=== PATIENT | male | born 1950 | race Caucasian/White ===

== ENCOUNTER 2016-06-26 16:44 | Inpatient (IN) | payer MEDICARE, OTHER ==
[2016-06-26 16:53] VITALS: RESP 18
[2016-06-26] MEDS ORDERED: FAMOTIDINE 20 MG/2 ML VIAL IV STA (17:11)
[2016-06-26] MEDS ORDERED: SODIUM CHLORIDE 0.9% 1,000 ML IV STA (17:11)
[2016-06-26 17:39] LABS: Basophils # (A) 0.1 k/uL (0-0.2); Basophils % (A) 0 %; CHCM 35.1; Eosinophils # (A) 0.5 k/uL (0-0.7); Eosinophils % (A) 3 %; HCT 46.1 % (39.0-53.0); HDW 2.48; HGB 15.8 gm/dL (13.0-17.5); Luc # (Auto) 0.19; Luc % (Auto) 1; Lymphocytes # (A) 1.6 k/uL (1.0-4.8); Lymphocytes % (A) 9 %; MCH 32.4 pg (25.0-35.0); MCHC 34.4 g/dL (31.0-37.0); MCV 94.2 fL (80.0-100.0); Mean Platelet Volume 8.8; Monocytes # (A) 0.5 k/uL (0-1.0); Monocytes % (A) 3 %; Neutrophils # (A) 13.9 k/uL (1.3-7.7); Neutrophils % (A) 83 %; RBC 4.89 m/uL (4.30-5.90); RDW 13.1 % (11.5-15.5); WBC 16.7 k/uL (3.8-10.6); WBC (Perox) 16.58
--- NOTE | 2016-06-26 17:44 | XR ---
EXAMINATION TYPE: XR chest 2V DATE OF EXAM: 06/26/2016 5:33 PM COMPARISON: None HISTORY: 66-year-old male wheezing TECHNIQUE: PA and lateral views FINDINGS: Heart is normal size. Atherosclerotic arch calcifications. Pulmonary vasculature within normal limits . There are strandy areas of atelectasis in the lower lungs. Mild hyperinflation may relate to a dept h of inspiration or underlying emphysema. No consolidation or pleural effusion. IMPRESSION: Hyperinflation may relate to depth of inspiration or underlying emphysema. No acute cardiopulmonary p rocess.
[2016-06-26 17:48] LABS: ALT 32 U/L (21-72); AST 26 U/L (17-59); Alkaline Phosphatase 54 U/L (38-126); Anion Gap 12 mmol/L; Blood Urea Nitrogen 29 mg/dL (9-20); Calcium 8.5 mg/dL (8.4-10.2); Carbon Dioxide 20 mmol/L (22-30); Chloride 108 mmol/L (98-107); Glucose 136 mg/dL (74-99); Non-African American GFR(MDRD) 58 (>60 ml/min/1.73 sqM); Potassium 4.1 mmol/L (3.5-5.1); Sodium 140 mmol/L (137-145); Total Bilirubin 0.7 mg/dL (0.2-1.3)
--- NOTE | 2016-06-26 18:34 | ED ---
General Adult HPI - General Chief complaint: Allergic Reaction Stated complaint: allergic reaction Time Seen by Provider: 06/26/16 16:55 Source: patient, family, EMS, RN notes reviewed Mode of arrival: EMS Limitations: no limitations - History of Present Illness Initial comments: Chief complaint and history of present illness a 66-year-old male who at approximately 3 PM started having ALLERGIC reaction to an unknown substance. He's been ALLERGIC to in the past as a tree nut which she did not think he got anywhere near today. He is on lisinopril. Please never had an adverse reaction to it. He started having swelling to his lips his eyes and his hands, typical angioneurotic edema. He called his ex- who responded and found him with hives. She gave him 50 mg of Benadryl. Shortly thereafter she settled appears only had 2 seizures as difficult for her to get a pulse. He did come around. EMS then arrived and started an IV given Solu-Medrol. In emergency room is doing better. Alert and oriented. He's never had a seizure before. He was given Pepcid here in the ER. - Related Data Home Medications Medication Instructions Recorded Confirmed Atorvastatin [Lipitor] 10 mg PO DAILY 06/26/16 06/26/16 Furosemide [Lasix] 20 mg PO DAILY 06/26/16 06/26/16 Gabapentin 600 mg PO BID 06/26/16 06/26/16 Levothyroxine Sodium [Synthroid] 100 mcg PO DAILY 06/26/16 06/26/16 Lisinopril-Hctz 20-12.5 mg 1 tab PO BID 06/26/16 06/26/16 [Zestoretic 20-12.5] amLODIPine [Norvasc] 10 mg PO DAILY 06/26/16 06/26/16 metFORMIN HCL [Glucophage] 500 mg PO DAILY 06/26/16 06/26/16 Allergies Allergy/AdvReac Type Severity Reaction Status Date / Time No Known Allergies Allergy Unverified 06/26/16 16:53 Review of Systems ROS Statement: Those systems with pertinent positive or pertinent negative responses have been documented in the HPI. Review of systems currently still mildly swollen eyelids and lower lips and tongue never swelled. Hands feel full. His substance gone but his skin still red. No wheezing. Alert and oriented. No chest pain shortness breath GI/ problems this time. All systems are reviewed. Past medical problems significant for hyperlipidemia, hypertension and hypothyroidism. He has not had any surgeries. He has no known ALLERGIES other than tree nuts which she states reactive to once in the past but had nothing like that recently. He does take medication for his blood pressure, SHERRELL inhibitor. This may be delayed angioneurotic edema associated with that medication. The patient's quit smoking. And has quit drinking alcohol. ROS Other: All systems not noted in ROS Statement are negative. Past Medical History Past Medical History: Hyperlipidemia, Hypertension, Thyroid Disorder Additional Past Medical History / Comment(s): hypothyroid, neuropathy, borderline diabetic History of Any Multi-Drug Resistant Organisms: None Reported Past Surgical History: No Surgical Hx Reported Past Psychological History: No Psychological Hx Reported Smoking Status: Former smoker Past Alcohol Use History: Rare Past Drug Use History: None Reported General Exam - General Exam Comments Initial Comments: General: The patient is awake and alert, in no distress, and does not appear acutely ill. Patient had anaphylactic reaction became unconscious had 2 short seizures per his ex- who witnessed this. She gave him Benadryl just prior to his passing out. The redness in his subsided. He still has mild swelling to his upper lids and lower lip. Also some a sensation of fullness in his hands. Eye: Pupils are equal, round and reactive to light, extra-ocular movements are intact ; there is normal conjunctiva bilaterally. No signs of icterus. Eyelids mildly edematous but resolving. Ears, nose, mouth and throat: There are moist mucous membranes and no oral lesions. Tongue normal. Lower lip mildly swollen. Neck: The neck is supple, there is no tenderness , no stridor. No lymphadenopathy. Cardiovascular: There is a regular rate and rhythm. No murmur, rub or gallop is appreciated. Respiratory: Lungs are clear to auscultation, respirations are non-labored, breath sounds are equal. No wheezes, stridor, rales, or rhonchi. Gastrointestinal: Soft, non-distended, non-tender abdomen without masses or organomegaly noted. There is no rebound or guarding present. No CVA tenderness. Bowel sounds are unremarkable. Back: There is no tenderness to palpation in the midline. There is no obvious deformity. No rashes noted. Patient states his hands Musculoskeletal: Normal ROM, no tenderness, There is no pedal edema. There is no calf tenderness or swelling. Sensation intact. Pulses equal bilaterally 2+. Neurological: CN II-XII intact, There are no obvious motor or sensory deficits. Coordination appears grossly intact. Speech is normal. No focal or lateralizing findings Skin: Skin is warm and dry and no rashes or lesions are noted. Skin redness is resolving Limitations: no limitations Course Vital Signs 06/26/16 06/26/16 16:48 16:53 Temperature 97.1 F L Pulse Rate 76 Respiratory 18 18 Rate Blood Pressure 118/65 O2 Sat by Pulse 95 Oximetry Medical Decision Making - Medical Decision Making Medical decision making patient white count 16.7 hemoglobin 15 hematocrit of 46. Potassium is 4.1 BUN 29 creatinine 1.2 GFR 58. Glucose 136. Chest x-ray was done reviewed radiologist his impression is hyperinflation may relate to depth of inspiration or underlying emphysema. No acute cardiopulmonary process. As read by Dr. Marsh Patient's red skin has subsided. Patient's stable. Patient be admitted for observation for anaphylactic reaction. - Lab Data Result diagrams: 06/26/16 17:25 06/26/16 17:25 Lab Results 06/26/16 06/26/16 Range/Units 17:25 17:25 WBC 16.7 H (3.8-10.6) k/uL RBC 4.89 (4.30-5.90) m/uL Hgb 15.8 (13.0-17.5) gm/dL Hct 46.1 (39.0-53.0) % MCV 94.2 (80.0-100.0) fL MCH 32.4 (25.0-35.0) pg MCHC 34.4 (31.0-37.0) g/dL RDW 13.1 (11.5-15.5) % Plt Count 203 (150-450) k/uL Neutrophils % 83 % Lymphocytes % 9 % Monocytes % 3 % Eosinophils % 3 % Basophils % 0 % Neutrophils # 13.9 H (1.3-7.7) k/uL Lymphocytes # 1.6 (1.0-4.8) k/uL Monocytes # 0.5 (0-1.0) k/uL Eosinophils # 0.5 (0-0.7) k/uL Basophils # 0.1 (0-0.2) k/uL Sodium 140 (137-145) mmol/L Potassium 4.1 (3.5-5.1) mmol/L Chloride 108 H (98-107) mmol/L Carbon Dioxide 20 L (22-30) mmol/L Anion Gap 12 mmol/L BUN 29 H (9-20) mg/dL Creatinine 1.25 (0.66-1.25) mg/dL Est GFR (MDRD) Af Amer >60 (>60 ml/min/1.73 sqM) Est GFR (MDRD) Non-Af 58 (>60 ml/min/1.73 sqM) Glucose 136 H (74-99) mg/dL Calcium 8.5 (8.4-10.2) mg/dL Total Bilirubin 0.7 (0.2-1.3) mg/dL AST 26 (17-59) U/L ALT 32 (21-72) U/L Alkaline Phosphatase 54 (38-126) U/L Total Protein 6.0 L (6.3-8.2) g/dL Albumin 3.6 (3.5-5.0) g/dL Disposition Clinical Impression: Anaphylaxis, Angioedema Disposition: ADMITTED IP TO THIS [facility] Condition: Serious Referrals: David Rogel MD [Primary Care Provider] - 1-2 days
[2016-06-26] MEDS ORDERED: NALOXONE 0.4 MG/ML 1 ML VIAL IV PRN (18:35)
[2016-06-26] MEDS ORDERED: ACETAMINOPHEN TAB 325 MG TAB PO PRN (18:35)
[2016-06-26] MEDS: diphenhydrAMINE 50 MG/ML 1 ML VIAL IVP SCH ×2 (19:53→23:49)
[2016-06-26] MEDS: SODIUM CHLORIDE 0.9% 1,000 ML IV SCH (19:53)
[2016-06-26] MEDS: FAMOTIDINE 20 MG TAB PO SCH (20:00)
[2016-06-26] MEDS: GABAPENTIN 300 MG CAP PO SCH (20:00)
[2016-06-26 20:29] VITALS: BMI 29.8
[2016-06-26 23:57] LABS: Glucose,Whole Blood 171 mg/dL (75-99)
[2016-06-27] MEDS ORDERED: LEVOTHYROXINE 100 MCG TAB PO SCH (06:30)
[2016-06-27] MEDS: diphenhydrAMINE 50 MG/ML 1 ML VIAL IVP SCH ×2 (06:47→12:43)
[2016-06-27 06:53] LABS: Glucose,Whole Blood 150 mg/dL (75-99)
[2016-06-27] MEDS: GABAPENTIN 300 MG CAP PO SCH (08:09)
[2016-06-27] MEDS: SODIUM CHLORIDE 0.9% 1,000 ML IV SCH (08:09)
[2016-06-27] MEDS: FAMOTIDINE 20 MG TAB PO SCH (08:09)
[2016-06-27] MEDS ORDERED: FUROSEMIDE 20 MG TAB PO SCH (09:00)
[2016-06-27] MEDS ORDERED: ATORVASTATIN 10 MG TAB PO SCH (09:00)
[2016-06-27] MEDS ORDERED: amLODIPine 10 MG TAB PO SCH (09:00)
[2016-06-27] MEDS ORDERED: metFORMIN 500 MG TAB PO SCH (09:00)
[2016-06-27 09:08] VITALS: TEMP 97.9
[2016-06-27 12:07] LABS: Glucose,Whole Blood 116 mg/dL (75-99)
[2016-06-27 13:09] VITALS: BP 126/71; PULSE 91
[2016-06-27] MEDS ORDERED: diphenhydrAMINE 25 MG CAP PO SCH (15:00)
[2016-06-27] MEDS ORDERED: ENOXAPARIN 40 MG/0.4 ML SYRINGE SQ SCH (15:00)
[2016-06-27] MEDS ORDERED: predniSONE 20 MG TAB PO ONE (16:00)
--- NOTE | 2016-06-27 21:15 | HP ---
DATE OF ADMISSION: 06/26/2016 PRESENTING COMPLAINT: Hives. HISTORY OF PRESENTING COMPLAINT: This is a very pleasant 66-year-old patient of Dr. Rogel whose chronic stable medical conditions include diabetes, hypertension, peripheral neuropathy, GERD, varicose veins. Yesterday he was visiting his ex- when he noticed itching in the body, then his body broke out into hives. She did give him some Benadryl. His lips started swelling and patient started feeling funny in his throat and had some shaking episode. Patient was then brought into the ER here. He was given IV Solu-Medrol, Benadryl, to all of which he responded. Patient has been taking an SHERRELL inhibitor for quite some time; never had a problem before. He is not taking any new medications. No new diet. REVIEW OF SYSTEMS: CONSTITUTIONAL: Tired. HEENT: As above. RESPIRATORY: Mild wheezing. CARDIOVASCULAR: None. GASTROINTESTINAL: None. GENITOURINARY: None. MUSCULOSKELETAL: None. DERMATOLOGICAL: Varicose veins and hives. PSYCHIATRY: None. NEUROLOGICAL: Did have a shaking episode with ( ) reaction. PAST MEDICAL HISTORY: 1. Diabetes. 2. Hypertension. 3. Peripheral neuropathy. 4. GERD. 5. Varicose veins. PAST SURGICAL HISTORY: None. SOCIAL HISTORY: Lives alone. . Smoked for 30 years; stopped smoking 21 years ago. Takes a beer occasionally. FAMILY HISTORY: Stroke. HOME MEDICATIONS: 1. Glucophage 500 mg p.o. daily. 2. Norvasc 10 mg p.o. daily. 3. Zestoretic 20/12.5 one tablet b.i.d. 4. Synthroid 100 mcg p.o. daily. 5. Neurontin 600 mg p.o. b.i.d. 6. Lasix 20 mg p.o. daily. 7. Lipitor 10 mg p.o. daily. ALLERGIES: NONE. PHYSICAL EXAMINATION: VITAL SIGNS ON PRESENTATION: Temperature 97.1, pulse 76, respiration 18, blood pressure 118/65, pulse ox 95% on 2 L. GENERAL APPEARANCE: Well built; BMI of 31.1. Sitting up. Not in distress. EYES: Pupils equal. Conjunctivae normal. HEENT: External appearance of nose and ears normal. Oral cavity normal. NECK: JVD not raised. Mass not palpable. RESPIRATORY: Effort normal. LUNGS: Slightly decreased breath sounds. CARDIOVASCULAR: First and second sounds normal. No edema. ABDOMEN: Soft, nontender. Liver and spleen not palpable. LYMPHATIC: No lymph node palpable in neck or axillae. PSYCHIATRY: Alert and oriented x3. Mood and affect normal. NEUROLOGICAL: Pupils equal. Cranial nerves grossly intact. Power and sensation grossly intact. DERMATOLOGICAL: Hives actually improved. INVESTIGATIONS: White count 16.7, hemoglobin 15.8. Potassium 4.1. BUN 29, creatinine 1.25. ASSESSMENT: 1. Acute severe allergic reaction making the patient actually pass out. Cause is unclear, but patient is on SHERRELL inhibitor. 2. Diabetes mellitus, type 2, on oral hypoglycemic, probably causing peripheral neuropathy. 3. Essential hypertension. 4. Varicose veins in the right leg. 5. Gastroesophageal reflux disease. 6. Obesity; body mass index of 31.1. PLAN: Patient was treated with Benadryl, Pepcid, IV Solu-Medrol, to which he responded well. Home medications will be resumed. Will hold off patient's Zestoretic now. Care was discussed with the patient.
--- NOTE | 2016-06-28 11:41 | DS ---
DATE OF ADMISSION: 06/26/2016 DATE OF DISCHARGE: 06/27/2016 FINAL DIAGNOSES: 1. Acute severe angioedema/allergic reaction. 2. Diabetes mellitus, type 2, on oral hypoglycemics causing peripheral neuropathy. 3. Essential hypertension. 4. Gastroesophageal reflux disease. 5. Varicose veins in right lower extremity. 6. Obesity; body mass index of 31.1. HOSPITAL COURSE: This patient presented with severe allergic reaction with hives, nearly passing out, difficulty breathing. Responded well to the ( ) of Solu-Medrol, Pepcid, Benadryl. Doing much better at the time of discharge. Patient's SHERRELL inhibitor that he has been taking for a long time; has been discontinued. Since blood pressure is running a bit on the lower side, did not put on any antihypertensives except I added a water pill. On examination, LUNGS: Slightly decreased breath sounds. CARDIOVASCULAR: First and second seconds normal. Hives have improved. DISCHARGE MEDICATIONS: 1. Lipitor 10 mg a day. 2. Synthroid 100 mcg p.o. daily. 3. Glucophage 500 mg a day. 4. Chlorthalidone 25 mg a day. 5. Pepcid 20 mg b.i.d. for 6 tablets. 6. Gabapentin 300 mg b.i.d., dose was decreased. 7. Norvasc 10 mg p.o. q.h.s. 8. Benadryl 25 mg 4 times a day for 24 hours then p.r.n. 9. Prednisone 40 mg a day one, 30 mg day two, 20 mg a day three, 10 mg day four then stop. Follow up with Dr. Rogel on 06/29/16.
== END 2016-06-27 16:45 | disposition home or self-care (01) | DRG 916 ==
LOC: EC 16:44 → 6SEL 18:35
PROVIDERS: ADMIT Hospitalist; ATTEND Hospitalist
DX: T78.3XXA Angioneurotic edema, initial encounter (principal); E11.42 Type 2 diabetes mellitus with diabetic polyneuropathy; I10 Essential (primary) hypertension; K21.9 Gastro-esophageal reflux disease without esophagitis; E03.9 Hypothyroidism, unspecified; E78.5 Hyperlipidemia, unspecified; I83.91 Asymptomatic varicose veins of right lower extremity; E66.9 Obesity, unspecified; Z68.31 Body mass index [BMI] 31.0-31.9, adult; Z87.891 Personal history of nicotine dependence; Z79.84 Long term (current) use of oral hypoglycemic drugs; Z79.899 Other long term (current) drug therapy
CPT/HCPCS: 36415; 71020; 80053; 84484; 85025; 93005

== ENCOUNTER 2022-09-21 12:18 | Inpatient (IN) | payer MEDICARE, OTHER ==
[2022-09-21] MEDS ORDERED: SODIUM CHLORIDE 0.9% 1,000 ML IV STA (12:24)
--- NOTE | 2022-09-21 13:00 | ED ---
Weakness HPI - General Chief complaint: Weakness Stated complaint: Weakness Time Seen by Provider: 09/21/22 12:20 Source: patient, EMS, RN notes reviewed, old records reviewed Mode of arrival: EMS Limitations: no limitations - History of Present Illness Initial comments: This is a 72-year-old male to the emergency department for evaluation. Presents today for profound weakness. Patient has had a few days of not feeling well but is progressively worsened and his ex- and daughter went to bring them to the ex-'s house this is activity level has decreased recently. Patient was unable to get up out of bed for the last few days but progressively worsening. Patient was given go to family members house but was unable to make the trip secondary to weakness and inability to stand on his own 2 feet. Patient presents by family who provides most of the story he himself denies complaints of headache chest pain shortness of breath no abdominal pain. No recent fevers nausea vomiting diarrhea. Patient is normally in pretty good health and sp irits. Most recent hospitalization greater than 5 years ago. MD Complaint: generalized weakness, lack of energy, difficulty walking -: days(s) Location: generalized Severity: severe Severity scale (1-10): 9 Consistency: constant Improves with: none, evening Worsens with: none Context: recent illness, history of similar Associated Symptoms: denies other symptoms - Related Data Home Medications Medication Instructions Recorded Confirmed metFORMIN HCL [Glucophage] 1,000 mg PO BID 06/26/16 09/21/22 Acetaminophen Tab [Tylenol] 1,000 mg PO Q6HR PRN 09/21/22 09/21/22 Ascorbic Acid [Vitamin C] 1,000 mg PO DAILY 09/21/22 09/21/22 Aspirin EC [Ecotrin Low Dose] 81 mg PO DAILY 09/21/22 09/21/22 Calcium Acetate 667 mg PO BID-W/MEALS 09/21/22 09/21/22 Cholecalciferol [Vitamin D3 (125 125 mcg PO DAILY 09/21/22 09/21/22 Mcg = 5000 Iu)] Gabapentin [Neurontin] 100 mg PO BID 09/21/22 09/21/22 Gabapentin [Neurontin] 400 mg PO BID 09/21/22 09/21/22 Levothyroxine Sodium [Synthroid] 125 mcg PO HS 09/21/22 09/21/22 Multivitamins, Thera [Multivitamin 1 tab PO DAILY 09/21/22 09/21/22 (formulary)] allopurinoL [Zyloprim] 100 mg PO DAILY 09/21/22 09/21/22 amLODIPine [Norvasc] 10 mg PO HS 09/21/22 09/21/22 atenoloL [Tenormin] 25 mg PO DAILY 09/21/22 09/21/22 Previous Rx's Medication Instructions Recorded Chlorthalidone 25 mg PO DAILY #30 tab 06/27/16 Atorvastatin [Lipitor] 20 mg PO HS tab 09/27/22 Clopidogrel [Plavix] 75 mg PO DAILY tab 09/27/22 Docusate [Colace] 100 mg PO BID cap 09/27/22 Tamsulosin [Flomax] 0.4 mg PO PC-[id number] cap 09/27/22 Allergies Allergy/AdvReac Type Severity Reaction Status Date / Time No Known Allergies Allergy Verified 09/21/22 13:02 Review of Systems ROS Statement: Those systems with pertinent positive or pertinent negative responses have been documented in the HPI. ROS Other: All systems not noted in ROS Statement are negative. Past Medical History Past Medical History: Diabetes Mellitus, Hyperlipidemia, Hypertension, Thyroid Disorder Additional Past Medical History / Comment(s): hypothyroid, neuropathy, borderline diabetic- takes metformin, patient had bleeding ulcer in 1972, had open sore from poor circulation on right ankle- then had an infection (patient thinks staph). Patient says he recently had blood tests with his primary doctor that showed poor kidney function. Has consult to see for his kidneys coming up. History of Any Multi-Drug Resistant Organisms: None Reported Past Surgical History: No Surgical Hx Reported Past Anesthesia/Blood Transfusion Reactions: No Reported Reaction Past Psychological History: No Psychological Hx Reported Past Alcohol Use History: Occasional Past Drug Use History: None Reported - Past Family History Mother Additional Family Medical History / Comment(s): Mother at 94 from fall with complications of subdural hematoma and strokes. Father Family Medical History: CVA/TIA Additional Family Medical History / Comment(s): Father at age 84. Sister(s) Family Medical History: Cancer Additional Family Medical History / Comment(s): sister this past may at age 62 from bladder CA. General Exam Limitations: no limitations General appearance: alert, in no apparent distress Head exam: Present: atraumatic, normocephalic, normal inspection Eye exam: Present: normal appearance, PERRL, EOMI. Absent: scleral icterus, conjunctival injection, periorbital swelling ENT exam: Present: normal exam, mucous membranes moist Neck exam: Present: normal inspection. Absent: tenderness, meningismus, lymphadenopathy Respiratory exam: Present: normal lung sounds bilaterally. Absent: respiratory distress, wheezes, rales, rhonchi, stridor Cardiovascular Exam: Present: regular rate, normal rhythm, normal heart sounds. Absent: systolic murmur, diastolic murmur, rubs, gallop, clicks GI/Abdominal exam: Present: soft, normal bowel sounds. Absent: distended, tenderness, guarding, rebound, rigid Extremities exam: Present: normal inspection, full ROM, normal capillary refill. Absent: tenderness, pedal edema, joint swelling, calf tenderness Back exam: Present: normal inspection Neurological exam: Present: alert, oriented X3, CN II-XII intact Psychiatric exam: Present: normal affect, normal mood Skin exam: Present: warm, dry, intact, normal color. Absent: rash Course Vital Signs 09/21/22 09/21/22 09/21/22 12:35 14:00 14:30 Temperature 97.4 F L Pulse Rate 56 L 53 L 57 L Respiratory 18 14 14 Rate Blood Pressure 127/64 132/66 112/58 O2 Sat by Pulse 96 91 L 91 L Oximetry 09/21/22 09/21/22 09/21/22 15:00 15:30 16:00 Temperature Pulse Rate 55 L 55 L 57 L Respiratory 16 18 18 Rate Blood Pressure 109/55 111/58 113/62 O2 Sat by Pulse 91 L 91 L 92 L Oximetry 09/21/22 09/21/22 09/21/22 16:30 17:00 17:30 Temperature Pulse Rate 58 L 61 57 L Respiratory 15 17 18 Rate Blood Pressure 124/66 121/91 130/68 O2 Sat by Pulse 94 L 91 L 94 L Oximetry 09/21/22 09/21/22 09/21/22 18:00 18:30 19:00 Temperature Pulse Rate 60 64 67 Respiratory 18 20 20 Rate Blood Pressure 120/64 124/69 107/58 O2 Sat by Pulse 91 L 93 L 94 L Oximetry 09/21/22 20:00 Temperature Pulse Rate 67 Respiratory 18 Rate Blood Pressure 135/68 O2 Sat by Pulse 95 Oximetry - Reevaluation(s) Reevaluation #1: 09/21/22 13:05 Medical records reviewed Reevaluation #2: 09/21/22 13:05 Symptoms unchanged here in the ER Reevaluation #3: 09/21/22 13:05 Patient informed results questions answered Reevaluation #4: 09/21/22 13:00 Was pt. sent in by a medical professional or institution ([employer] Carballo, [employer], urgent care, hospital, or detention...) When possible be specific @ -no Did you speak to anyone other than the patient for history (EMS, parent, family, police, friend...)? What history was obtained from this source @ -no Did you review nursing and triage notes (agree or disagree)? Why? @ -agree Are old charts reviewed (outside hosp., previous admission, EMS record, old EKG, old radiological studies, urgent care reports/EKG's, detention records)? Report findings @ -yes Differential Diagnosis (chest pain, altered mental status, abdominal pain women, abdominal pain men, vaginal bleeding, weakness, fever, dyspnea, syncope, headache, dizziness, GI bleed, back pain, seizure, CVA, palpatations, mental health, musculoskeletal)? @ -prior EKG interpreted by me (3pts min.). @ -yes X-rays interpreted by me (1pt min.). @ -yes CT interpreted by me (1pt min.). @ -no U/S interpreted by me (1pt. min.). @ -no What testing was considered but not performed or refused? (CT, X-rays, U/S, labs)? Why? @ -none What meds were considered but not given or refused? Why? @ -none Did you discuss the management of the patient with other professionals (professionals i.e. [employer] Carballo, [employer], lab, RT, psych nurse, long term care social worker, backshoe person, teacher, credit or loans officer, director case management)? Give summary @ -no Was smoking cessation discussed for >3mins.? @ -no Was critical care preformed (if so, how long)? @ -no Were there social determinants of health that impacted care today? How? (Homelessness, low income, unemployed, alcoholism, drug addiction, transportation, low edu. Level, literacy, decrease access to med. care, group home, rehab)? @ -none Was there de-escalation of care discussed even if they declined (Discuss DNR or withdrawal of care, Hospice)? DNR status @ -no What co-morbidities impacted this encounter? (DM, HTN, Smoking, COPD, CAD, Cancer, CVA, ARF, Chemo, Hep., AIDS, mental health diagnosis, sleep apnea, morbid obesity)? @ -none Was patient admitted / discharged? Hospital course, mention meds given and route, prescriptions, significant lab abnormalities, going to OR and other pertinent info. @ - 72 male to the emergency department for evaluation of severe weakness significant urinary retention Berg catheter is placed likely urinary tract infection will give dose of antibiotics, await cultures. Still feeling weak here in the ER with no change in symptoms. Patient will be admitted severe weakness, IV antibiotics and evaluation of urinary retention Admitted Undiagnosed new problem with uncertain prognosis? @ -no Drug Therapy requiring intensive monitoring for toxicity (Heparin, Nitro, Insulin, Cardizem)? @ -no Were any procedures done? @ -no Diagnosis/symptom? @ -Weakness, debility Acute, or Chronic, or Acute on Chronic? @ -Acute Uncomplicated (without systemic symptoms) or Complicated (systemic symptoms)? @ -Complicated Side effects of treatment? @ -no Exacerbation, Progression, or Severe Exacerbation? @ -exacerbation Poses a threat to life or bodily function? How? (Chest pain, USA, SC, pneumonia, PE, COPD, DKA, ARF, appy, cholecystitis, CVA, Diverticulitis, Homicidal, Suicidal, threat to staff... and all critical care pts) @ -yes with severe debility and extreme of age Reevaluation #5: 09/21/22 13:00 Differential Weakness: Hypoglycemia, shock, sepsis, hyponatremia, anemia, infection, SC, ETOH, adverse medicine reaction, overdose, stroke, this is not meant to be an all-inclusive list. - Consultations Consultation #1: spoke with karen who agrees to admit this patient EKG Findings - EKG Comments: EKG Findings:: EKG is sinus bradycardia 57 IL 171 QRS 153 QTC 490 - EKG Results: EKG: interpreted by MUKESHD Medical Decision Making - Medical Decision Making 72 male to the emergency department for evaluation of severe weakness significant urinary retention Berg catheter is placed likely urinary tract infection will give dose of antibiotics, await cultures. Patient still with persistent weakness here in the ER, he admits to Still feeling weak here in the ER with no change in symptoms. Patient will be admitted severe weakness, IV antibiotics and evaluation of urinary retention - Lab Data Result diagrams: 09/22/22 07:05 09/24/22 10:43 Lab Results 09/21/22 09/21/22 09/21/22 Range/Units 12:46 12:46 12:46 WBC 13.5 H (3.8-10.6) k/uL RBC 4.76 (4.30-5.90) m/uL Hgb 15.7 (13.0-17.5) gm/dL Hct 44.3 (39.0-53.0) % MCV 93.2 (80.0-100.0) fL MCH 33.0 (25.0-35.0) pg MCHC 35.4 (31.0-37.0) g/dL RDW 13.3 (11.5-15.5) % Plt Count 181 (150-450) k/uL MPV 9.8 Immature Gran % (Auto) % Absolute Nucleated RBC % Neutrophils % 75 % Lymphocytes % 11 % Monocytes % 8 % Eosinophils % 4 % Basophils % 0 % Immature Gran # X 10*3/uL Neutrophils # 10.2 H (1.3-7.7) k/uL Lymphocytes # 1.5 (1.0-4.8) k/uL Monocytes # 1.1 H (0-1.0) k/uL Eosinophils # 0.5 (0-0.7) k/uL Basophils # 0.0 (0-0.2) k/uL NRBC/100 WBC Diff (0.00-0.01) X 10*3/uL PT 11.0 (9.0-12.0) sec INR 1.1 (<1.2) APTT 21.8 L (22.0-30.0) sec Sodium 136 L (137-145) mmol/L Potassium 3.3 L (3.5-5.1) mmol/L Chloride 101 (98-107) mmol/L Carbon Dioxide 24 (22-30) mmol/L Anion Gap 11 mmol/L BUN 19 (9-20) mg/dL Creatinine 1.00 (0.66-1.25) mg/dL Est GFR (CKD-EPI) (>=60) Est GFR (CKD-EPI)AfAm 86 (>60 ml/min/1.73 sqM) Est GFR (CKD-EPI)NonAf 74 (>60 ml/min/1.73 sqM) BUN/Creatinine Ratio (12.00-20.00) Ratio Glucose 141 H (74-99) mg/dL POC Glucose (mg/dL) (70-110) mg/dL POC Glu Car Hopper ID Plasma Lactic Acid Niels (0.7-2.0) mmol/L Calcium 9.4 (8.4-10.2) mg/dL Phosphorus 4.0 (2.5-4.5) mg/dL Magnesium 1.5 L (1.6-2.3) mg/dL Total Bilirubin 1.1 (0.2-1.3) mg/dL AST 115 H (17-59) U/L ALT 55 H (4-49) U/L Alkaline Phosphatase 63 (38-126) U/L Creatine Kinase (55-170) U/L Troponin I (0.000-0.034) ng/mL Total Protein 6.0 L (6.3-8.2) g/dL Albumin 3.9 (3.5-5.0) g/dL Globulin (1.6-3.3) d/dL Albumin/Globulin Ratio (1.60-3.17) Ratio TSH 3.610 (0.465-4.680) mIU/L Urine Color Urine Appearance (Clear) Urine pH (5.0-8.0) Ur Specific Tyler (1.001-1.035) Urine Protein (Negative) Urine Glucose (UA) (Negative) Urine Ketones (Negative) Urine Blood (Negative) Urine Nitrite (Negative) Urine Bilirubin (Negative) Urine Urobilinogen (<2.0) mg/dL Ur Leukocyte Esterase (Negative) 09/21/22 09/21/22 09/21/22 Range/Units 12:46 12:46 12:46 WBC (3.8-10.6) k/uL RBC (4.30-5.90) m/uL Hgb (13.0-17.5) gm/dL Hct (39.0-53.0) % MCV (80.0-100.0) fL MCH (25.0-35.0) pg MCHC (31.0-37.0) g/dL RDW (11.5-15.5) % Plt Count (150-450) k/uL MPV Immature Gran % (Auto) % Absolute Nucleated RBC % Neutrophils % % Lymphocytes % % Monocytes % % Eosinophils % % Basophils % % Immature Gran # X 10*3/uL Neutrophils # (1.3-7.7) k/uL Lymphocytes # (1.0-4.8) k/uL Monocytes # (0-1.0) k/uL Eosinophils # (0-0.7) k/uL Basophils # (0-0.2) k/uL NRBC/100 WBC Diff (0.00-0.01) X 10*3/uL PT (9.0-12.0) sec INR (<1.2) APTT (22.0-30.0) sec Sodium (137-145) mmol/L Potassium (3.5-5.1) mmol/L Chloride (98-107) mmol/L Carbon Dioxide (22-30) mmol/L Anion Gap mmol/L BUN (9-20) mg/dL Creatinine (0.66-1.25) mg/dL Est GFR (CKD-EPI) (>=60) Est GFR (CKD-EPI)AfAm (>60 ml/min/1.73 sqM) Est GFR (CKD-EPI)NonAf (>60 ml/min/1.73 sqM) BUN/Creatinine Ratio (12.00-20.00) Ratio Glucose (74-99) mg/dL POC Glucose (mg/dL) (70-110) mg/dL POC Glu Car Hopper ID Plasma Lactic Acid Niels 1.6 (0.7-2.0) mmol/L Calcium (8.4-10.2) mg/dL Phosphorus (2.5-4.5) mg/dL Magnesium (1.6-2.3) mg/dL Total Bilirubin (0.2-1.3) mg/dL AST (17-59) U/L ALT (4-49) U/L Alkaline Phosphatase (38-126) U/L Creatine Kinase (55-170) U/L Troponin I <0.012 (0.000-0.034) ng/mL Total Protein (6.3-8.2) g/dL Albumin (3.5-5.0) g/dL Globulin (1.6-3.3) d/dL Albumin/Globulin Ratio (1.60-3.17) Ratio TSH (0.465-4.680) mIU/L Urine Color Yellow Urine Appearance Clear (Clear) Urine pH 6.0 (5.0-8.0) Ur Specific Tyler 1.019 (1.001-1.035) Urine Protein Negative (Negative) Urine Glucose (UA) Negative (Negative) Urine Ketones 2+ H (Negative) Urine Blood Negative (Negative) Urine Nitrite Negative (Negative) Urine Bilirubin Negative (Negative) Urine Urobilinogen <2.0 (<2.0) mg/dL Ur Leukocyte Esterase Negative (Negative) 09/21/22 09/22/22 09/22/22 Range/Units 13:17 07:05 07:05 WBC 11.45 H (3.8-10.6) k/uL RBC 4.67 (4.30-5.90) m/uL Hgb 14.8 (13.0-17.5) gm/dL Hct 43.1 (39.0-53.0) % MCV 92.3 (80.0-100.0) fL MCH 31.7 (25.0-35.0) pg MCHC 34.3 (31.0-37.0) g/dL RDW 13.0 (11.5-15.5) % Plt Count 165 (150-450) k/uL MPV 12.0 Immature Gran % (Auto) 0.30 % Absolute Nucleated RBC 0 % Neutrophils % 64.8 % Lymphocytes % 14.6 % Monocytes % 12.1 % Eosinophils % 7.7 % Basophils % 0.5 % Immature Gran # 0.04 X 10*3/uL Neutrophils # 7.41 (1.3-7.7) k/uL Lymphocytes # 1.67 (1.0-4.8) k/uL Monocytes # 1.39 H (0-1.0) k/uL Eosinophils # 0.88 H (0-0.7) k/uL Basophils # 0.06 (0-0.2) k/uL NRBC/100 WBC Diff 0 (0.00-0.01) X 10*3/uL PT (9.0-12.0) sec INR (<1.2) APTT (22.0-30.0) sec Sodium 141 (137-145) mmol/L Potassium 3.4 L (3.5-5.1) mmol/L Chloride 102 (98-107) mmol/L Carbon Dioxide 24.8 (22-30) mmol/L Anion Gap 14.20 H mmol/L BUN 13.9 (9-20) mg/dL Creatinine 0.9 (0.66-1.25) mg/dL Est GFR (CKD-EPI) 90 (>=60) Est GFR (CKD-EPI)AfAm (>60 ml/min/1.73 sqM) Est GFR (CKD-EPI)NonAf (>60 ml/min/1.73 sqM) BUN/Creatinine Ratio 15.44 (12.00-20.00) Ratio Glucose 146 H (74-99) mg/dL POC Glucose (mg/dL) (70-110) mg/dL POC Glu Car Hopper ID Plasma Lactic Acid Niels (0.7-2.0) mmol/L Calcium 8.3 L (8.4-10.2) mg/dL Phosphorus 3.3 (2.5-4.5) mg/dL Magnesium 1.7 (1.6-2.3) mg/dL Total Bilirubin 0.7 (0.2-1.3) mg/dL AST 223 H (17-59) U/L ALT 83 H (4-49) U/L Alkaline Phosphatase 63 (38-126) U/L Creatine Kinase 2592 H* 6726 H* (55-170) U/L Troponin I (0.000-0.034) ng/mL Total Protein 5.3 L (6.3-8.2) g/dL Albumin 3.7 L (3.5-5.0) g/dL Globulin 1.6 (1.6-3.3) d/dL Albumin/Globulin Ratio 2.31 (1.60-3.17) Ratio TSH (0.465-4.680) mIU/L Urine Color Urine Appearance (Clear) Urine pH (5.0-8.0) Ur Specific Tyler (1.001-1.035) Urine Protein (Negative) Urine Glucose (UA) (Negative) Urine Ketones (Negative) Urine Blood (Negative) Urine Nitrite (Negative) Urine Bilirubin (Negative) Urine Urobilinogen (<2.0) mg/dL Ur Leukocyte Esterase (Negative) 09/22/22 09/22/22 Range/Units 11:50 12:33 WBC (3.8-10.6) k/uL RBC (4.30-5.90) m/uL Hgb (13.0-17.5) gm/dL Hct (39.0-53.0) % MCV (80.0-100.0) fL MCH (25.0-35.0) pg MCHC (31.0-37.0) g/dL RDW (11.5-15.5) % Plt Count (150-450) k/uL MPV Immature Gran % (Auto) % Absolute Nucleated RBC % Neutrophils % % Lymphocytes % % Monocytes % % Eosinophils % % Basophils % % Immature Gran # X 10*3/uL Neutrophils # (1.3-7.7) k/uL Lymphocytes # (1.0-4.8) k/uL Monocytes # (0-1.0) k/uL Eosinophils # (0-0.7) k/uL Basophils # (0-0.2) k/uL NRBC/100 WBC Diff (0.00-0.01) X 10*3/uL PT (9.0-12.0) sec INR (<1.2) APTT (22.0-30.0) sec Sodium (137-145) mmol/L Potassium (3.5-5.1) mmol/L Chloride (98-107) mmol/L Carbon Dioxide (22-30) mmol/L Anion Gap mmol/L BUN (9-20) mg/dL Creatinine (0.66-1.25) mg/dL Est GFR (CKD-EPI) (>=60) Est GFR (CKD-EPI)AfAm (>60 ml/min/1.73 sqM) Est GFR (CKD-EPI)NonAf (>60 ml/min/1.73 sqM) BUN/Creatinine Ratio (12.00-20.00) Ratio Glucose (74-99) mg/dL POC Glucose (mg/dL) 171 H 159 H (70-110) mg/dL POC Glu Car Hopper Chanel Santos Natasha Plasma Lactic Acid Niels (0.7-2.0) mmol/L Calcium (8.4-10.2) mg/dL Phosphorus (2.5-4.5) mg/dL Magnesium (1.6-2.3) mg/dL Total Bilirubin (0.2-1.3) mg/dL AST (17-59) U/L ALT (4-49) U/L Alkaline Phosphatase (38-126) U/L Creatine Kinase (55-170) U/L Troponin I (0.000-0.034) ng/mL Total Protein (6.3-8.2) g/dL Albumin (3.5-5.0) g/dL Globulin (1.6-3.3) d/dL Albumin/Globulin Ratio (1.60-3.17) Ratio TSH (0.465-4.680) mIU/L Urine Color Urine Appearance (Clear) Urine pH (5.0-8.0) Ur Specific Tyler (1.001-1.035) Urine Protein (Negative) Urine Glucose (UA) (Negative) Urine Ketones (Negative) Urine Blood (Negative) Urine Nitrite (Negative) Urine Bilirubin (Negative) Urine Urobilinogen (<2.0) mg/dL Ur Leukocyte Esterase (Negative) - EKG Data -: EKG Interpreted by Ri - Radiology Data Radiology results: report reviewed (X-ray chest and pelvis is negative for significant acute disease), image reviewed Disposition Clinical Impression: Weakness, Dehydration, Urinary retention, Altered mental state, Rhabdomyolysis, Hypomagnesemia, Hypokalemia Disposition: ADMITTED IP TO THIS [facility] Condition: Stable Is patient prescribed a controlled substance at d/c from ED?: No Time of Disposition: 17:00
[2022-09-21 13:08] LABS: Basophils % (A) 0 %; Eosinophils # (A) 0.5 k/uL (0-0.7); Eosinophils % (A) 4 %; HCT 44.3 % (39.0-53.0); HGB 15.7 gm/dL (13.0-17.5); Lymphocytes # (A) 1.5 k/uL (1.0-4.8); Lymphocytes % (A) 11 %; MCHC 35.4 g/dL (31.0-37.0); MCV 93.2 fL (80.0-100.0); Mean Platelet Volume 9.8; Monocytes # (A) 1.1 k/uL (0-1.0); Monocytes % (A) 8 %; Neutrophils # (A) 10.2 k/uL (1.3-7.7); Neutrophils % (A) 75 %; Platelet Count 181 k/uL (150-450); RBC 4.76 m/uL (4.30-5.90); RDW 13.3 % (11.5-15.5); WBC 13.5 k/uL (3.8-10.6)
[2022-09-21 13:17] LABS: INR 1.1 (<1.2)
[2022-09-21 13:24] LABS: ALT 55 U/L (4-49); AST 115 U/L (17-59); African American GFR (CKD) 86 (>60 ml/min/1.73 sqM); Albumin 3.9 g/dL (3.5-5.0); Alkaline Phosphatase 63 U/L (38-126); Anion Gap 11 mmol/L; Blood Urea Nitrogen 19 mg/dL (9-20); Calcium 9.4 mg/dL (8.4-10.2); Carbon Dioxide 24 mmol/L (22-30); Chloride 101 mmol/L (98-107); Glucose 141 mg/dL (74-99); Magnesium 1.5 mg/dL (1.6-2.3); Non-African American GFR(CKD) 74 (>60 ml/min/1.73 sqM); Potassium 3.3 mmol/L (3.5-5.1); Sodium 136 mmol/L (137-145); Total Bilirubin 1.1 mg/dL (0.2-1.3)
[2022-09-21 13:33] LABS: Partial Thromboplastin Time 21.8 sec (22.0-30.0)
--- NOTE | 2022-09-21 13:33 | XR ---
EXAMINATION TYPE: XR chest 1V DATE OF EXAM: 09/21/2022 COMPARISON: 06/26/2016 HISTORY: Weakness TECHNIQUE: Single frontal view of the chest is obtained. FINDINGS: There is no focal air space opacity, pleural effusion, or pneumothorax seen. The cardiac silhouette size is within normal limits. The osseous structures are intact. Heart is enlarged and t here is atherosclerotic change aorta. Elevated right hemidiaphragm. Hyperinflation suggesting COPD. A rthropathy of the AC joints. IMPRESSION: 1. Cardiomegaly and COPD.
--- NOTE | 2022-09-21 13:35 | XR ---
EXAMINATION TYPE: XR pelvis AP view DATE OF EXAM: 09/21/2022 COMPARISON: NONE HISTORY: Weakness The osseous structures are intact and hypertrophic changes in the acetabulum bilaterally. Vascular ca lcifications are seen in soft tissues. Additional calcific or ossific density along the medial margin of the right femoral neck appears chronic. No prior exams available for comparison. Degenerative familia nges lower lumbosacral spine.. No acute fracture is seen. Visualized bowel gas pattern is nonspecif ic. Calcifications in the pelvis are compatible with phleboliths. IMPRESSION: 1. No acute fracture.
[2022-09-21] MEDS ORDERED: MAGNESIUM OXIDE 400 MG TAB PO STA ×2 (15:26)
[2022-09-21] MEDS ORDERED: POTASSIUM BICARBONATE/CIT AC 20 MEQ TABLET.EFF PO ONE (16:00)
[2022-09-21] MEDS ORDERED: NALOXONE 0.4 MG/ML 1 ML VIAL IV PRN (18:28)
[2022-09-21] MEDS ORDERED: ONDANSETRON 4 MG/2 ML VIAL IVP PRN (18:28)
[2022-09-21] MEDS ORDERED: MORPHINE SULFATE 4 MG/ML SYRINGE IV PRN (18:28)
[2022-09-21] MEDS: SODIUM CHLORIDE 0.9% 1,000 ML IV SCH (18:30)
[2022-09-21 18:58] LABS: Appearance,Urine Clear (Clear); Bilirubin,Urine Negative (Negative); Blood,Urine Negative (Negative); Color,Urine Yellow; Glucose,Urine (UA) Negative (Negative); Leukocyte Esterase,Urine Negative (Negative); Nitrite,Urine Negative (Negative); Protein,Urine Negative (Negative); Specific Gravity,Urine 1.019 (1.001-1.035); Urobilinogen,Urine <2.0 mg/dL (<2.0)
[2022-09-21 19:05] LABS: Ketones,Urine 2+ (Negative)
--- NOTE | 2022-09-22 00:34 | P.HPIM ---
History of Present Illness H&P Date: 09/21/22 The patient is a 72-year-old male with a PMH of diabetes, hypertension, hyperlipidemia, hypothyroidism who was brought into the emergency room via EMS for weakness and fall. The patient reports that over the past few days he has been feeling increasingly weak and has been unable to get up out of the bed. He attempted to get out of bed earlier today with the help of his family and his legs became shaky and he slowly sat down on the ground. Patient denies any injuries or head trauma. He also reports decreased oral intake over the past few days. He denies any additional complaints. He denies experiencing unilateral weakness, visual disturbances, chest pain, shortness of breath, nausea, vomiting. Denied alcohol use. Chest x-ray in the emergency room revealed cardiomegaly with COPD. Pelvis x-ray was unremarkable. EKG revealed sinus bradycardia at 57 bpm with a right bundle- branch block as reviewed by me, with the bundle-branch block also present on prior EKG from 2017. Laboratory evaluation revealed leukocytosis of 13.5, potassium 3.3, creatinine kinase 2592, and an unremarkable UA. ED documentation reviewed and case discussed with ED provider. Review of systems: Pertinent positives and negatives as discussed in HPI, a complete review of systems was performed and all other systems are negative. Physical examination: Vital signs reviewed General: non toxic, no distress, appears at stated age, obese Derm: no unusual rashes/lesions, warm Head: atraumatic, normocephalic, symmetric Eyes: EOMI, no lid lag, anicteric sclera, pupils equal round reactive to light ENT: Nose and ears atraumatic Neck: No cervical lymphadenopathy, trachea midline, supple Mouth: no lip lesion, mucus membranes moist Cardiovascular: S1S2 reg, systolic grade 4 murmur appreciated, positive dorsalis pedis pulse bilateral, no edema Lungs: CTA bilateral, no rhonchi, no rales, no accessory muscle use Abdominal: soft, nontender to palpation, no guarding Ext: muscle strength 3 out of 5 in all 4 extremities grossly, no gross muscle atrophy, no contractures, Neuro: CN II-XI grossly intact, no gross focal neuro deficits Psych: Alert, oriented, appropriate affect Assessment: Debility with rhabdomyolysis Hypokalemia Abnormal LFTs Imaging: Chest x-ray in the emergency room revealed cardiomegaly with COPD. Pelvis x-ray was unremarkable. EKG revealed sinus bradycardia at 57 bpm with a right bundle- branch block as reviewed by me, with the bundle-branch block also present on prior EKG from 2017. Data Review: Laboratory evaluation revealed leukocytosis of 13.5, potassium 3.3, creatinine kinase 2592, and an unremarkable UA. Plan: Continue with IV fluids with normal saline 75 mLs per hour Monitor creatinine kinase levels PT consult Replace potassium and monitor Abnormal LFTs suspected to rhabdomyolysis Obtain Echocardiogram DVT prophylaxis: Lovenox subcu The patient is admitted with an anticipated greater than 2 midnight stay for evaluation of rhabdomyolysis CODE STATUS: Full Code Discussed with: Patient Anticipated discharge place: Home Past Medical History Past Medical History: Diabetes Mellitus, Hyperlipidemia, Hypertension, Thyroid Disorder Additional Past Medical History / Comment(s): hypothyroid, neuropathy, borderline diabetic- takes metformin, patient had bleeding ulcer in 1972, had open sore from poor circulation on right ankle- then had an infection (patient thinks staph). Patient says he recently had blood tests with his primary doctor that showed poor kidney function. Has consult to see for his kidneys coming up. History of Any Multi-Drug Resistant Organisms: None Reported Past Surgical History: No Surgical Hx Reported Past Anesthesia/Blood Transfusion Reactions: No Reported Reaction Past Psychological History: No Psychological Hx Reported Additional Psychological History / Comment(s): Lives home by himself and his kids live with him on the weekends. Smoking Status: Former smoker Past Alcohol Use History: Occasional Additional Past Alcohol Use History / Comment(s): Says some days he has a couple beers but mostly doesn't drink. Past Drug Use History: None Reported - Past Family History Mother Additional Family Medical History / Comment(s): Mother at 94 from fall with complications of subdural hematoma and strokes. Father Family Medical History: CVA/TIA Additional Family Medical History / Comment(s): Father at age 84. Sister(s) Family Medical History: Cancer Additional Family Medical History / Comment(s): sister this past may at age 62 from bladder CA. Medications and Allergies Home Medications Medication Instructions Recorded Confirmed Type Atorvastatin [Lipitor] 10 mg PO HS 06/26/16 09/21/22 History metFORMIN HCL [Glucophage] 1,000 mg PO BID 06/26/16 09/21/22 History Chlorthalidone 25 mg PO DAILY #30 tab 05/22/17 08/16/23 Rx Acetaminophen Tab [Tylenol Tab] 1,000 mg PO Q6HR PRN 09/21/22 09/21/22 History Ascorbic Acid [Vitamin C] 1,000 mg PO DAILY 09/21/22 09/21/22 History Aspirin EC [Ecotrin Low Dose] 81 mg PO DAILY 09/21/22 09/21/22 History Calcium Acetate 667 mg PO BID-W/MEALS 09/21/22 09/21/22 History Cholecalciferol [Vitamin D3 (125 125 mcg PO DAILY 09/21/22 09/21/22 History Mcg = 5000 Iu)] Gabapentin [Neurontin] 100 mg PO BID 09/21/22 09/21/22 History Gabapentin [Neurontin] 400 mg PO BID 09/21/22 09/21/22 History Levothyroxine Sodium [Synthroid] 125 mcg PO HS 09/21/22 09/21/22 History Multivitamins, Thera [Multivitamin 1 tab PO DAILY 09/21/22 09/21/22 History (formulary)] allopurinoL [Zyloprim] 100 mg PO DAILY 09/21/22 09/21/22 History amLODIPine [Norvasc] 10 mg PO HS 09/21/22 09/21/22 History atenoloL [Tenormin] 25 mg PO DAILY 09/21/22 09/21/22 History Allergies Allergy/AdvReac Type Severity Reaction Status Date / Time No Known Allergies Allergy Verified 09/21/22 13:02 Physical Exam Vitals: Vital Signs Temp Pulse Pulse Resp BP BP Pulse Ox 09/21/22 22:08 61 20 09/21/22 21:23 97.5 F L 61 20 116/65 92 L 09/21/22 20:00 67 18 135/68 95 09/21/22 19:00 67 20 107/58 94 L 09/21/22 18:30 64 20 124/69 93 L 09/21/22 18:00 60 18 120/64 91 L 09/21/22 17:30 57 L 18 130/68 94 L 09/21/22 17:00 61 17 121/91 91 L 09/21/22 16:30 58 L 15 124/66 94 L 09/21/22 16:00 57 L 18 113/62 92 L 09/21/22 15:30 55 L 18 111/58 91 L 09/21/22 15:00 55 L 16 109/55 91 L 09/21/22 14:30 57 L 14 112/58 91 L 09/21/22 14:00 53 L 14 132/66 91 L 09/21/22 12:35 97.4 F L 56 L 18 127/64 96 Intake and Output 09/21/22 09/21/22 09/22/22 14:59 22:59 06:59 Output Total 550 Balance -550 Output: Other 550 Other: Weight 88.451 kg 88.451 kg Results CBC & Chem 7: 09/21/22 12:46 09/21/22 12:46 Labs: Abnormal Lab Results - Last 24 Hours (Table) 09/21/22 09/21/22 09/21/22 Range/Units 12:46 12:46 12:46 WBC 13.5 H (3.8-10.6) k/uL Neutrophils # 10.2 H (1.3-7.7) k/uL Monocytes # 1.1 H (0-1.0) k/uL APTT 21.8 L (22.0-30.0) sec Sodium 136 L (137-145) mmol/L Potassium 3.3 L (3.5-5.1) mmol/L Glucose 141 H (74-99) mg/dL Magnesium 1.5 L (1.6-2.3) mg/dL AST 115 H (17-59) U/L ALT 55 H (4-49) U/L Creatine Kinase (55-170) U/L Total Protein 6.0 L (6.3-8.2) g/dL Urine Ketones (Negative) 09/21/22 09/21/22 Range/Units 12:46 13:17 WBC (3.8-10.6) k/uL Neutrophils # (1.3-7.7) k/uL Monocytes # (0-1.0) k/uL APTT (22.0-30.0) sec Sodium (137-145) mmol/L Potassium (3.5-5.1) mmol/L Glucose (74-99) mg/dL Magnesium (1.6-2.3) mg/dL AST (17-59) U/L ALT (4-49) U/L Creatine Kinase 2592 H* (55-170) U/L Total Protein (6.3-8.2) g/dL Urine Ketones 2+ H (Negative) Thrombosis Risk Factor Assmnt - Choose All That Apply Each Factor Represents 1 point: Age 41-60 years Other Risk Factors: No Thrombosis Risk Factor Assessment Total Risk Factor Score: 1 Thrombosis Risk Factor Assessment Level: Low Risk
[2022-09-22] MEDS ORDERED: LACTULOSE 20 GM/30 ML CUP PO ONE (07:45)
[2022-09-22] MEDS: ENOXAPARIN 40 MG/0.4 ML SYRINGE SQ SCH (07:45)
[2022-09-22] MEDS: DOCUSATE 100 MG CAP PO SCH ×2 (07:46→21:53)
--- NOTE | 2022-09-22 07:48 | P.GSCN ---
History of Present Illness Consult date: 09/22/22 History of present illness: 72 yo male presented to the er for severe weakness. Was found to be in urine retention[volume?] and we were consulted. He has a history of dm, htn and hyperlipidemia. The patient is somewhat somnolent. His history can be extracted but how valuable at his is indeterminate. He denies problems urinating prior to coming into the hospital. Review of Systems All systems: negative - Constitutional Denies fever, Denies weight loss - EENT Eyes: denies blurred vision Ears, nose, mouth and throat: Denies dysphagia - Cardiovascular Denies chest pain, Denies shortness of breath - Respiratory Denies cough, Denies 7 - Gastrointestinal Reports as per HPI - Genitourinary Denies dysuria, Denies hematuria - Integumentary Denies rash, Denies unusual bruising - Neurological Denies headaches, Denies syncope - Hematologic/Lymphatic Denies easy bleeding, Denies easy bruising Past Medical History Past Medical History: Diabetes Mellitus, Hyperlipidemia, Hypertension, Thyroid Disorder Additional Past Medical History / Comment(s): hypothyroid, neuropathy, borderline diabetic- takes metformin, patient had bleeding ulcer in 1972, had open sore from poor circulation on right ankle- then had an infection (patient thinks staph). Patient says he recently had blood tests with his primary doctor that showed poor kidney function. Has consult to see for his kidneys alin g sonja. History of Any Multi-Drug Resistant Organisms: None Reported Past Surgical History: No Surgical Hx Reported Past Anesthesia/Blood Transfusion Reactions: No Reported Reaction Past Psychological History: No Psychological Hx Reported Additional Psychological History / Comment(s): Lives home by himself and his kids live with him on the weekends. Smoking Status: Former smoker Past Alcohol Use History: Occasional Additional Past Alcohol Use History / Comment(s): Says some days he has a couple beers but mostly doesn't drink. Past Drug Use History: None Reported - Past Family History Mother Additional Family Medical History / Comment(s): Mother at 94 from fall with complications of subdural hematoma and strokes. Father Family Medical History: CVA/TIA Additional Family Medical History / Comment(s): Father at age 84. Sister(s) Family Medical History: Cancer Additional Family Medical History / Comment(s): sister this past may at age 62 from bladder CA. Medications and Allergies Home Medications Medication Instructions Recorded Confirmed Type Atorvastatin [Lipitor] 10 mg PO HS 06/26/16 09/21/22 History metFORMIN HCL [Glucophage] 1,000 mg PO BID 06/26/16 09/21/22 History Chlorthalidone 25 mg PO DAILY #30 tab 06/27/16 09/21/22 Rx Acetaminophen Tab [Tylenol Tab] 1,000 mg PO Q6HR PRN 09/21/22 09/21/22 History Ascorbic Acid [Vitamin C] 1,000 mg PO DAILY 09/21/22 09/21/22 History Aspirin EC [Ecotrin Low Dose] 81 mg PO DAILY 09/21/22 09/21/22 History Calcium Acetate 667 mg PO BID-W/MEALS 09/21/22 09/21/22 History Cholecalciferol [Vitamin D3 (125 125 mcg PO DAILY 09/21/22 09/21/22 History Mcg = 5000 Iu)] Gabapentin [Neurontin] 100 mg PO BID 09/21/22 09/21/22 History Gabapentin [Neurontin] 400 mg PO BID 09/21/22 09/21/22 History Levothyroxine Sodium [Synthroid] 125 mcg PO HS 09/21/22 09/21/22 History Multivitamins, Thera [Multivitamin 1 tab PO DAILY 09/21/22 09/21/22 History (formulary)] allopurinoL [Zyloprim] 100 mg PO DAILY 09/21/22 09/21/22 History amLODIPine [Norvasc] 10 mg PO HS 09/21/22 09/21/22 History atenoloL [Tenormin] 25 mg PO DAILY 09/21/22 09/21/22 History Allergies Allergy/AdvReac Type Severity Reaction Status Date / Time No Known Allergies Allergy Verified 09/21/22 13:02 Surgical - Exam Vital Signs Temp Pulse Resp BP Pulse Ox 97.4 F L 56 L 18 127/64 96 09/21/22 12:35 09/21/22 12:35 09/21/22 12:35 09/21/22 12:35 09/21/22 12:35 - General well developed, well nourished, no distress - ENT no hearing loss - Neck trachea midline - Respiratory normal respiratory effort - Cardiovascular Rhythm: regular - Abdomen Abdomen: soft, non tender - Genitourinary Rectum full of hard stool, 20-30 g benign prostate normal penis with no external lesions, testicles present - Neurologic Somnolent normal sensation - Musculoskeletal normal posture - Psychiatric oriented to time, oriented to person, oriented to place, memory intact Results - Labs 09/21/22 12:46 09/21/22 12:46 Abnormal Lab Results - Last 24 Hours (Table) 09/21/22 09/21/22 09/21/22 Range/Units 12:46 12:46 12:46 WBC 13.5 H (3.8-10.6) k/uL Neutrophils # 10.2 H (1.3-7.7) k/uL Monocytes # 1.1 H (0-1.0) k/uL APTT 21.8 L (22.0-30.0) sec Sodium 136 L (137-145) mmol/L Potassium 3.3 L (3.5-5.1) mmol/L Glucose 141 H (74-99) mg/dL Magnesium 1.5 L (1.6-2.3) mg/dL AST 115 H (17-59) U/L ALT 55 H (4-49) U/L Creatine Kinase (55-170) U/L Total Protein 6.0 L (6.3-8.2) g/dL Urine Ketones (Negative) 09/21/22 09/21/22 Range/Units 12:46 13:17 WBC (3.8-10.6) k/uL Neutrophils # (1.3-7.7) k/uL Monocytes # (0-1.0) k/uL APTT (22.0-30.0) sec Sodium (137-145) mmol/L Potassium (3.5-5.1) mmol/L Glucose (74-99) mg/dL Magnesium (1.6-2.3) mg/dL AST (17-59) U/L ALT (4-49) U/L Creatine Kinase 2592 H* (55-170) U/L Total Protein (6.3-8.2) g/dL Urine Ketones 2+ H (Negative) Diabetes panel 09/21/22 Range/Units 12:46 Sodium 136 L (137-145) mmol/L Potassium 3.3 L (3.5-5.1) mmol/L Chloride 101 (98-107) mmol/L Carbon Dioxide 24 (22-30) mmol/L BUN 19 (9-20) mg/dL Creatinine 1.00 (0.66-1.25) mg/dL Glucose 141 H (74-99) mg/dL Calcium 9.4 (8.4-10.2) mg/dL AST 115 H (17-59) U/L ALT 55 H (4-49) U/L Alkaline Phosphatase 63 (38-126) U/L Total Protein 6.0 L (6.3-8.2) g/dL Albumin 3.9 (3.5-5.0) g/dL Thyroid panel 09/21/22 Range/Units 12:46 TSH 3.610 (0.465-4.680) mIU/L Calcium panel 09/21/22 Range/Units 12:46 Calcium 9.4 (8.4-10.2) mg/dL Phosphorus 4.0 (2.5-4.5) mg/dL Albumin 3.9 (3.5-5.0) g/dL Pituitary panel 09/21/22 Range/Units 12:46 Sodium 136 L (137-145) mmol/L Potassium 3.3 L (3.5-5.1) mmol/L Chloride 101 (98-107) mmol/L Carbon Dioxide 24 (22-30) mmol/L BUN 19 (9-20) mg/dL Creatinine 1.00 (0.66-1.25) mg/dL Glucose 141 H (74-99) mg/dL Calcium 9.4 (8.4-10.2) mg/dL TSH 3.610 (0.465-4.680) mIU/L Adrenal panel 09/21/22 Range/Units 12:46 Sodium 136 L (137-145) mmol/L Potassium 3.3 L (3.5-5.1) mmol/L Chloride 101 (98-107) mmol/L Carbon Dioxide 24 (22-30) mmol/L BUN 19 (9-20) mg/dL Creatinine 1.00 (0.66-1.25) mg/dL Glucose 141 H (74-99) mg/dL Calcium 9.4 (8.4-10.2) mg/dL Total Bilirubin 1.1 (0.2-1.3) mg/dL AST 115 H (17-59) U/L ALT 55 H (4-49) U/L Alkaline Phosphatase 63 (38-126) U/L Total Protein 6.0 L (6.3-8.2) g/dL Albumin 3.9 (3.5-5.0) g/dL Assessment and Plan Assessment: Impression: Urine retention. Weakness indeterminate etiology. Fecal impaction Recommendations: The patient's bowel should be evacuated. I will begin tamsulosin. When he is more alert ambulatory the catheter can be removed for a voiding trial
[2022-09-22] MEDS: TAMSULOSIN 0.4 MG CAP.ER.24H PO SCH (09:51)
[2022-09-22 11:16] LABS: Basophils # (A) 0.06 X 10*3/uL (0.00-0.10); Basophils % (A) 0.5 %; Eosinophils # (A) 0.88 X 10*3/uL (0.04-0.35); Eosinophils % (A) 7.7 %; HCT 43.1 % (39.6-50.0); HGB 14.8 d/dL (13.0-17.0); Lymphocytes # (A) 1.67 X 10*3/uL (0.90-5.00); Lymphocytes % (A) 14.6 %; MCH 31.7 pg (27.0-32.0); MCHC 34.3 d/dL (32.0-37.0); MCV 92.3 FL (80.0-97.0); Monocytes # (A) 1.39 X 10*3/uL (0.20-1.00); Monocytes % (A) 12.1 %; NRBC Per 100 WBC 0 X 10*3/uL (0.00-0.01); Neutrophils # (A) 7.41 X 10*3/uL (1.80-7.70); Neutrophils % (A) 64.8 %; Platelet Count 165 X 10*3/uL (140-440); RBC 4.67 X 10*6/uL (4.40-5.60); WBC 11.45 X 10*3/uL (4.50-10.00)
[2022-09-22 11:30] LABS: ALT 83 U/L (10-49); AST 223 U/L (14-35); Albumin 3.7 d/dL (3.8-4.9); Albumin/Globulin Ratio 2.31 Ratio (1.60-3.17); Alkaline Phosphatase 63 U/L (41-126); BUN/Creat Ratio 15.44 Ratio (12.00-20.00); Blood Urea Nitrogen 13.9 mg/dL (9.0-27.0); Calcium 8.3 mg/dL (8.7-10.3); Carbon Dioxide 24.8 mmol/L (21.6-31.8); Chloride 102 mmol/L (96-109); Globulin 1.6 d/dL (1.6-3.3); Glucose 146 mg/dL (70-110); Magnesium 1.7 mg/dL (1.5-2.4); Phosphorus 3.3 mg/dL (2.4-5.1); Potassium 3.4 mmol/L (3.5-5.5); Sodium 141 mmol/L (135-145); Total Bilirubin 0.7 mg/dL (0.3-1.2); Total Protein 5.3 d/dL (6.2-8.2)
[2022-09-22 11:45] LABS: Creatine Kinase 6726 U/L (35-257)
[2022-09-22 11:53] LABS: Glucose,Whole Blood 171 mg/dL (70-110)
--- NOTE | 2022-09-22 12:09 | CA ---
Transthoracic Echo Report Name: Cristian Brumfield Age: 72 Gender: M : 1950 Exam Date: 09/22/2022 08:04 Exam Location: [facility] Ht (in): 66 Wt (lb): 195 Ordering Physician: Diana Greene MD Attending/Referring Phys: Manager Cost Shazia Zendejas [facility] Procedure CPT: Indications: systolic murmur Cardiac Hx: Technical Quality: Fair Contrast 1: Total Dose (mL): Contrast 2: Total Dose (mL): MEASUREMENTS (Male / Female) Normal Values 2D ECHO LV Diastolic Diameter PLAX 4.3 cm 4.2 - 5.9 / 3.9 - 5.3 cm LV Systolic Diameter PLAX 2.3 cm IVS Diastolic Thickness 1.1 cm 0.6 - 1.0 / 0.6 - 0.9 cm LVPW Diastolic Thickness 1.1 cm 0.6 - 1.0 / 0.6 - 0.9 cm LV Relative Wall Thickness 0.5 LVOT Diameter 2.0 cm Ascending Aorta Diameter 3.5 cm M-MODE Aortic Root Diameter MM 2.8 cm LA Systolic Diameter MM 3.8 cm LA Ao Ratio MM 1.4 AV Cusp Separation MM 1.3 cm DOPPLER AV Peak Velocity 310.4 cm/s AV Peak Gradient 38.5 mmHg AV Mean Velocity 206.7 cm/s AV Mean Gradient 19.2 mmHg AV Velocity Time Integral 59.6 cm LVOT Peak Velocity 145.6 cm/s LVOT Peak Gradient 8.5 mmHg LVOT Velocity Time Integral 35.5 cm LVOT Stroke Volume 112.4 cm??? LVOT Stroke Volume Index 56.8 ml/m??? LVOT Cardiac Index 3547.0 cm???/min???m??? AV Area Cont Eq vti 1.9 cm??? AV Area Cont Eq pk 1.5 cm??? Mitral E Point Velocity 80.3 cm/s Mitral A Point Velocity 132.2 cm/s Mitral E to A Ratio 0.6 MV Deceleration Time 354.6 ms LV E' Lateral Velocity 7.6 cm/s Mitral E to LV E' Lateral Ratio 10.6 LV E' Septal Velocity 5.6 cm/s Mitral E to LV E' Septal Ratio 14.3 TR Peak Velocity 260.9 cm/s TR Peak Gradient 27.2 mmHg Right Atrial Pressure 8.0 mmHg Pulmonary Artery Systolic Pressu 35.2 mmHg Right Ventricular Systolic Press 35.2 mmHg FINDINGS Left Ventricle Mildly increased left ventricular wall thickness. Left ventricular cavity size normal. Normal left ventricular systolic function with no obvious regional wall motion abnormalities. Left ventricular ejection fraction is estimated at 65- 70%. Right Ventricle Mild right ventricular dilatation. Mild pulmonary hypertension. Right Atrium Normal right atrial size. Left Atrium Moderate left atrial dilatation. Mitral Valve Mitral valve thickened. Mild mitral annular calcification. Trace mitral regurgitation. Aortic Valve Trileaflet aortic valve. Diffuse thickening of the aortic valve cusps with reduced excursion. moderate aortic stenosis with a peak gradient of 38.53 mmHg and a mean gradient of 19.22 mmHg. Tricuspid Valve Structurally normal tricuspid valve. Trace tricuspid regurgitation. Pulmonic Valve Structurally normal pulmonic valve. Mild pulmonic regurgitation. Pericardium No pericardial effusion. Echo free space anterior to the right ventricle likely represents a fat pad. Aorta Normal size aortic root and proximal ascending aorta. CONCLUSIONS Normal LV function Moderate aortic stenosis Previewed by: Dr. Zen Kelly MD (Electronically Signed) Final Date: 22 September 2022 12:08
[2022-09-22 12:35] LABS: Glucose,Whole Blood 159 mg/dL (70-110)
--- NOTE | 2022-09-22 13:08 | CT ---
EXAMINATION TYPE: CODE STROKE: CT brain wo contr CT DLP: 1136.6 mGycm, Automated exposure control for dose reduction was used. DATE OF EXAM: 09/22/2022 12:55 PM COMPARISON: None. CLINICAL INDICATION:Male, 72 years old with history of CVA, left side weakness and facial droop TECHNIQUE: Brain: Multiple axial CT images of the brain were obtained without IV contrast. Coronal and sagittal reformats reviewed. FINDINGS: Brain: Extra-axial spaces: No abnormal extra-axial fluid collections. Ventricular system: Within normal limits Cerebral parenchyma: Cerebral atrophy. Hypodense region within the right insula extending into the co riana radiata. No acute intraparenchymal hemorrhage or mass effect. The garber-white junction is well d ifferentiated. Cerebellum: Unremarkable. Mass effect: No evidence of midline shift. Intracranial vasculature: Atherosclerotic calcifications of the intracranial vessels. Soft tissues: Normal. Calvarium/osseous structures: No depressed skull fracture. Paranasal sinuses and mastoid air cells: Clear Visualized orbits: Orbital contents are intact. IMPRESSION: Hypodense region within the right insula extending into the arias radiata suspicious for acute/subac ken ischemia. No intraparenchymal hemorrhage. Findings called to and discussed with Dr. Foster at 1:04 PM on 09/22/2022.
[2022-09-22] MEDS ORDERED: ASPIRIN 81 MG PO STA (13:17)
--- NOTE | 2022-09-22 13:19 | CT ---
EXAMINATION TYPE: CODE STROKE: CTA head neck CT DLP: 640.1 mGycm, Automated exposure control for dose reduction was used. DATE OF EXAM: 09/22/2022 1:09 PM COMPARISON: CT head of the same date. CLINICAL INDICATION:Male, 72 years old with history of CVA; PHH, left side weakness and facial droop TECHNIQUE: Axially acquired helical CT angiogram of the head and neck was obtained with contrast util izing 65 cc of Isovue-370 administered intravenously. Axial images are supplemented with 3D reconstru ctions which were post-processed at an independent workstation. NASCET criteria used. FINDINGS: CTA HEAD: No evidence of acute intracranial hemorrhage, mass effect, or midline shift. The ventricles, sulci, a nd cisterns are unremarkable. Hypodense region within the right insula extending into the right coron a radiata is redemonstrated. The visualized portions of the internal carotid arteries, left vertebral artery, anterior cerebral ar teries, and posterior cerebral arteries are patent. There is moderate to severe stenosis involving a 5.5 mm segment of the right middle cerebral artery M1 segment just before its bifurcation. Decreased prominence of vessels within the right temporal lobe. The basilar and vertebral arteries are patent. CTA NECK: Right Carotid System: The common carotid artery and external carotid artery are patent. Minimal calcified plaque at the car otid bulb. The carotid bifurcation demonstrates no evidence of hemodynamically significant stenosis. The remaining portions of the internal carotid artery demonstrate normal size without significant gege rowing. Left Carotid System: The common carotid artery and external carotid artery are patent. 80% stenosis at the origin of the l eft internal carotid artery secondary to calcified plaque. Moderate atherosclerotic plaque at the car otid bulb. The carotid bifurcation demonstrates no evidence of hemodynamically significant stenosis. The remaining portions of the internal carotid artery demonstrate normal size without significant gege rowing. The right vertebral artery is patent and dominant. The proximal portion of the left vertebral artery is poorly visualized just after its origin. The remaining portion is well opacified. There is a three-vessel aortic arch. The origins of the great vessels are patent. No evidence of hemo dynamically significant stenosis. Degenerative changes of the cervical spine. IMPRESSION: 1. Moderate to severe right MCA M1 segment stenosis. No intracranial aneurysm. 2. 80% stenosis at the origin of the left internal carotid artery secondary to calcified plaque. No s ignificant stenosis of the right internal carotid artery. 3. Poor visualization of the proximal portion of the left vertebral artery just after its origin whic h may be occluded versus high-grade stenosis. The remaining portions are patent.
--- NOTE | 2022-09-22 13:46 | P.PN ---
Subjective Progress Note Date: 09/22/22 The patient is a 72-year-old male with a PMH of diabetes, hypertension, hyperlipidemia, hypothyroidism who was brought into the emergency room via EMS for weakness and fall. The patient reports that over the past few days he has been feeling increasingly weak and has been unable to get up out of the bed. He attempted to get out of bed earlier today with the help of his family and his legs became shaky and he slowly sat down on the ground. Patient denies any injuries or head trauma. He also reports decreased oral intake over the past few days. He denies any additional complaints. He denies experiencing unilateral weakness, visual disturbances, chest pain, shortness of breath, nausea, vomiting. Denied alcohol use. Chest x-ray in the emergency room revealed cardiomegaly with COPD. Pelvis x-ray was unremarkable. EKG revealed sinus bradycardia at 57 bpm with a right bundle-branch block, with the bundle- branch block also present on prior EKG from 2017. Laboratory evaluation revealed leukocytosis of 13.5, potassium 3.3, creatinine kinase 2592, and an unremarkable UA. 09/22 Patient was seen and examined. Patient reports generalized weakness that started early this week that led to his fall. He denies any history of stroke or TX. CBC done this morning shows a leukocytosis of 11.45. BMP shows potassium of 3.4, anion gap of 14.2, glucose 146, calcium of 8.3, AST 223, ALT 83, albumin 3.7. CPK 6726. He was noted to have a left sided facial droop along with left-sided weakness which led to CODE STOKE being called. CT head shows acute/subacute CVA in the right insula extending into the arias radiata. CTA head and neck shows moderate to severe right MCA M1 segment stenosis and 80% stenosis of the origin of the left internal carotid artery. Dr. Calderon was notified and he will be started on ASA. Vascular surgery consulted for carotid stenosis. Advanced neurochecks and telemetry monitoring ordered. MRI brain ordered. Hemoglobin A1c and lipid panel ordered. PT, OT and ST ordered. Physical examination: Vital signs reviewed General: non toxic, no distress, appears at stated age, obese, lethargic Head: atraumatic, normocephalic, symmetric Eyes: EOMI, no lid lag, anicteric sclera ENT: Nose and ears atraumatic Neck: No cervical lymphadenopathy, trachea midline, supple Cardiovascular: S1S2 reg, systolic grade 4 murmur appreciated, no edema Lungs: CTA bilateral, no rhonchi, no rales, no accessory muscle use Abdominal: soft, nontender to palpation, no guarding Ext: no gross muscle atrophy, no contractures, Neuro: Left-sided facial droop. Left upper extremity 3 out of 5 strength with weakened tong setter strength. Right upper extremity 4 out of 5 strength. Left and right lower extremity 4 out of 5 strength. Sensation intact to touch throughout. Psych: Alert, oriented, appropriate affect Subacute CVA Rhabdomyolysis due to fall Hypokalemia Hypokalemia Obstructive transaminitis Based on my assessment of this patient, this patient meets a high complexity le dixie of care. Patient has an acute diagnosis of CVA that poses a threat to life or bodily function. Subacute CVA: Start ASA 81 mg PO QD. Lipitor 80 mg by mouth daily ordered. Neurology consulted. Telemetry monitoring. Advanced neurochecks. MRI brain ordered. PT, OT, ST consulted. Carotid stenosis: Vascular surgery consulted. Rhabdomyolysis due to fall: Continue IV hydration with normal sinus at 75 mL per hour. Hypokalemia: Replace with potassium chloride 20 mEq IV. Obstructive transaminitis: Could be related to rhabdomyolysis. Liver ultrasound ordered. Lovenox SQ for DVT prophylaxis. FULL CODE. I have reviewed the following transportation sales consultant notes: I have reviewed the results of the following tests: Echocardiogram, CT brain, CTA head and neck as above. CBC, CMP, CPK as above. I have ordered the following tests: CT brain, CTA head and neck, MRI brain, A1c, Lipid panel. I have discussed the care of this patient with the following independent historian: Case discussed with RN. I have independently interpreted the following test below: I have discussed the management of this patient with the following physician: Dr. Calderon notified about the results of CT head. Objective - Vital Signs Vital signs: Vital Signs Temp 97.5 F L 09/22/22 07:14 Pulse 65 09/22/22 13:05 Resp 18 09/22/22 13:05 BP 126/76 09/22/22 13:05 Pulse Ox 96 09/22/22 13:05 FiO2 Intake & Output 09/21/22 09/22/22 09/22/22 18:59 06:59 18:59 Output Total 550 1400 Balance -550 -1400 Weight 88.451 kg 88.451 kg Output: Urine 1400 Other 550 - Labs CBC & Chem 7: 09/22/22 07:05 09/22/22 07:05 Labs: Abnormal Lab Results - Last 24 Hours (Table) 09/21/22 09/21/22 09/22/22 Range/Units 12:46 13:17 07:05 WBC 11.45 H (4.50-10.00) X 10*3/uL Monocytes # 1.39 H (0.20-1.00) X 10*3/uL Eosinophils # 0.88 H (0.04-0.35) X 10*3/uL Potassium (3.5-5.5) mmol/L Anion Gap (4.00-12.00) mmol/L Glucose (70-110) mg/dL POC Glucose (mg/dL) (70-110) mg/dL Calcium (8.7-10.3) mg/dL AST (14-35) U/L ALT (10-49) U/L Creatine Kinase 2592 H* (55-170) U/L Total Protein (6.2-8.2) d/dL Albumin (3.8-4.9) d/dL Urine Ketones 2+ H (Negative) 09/22/22 09/22/22 09/22/22 Range/Units 07:05 11:50 12:33 WBC (4.50-10.00) X 10*3/uL Monocytes # (0.20-1.00) X 10*3/uL Eosinophils # (0.04-0.35) X 10*3/uL Potassium 3.4 L (3.5-5.5) mmol/L Anion Gap 14.20 H (4.00-12.00) mmol/L Glucose 146 H (70-110) mg/dL POC Glucose (mg/dL) 171 H 159 H (70-110) mg/dL Calcium 8.3 L (8.7-10.3) mg/dL AST 223 H (14-35) U/L ALT 83 H (10-49) U/L Creatine Kinase 6726 H* (55-170) U/L Total Protein 5.3 L (6.2-8.2) d/dL Albumin 3.7 L (3.8-4.9) d/dL Urine Ketones (Negative)
[2022-09-22] MEDS: SODIUM CHLORIDE 0.9% 1,000 ML IV SCH ×2 (14:37→21:55)
[2022-09-22] MEDS: POTASSIUM CHLORIDE 10 MEQ in WATER FOR INJECTION 1 100ML.BAG IVPB SCH ×2 (14:38→15:41)
--- NOTE | 2022-09-22 16:20 | P.CNNES ---
History of Present Illness Consult date: 09/22/22 Requesting physician: Grecia Foster Reason for Consult: cva History of Present Illness: This is a 72-year-old gentleman with a history of hypertension, borderline diabetes, remote PUD, possible carotid stenosis who presents to the [facility] department on 09/21/2022 because of generalized weakness and a fall. History is obtained from the patient's daughter and his ex- who are at bedside. Per his family members and the patient the had generalized weakness yesterday and per the she noticed that the left side is weaker than the right yesterday morning. She is unsure exactly last normal state. It seems possible the patient has carotid stenosis according to the daughter that lives with him and the patient is on aspirin 81 mg daily. Patient does not have any history of strokes or TIA in the past. Patient does not have any history of atrial fibrillation flutter per family members that they think. It s eems that today upon evaluation at in the morning was noted that the patient had left-sided this in the facial droop. As a result a code stroke was activated and was felt that an ice stroke scale was a 1 per documentation in the one was for the left facial droop. Patient had a CT of the head is reported as hypodense region within the right insular extending into the arias radiata suspicious for acute/subacute ischemia. No intraparenchymal hemorrhage. CT angiography of the head and neck was reported as moderate to severe right M1 segment stenosis. No intracranial aneurysm. 80% stenosis at the origin of the left internal carotid artery secondary due to calcified plaque. No significant stenosis of the right internal carotid artery. Poor visualization of the proximal portion of the left vertebral artery just at the origin which may be occluded versus high-grade stenosis. The remaining portion are patent. Upon speaking with the nurse, she stated she notified me that he had left sided weakness overnight nurse by nurse and today but the left facial droop was new noticed around 12:30pm. No IV tpa since outside and risk outweigh benefit. Per nurse, it seems primary was concerned he had urinary retention. Per the neurology floor nurse she stated he had NIH 3 to her. Some of the other work-up during this visit: CK level 2592 and today is 6726 AST 223 ALT TSH: 3.610 2D echo: Reported as normal left ventricular function. Moderate aortic stenosis. Left atrium is moderate left atrial dilation. Review of Systems Review of systems Limited the per pertinent positive and negative as per HPI. Past Medical History Past Medical History: Diabetes Mellitus, Hyperlipidemia, Hypertension, Thyroid Disorder Additional Past Medical History / Comment(s): hypothyroid, neuropathy, borderline diabetic- takes metformin, patient had bleeding ulcer in 1972, had open sore from poor circulation on right ankle- then had an infection (patient thinks staph). Patient says he recently had blood tests with his primary doctor that showed poor kidney function. Has consult to see for his kidneys coming up. History of Any Multi-Drug Resistant Organisms: None Reported Past Surgical History: No Surgical Hx Reported Past Anesthesia/Blood Transfusion Reactions: No Reported Reaction Past Psychological History: No Psychological Hx Reported Additional Psychological History / Comment(s): Lives home by himself and his kids live with him on the weekends. Smoking Status: Former smoker Past Alcohol Use History: Occasional Additional Past Alcohol Use History / Comment(s): Says some days he has a couple beers but mostly doesn't drink. Past Drug Use History: None Reported - Past Family History Mother Additional Family Medical History / Comment(s): Mother at 94 from fall with complications of subdural hematoma and strokes. Father Family Medical History: CVA/TIA Additional Family Medical History / Comment(s): Father at age 84. Sister(s) Family Medical History: Cancer Additional Family Medical History / Comment(s): sister this past may at age 62 from bladder CA. Medications and Allergies Home Medications Medication Instructions Recorded Confirmed Type Atorvastatin [Lipitor] 10 mg PO HS 06/26/16 09/21/22 History metFORMIN HCL [Glucophage] 1,000 mg PO BID 06/26/16 09/21/22 History Chlorthalidone 25 mg PO DAILY #30 tab 06/27/16 09/21/22 Rx Acetaminophen Tab [Tylenol Tab] 1,000 mg PO Q6HR PRN 09/21/22 09/21/22 History Ascorbic Acid [Vitamin C] 1,000 mg PO DAILY 09/21/22 09/21/22 History Aspirin EC [Ecotrin Low Dose] 81 mg PO DAILY 09/21/22 09/21/22 History Calcium Acetate 667 mg PO BID-W/MEALS 09/21/22 09/21/22 History Cholecalciferol [Vitamin D3 (125 125 mcg PO DAILY 09/21/22 09/21/22 History Mcg = 5000 Iu)] Gabapentin [Neurontin] 100 mg PO BID 09/21/22 09/21/22 History Gabapentin [Neurontin] 400 mg PO BID 09/21/22 09/21/22 History Levothyroxine Sodium [Synthroid] 125 mcg PO HS 09/21/22 09/21/22 History Multivitamins, Thera [Multivitamin 1 tab PO DAILY 09/21/22 09/21/22 History (formulary)] allopurinoL [Zyloprim] 100 mg PO DAILY 09/21/22 09/21/22 History amLODIPine [Norvasc] 10 mg PO HS 09/21/22 09/21/22 History atenoloL [Tenormin] 25 mg PO DAILY 09/21/22 09/21/22 History Allergies Allergy/AdvReac Type Severity Reaction Status Date / Time No Known Allergies Allergy Verified 09/21/22 13:02 Physical Examination - Vital Signs Vital Signs: Vital Signs Temp Pulse Pulse Resp BP BP Pulse Ox 09/22/22 14:19 98.4 F 68 18 147/80 95 09/22/22 13:05 65 18 126/76 96 09/22/22 12:50 65 16 126/75 95 09/22/22 12:33 68 18 135/77 93 L 09/22/22 09:13 92 L 09/22/22 07:14 97.5 F L 62 21 120/73 87 L 09/22/22 01:15 97.7 F 60 18 134/73 91 L 09/21/22 22:08 61 20 09/21/22 21:23 97.5 F L 61 20 116/65 92 L 09/21/22 20:00 67 18 135/68 95 09/21/22 19:00 67 20 107/58 94 L 09/21/22 18:30 64 20 124/69 93 L 09/21/22 18:00 60 18 120/64 91 L 09/21/22 17:30 57 L 18 130/68 94 L 09/21/22 17:00 61 17 121/91 91 L 09/21/22 16:30 58 L 15 124/66 94 L 09/21/22 16:00 57 L 18 113/62 92 L Intake and Output 08/09/22/22 09/22/22 06:59 14:59 22:59 Output Total 1400 700 Balance -1400 -700 Output: Urine 1400 700 Other: Voiding Method Indwelling Catheter GENERAL: The patient is lying in bed and is not in acute distress. NEUROLOGICAL: Higher mental function: The patient is awake, alert, oriented to self, place and time. Patient is following commands. No aphasia and no neglect. Cranial nerves: The pupils are round, equal and reactive to light. Visual dick are full to confrontation throughout. Extraocular movement is intact no nystagmus is noted. Facial sensation is normal to touch throughout. Mild left lower facial droop. Hearing is moderately decreased bilaterally to hand rub. Tongue is midline and moved [id number] without any difficulty. No dysarthria is noted. Shoulder shrug is normal bilaterally. Motor: The strength is left upper extremity including left hand pipeline integrity engineer is 4-. Left lower extremity is 5-. Otherwise right side is 5 over 5 throughout. Slight decrease tone over the left upper extremity. Normal bulk. Cerebellum: Normal finger to nose bilaterally. Sensation: Sensation is normal to touch throughout. Reflexes (right/left): 2+ throughout Plantars are mute bilaterally. Results - Laboratory Findings CBC and BMP: 09/22/22 07:05 09/22/22 07:05 Abnormal Lab Findings: Abnormal Labs 09/21/22 09/21/22 09/21/22 12:46 12:46 12:46 WBC 13.5 H Neutrophils # 10.2 H Monocytes # 1.1 H Eosinophils # APTT 21.8 L Sodium 136 L Potassium 3.3 L Anion Gap Glucose 141 H POC Glucose (mg/dL) Calcium Magnesium 1.5 L AST 115 H ALT 55 H Creatine Kinase Total Protein 6.0 L Albumin Urine Ketones 09/21/22 09/21/22 09/22/22 12:46 13:17 07:05 WBC 11.45 H Neutrophils # Monocytes # 1.39 H Eosinophils # 0.88 H APTT Sodium Potassium Anion Gap Glucose POC Glucose (mg/dL) Calcium Magnesium AST ALT Creatine Kinase 2592 H* Total Protein Albumin Urine Ketones 2+ H 09/22/22 09/22/22 09/22/22 07:05 11:50 12:33 WBC Neutrophils # Monocytes # Eosinophils # APTT Sodium Potassium 3.4 L Anion Gap 14.20 H Glucose 146 H POC Glucose (mg/dL) 171 H 159 H Calcium 8.3 L Magnesium AST 223 H ALT 83 H Creatine Kinase 6726 H* Total Protein 5.3 L Albumin 3.7 L Urine Ketones Assessment and Plan Assessment: This is a 72-year-old gentleman who presented to the emergency department on 09/21/2022 because of the generalized weakness and fall. According to the she noticed that the patient had weakness over the left side since yesterday which was a 08/21/2022 and it seems that the patient had left facial droop that was noticed today in the afternoon early so code stroke was activated and initial NIH stroke scale was a 1 and a repeat NIH stroke so was a 3. CT of the head showed hypodensity region in the right insular extending into the right arias radiata suspicious for acute/subacute ischemia. CT angiography is reported as moderate to severe right MCA segment stenosis in 80% origin left ICA stenosis due to calcified plaque as well as left vertebral height grade stenosis versus occlusion. No IV TPA since the patient is outside the window and symptom more than 4-1/2 hours and the risks outweigh the benefit. Acute to subacute ischemic stroke over the right insular/arias radiata with left facial droop and left arm weakness more than leg weakness. She has severe right M1 stenosis Asymptomatic left ICA stenosis of about 80% on CT angiography High-grade left vertebral artery stenosis versus occlusion on CT angiography History of carotid stenosis according to family members Rhabdomyolysis due to fall likely due to him having weakness over the left side Hypertension Borderline diabetes History of peptic ulcer disease that is remote Plan: I agree with pursuing MRI the brain, carotid duplex as well as lipid panel. Jalen it was used ordered pending Primary team consulted the vascular surgery for the left ICA stenosis. We'll see what the carotid duplex shows and if it's thesignificant stenosis on the right than I assume the left ICA is asymptomatic She was resumed on his home dose of aspirin 81 and I also started him on Plavix 75 mg daily. He does have a remote history of peptic ulcer disease but will observe him and I notified the patient's as well as family members and they're in agreement. He is on Lipitor 80 mg daily at bedtime but I'll decrease it down to 20 mg because of his rhabdomyolysis. Once [place] improves then the will increase the the statin to high intensity because of the stroke as well as a carotid stenosis. Continue neuro checks Cardiac monitoring PT OT and COLLEGE ASSOCIATE are consulted Recommend permissive hypertension for 24 hours and after that slowly bring the blood pressure down. We'll defer the rest of the medical management to primary team For DVT prophylaxis she is on enoxaparin. Plan was discussed with the patient, his daughters were at bedside, ex , primary attending and his nurse. Thank you for the consultation Time with Patient: Greater than 30
--- NOTE | 2022-09-22 16:22 | P.GSCN ---
History of Present Illness Consult date: 09/22/22 Reason for Consult: Carotid stenosis Requesting physician: Grecia Foster History of present illness: This is a pleasant 72-year-old male with a past medical history including diabetes, hypertension, hyperlipidemia, and hypothyroid who was brought into the emergency room by EMS for weakness and fall. Patient states he's been feeling increasingly weak in both of his legs. He states that he was unable to get out of bed. He was admitted with rhabdomyolysis, hypokalemia. Apparently today code stroke was called with concerns of left facial droop and left upper extremity weakness. However Patient's family is at the bedside and states that yesterday patient had facial droop and left upper extremity weakness. Patient is right-hand dominant. He denies any visual changes, speech difficulty or difficulty swallowing. He states he feels that he is overall weak not just one- sided. Patient did undergo CT of brain that reported hypodense region within the right insula extending into the arias Roddey [place] suspicious for acute/subacute ischemia. No intraparenchymal hemorrhage. Patient also had a CT angiogram head and neck reporting left-sided ICA stenosis. Vascular surgery was consulted for carotid stenosis. Patient currently denies any focal deficits, no shortness of breath or chest pain. No abdominal pain, nausea or vomiting he's been afebrile. Labs WBC 11.5 hemoglobin 14.8 platelet count 165,000 sodium 141 potassium 3.4 total bilirubin 0.7 AST 223 ALT 83 alkaline phosphatase 63 creatinine kinase 6726 Review of Systems A 14 point review systems was completed all pertinent positives and negatives as stated in the HPI. Past Medical History Past Medical History: Diabetes Mellitus, Hyperlipidemia, Hypertension, Thyroid Disorder Additional Past Medical History / Comment(s): hypothyroid, neuropathy, borderline diabetic- takes metformin, patient had bleeding ulcer in 1972, had open sore from poor circulation on right ankle- then had an infection (patient thinks staph). Patient says he recently had blood tests with his primary doctor that showed poor kidney function. Has consult to see for his kidneys coming up. History of Any Multi-Drug Resistant Organisms: None Reported Past Surgical History: No Surgical Hx Reported Past Anesthesia/Blood Transfusion Reactions: No Reported Reaction Past Psychological History: No Psychological Hx Reported Additional Psychological History / Comment(s): Lives home by himself and his kids live with him on the weekends. Smoking Status: Former smoker Past Alcohol Use History: Occasional Additional Past Alcohol Use History / Comment(s): Says some days he has a couple beers but mostly doesn't drink. Past Drug Use History: None Reported - Past Family History Mother Additional Family Medical History / Comment(s): Mother at 94 from fall with complications of subdural hematoma and strokes. Father Family Medical History: CVA/TIA Additional Family Medical History / Comment(s): Father at age 84. Sister(s) Family Medical History: Cancer Additional Family Medical History / Comment(s): sister this past may at a ge 62 from bladder CA. Medications and Allergies Home Medications Medication Instructions Recorded Confirmed Type Atorvastatin [Lipitor] 10 mg PO HS 06/26/16 09/21/22 History metFORMIN HCL [Glucophage] 1,000 mg PO BID 06/26/16 09/21/22 History Chlorthalidone 25 mg PO DAILY #30 tab 06/27/16 09/21/22 Rx Acetaminophen Tab [Tylenol Tab] 1,000 mg PO Q6HR PRN 09/21/22 09/21/22 History Ascorbic Acid [Vitamin C] 1,000 mg PO DAILY 09/21/22 09/21/22 History Aspirin EC [Ecotrin Low Dose] 81 mg PO DAILY 09/21/22 09/21/22 History Calcium Acetate 667 mg PO BID-W/MEALS 09/21/22 09/21/22 History Cholecalciferol [Vitamin D3 (125 125 mcg PO DAILY 09/21/22 09/21/22 History Mcg = 5000 Iu)] Gabapentin [Neurontin] 100 mg PO BID 09/21/22 09/21/22 History Gabapentin [Neurontin] 400 mg PO BID 09/21/22 09/21/22 History Levothyroxine Sodium [Synthroid] 125 mcg PO HS 09/21/22 09/21/22 History Multivitamins, Thera [Multivitamin 1 tab PO DAILY 09/21/22 09/21/22 History (formulary)] allopurinoL [Zyloprim] 100 mg PO DAILY 09/21/22 09/21/22 History amLODIPine [Norvasc] 10 mg PO HS 09/21/22 09/21/22 History atenoloL [Tenormin] 25 mg PO DAILY 09/21/22 09/21/22 History Allergies Allergy/AdvReac Type Severity Reaction Status Date / Time No Known Allergies Allergy Verified 09/21/22 13:02 Surgical - Exam Vital Signs Temp Pulse Resp BP Pulse Ox 97.4 F L 56 L 18 127/64 96 09/21/22 12:35 09/21/22 12:35 09/21/22 12:35 09/21/22 12:35 09/21/22 12:35 General appearance: The patient is alert, oriented, appears in no acute distres s. HET: Head is normocephalic and atraumatic. Pupils are equal and reactive. Neck: Supple. Heart: Regular. Lungs: Equal expansion, normal respiratory effort. Abdomen: Soft, nontender, nondistended. Extremities: Normal skin color and turgor. Neurological: Patient has left facial droop, tongue protrudes midline. Speech is fluent. He answers questions appropriately. He has overall generalized weakness however left upper extremity weaker than the right. He is right hand dominant. Results - Labs 09/22/22 07:05 09/22/22 07:05 Abnormal Lab Results - Last 24 Hours (Table) 09/21/22 09/21/22 09/22/22 Range/Units 12:46 13:17 07:05 WBC 11.45 H (4.50-10.00) X 10*3/uL Monocytes # 1.39 H (0.20-1.00) X 10*3/uL Eosinophils # 0.88 H (0.04-0.35) X 10*3/uL Potassium (3.5-5.5) mmol/L Anion Gap (4.00-12.00) mmol/L Glucose (70-110) mg/dL POC Glucose (mg/dL) (70-110) mg/dL Calcium (8.7-10.3) mg/dL AST (14-35) U/L ALT (10-49) U/L Creatine Kinase 2592 H* (55-170) U/L Total Protein (6.2-8.2) d/dL Albumin (3.8-4.9) d/dL Urine Ketones 2+ H (Negative) 09/22/22 09/22/22 09/22/22 Range/Units 07:05 11:50 12:33 WBC (4.50-10.00) X 10*3/uL Monocytes # (0.20-1.00) X 10*3/uL Eosinophils # (0.04-0.35) X 10*3/uL Potassium 3.4 L (3.5-5.5) mmol/L Anion Gap 14.20 H (4.00-12.00) mmol/L Glucose 146 H (70-110) mg/dL POC Glucose (mg/dL) 171 H 159 H (70-110) mg/dL Calcium 8.3 L (8.7-10.3) mg/dL AST 223 H (14-35) U/L ALT 83 H (10-49) U/L Creatine Kinase 6726 H* (55-170) U/L Total Protein 5.3 L (6.2-8.2) d/dL Albumin 3.7 L (3.8-4.9) d/dL Urine Ketones (Negative) Diabetes panel 09/22/22 Range/Units 07:05 Sodium 141 (135-145) mmol/L Potassium 3.4 L (3.5-5.5) mmol/L Chloride 102 (96-109) mmol/L Carbon Dioxide 24.8 (21.6-31.8) mmol/L BUN 13.9 (9.0-27.0) mg/dL Creatinine 0.9 (0.6-1.5) mg/dL Glucose 146 H (70-110) mg/dL Calcium 8.3 L (8.7-10.3) mg/dL AST 223 H (14-35) U/L ALT 83 H (10-49) U/L Alkaline Phosphatase 63 (41-126) U/L Total Protein 5.3 L (6.2-8.2) d/dL Albumin 3.7 L (3.8-4.9) d/dL Calcium panel 09/22/22 Range/Units 07:05 Calcium 8.3 L (8.7-10.3) mg/dL Phosphorus 3.3 (2.4-5.1) mg/dL Albumin 3.7 L (3.8-4.9) d/dL Pituitary panel 09/22/22 Range/Units 07:05 Sodium 141 (135-145) mmol/L Potassium 3.4 L (3.5-5.5) mmol/L Chloride 102 (96-109) mmol/L Carbon Dioxide 24.8 (21.6-31.8) mmol/L BUN 13.9 (9.0-27.0) mg/dL Creatinine 0.9 (0.6-1.5) mg/dL Glucose 146 H (70-110) mg/dL Calcium 8.3 L (8.7-10.3) mg/dL Adrenal panel 09/22/22 Range/Units 07:05 Sodium 141 (135-145) mmol/L Potassium 3.4 L (3.5-5.5) mmol/L Chloride 102 (96-109) mmol/L Carbon Dioxide 24.8 (21.6-31.8) mmol/L BUN 13.9 (9.0-27.0) mg/dL Creatinine 0.9 (0.6-1.5) mg/dL Glucose 146 H (70-110) mg/dL Calcium 8.3 L (8.7-10.3) mg/dL Total Bilirubin 0.7 (0.3-1.2) mg/dL AST 223 H (14-35) U/L ALT 83 H (10-49) U/L Alkaline Phosphatase 63 (41-126) U/L Total Protein 5.3 L (6.2-8.2) d/dL Albumin 3.7 L (3.8-4.9) d/dL - Imaging Comments: CT angiogram head and neck Moderate to severe right MCA M1 segment stenosis. No intracranial aneurysm. 80% stenosis at the origin of the left internal carotid artery secondary to calcified plaque. No significant stenosis of the right internal carotid artery. Poor visualization of the proximal portion of the left vertebral artery just after its origin which may be occluded versus high-grade stenosis. The remaining portions are patent. Brain CT Hypodense region within the right insula extending into the arias radiata [place] sp[place] for acute/subacute ischemia. No intracranial hemorrhage. Echocardiogram Normal LV function. EF 65-70%. Moderate aortic stenosis. Assessment and Plan Assessment: 1. Asymptomatic left ICA stenosis, 80% per CT angiogram 2. Hypodense region within right insula extending into the arias body [place] suspicious for acute/subacute ischemia 3. Left facial droop, left upper extremity weakness 4. Rhabdomyolysis 5. Weakness and fall 6. Former smoker 7. Diabetes mellitus 8. Hypertension and hyperlipidemia 9. Hypothyroidism Plan: 1. Carotid duplex ordered 2. Continue aspirin 81 mg daily, atorvastatin 80 mg by mouth at bedtime 3. Would recommend Plavix once cleared by neurology 4. Patient with asymptomatic carotid stenosis, no vascular surgical intervention indicated at this time. 5. Recommend outpatient follow-up for carotid stenosis 6. Continue with recommendations from neurology Thank you for this consultation, we will continue to follow. The impression and plan of care has been dictated as directed. I performed a history and examination of this patient, discussed the same with the dictator. I agree with the dictator's note ,documented as a scribe. Any additional findings or plans will be noted.
[2022-09-22 16:32] LABS: Glucose,Whole Blood 161 mg/dL (70-110)
--- NOTE | 2022-09-22 16:40 | US ---
EXAMINATION TYPE: US carotid duplex BILAT DATE OF EXAM: 09/22/2022 COMPARISON: CTa 09/22/2022 CLINICAL INDICATION: Male, 72 years old with history of CVA, crotid stenosis; Carotid stenosis, CVA p er order. Hx hypertension, hyperlipidemia, prior smoker. TECHNIQUE: Carotid duplex ultrasound examination. Indirect Doppler criteria was utilized. FINDINGS: EXAM MEASUREMENTS: RIGHT: Peak Systolic Velocity (PSV) cm/sec ----- Right CCA: 59.2 ----- Right ICA: 79.0 ----- Right ECA: 161.4 ICA/CCA ratio: 1.3 RIGHT: End Diastole cm/sec ----- Right CCA: 9.5 ----- Right ICA: 9.2 ----- Right ECA: 0.0 LEFT: Peak Systolic Velocity (PSV) cm/sec ----- Left CCA: 66.9 ----- Left ICA: 174.6 ----- Left ECA: 106.0 ICA/CCA ratio: 2.6 LEFT: End Diastole cm/sec ----- Left CCA: 12.0 ----- Left ICA: 11.0 ----- Left ECA: 5.0 VERTEBRALS (direction of flow): Right Vertebral: Antegrade Left Vertebral: Unable to visualize. Rhythm: Normal CUSTOMER ORDER CLERK NOTES: Plaque seen within bilateral bulbs and left proximal ICA. Elevated velocities within right ECA and left ICA. Unable to visualize left vertebral artery. IMPRESSION: No evidence for hemodynamically significant stenosis. Criteria for Assigning % of Stenosis / Diameter reduction (Estimation based on the indirect measurements of the internal carotid artery velocities (ICA PSV). 1. Normal (no stenosis)=ICA PSV < 125 cm/s: ratio < 2.0: ICA EDV<40 cm/s. 2. Less than 50% stenosis=ICA PSV < 125 cm/s: ratio < 2.0: ICA EDV<40 cm/s. 3. 50 to 69% stenosis=ICA PSV of 125 to 230 cm/s: ration 2.0 ? 4.0: ICA EDV 40-100 cm/s. 4. Greater than 70% stenosis to near occlusion= ICA PSV > 230 cm/s: ratio > 4.0: ICA EDV > 100 cm/s. 5. Near occlusion= ICA PSV velocities may be low or undetectable: variable ratio and ICA EDV. 6. Total occlusion=unable to detect flow.
[2022-09-22] MEDS: CLOPIDOGREL 75 MG TAB PO SCH (16:45)
[2022-09-22 19:52] LABS: Glucose,Whole Blood 181 mg/dL (70-110)
[2022-09-22] MEDS ORDERED: ATORVASTATIN 80 MG TAB PO SCH (21:00)
[2022-09-22] MEDS: ATORVASTATIN 20 MG TAB PO SCH (21:57)
[2022-09-22] MEDS: LEVOTHYROXINE 125 MCG TAB PO SCH (21:57)
[2022-09-23 06:34] LABS: Glucose,Whole Blood 178 mg/dL (70-110)
[2022-09-23] MEDS: ASPIRIN 81 MG PO SCH (07:52)
[2022-09-23] MEDS: CLOPIDOGREL 75 MG TAB PO SCH (07:52)
[2022-09-23] MEDS: ENOXAPARIN 40 MG/0.4 ML SYRINGE SQ SCH (07:52)
[2022-09-23] MEDS: TAMSULOSIN 0.4 MG CAP.ER.24H PO SCH (07:52)
[2022-09-23] MEDS: DOCUSATE 100 MG CAP PO SCH ×2 (07:54→20:23)
--- NOTE | 2022-09-23 08:38 | US ---
EXAMINATION TYPE: US liver DATE OF EXAM: 09/22/2022 COMPARISON: US 2011 CLINICAL INDICATION: Male, 72 years old with history of w/ gall bladder; Elevated AST and ALT TECHNIQUE: Multiple sonographic images of the right upper quadrant are obtained. FINDINGS: EXAM MEASUREMENTS: Liver Length: 17.1 cm Gallbladder Wall: 0.26 cm CBD: Obscured Right Kidney: 9.9 x 5.7 x 5.5 cm FRUIT ROOM HAND NOTES: Limited due to great amount of gas. Pancreas: Obscured Liver: *Increased echogenicity and attenuation. Appears very heterogeneous/coarse. Measures upper johnson its. Gallbladder: Appears anechoic. Evidence for sonographic Zhu's sign: No CBD: Obscured Right Kidney: Hyperechoic focus seen: 0.4 x 0.3 x 0.2 cm. No hydronephrosis. IMPRESSION: 1. Correlate for hepatic steatosis\diffuse hepatocellular disease 2. Small 4 mm hyperechoic focus within the right kidney too small to characterize. Could be related t o a tiny renal calculus. Tiny hyperechoic renal lesion not excluded.
[2022-09-23 10:06] LABS: African American GFR (CKD) >90 (>60 ml/min/1.73 sqM); Anion Gap 7 mmol/L; Blood Urea Nitrogen 10 mg/dL (9-20); Calcium 8.1 mg/dL (8.4-10.2); Carbon Dioxide 27 mmol/L (22-30); Chloride 101 mmol/L (98-107); Glucose 215 mg/dL (74-99); Non-African American GFR(CKD) >90 (>60 ml/min/1.73 sqM); Potassium 3.4 mmol/L (3.5-5.1); Sodium 135 mmol/L (137-145)
--- NOTE | 2022-09-23 10:34 | P.PN ---
Subjective Progress Note Date: 09/23/22 Principal diagnosis: Carotid stenosis Patient is seen and examined today as a follow-up. He denies any new focal deficits. Denies any acute changes through the night. Patient is currently on aspirin, Plavix and statin. Patient had a carotid duplex yesterday reporting no evidence for hemodynamically significant stenosis. He is scheduled to undergo brain MRI today. Objective - Vital Signs Vital signs: Vital Signs Temp 98.2 F 09/23/22 00:00 Pulse 71 09/23/22 04:00 Resp 18 09/23/22 04:00 BP 146/80 09/23/22 04:00 Pulse Ox 94 L 09/23/22 04:00 FiO2 Intake & Output 09/22/22 09/23/22 09/23/22 18:59 06:59 18:59 Intake Total 480 Output Total 700 1300 Balance -220 -1300 Intake: Oral 480 Output: Urine 700 1300 Other: Voiding Method Indwelling Catheter Indwelling Catheter # Bowel Movements 1 - Exam General appearance: The patient is alert, oriented, appears in no acute distress. HET: Head is normocephalic and atraumatic. Pupils are equal and reactive. Neck: Supple. No carotid bruit. Heart: Regular. Lungs: Equal expansion, normal respiratory effort. Abdomen: Soft, nontender, nondistended. Extremities: Normal skin color and turgor. Neurological: Patient has left facial droop, tongue protrudes midline. Speech is fluent. He answers questions appropriately. He has overall generalized weakness however left upper extremity weaker than the right. He is right hand dominant. - Labs CBC & Chem 7: 09/22/22 07:05 09/23/22 08:55 Labs: Abnormal Lab Results - Last 24 Hours (Table) 09/22/22 09/22/22 09/22/22 Range/Units 07:05 07:05 11:50 WBC 11.45 H (4.50-10.00) X 10*3/uL Monocytes # 1.39 H (0.20-1.00) X 10*3/uL Eosinophils # 0.88 H (0.04-0.35) X 10*3/uL Potassium 3.4 L (3.5-5.5) mmol/L Anion Gap 14.20 H (4.00-12.00) mmol/L Glucose 146 H (70-110) mg/dL POC Glucose (mg/dL) 171 H (70-110) mg/dL Calcium 8.3 L (8.7-10.3) mg/dL AST 223 H (14-35) U/L ALT 83 H (10-49) U/L Creatine Kinase 6726 H* (35-257) U/L Total Protein 5.3 L (6.2-8.2) d/dL Albumin 3.7 L (3.8-4.9) d/dL 09/22/22 09/22/22 09/22/22 Range/Units 12:33 16:30 19:50 WBC (4.50-10.00) X 10*3/uL Monocytes # (0.20-1.00) X 10*3/uL Eosinophils # (0.04-0.35) X 10*3/uL Potassium (3.5-5.5) mmol/L Anion Gap (4.00-12.00) mmol/L Glucose (70-110) mg/dL POC Glucose (mg/dL) 159 H 161 H 181 H (70-110) mg/dL Calcium (8.7-10.3) mg/dL AST (14-35) U/L ALT (10-49) U/L Creatine Kinase (35-257) U/L Total Protein (6.2-8.2) d/dL Albumin (3.8-4.9) d/dL 09/23/22 Range/Units 06:32 WBC (4.50-10.00) X 10*3/uL Monocytes # (0.20-1.00) X 10*3/uL Eosinophils # (0.04-0.35) X 10*3/uL Potassium (3.5-5.5) mmol/L Anion Gap (4.00-12.00) mmol/L Glucose (70-110) mg/dL POC Glucose (mg/dL) 178 H (70-110) mg/dL Calcium (8.7-10.3) mg/dL AST (14-35) U/L ALT (10-49) U/L Creatine Kinase (35-257) U/L Total Protein (6.2-8.2) d/dL Albumin (3.8-4.9) d/dL Assessment and Plan Assessment: 1. Asymptomatic left ICA stenosis, 80% per CT angiogram, however carotid duplex more likely 50-69%. 2. Hypodense region within right insula extending into the arias body [place] suspicious for acute/subacute ischemia 3. Left facial droop, left upper extremity weakness 4. Rhabdomyolysis 5. Weakness and fall 6. Former smoker 7. Diabetes mellitus 8. Hypertension and hyperlipidemia 9. Hypothyroidism Plan: 1. Carotid duplex ordered and reviewed 2. Continue aspirin 81 mg daily, Plavix, and atorvastatin 20 mg by mouth at bedtime 3. Patient with asymptomatic carotid stenosis, no vascular surgical intervention indicated at this time. 5. Recommend outpatient follow-up for carotid stenosis 6. Continue with recommendations from neurology Thank you for this consultation, we will sign off at this time. The impression and plan of care has been dictated as directed. Dr. Berg I performed a history and examination of this patient, discussed the same with the dictator. I agree with the dictator's note ,documented as a scribe. Any additional findings or plans will be noted.
--- NOTE | 2022-09-23 11:15 | MR ---
EXAMINATION TYPE: MR brain wo con DATE OF EXAM: 09/23/2022 COMPARISON: NONE HISTORY: Weakness, CVA TECHNIQUE: T1-weighted sagittal, T2, FLAIR, and diffusion axial, and T2 coronal coronal views of the brain are submitted. FINDINGS: Perfusion imaging demonstrates multiple punctate areas of acute ischemia within the superior right pa rietal lobe. There is a area of diffusion restriction measuring 2.1 cm in the right basal ganglia and focal subcortical as well as cortical diffusion restriction in the right temporal lobe compatible an emia. Mild generalized degenerative change. There additional areas of abnormal signal seen on the left and the white matter compatible with remote ischemic white matter Craniocervical junction maintained. Sella turcica has a normal appearance. Changes of chronic sinusitis. Orbits are symmetric. No cerebellopontine angle mass. IMPRESSION: 1. Multifocal areas of acute ischemia involving the right temporal, right parietal and right basal ga nglia. Report called to patient's nurse Lacey at 11:08 AM 09/23/2002. No midline shift or mass effect .
[2022-09-23 11:21] LABS: Glucose,Whole Blood 168 mg/dL (70-110)
[2022-09-23] MEDS: SODIUM CHLORIDE 0.9% 1,000 ML IV SCH ×2 (12:24→20:33)
[2022-09-23 16:24] LABS: Glucose,Whole Blood 173 mg/dL (70-110)
[2022-09-23 16:40] LABS: LDL Cholesterol,Calculated 36.9 mg/dL (0.0-131.0); VLDL Calculation 19.76 mg/dL (5.00-40.00)
--- NOTE | 2022-09-23 16:41 | P.PN ---
Subjective Progress Note Date: 09/23/22 The patient is a 72-year-old male with a PMH of diabetes, hypertension, hyperlipidemia, hypothyroidism who was brought into the emergency room via EMS for weakness and fall. The patient reports that over the past few days he has been feeling increasingly weak and has been unable to get up out of the bed. He attempted to get out of bed earlier today with the help of his family and his legs became shaky and he slowly sat down on the ground. Patient denies any injuries or head trauma. He also reports decreased oral intake over the past few days. He denies any additional complaints. He denies experiencing unilateral weakness, visual disturbances, chest pain, shortness of breath, nausea, vomiting. Denied alcohol use. Chest x-ray in the emergency room revealed cardiomegaly with COPD. Pelvis x-ray was unremarkable. EKG revealed sinus bradycardia at 57 bpm with a right bundle-branch block, with the bundle- branch block also present on prior EKG from 2017. Laboratory evaluation revealed leukocytosis of 13.5, potassium 3.3, creatinine kinase 2592, and an unremarkable UA. 09/22 Patient was seen and examined. Patient reports generalized weakness that started early this week that led to his fall. He denies any history of stroke or NH. CBC done this morning shows a leukocytosis of 11.45. BMP shows potassium of 3.4, anion gap of 14.2, glucose 146, calcium of 8.3, AST 223, ALT 83, albumin 3.7. CPK 6726. He was noted to have a left sided facial droop along with left-sided weakness which led to CODE STOKE being called. CT head shows acute/subacute CVA in the right insula extending into the arias radiata. CTA head and neck shows moderate to severe right MCA M1 segment stenosis and 80% stenosis of the origin of the left internal carotid artery. Dr. Calderon was notified and he will be started on ASA. Vascular surgery consulted for carotid stenosis. Advanced neurochecks and telemetry monitoring ordered. MRI brain ordered. Hemoglobin A1c and lipid panel ordered. PT, OT and ST ordered. 09/23 Patient was seen and examined. Facial droop has resolved. He continues to have significant weakness though bilateral extremities now. He will need rehab on discharge, inpatient vs SNF depending on progression. Liver ultrasound shows hepatic steatosis and 4 mm hyperechoic focus within the right kidney. Carotid Doppler negative for significant stenosis. MRI brain shows multifocal areas of acute ischemia involving the right temporal, right parietal and right basal ganglia. Echocardiogram was done which showed EF of 65-70% with no regional wall motion abnormalities and moderate aortic stenosis. BMP shows sodium 135, potassium 3.4, glucose of 2:15 and calcium of 8.1. CPK 2808. Vascular surgery recommends no surgical intervention. Neurology is on board. General: non toxic, no distress, appears at stated age, obese, lethargic Head: atraumatic, normocephalic, symmetric Eyes: EOMI, no lid lag, anicteric sclera ENT: Nose and ears atraumatic Neck: No cervical lymphadenopathy, trachea midline, supple Cardiovascular: S1S2 reg, systolic grade 4 murmur appreciated, no edema Lungs: CTA bilateral, no rhonchi, no rales, no accessory muscle use Abdominal: soft, nontender to palpation, no guarding Ext: no gross muscle atrophy, no contractures, Neuro: No facial droop noted. Left and Right upper extremity 4 out of 5 strength. Left and right lower extremity 4 out of 5 strength. Sensation intact to touch throughout. Psych: Alert, oriented, appropriate affect Subacute CVA Rhabdomyolysis due to fall Hypokalemia Hypokalemia Obstructive transaminitis Based on my assessment of this patient, this patient meets a high complexity level of care. Patient has an acute diagnosis of CVA that poses a threat to life or bodily function. Subacute CVA: Continue ASA 81 mg PO QD. Plavix 75 mg PO QD. Lipitor decreased to 20 mg PO QHS due to rhabdo. Neurology consulted. Telemetry monitoring. Advanced neurochecks. PT, OT, ST consulted. Rhabdomyolysis due to fall: Continue IV hydration with normal sinus at 75 mL per hour. Hypokalemia: Replace with potassium chloride 20 mEq IV. Obstructive transaminitis: Hepatic steatosis with no obstruction. Lovenox SQ for DVT prophylaxis. FULL CODE. I have reviewed the following advanced manufacturing consultant notes: I have reviewed the results of the following tests: Echocardiogram, carotid Doppler, liver ultrasound, BMP, CPK, MRI brain. I have ordered the following tests: BMP and CPK ordered for tomorrow morning. I have discussed the care of this patient with the following independent historian: Case discussed with RN. I have independently interpreted the following test below: I have discussed the management of this patient with the following physician: Case discussed with Dr. Calderon. Objective - Vital Signs Vital signs: Vital Signs Temp 97.7 F 09/23/22 07:48 Pulse 76 09/23/22 15:42 Resp 15 09/23/22 15:42 BP 120/70 09/23/22 15:42 Pulse Ox 95 09/23/22 15:42 FiO2 21 09/23/22 07:56 Intake & Output 09/22/22 09/23/22 09/23/22 18:59 06:59 18:59 Intake Total 480 Output Total 700 1300 Balance -220 -1300 Intake: Oral 480 Output: Urine 700 1300 Other: Voiding Method Indwelling Catheter Indwelling Catheter Indwelling Catheter # Bowel Movements 1 - Labs CBC & Chem 7: 09/22/22 07:05 09/23/22 08:55 Labs: Abnormal Lab Results - Last 24 Hours (Table) 09/22/22 09/23/22 09/23/22 Range/Units 19:50 06:32 08:55 Sodium 135 L (137-145) mmol/L Potassium 3.4 L (3.5-5.1) mmol/L Glucose 215 H (74-99) mg/dL POC Glucose (mg/dL) 181 H 178 H (70-110) mg/dL Calcium 8.1 L (8.4-10.2) mg/dL Creatine Kinase (55-170) U/L 09/23/22 09/23/22 09/23/22 Range/Units 08:55 11:20 16:22 Sodium (137-145) mmol/L Potassium (3.5-5.1) mmol/L Glucose (74-99) mg/dL POC Glucose (mg/dL) 168 H 173 H (70-110) mg/dL Calcium (8.4-10.2) mg/dL Creatine Kinase 2808 H* (55-170) U/L
[2022-09-23] MEDS: POTASSIUM CHLORIDE 10 MEQ in WATER FOR INJECTION 1 100ML.BAG IVPB SCH ×2 (17:29→18:54)
--- NOTE | 2022-09-23 17:52 | P.PN ---
Subjective Progress Note Date: 09/23/22 The patient is seen at bedside and he feels doing somewhat better. Objective - Vital Signs Vital signs: Vital Signs Temp 97.7 F 09/23/22 07:48 Pulse 76 09/23/22 15:42 Resp 15 09/23/22 15:42 BP 120/70 09/23/22 15:42 Pulse Ox 95 09/23/22 15:42 FiO2 21 09/23/22 07:56 Intake & Output 09/22/22 09/23/22 09/23/22 18:59 06:59 18:59 Intake Total 480 Output Total 700 1300 650 Balance -220 -1300 -650 Intake: Oral 480 Output: Urine 700 1300 650 Other: Voiding Method Indwelling Catheter Indwelling Catheter Indwelling Catheter # Bowel Movements 1 - Exam GENERAL: The patient is lying in bed and is not in acute distress. NEUROLOGICAL: Higher mental function: The patient is awake, alert, oriented to self, place and time. Patient is following commands. No aphasia and no neglect. Cranial nerves: The pupils are round, equal and reactive to light. Visual dick are full to confrontation throughout. Extraocular movement is intact no nystagmus is noted. Facial sensation is normal to touch throughout. ?subtle left lower facial weakness. Hearing is moderately decreased bilaterally to hand rub. Tongue is midline and moved [id number] without any difficulty. No dysarthria is noted. Shoulder shrug is normal bilaterally. Motor: The strength is left upper extremity including left hand ripsaw grader is 4-. Left lower extremity is 5-. Otherwise right side is 5 over 5 throughout. Slight decrease tone over the left upper extremity. Normal bulk. Cerebellum: Normal finger to nose bilaterally. Sensation: Sensation is normal to touch throughout. Reflexes (right/left): 2+ throughout Plantars are mute bilaterally. Some of the other work-up during this visit: Lipid panel is triglyceride 98, cholesterol 104, LDLs 36 and HDL is 47. Hemoglobin A1c 6.8. CK level 2592 and today is 6726 AST 223 ALT TSH: 3.610 2D echo: Reported as normal left ventricular function. Moderate aortic stenosis. Left atrium is moderate left atrial dilation. CT of the head is reported as hypodense region within the right insular extending into the arias radiata suspicious for acute/subacute ischemia. No intraparenchymal hemorrhage. CT angiography of the head and neck was reported as moderate to severe right M1 segment stenosis. No intracranial aneurysm. 80% stenosis at the origin of the left internal carotid artery secondary due to calcified plaque. No significant stenosis of the right internal carotid artery. Poor visualization of the proximal portion of the left vertebral artery just at the origin which may be occluded versus high-grade stenosis. The remaining portion are patent Carotid duplex is reported as no significant hemodynamic significant stenosis. MRI of the brain is reported as multifocal areas of acute ischemia involving the right temporal, parietal and basal ganglia. I first reviewed the MRI and I feel the patient has right temporal, frontal parietal, subcortical frontal/arias radiata - Labs CBC & Chem 7: 09/22/22 07:05 09/23/22 08:55 Labs: Abnormal Lab Results - Last 24 Hours (Table) 09/22/22 09/23/22 09/23/22 Range/Units 19:50 06:32 08:55 Sodium (137-145) mmol/L Potassium (3.5-5.1) mmol/L Glucose (74-99) mg/dL POC Glucose (mg/dL) 181 H 178 H (70-110) mg/dL Hemoglobin A1c 6.8 H (<=6.0) % Calcium (8.4-10.2) mg/dL Creatine Kinase (55-170) U/L 09/23/22 09/23/22 09/23/22 Range/Units 08:55 08:55 11:20 Sodium 135 L (137-145) mmol/L Potassium 3.4 L (3.5-5.1) mmol/L Glucose 215 H (74-99) mg/dL POC Glucose (mg/dL) 168 H (70-110) mg/dL Hemoglobin A1c (<=6.0) % Calcium 8.1 L (8.4-10.2) mg/dL Creatine Kinase 2808 H* (55-170) U/L 09/23/22 Range/Units 16:22 Sodium (137-145) mmol/L Potassium (3.5-5.1) mmol/L Glucose (74-99) mg/dL POC Glucose (mg/dL) 173 H (70-110) mg/dL Hemoglobin A1c (<=6.0) % Calcium (8.4-10.2) mg/dL Creatine Kinase (55-170) U/L Assessment and Plan Assessment: This is a 72-year-old gentleman who presented to the emergency department on 09/21/2022 because of the generalized weakness and fall. According to the she noticed that the patient had weakness over the left side since yesterday which was a 08/21/2022 and it seems that the patient had left facial droop that was noticed today in the afternoon early so code stroke was activated and initial NIH stroke scale was a 1 and a repeat NIH stroke so was a 3. CT of the head showed hypodensity region in the right insular extending into the right arias radiata suspicious for acute/subacute ischemia. CT angiography is reported as moderate to severe right MCA segment stenosis in 80% origin left ICA stenosis due to calcified plaque as well as left vertebral height grade stenosis versus occlusion. No IV TPA since the patient is outside the window and symptom more than 4-1/2 hours and the risks outweigh the benefit. Acute to subacute ischemic stroke over the right hemisphere that is multifactorial but predominantly over the right temporal, subcortical frontal/arias radiata and parietal/frontal region. Has left facial droop and left arm weakness more than leg weakness. Facial weakness improved She has severe right M1 stenosis. Stroke seems embolic in nature. Asymptomatic left ICA stenosis of about 80% on CT angiography while on carotid duplex was reported as no significant stenosis High-grade left vertebral artery stenosis versus occlusion on CT angiography History of carotid stenosis according to family members Rhabdomyolysis due to fall likely due to him having weakness on left side--trending donw Hypertension Diabetes (HbA1c 6.8) History of peptic ulcer disease that is remote Plan: I recommend a transesophageal echocardiogram since unknown exact cause of the stroke but seems embolic in nature. On the CTA is seems that he has a significant left ICA stenosis but but on carson tid duplex is reported as nonsignificant stenosis. Per vascular surgery team is felt the carotid duplex is more likely 50-69% on the left and no vascular intervention indicated at this time. Recommend an event monitor for 30 days if unknown source of the stroke to rule out any A. fib or flutter. He was resumed on his home dose of aspirin 81 and I also started him on Plavix 75 mg daily. He does have a remote history of peptic ulcer disease but will observe him and I notified the patient's as well as family members and they're in agreement. He is on Lipitor 80 mg daily at bedtime but I'll decrease it down to 20 mg because of his rhabdomyolysis. Once Rhabdomyolysis improves then the will increase the the statin to high intensity because of the stroke as well as a carotid stenosis. Continue neuro checks Cardiac monitoring PT OT and VIDEO GAME ANIMATOR are consulted We'll defer the rest of the medical management to primary team For DVT prophylaxis she is on enoxaparin. Plan was discussed with the patient and primary attending. Dr. Nickerson will start neurology service tomorrow A.M. Time with Patient: Less than 30
[2022-09-23 20:17] LABS: Glucose,Whole Blood 189 mg/dL (70-110)
[2022-09-23] MEDS: LEVOTHYROXINE 125 MCG TAB PO SCH (20:28)
[2022-09-23] MEDS: GABAPENTIN 100 MG CAP PO SCH (20:28)
[2022-09-23] MEDS: ATORVASTATIN 20 MG TAB PO SCH (20:29)
[2022-09-24 06:15] LABS: Glucose,Whole Blood 171 mg/dL (70-110)
--- NOTE | 2022-09-24 08:13 | P.CRDCN ---
History of Present Illness Consult date: 09/24/22 Chief complaint: Left-sided weakness History of present illness: The patient is a 72-year-old gentleman with a past medical history significant f or hypertension and dyslipidemia who was admitted to the hospital initially with bilateral lower extremity weakness and he was diagnosed with rhabdomyolysis. On the floor he developed left-sided weakness associated with left facial drop." Stroke was called for him and the patient subsequently was transferred to [facility]. Further investigation was performed including initially a computed tomography s can of subsequently MRI of the brain and that showed possible embolic stroke. Also he underwent initially a CTA of the neck which showed evidence of severe stenosis of the left carotid artery and intermediate stenosis of the right carotid artery that subsequently he underwent carotid duplex study which showed no evidence of carotid atherosclerosis. The fatty this discrepancy here. We consulted to see the patient to rule out any cardiac etiology for his stroke and mainly patent foramen ovale. No history of paroxysmal atrial fibrillation and no history of coronary artery heart failure or cardiac arrhythmia the patient doesn't see any volunteer services supervisor as an outpatient. The EKG showed sinus mechanism with RBBB. The echo showed preserved LV systolic function with mild aortic stenosis The examination is remarkable for stable vital signs with regular rhythm and systolic murmur at the right and left upper sternal border Assessment Stroke concerning for embolic etiology Hypertension Dyslipidemia Rhabdomyolysis Multiple comorbid conditions Plan Continue the current medical regimen Monitor for cardiac arrhythmia mainly atrial fibrillation Proceed with transesophageal echocardiogram in the next 24-48 hours Continue dual antiplatelet therapy Past Medical History Past Medical History: Diabetes Mellitus, Hyperlipidemia, Hypertension, Thyroid Disorder Additional Past Medical History / Comment(s): hypothyroid, neuropathy, b orderline diabetic- takes metformin, patient had bleeding ulcer in 1972, had open sore from poor circulation on right ankle- then had an infection (patient thinks staph). Patient says he recently had blood tests with his primary doctor that showed poor kidney function. Has consult to see for his kidneys coming up. History of Any Multi-Drug Resistant Organisms: None Reported Past Surgical History: No Surgical Hx Reported Past Anesthesia/Blood Transfusion Reactions: No Reported Reaction Past Psychological History: No Psychological Hx Reported Additional Psychological History / Comment(s): Lives home by himself and his kids live with him on the weekends. Smoking Status: Former smoker Past Alcohol Use History: Occasional Additional Past Alcohol Use History / Comment(s): Says some days he has a couple beers but mostly doesn't drink. Past Drug Use History: None Reported - Past Family History Mother Additional Family Medical History / Comment(s): Mother at 94 from fall with complications of subdural hematoma and strokes. Father Family Medical History: CVA/TIA Additional Family Medical History / Comment(s): Father at age 84. Sister(s) Family Medical History: Cancer Additional Family Medical History / Comment(s): sister this past may at age 62 from bladder CA. Medications and Allergies Home Medications Medication Instructions Recorded Confirmed Type Atorvastatin [Lipitor] 10 mg PO HS 06/26/16 09/21/22 History metFORMIN HCL [Glucophage] 1,000 mg PO BID 06/26/16 09/21/22 History Chlorthalidone 25 mg PO DAILY #30 tab 06/27/16 09/21/22 Rx Acetaminophen Tab [Tylenol Tab] 1,000 mg PO Q6HR PRN 09/21/22 09/21/22 History Ascorbic Acid [Vitamin C] 1,000 mg PO DAILY 09/21/22 09/21/22 History Aspirin EC [Ecotrin Low Dose] 81 mg PO DAILY 09/21/22 09/21/22 History Calcium Acetate 667 mg PO BID-W/MEALS 09/21/22 09/21/22 History Cholecalciferol [Vitamin D3 (125 125 mcg PO DAILY 09/21/22 09/21/22 History Mcg = 5000 Iu)] Gabapentin [Neurontin] 100 mg PO BID 09/21/22 09/21/22 History Gabapentin [Neurontin] 400 mg PO BID 09/21/22 09/21/22 History Levothyroxine Sodium [Synthroid] 125 mcg PO HS 09/21/22 09/21/22 History Multivitamins, Thera [Multivitamin 1 tab PO DAILY 09/21/22 09/21/22 History (formulary)] allopurinoL [Zyloprim] 100 mg PO DAILY 09/21/22 09/21/22 History amLODIPine [Norvasc] 10 mg PO HS 09/21/22 09/21/22 History atenoloL [Tenormin] 25 mg PO DAILY 09/21/22 09/21/22 History Allergies Allergy/AdvReac Type Severity Reaction Status Date / Time No Known Allergies Allergy Verified 09/21/22 13:02 Physical Exam Vitals: Vital Signs Pulse Resp BP Pulse Ox 09/24/22 04:00 70 16 145/84 94 L 09/24/22 02:00 71 18 09/24/22 00:00 71 18 142/73 94 L 09/23/22 20:00 77 18 130/69 94 L 09/23/22 15:42 76 15 120/70 95 09/23/22 11:18 69 18 129/68 92 L Intake and Output 09/23/22 09/24/22 09/24/22 22:59 06:59 14:59 Output Total 650 800 Balance -650 -800 Output: Urine 650 800 Other: Voiding Method Indwelling Catheter Indwelling Catheter Results 09/22/22 07:05 09/23/22 08:55 Lipids 09/23/22 Range/Units 08:55 Triglycerides 98.80 (0.00-149.00) mg/dL Cholesterol 104.00 (0.00-200.00) mg/dL HDL Cholesterol 47.30 (40.00-60.00) mg/dL Cholesterol/HDL Ratio 2.20 Ratio Comprehensive Metabolic Panel 09/23/22 Range/Units 08:55 Sodium 135 L (137-145) mmol/L Potassium 3.4 L (3.5-5.1) mmol/L Chloride 101 (98-107) mmol/L Carbon Dioxide 27 (22-30) mmol/L BUN 10 (9-20) mg/dL Creatinine 0.77 (0.66-1.25) mg/dL Glucose 215 H (74-99) mg/dL Calcium 8.1 L (8.4-10.2) mg/dL Current Medications Generic Name Dose Route Start Last Admin Trade Name Freq PRN Reason Stop Dose Admin Aspirin 81 mg 09/23/22 09:00 09/23/22 07:52 Aspirin 81 Mg PO 81 mg DAILY [facility] Administration Atorvastatin Calcium 20 mg 09/22/22 21:00 09/23/22 20:29 Atorvastatin 20 Mg Tab PO 20 mg HS [facility]INA Administration Clopidogrel Bisulfate 75 mg 09/22/22 16:00 09/23/22 07:52 Clopidogrel 75 Mg Tab PO 75 mg DAILY [facility] Administration Docusate Sodium 100 mg 09/22/22 09:00 09/23/22 20:23 Docusate 100 Mg Cap PO Not Given BID [facility] Enoxaparin Sodium 40 mg 09/22/22 09:00 08/18/23 07:52 Enoxaparin 40 Mg/0.4 Ml Syringe SQ 40 mg DAILY [facility] Administration Gabapentin 100 mg 09/23/22 21:00 09/23/22 20:28 Gabapentin 100 Mg Cap PO 100 mg BID [facility] Administration Sodium Chloride 1,000 mls @ 75 mls/hr 09/21/22 18:30 09/23/22 20:33 Saline 0.9% IV Not Given .[id number] GINA Levothyroxine Sodium 125 mcg 09/22/22 21:00 09/23/22 20:28 Levothyroxine 125 Mcg Tab PO 125 mcg HS [facility]INA Administration Morphine Sulfate 4 mg 09/21/22 18:28 Morphine Sulfate 4 Mg/Ml Syringe IV Q4HR PRN Severe Pain (Scale 7 to 10) Naloxone HCl 0.2 mg 09/21/22 18:28 Naloxone 0.4 Mg/Ml 1 Ml Vial IV Q2M PRN Opioid Reversal Ondansetron HCl 4 mg 09/21/22 18:28 Ondansetron 4 Mg/2 Ml Vial IVP Q8HR PRN Nausea And Vomiting Tamsulosin HCl 0.4 mg 09/22/22 08:30 09/23/22 07:52 Tamsulosin 0.4 Mg Cap.Er.24h PO 0.4 mg [id number] GINA Administration Intake and Output 09/23/22 09/24/22 09/24/22 22:59 06:59 14:59 Output Total 650 800 Balance -650 -800 Output: Urine 650 800 Other: Voiding Method Indwelling Catheter Indwelling Catheter 09/22/22 07:05 09/23/22 08:55
[2022-09-24] MEDS: GABAPENTIN 100 MG CAP PO SCH ×2 (08:32→21:19)
[2022-09-24] MEDS: CLOPIDOGREL 75 MG TAB PO SCH (08:32)
[2022-09-24] MEDS: ENOXAPARIN 40 MG/0.4 ML SYRINGE SQ SCH (08:32)
[2022-09-24] MEDS: ASPIRIN 81 MG PO SCH (08:32)
[2022-09-24] MEDS: DOCUSATE 100 MG CAP PO SCH ×2 (08:32→21:11)
[2022-09-24] MEDS: TAMSULOSIN 0.4 MG CAP.ER.24H PO SCH (08:32)
[2022-09-24] MEDS: SODIUM CHLORIDE 0.9% 1,000 ML IV SCH (11:42)
[2022-09-24 11:44] LABS: African American GFR (CKD) >90 (>60 ml/min/1.73 sqM); Anion Gap 10 mmol/L; Blood Urea Nitrogen 14 mg/dL (9-20); Calcium 8.4 mg/dL (8.4-10.2); Carbon Dioxide 23 mmol/L (22-30); Chloride 102 mmol/L (98-107); Creatine Kinase 878 U/L (55-170); Glucose 306 mg/dL (74-99); Non-African American GFR(CKD) 87 (>60 ml/min/1.73 sqM); Potassium 3.7 mmol/L (3.5-5.1); Sodium 135 mmol/L (137-145)
[2022-09-24 12:09] LABS: Glucose,Whole Blood 196 mg/dL (70-110)
[2022-09-24] MEDS ORDERED: DEXTROSE 50% SYRINGE 50 ML IVP PRN ×2 (13:17)
--- NOTE | 2022-09-24 13:20 | P.PN ---
Subjective Progress Note Date: 09/24/22 The patient is a 72-year-old male with a PMH of diabetes, hypertension, hyperlipidemia, hypothyroidism who was brought into the emergency room via EMS for weakness and fall. The patient reports that over the past few days he has been feeling increasingly weak and has been unable to get up out of the bed. He attempted to get out of bed earlier today with the help of his family and his legs became shaky and he slowly sat down on the ground. Patient denies any injuries or head trauma. He also reports decreased oral intake over the past few days. He denies any additional complaints. He denies experiencing unilateral weakness, visual disturbances, chest pain, shortness of breath, nausea, vomiting. Denied alcohol use. Chest x-ray in the emergency room revealed cardiomegaly with COPD. Pelvis x-ray was unremarkable. EKG revealed sinus bradycardia at 57 bpm with a right bundle-branch block, with the bundle- branch block also present on prior EKG from 2017. Laboratory evaluation revealed leukocytosis of 13.5, potassium 3.3, creatinine kinase 2592, and an unremarkable UA. 09/22 Patient was seen and examined. Patient reports generalized weakness that started early this week that led to his fall. He denies any history of stroke or IL. CBC done this morning shows a leukocytosis of 11.45. BMP shows potassium of 3.4, anion gap of 14.2, glucose 146, calcium of 8.3, AST 223, ALT 83, albumin 3.7. CPK 6726. He was noted to have a left sided facial droop along with left-sided weakness which led to CODE STOKE being called. CT head shows acute/subacute CVA in the right insula extending into the arias radiata. CTA head and neck shows moderate to severe right MCA M1 segment stenosis and 80% stenosis of the origin of the left internal carotid artery. Dr. Calderon was notified and he will be started on ASA. Vascular surgery consulted for carotid stenosis. Advanced neurochecks and telemetry monitoring ordered. MRI brain ordered. Hemoglobin A1c and lipid panel ordered. PT, OT and ST ordered. 09/23 Patient was seen and examined. Facial droop has resolved. He continues to have significant weakness though bilateral extremities now. He will need rehab on discharge, inpatient vs SNF depending on progression. Liver ultrasound shows hepatic steatosis and 4 mm hyperechoic focus within the right kidney. Carotid Doppler negative for significant stenosis. MRI brain shows multifocal areas of acute ischemia involving the right temporal, right parietal and right basal ganglia. Echocardiogram was done which showed EF of 65-70% with no regional wall motion abnormalities and moderate aortic stenosis. BMP shows sodium 135, potassium 3.4, glucose of 2:15 and calcium of 8.1. CPK 2808. Vascular surgery recommends no surgical intervention. Neurology is on board. 09/24 Patient was seen and examined. No changes in clinical condition. Cardiology was consulted and plans on doing a INGRID in the next 24-48 hours. BMP shows Na 135, glucose 306. CPK 878. A1c is 6.8. General: non toxic, no distress, appears at stated age, obese, lethargic Head: atraumatic, normocephalic, symmetric Eyes: EOMI, no lid lag, anicteric sclera ENT: Nose and ears atraumatic Neck: No cervical lymphadenopathy, trachea midline, supple Cardiovascular: S1S2 reg, systolic grade 4 murmur appreciated, no edema Lungs: CTA bilateral, no rhonchi, no rales, no accessory muscle use Abdominal: soft, nontender to palpation, no guarding Ext: no gross muscle atrophy, no contractures, Neuro: No facial droop noted. LUE 4/5 RUE RLE LLE extremity 4 out of 5 strength. Sensation intact to touch throughout. Psych: Alert, oriented, appropriate affect Subacute CVA Rhabdomyolysis due to fall Diabetes mellitus with hyperglycemia Obstructive transaminitis Based on my assessment of this patient, this patient meets a high complexity level of care. Patient has an acute diagnosis of CVA that poses a threat to life or bodily function. Subacute CVA: Continue ASA 81 mg PO QD. Plavix 75 mg PO QD. Lipitor decreased to 20 mg PO QHS due to rhabdo. Neurology consulted. Telemetry monitoring. Advanced neurochecks. PT, OT, ST consulted. Plans for INGRID in the next 24-48H. Rhabdomyolysis due to fall: Continue IV hydration with normal sinus at 75 mL per hour. Diabetes mellitus with hyperglycemia: ISS. Accuchecks ACHS. Hypoglycemic precautions Obstructive transaminitis: Hepatic steatosis with no obstruction. Lovenox SQ for DVT prophylaxis. FULL CODE. I have reviewed the following business information consultant notes: Cardiology note reviewed. I have reviewed the results of the following tests: BMP. CPK. A1c I have ordered the following tests: I have discussed the care of this patient with the following independent historian: I have independently interpreted the following test below: I have discussed the management of this patient with the following physician: Case discussed with Dr. Alvarez, plans for INGRID in the near future. Objective - Vital Signs Vital signs: Vital Signs Temp 98.2 F 09/24/22 08:25 Pulse 72 09/24/22 11:38 Resp 20 09/24/22 11:38 BP 134/70 09/24/22 11:38 Pulse Ox 95 09/24/22 11:38 FiO2 21 09/23/22 07:56 Intake & Output 09/23/22 09/24/22 09/24/22 18:59 06:59 18:59 Output Total 650 800 400 Balance -650 -800 -400 Output: Urine 650 800 400 Other: Voiding Method Indwelling Catheter Indwelling Catheter Indwelling Catheter - Labs CBC & Chem 7: 09/22/22 07:05 09/24/22 10:43 Labs: Abnormal Lab Results - Last 24 Hours (Table) 09/23/22 09/23/22 09/23/22 Range/Units 08:55 16:22 20:15 Sodium (137-145) mmol/L Glucose (74-99) mg/dL POC Glucose (mg/dL) 173 H 189 H (70-110) mg/dL Hemoglobin A1c 6.8 H (<=6.0) % Creatine Kinase (55-170) U/L 09/24/22 09/24/22 09/24/22 Range/Units 06:13 10:43 12:08 Sodium 135 L (137-145) mmol/L Glucose 306 H (74-99) mg/dL POC Glucose (mg/dL) 171 H 196 H (70-110) mg/dL Hemoglobin A1c (<=6.0) % Creatine Kinase 878 H (55-170) U/L
[2022-09-24 16:53] LABS: Glucose,Whole Blood 159 mg/dL (70-110)
[2022-09-24] MEDS: INSULIN ASPART (NovoLOG) 100 UNIT/ML VIAL SQ SCH ×2 (17:17→21:12)
[2022-09-24 20:25] LABS: Glucose,Whole Blood 151 mg/dL (70-110)
[2022-09-24] MEDS: ATORVASTATIN 20 MG TAB PO SCH (21:19)
[2022-09-24] MEDS: LEVOTHYROXINE 125 MCG TAB PO SCH (21:19)
[2022-09-25] MEDS: SODIUM CHLORIDE 0.9% 1,000 ML IV SCH ×2 (04:56→15:14)
[2022-09-25 06:12] LABS: Glucose,Whole Blood 155 mg/dL (70-110)
[2022-09-25] MEDS: INSULIN ASPART (NovoLOG) 100 UNIT/ML VIAL SQ SCH ×4 (06:44→21:05)
[2022-09-25] MEDS: DOCUSATE 100 MG CAP PO SCH ×2 (08:08→21:05)
[2022-09-25] MEDS: CLOPIDOGREL 75 MG TAB PO SCH (08:12)
[2022-09-25] MEDS: ASPIRIN 81 MG PO SCH (08:12)
[2022-09-25] MEDS: ENOXAPARIN 40 MG/0.4 ML SYRINGE SQ SCH (08:12)
[2022-09-25] MEDS: TAMSULOSIN 0.4 MG CAP.ER.24H PO SCH (08:12)
[2022-09-25] MEDS: GABAPENTIN 100 MG CAP PO SCH ×2 (08:12→21:05)
--- NOTE | 2022-09-25 10:36 | P.PN ---
Subjective Progress Note Date: 09/25/22 Principal diagnosis: Stroke The patient is a 72-year-old gentleman with a past medical history significant for hypertension and dyslipidemia who was admitted to the hospital initially with bilateral lower extremity weakness and he was diagnosed with rhabdomyolysis. On the floor he developed left-sided weakness associated with left facial drop." Stroke was called for him and the patient subsequently was transferred to [facility]. Further investigation was performed including initially a computed tomography scan of subsequently MRI of the brain and that showed possible embolic stroke. Also he underwent initially a CTA of the neck which showed evidence of severe stenosis of the left carotid artery and intermediate stenosis of the right carotid artery that subsequently he underwent carotid duplex study which showed no evidence of carotid atherosclerosis. The fatty this discrepancy here. We consulted to see the patient to rule out any cardiac etiology for his stroke and mainly patent foramen ovale. No history of paroxysmal atrial fibrillation and no history of coronary artery heart failure or cardiac arrhythmia the patient doesn't see any earthmoving plant operator as an outpatient. The EKG showed sinus mechanism with RBBB. The echo showed preserved LV systolic function with mild aortic stenosis. The examination is remarkable for stable vital signs with regular rhythm and systolic murmur at the right and left upper sternal border September [id number] The patient was seen and evaluated this morning. He remains asymptomatic and remains hemolyticus stable. The plan is to pursue was transesophageal echocardiogram in the morning. Meanwhile continue the current medical regimen including antiplatelet as well as a statin. No arrhythmia has been detected so far. Assessment Stroke concerning for embolic etiology Hypertension Dyslipidemia Rhabdomyolysis Multiple comorbid conditions Plan Continue the current medical regimen Monitor for cardiac arrhythmia mainly atrial fibrillation Proceed with transesophageal echocardiogram in the next 24-48 hours Continue dual antiplatelet therapy Objective - Vital Signs Vital signs: Vital Signs Temp 97.8 F 09/25/22 08:07 Pulse 56 L 09/25/22 08:07 Resp 16 09/25/22 08:07 BP 142/69 09/25/22 08:07 Pulse Ox 97 09/25/22 08:07 FiO2 21 09/23/22 07:56 Intake & Output 09/24/22 09/25/22 09/25/22 18:59 06:59 18:59 Intake Total 0 Output Total 750 1150 Balance -750 -1150 0 Intake: Oral 0 Output: Urine 750 1150 Other: Voiding Method Indwelling Catheter Indwelling Catheter Indwelling Catheter # Bowel Movements 1 - Labs CBC & Chem 7: 09/22/22 07:05 09/24/22 10:43 Labs: Abnormal Lab Results - Last 24 Hours (Table) 09/24/22 09/24/22 09/24/22 Range/Units 10:43 12:08 16:51 Sodium 135 L (137-145) mmol/L Glucose 306 H (74-99) mg/dL POC Glucose (mg/dL) 196 H 159 H (70-110) mg/dL Creatine Kinase 878 H (55-170) U/L 09/24/22 09/25/22 Range/Units 20:23 06:09 Sodium (137-145) mmol/L Glucose (74-99) mg/dL POC Glucose (mg/dL) 151 H 155 H (70-110) mg/dL Creatine Kinase (55-170) U/L
[2022-09-25 11:28] LABS: Glucose,Whole Blood 136 mg/dL (70-110)
--- NOTE | 2022-09-25 12:07 | P.PN ---
Subjective Progress Note Date: 09/25/22 The patient is a 72-year-old male with a PMH of diabetes, hypertension, hyperlipidemia, hypothyroidism who was brought into the emergency room via EMS for weakness and fall. The patient reports that over the past few days he has been feeling increasingly weak and has been unable to get up out of the bed. He attempted to get out of bed earlier today with the help of his family and his legs became shaky and he slowly sat down on the ground. Patient denies any injuries or head trauma. He also reports decreased oral intake over the past few days. He denies any additional complaints. He denies experiencing unilateral weakness, visual disturbances, chest pain, shortness of breath, nausea, vomiting. Denied alcohol use. Chest x-ray in the emergency room revealed cardiomegaly with COPD. Pelvis x-ray was unremarkable. EKG revealed sinus bradycardia at 57 bpm with a right bundle-branch block, with the bundle- branch block also present on prior EKG from 2017. Laboratory evaluation revealed leukocytosis of 13.5, potassium 3.3, creatinine kinase 2592, and an unremarkable UA. 09/22 Patient was seen and examined. Patient reports generalized weakness that started early this week that led to his fall. He denies any history of stroke or [place]. CBC done this morning shows a leukocytosis of 11.45. BMP shows potassium of 3.4, anion gap of 14.2, glucose 146, calcium of 8.3, AST 223, ALT 83, albumin 3.7. CPK 6726. He was noted to have a left sided facial droop along with left-sided weakness which led to CODE STOKE being called. CT head shows acute/subacute CVA in the right insula extending into the arias radiata. CTA head and neck shows moderate to severe right MCA M1 segment stenosis and 80% stenosis of the origin of the left internal carotid artery. Dr. Calderon was notified and he will be started on ASA. Vascular surgery consulted for carotid stenosis. Advanced neurochecks and telemetry monitoring ordered. MRI brain ordered. Hemoglobin A1c and lipid panel ordered. PT, OT and ST ordered. 09/23 Patient was seen and examined. Facial droop has resolved. He continues to have significant weakness though bilateral extremities now. He will need rehab on discharge, inpatient vs SNF depending on progression. Liver ultrasound shows hepatic steatosis and 4 mm hyperechoic focus within the right kidney. Carotid Doppler negative for significant stenosis. MRI brain shows multifocal areas of acute ischemia involving the right temporal, right parietal and right basal ganglia. Echocardiogram was done which showed EF of 65-70% with no regional wall motion abnormalities and moderate aortic stenosis. BMP shows sodium 135, potassium 3.4, glucose of 2:15 and calcium of 8.1. CPK 2808. Vascular surgery recommends no surgical intervention. Neurology is on board. 09/24 Patient was seen and examined. No changes in clinical condition. Cardiology was consulted and plans on doing a INGRID in the next 24-48 hours. BMP shows Na 135, glucose 306. CPK 878. A1c is 6.8. 09/25 Patient was seen and examined. No changes in clinical condition. Plans for INGRID in the next 24-48 hours. Discussed with ex- at bedside. General: non toxic, no distress, appears at stated age, obese, lethargic Head: atraumatic, normocephalic, symmetric Eyes: EOMI, no lid lag, anicteric sclera ENT: Nose and ears atraumatic Neck: No cervical lymphadenopathy, trachea midline, supple Cardiovascular: S1S2 reg, systolic grade 4 murmur appreciated, no edema Lungs: CTA bilateral, no rhonchi, no rales, no accessory muscle use Abdominal: soft, nontender to palpation, no guarding Ext: no gross muscle atrophy, no contractures, Neuro: No facial droop noted. LUE 4/5 RUE RLE LLE extremity 4 out of 5 strength. Sensation intact to touch throughout. Psych: Alert, oriented, appropriate affect Subacute CVA Rhabdomyolysis due to fall Diabetes mellitus with hyperglycemia Obstructive transaminitis Based on my assessment of this patient, this patient meets a moderate complexity level of care. Patient has an acute diagnosis of CVA that poses a threat to life or bodily function. Subacute CVA: Continue ASA 81 mg PO QD. Plavix 75 mg PO QD. Lipitor decreased to 20 mg PO QHS due to rhabdo. Neurology on board. Telemetry monitoring. Advanced neurochecks. PT, OT, ST consulted. Plans for INGRID in the next 24-48H. Rhabdomyolysis due to fall: Continue IV hydration with normal sinus at 75 mL per hour. Diabetes mellitus with hyperglycemia: ISS. Accuchecks ACHS. Hypoglycemic precautions Obstructive transaminitis: Hepatic steatosis with no obstruction. Patient will need SNF vs INPT rehab on discharge Lovenox SQ for DVT prophylaxis. FULL CODE. I have reviewed the following loans consultant notes: Cardiology note reviewed. I have reviewed the results of the following tests: POC glucose reviewed. I have ordered the following tests: I have discussed the care of this patient with the following independent hist nehemiah: I have independently interpreted the following test below: I have discussed the management of this patient with the following physician: Objective - Vital Signs Vital signs: Vital Signs Temp 97.8 F 09/25/22 08:07 Pulse 77 09/25/22 11:15 Resp 16 09/25/22 11:15 BP 152/83 09/25/22 11:15 Pulse Ox 95 09/25/22 11:15 FiO2 21 09/23/22 07:56 Intake & Output 09/24/22 09/25/22 09/25/22 18:59 06:59 18:59 Intake Total 0 Output Total 750 1150 Balance -750 -1150 0 Intake: Oral 0 Output: Urine 750 1150 Other: Voiding Method Indwelling Catheter Indwelling Catheter Indwelling Catheter # Bowel Movements 1 - Labs CBC & Chem 7: 09/22/22 07:05 09/24/22 10:43 Labs: Abnormal Lab Results - Last 24 Hours (Table) 09/24/22 09/24/22 09/24/22 Range/Units 12:08 16:51 20:23 POC Glucose (mg/dL) 196 H 159 H 151 H (70-110) mg/dL 09/25/22 09/25/22 Range/Units 06:09 11:26 POC Glucose (mg/dL) 155 H 136 H (70-110) mg/dL
[2022-09-25 16:48] LABS: Glucose,Whole Blood 193 mg/dL (70-110)
[2022-09-25 20:19] LABS: Glucose,Whole Blood 182 mg/dL (70-110)
[2022-09-25] MEDS: ATORVASTATIN 20 MG TAB PO SCH (21:04)
[2022-09-25] MEDS: LEVOTHYROXINE 125 MCG TAB PO SCH (21:05)
[2022-09-26 06:11] LABS: Glucose,Whole Blood 162 mg/dL (70-110)
[2022-09-26] MEDS: SODIUM CHLORIDE 0.9% 1,000 ML IV SCH (06:27)
[2022-09-26] MEDS: INSULIN ASPART (NovoLOG) 100 UNIT/ML VIAL SQ SCH ×4 (06:28→21:45)
[2022-09-26] MEDS: GABAPENTIN 100 MG CAP PO SCH ×2 (09:08→21:45)
[2022-09-26] MEDS: TAMSULOSIN 0.4 MG CAP.ER.24H PO SCH (09:08)
[2022-09-26] MEDS: ASPIRIN 81 MG PO SCH (09:08)
[2022-09-26] MEDS: ENOXAPARIN 40 MG/0.4 ML SYRINGE SQ SCH (09:08)
[2022-09-26] MEDS: DOCUSATE 100 MG CAP PO SCH ×2 (09:08→21:45)
[2022-09-26] MEDS: CLOPIDOGREL 75 MG TAB PO SCH (09:08)
[2022-09-26 11:31] LABS: Glucose,Whole Blood 139 mg/dL (70-110)
--- NOTE | 2022-09-26 11:49 | P.PN ---
Subjective Progress Note Date: 09/26/22 The patient is a 72-year-old male with a PMH of diabetes, hypertension, hyperlipidemia, hypothyroidism who was brought into the emergency room via EMS for weakness and fall. The patient reports that over the past few days he has been feeling increasingly weak and has been unable to get up out of the bed. He attempted to get out of bed earlier today with the help of his family and his legs became shaky and he slowly sat down on the ground. Patient denies any injuries or head trauma. He also reports decreased oral intake over the past few days. He denies any additional complaints. He denies experiencing unilateral weakness, visual disturbances, chest pain, shortness of breath, nausea, vomiting. Denied alcohol use. Chest x-ray in the emergency room revealed cardiomegaly with COPD. Pelvis x-ray was unremarkable. EKG revealed sinus bradycardia at 57 bpm with a right bundle-branch block, with the bundle- branch block also present on prior EKG from 2017. Laboratory evaluation revealed leukocytosis of 13.5, potassium 3.3, creatinine kinase 2592, and an unremarkable UA. 09/22 Patient was seen and examined. Patient reports generalized weakness that started early this week that led to his fall. He denies any history of stroke or [place]. CBC done this morning shows a leukocytosis of 11.45. BMP shows potassium of 3.4, anion gap of 14.2, glucose 146, calcium of 8.3, AST 223, ALT 83, albumin 3.7. CPK 6726. He was noted to have a left sided facial droop along with left-sided weakness which led to CODE STOKE being called. CT head shows acute/subacute CVA in the right insula extending into the arias radiata. CTA head and neck shows moderate to severe right MCA M1 segment stenosis and 80% stenosis of the origin of the left internal carotid artery. Dr. Calderon was notified and he will be started on ASA. Vascular surgery consulted for carotid stenosis. Advanced neurochecks and telemetry monitoring ordered. MRI brain ordered. Hemoglobin A1c and lipid panel ordered. PT, OT and ST ordered. 09/23 Patient was seen and examined. Facial droop has resolved. He continues to have significant weakness though bilateral extremities now. He will need rehab on discharge, inpatient vs SNF depending on progression. Liver ultrasound shows hepatic steatosis and 4 mm hyperechoic focus within the right kidney. Carotid Doppler negative for significant stenosis. MRI brain shows multifocal areas of acute ischemia involving the right temporal, right parietal and right basal ganglia. Echocardiogram was done which showed EF of 65-70% with no regional wall motion abnormalities and moderate aortic stenosis. BMP shows sodium 135, potassium 3.4, glucose of 2:15 and calcium of 8.1. CPK 2808. Vascular surgery recommends no surgical intervention. Neurology is on board. 09/24 Patient was seen and examined. No changes in clinical condition. Cardiology was consulted and plans on doing a INGRID in the next 24-48 hours. BMP shows Na 135, glucose 306. CPK 878. A1c is 6.8. 09/25 Patient was seen and examined. No changes in clinical condition. Plans for INGRID in the next 24-48 hours. Discussed with ex- at bedside. 09/26 Patient was seen and examined. No changes in clinical condition. A little more awake today. Plans for INGRID today. Discussed with ex- at bedside. PMR consultation placed for possible inpatient rehab. General: non toxic, no distress, appears at stated age, obese Head: atraumatic, normocephalic, symmetric Eyes: EOMI, no lid lag, anicteric sclera ENT: Nose and ears atraumatic Cardiovascular: S1S2 reg, systolic grade 4 murmur appreciated, no edema Lungs: CTA bilateral, no rhonchi, no rales, no accessory muscle use Ext: no gross muscle atrophy, no contractures, Neuro: No facial droop noted. LUE 4/5 RUE RLE LLE extremity 4 out of 5 strength. Sensation intact to touch throughout. Psych: Alert, oriented, appropriate affect Subacute CVA Rhabdomyolysis due to fall Diabetes mellitus with hyperglycemia Obstructive transaminitis Based on my assessment of this patient, this patient meets a moderate complexity level of care. Patient has an acute diagnosis of CVA that poses a threat to life or bodily function. Subacute CVA: Continue ASA 81 mg PO QD. Plavix 75 mg PO QD. Lipitor decreased to 20 mg PO QHS due to rhabdo. Neurology on board. Telemetry monitoring. Advanced neurochecks. PT, OT, ST consulted. Plans for INGRID today. Rhabdomyolysis due to fall: CPK downtrending. DC IVF and encourage hydration by mouth. Diabetes mellitus with hyperglycemia: ISS. Accuchecks ACHS. Hypoglycemic precautions Obstructive transaminitis: Hepatic steatosis with no obstruction. Patient will need SNF vs INPT rehab on discharge Lovenox SQ for DVT prophylaxis. FULL CODE. I have reviewed the following dairy consultant notes: I have reviewed the results of the following tests: POC glucose reviewed. I have ordered the following tests: I have discussed the care of this patient with the following independent historian: I have independently interpreted the following test below: I have discussed the management of this patient with the following physician: Objective - Vital Signs Vital signs: Vital Signs Temp 97.2 F L 09/26/22 08:00 Pulse 59 L 09/26/22 08:00 Resp 16 09/26/22 08:00 BP 172/79 09/26/22 08:00 Pulse Ox 97 09/26/22 08:00 FiO2 21 09/23/22 07:56 Intake & Output 09/25/22 09/26/22 09/26/22 18:59 06:59 18:59 Intake Total 600 Output Total 1250 675 Balance -650 -675 Intake: Oral 600 Output: Urine 1250 675 Other: Voiding Method Indwelling Catheter Indwelling Catheter Indwelling Catheter # Bowel Movements 1 1 - Labs CBC & Chem 7: 09/22/22 07:05 09/24/22 10:43 Labs: Abnormal Lab Results - Last 24 Hours (Table) 09/25/22 09/25/22 09/25/22 Range/Units 13:55 16:47 20:17 POC Glucose (mg/dL) 193 H 182 H (70-110) mg/dL Hemoglobin A1c 6.8 H (<=6.0) % 09/26/22 09/26/22 Range/Units 06:09 11:29 POC Glucose (mg/dL) 162 H 139 H (70-110) mg/dL Hemoglobin A1c (<=6.0) %
--- NOTE | 2022-09-26 12:01 | CDI ---
Documentation Clarification Form Date: From: Sarah Ford Phone: [phone] Admit Date: 09/22/2022 01:11:00 PM Patient Name: Cristian Brumfield Visit Number: [id number] Discharge Date: ATTENTION: The Clinical Documentation Specialists (CDI) and [facility] Coding Staff appreciate your assistance in clarifying documentation. Please respond to the clarification below the line at the bottom and electronically sign. The CDI & [facility] Coding staff will review the response and follow-up if needed. Please note: Queries are made part of the Legal Health Record. If you have any questions, please contact the author of this message via ITS. Dr. Grecia Foster Rhabdomyolysis is documented in the H&P dated 09/21. Additional clarification regarding the type of rhabdomyolysis is requested. History/Risk Factors: "72-year-old male with a PMH of diabetes, hypertension, hyperlipidemia, hypothyroidism who was brought into the emergency room via EMS for weakness and fall." - Per H&P on 09/21 Clinical Indicators: "profound weakness" "unable to get up out of bed for the last few days" - Per ED / Weakness Note on 09/21 Creatine Kinase: 09/21 - 7293 09/22 4384 09/23 8514 09/242 Treatment: Per H&P on 09/21 "Continue with IV fluids with normal saline 75 mLs per hour Monitor creatinine kinase levels" Please clarify the type of rhabdomyolysis, if known: [ ] Traumatic rhabdomyolysis due to fall [ x ] Traumatic rhabdomyolysis due to prolonged immobility [ ] Other, please specify [ ] Unable to Determine MTDD
[2022-09-26] MEDS ORDERED: fentaNYL (PF) 50 MCG/ML 2 ML AMP ONE (12:52)
[2022-09-26] MEDS: BENZOCAINE SPRAY 1 CAN TOPICAL ONE ×2 (13:15→13:28)
[2022-09-26] MEDS ORDERED: SODIUM CHLORIDE 0.9% 500 ML 500 ML IV ONE (13:16)
[2022-09-26] MEDS ORDERED: MIDAZOLAM 2 MG/2 ML VIAL IVP ONE ×3 (13:28→13:33)
[2022-09-26] MEDS ORDERED: fentaNYL (PF) 50 MCG/ML 2 ML AMP IVP ONE ×2 (13:28→13:30)
--- NOTE | 2022-09-26 13:34 | P.CONS ---
History of Present Illness - Reason for Consult Consult date: 09/26/22 rehab recommendations - Chief Complaint CVA - History of Present Illness Mr Cristian Brumfield is a 72 y/o male who lives alone, kids live with him on the weekends.Patient lives in a home with 2-4 TONA. Prior to admission, he was independent with mobility and ADLs, occasional cane. He has good support with 2 daughters, sister and an ex . Patient presented to the hospital with complaints of weakness and fall. Over the past few days prior, patient had been feeling increasingly weak and unable to get up out of bed. He also had decreased oral intake. CXR revealed cardiomegaly with COPD. Pelvis Xray was unremarkable. EKG revealed sinus bradycardia at 57 bpm with a right bundle branch block. Labs revealed leukocytosis of 13.5, potassium 3.3, creatinine kinase 6726. Urology was consulted for urine retention, wells catheter inserted. He was noted to fecal impaction. On 09/22/22, patient was noted to have left sided facial droop along with left sided weakness, code stroke called. CT head shows acute/subacute CVA in the right insula extending into the arias radiata. CTA head and neck shows moderate to severe right MCA M1 segment stenosis and 80% stenosis of the left internal carotid artery. Vascular surgery consulted for carotid stenosis. MRI brain ordered, Neurology consulted. MRI of the brain is reported as multifocal areas of acute ischemia involving the right temporal, parietal and basal ganglia. Vascular Surgery consulted, no surgical intervention. Cardiology planned for INGRID, likely 09/26/22. PM&R consulted, patient seen by therapies; bathing total assist, UB dressing mod assist, LB dressing total assist, grooming min assist, eating supervision, gait 4 ft total assist with RW, total assist with transfers, CRYSTAL SLICER regular diet thin liquids. 09/26/22: Attempted to see patient for consult but he was off the floor. Will attempt to see in consult tomorrow. Review of Systems reviewed, negative unless otherwise stated in HPI Past Medical History Past Medical History: Diabetes Mellitus, Hyperlipidemia, Hypertension, Thyroid Disorder Additional Past Medical History / Comment(s): hypothyroid, neuropathy, borderline diabetic- takes metformin, patient had bleeding ulcer in 1972, had o pen sore from poor circulation on right ankle- then had an infection (patient thinks staph). Patient says he recently had blood tests with his primary doctor that showed poor kidney function. Has consult to see for his kidneys coming up. History of Any Multi-Drug Resistant Organisms: None Reported Past Surgical History: No Surgical Hx Reported Past Anesthesia/Blood Transfusion Reactions: No Reported Reaction Past Psychological History: No Psychological Hx Reported Additional Psychological History / Comment(s): Lives home by himself and his kids live with him on the weekends. Smoking Status: Former smoker Past Alcohol Use History: Occasional Additional Past Alcohol Use History / Comment(s): Says some days he has a couple beers but mostly doesn't drink. Past Drug Use History: None Reported - Past Family History Mother Additional Family Medical History / Comment(s): Mother at 94 from fall with complications of subdural hematoma and strokes. Father Family Medical History: CVA/TIA Additional Family Medical History / Comment(s): Father at age 84. Sister(s) Family Medical History: Cancer Additional Family Medical History / Comment(s): sister this past may at age 62 from bladder CA. Medications and Allergies Home Medications Medication Instructions Recorded Confirmed Type Atorvastatin [Lipitor] 10 mg PO HS 06/26/16 09/21/22 History metFORMIN HCL [Glucophage] 1,000 mg PO BID 06/26/16 09/21/22 History Chlorthalidone 25 mg PO DAILY #30 tab 06/27/16 09/21/22 Rx Acetaminophen Tab [Tylenol Tab] 1,000 mg PO Q6HR PRN 09/21/22 09/21/22 History Ascorbic Acid [Vitamin C] 1,000 mg PO DAILY 09/21/22 09/21/22 History Aspirin EC [Ecotrin Low Dose] 81 mg PO DAILY 09/21/22 09/21/22 History Calcium Acetate 667 mg PO BID-W/MEALS 09/21/22 09/21/22 History Cholecalciferol [Vitamin D3 (125 125 mcg PO DAILY 09/21/22 09/21/22 History Mcg = 5000 Iu)] Gabapentin [Neurontin] 100 mg PO BID 09/21/22 09/21/22 History Gabapentin [Neurontin] 400 mg PO BID 09/21/22 09/21/22 History Levothyroxine Sodium [Synthroid] 125 mcg PO HS 09/21/22 09/21/22 History Multivitamins, Thera [Multivitamin 1 tab PO DAILY 09/21/22 09/21/22 History (formulary)] allopurinoL [Zyloprim] 100 mg PO DAILY 09/21/22 09/21/22 History amLODIPine [Norvasc] 10 mg PO HS 09/21/22 09/21/22 History atenoloL [Tenormin] 25 mg PO DAILY 09/21/22 09/21/22 History Allergies Allergy/AdvReac Type Severity Reaction Status Date / Time No Known Allergies Allergy Verified 09/21/22 13:02 Physical Exam Vitals: Vital Signs Temp Pulse Resp BP Pulse Ox 09/26/22 04:01 69 16 163/79 93 L 09/26/22 02:00 80 09/25/22 23:51 80 16 143/85 93 L 09/25/22 21:00 98.6 F 80 16 153/80 94 L 09/25/22 20:00 80 09/25/22 15:12 98.0 F 72 16 133/71 93 L 09/25/22 13:26 77 09/25/22 11:15 77 16 152/83 95 Intake and Output 09/25/22 09/26/22 09/26/22 22:59 06:59 14:59 Intake Total 240 Output Total 275 675 Balance -35 -675 Intake: Oral 240 Output: Urine 275 675 Other: Voiding Method Indwelling Catheter Indwelling Catheter # Bowel Movements 1 1 General: WDWN, male/female, NAD Head: Normocephalic, atraumatic. Eyes: Symmetric Ears: Symmetric. Hearing within normal limits. Mouth: Clear. Neck: Supple. Cardiac: Regular rate and rhythm. Calves supple, non tender, no edema Lungs: Breathing comfortably on RA. Chest symmetric. Abdomen: Soft, nontender. Extremities: Arthritic changes consistent with age. Neurological: Alert and oriented x . Speech is clear and fluent without paraphasic errors Cranial nerves: CN II-XII: intact. Sensation: Intact and symmetrical limbs. Musculoskeletal: ROM WFL EXCEPT: MMT UE Sh Abd EE EF FABD WE HG Right Left MMT LE HF KE DF EHL Right Left Reflexes Biceps Triceps Brachioradialis Patella Achilles Babinski Hoffmans Right Left Skin: Skin intact where visible to head, neck, and bilateral upper and lower extremities EXCEPT: Psych: Calm, cooperative Results CBC & Chem 7: 09/22/22 07:05 09/24/22 10:43 Labs: Abnormal Lab Results - Last 24 Hours (Table) 09/25/22 09/25/22 09/25/22 Range/Units 11:26 13:55 16:47 POC Glucose (mg/dL) 136 H 193 H (70-110) mg/dL Hemoglobin A1c 6.8 H (<=6.0) % 09/25/22 09/26/22 Range/Units 20:17 06:09 POC Glucose (mg/dL) 182 H 162 H (70-110) mg/dL Hemoglobin A1c (<=6.0) % Assessment and Plan Assessment: # acute/subacute CVA in the right insula extending into the arias radiata -MRI multifocal areas of acute ischemia involving the right temporal, parietal and basal ganglia -pending INGRID -Plavix, ASA -PT/OT/CRYSTAL SLICER # Left sided hemiplegia # moderate to severe right MCA M1 segment stenosis and 80% stenosis of the left internal carotid artery # Rhabdomyolysis # Hypokalemia # abnormal LFTs # Weakness and fall # DM with neuropathy #Urinary Retention -Wells Catheter # History of Tobacco abuse #Comorbidities: HTN, HLD, hypothyroidism # Pain Management- Gabapentin 100 mg BID, Morphine 4 mg IV Q 4 prn, Flomax # DVT Prophylaxis: Lovenox 40 mg SQ # Your medical dx and mgt Goals: Modified Independent mobility and ADLS both basic and advanced; increased functional mobility/strength; increased balance, safety, endurance. Improvement in medical issues through your care. Barriers: endurance, hemiparesis, lives alone Discharge recommendation: Will like recommend IPR when medically stable, Pending INGRID. Full consult to follow tomorrow. Patient seen and examined in coordination with Dr. Burks
--- NOTE | 2022-09-26 13:40 | P.PCN ---
Date of Procedure: 09/26/22 Operative Findings: TRANSESOPHAGEAL ECHOCARDIOGRAM REHAB AID: APRIL DOMÍNGUEZ MD, RPVI INDICATION: Rule out cardiac source of embolization SEDATION: Conscious sedation COMPLICATION: None LEVEL OF SEDATION Moderate sedation length of 12 minutes PROCEDURE DESCRIPTION: After obtaining an informed consent, the patient was brought to transesophageal echocardiogram room. Pulse oximetry and heart monitors were attached to the patient. The patient throat was sprayed using lidocaine. The patient was turned into left lateral position. After that a bite guard was placed. After an appropriate conscious sedation was initiated, the transesophageal echocardiogram was advanced through a bite guard into the mid esophagus. A 2-D echocardiogram images, color Doppler images, continuous wave images, pulse-wave images, of various cardiac structure were performed. After that the transesophageal echocardiogram probe was advanced into the stomach and fixed to obtain transgastric view was. The probe was brought into the mid esophagus. Inter-atrial septum was interrogated using 2D images, color Doppler images, and then contrast study. After that transesophageal echocardiogram was withdrawn out and upon withdrawing the descending thoracic aorta all the way up to the arch was evaluated. FINDING: The LV dimension and systolic function appeared to be within normal limits with ejection fraction appears to be in the range of 50%. The RV appeared to be of normal size and function. Aortic valve appears to be trileaflet valve and appeared to be sclerotic. The mitral valve appeared to be mildly thickened with [id number] MR. The left atrial appendage appeared to be intact. The intra-atrial septum appeared to be intact. No evidence of pericardial effusion CONCLUSION: 1. No evidence of cardiac source of embolization 2. Intact interatrial septum was normal. Performed 3. Intact left atrial appendage 4. Normal LV dimension and systolic function 5. Aortic sclerosis 6. [id number] MR
[2022-09-26 16:38] LABS: Glucose,Whole Blood 201 mg/dL (70-110)
[2022-09-26 21:06] LABS: Glucose,Whole Blood 158 mg/dL (70-110)
[2022-09-26] MEDS: LEVOTHYROXINE 125 MCG TAB PO SCH (21:45)
[2022-09-26] MEDS: ATORVASTATIN 20 MG TAB PO SCH (21:45)
[2022-09-27 04:43] VITALS: RESP 16
[2022-09-27 06:14] LABS: Glucose,Whole Blood 186 mg/dL (70-110)
[2022-09-27] MEDS: INSULIN ASPART (NovoLOG) 100 UNIT/ML VIAL SQ SCH ×2 (06:36→12:11)
[2022-09-27] MEDS: DOCUSATE 100 MG CAP PO SCH (08:08)
[2022-09-27] MEDS: CLOPIDOGREL 75 MG TAB PO SCH (08:08)
[2022-09-27] MEDS: TAMSULOSIN 0.4 MG CAP.ER.24H PO SCH (08:08)
[2022-09-27] MEDS: ENOXAPARIN 40 MG/0.4 ML SYRINGE SQ SCH (08:08)
[2022-09-27] MEDS: ASPIRIN 81 MG PO SCH (08:08)
[2022-09-27] MEDS: GABAPENTIN 100 MG CAP PO SCH (08:08)
--- NOTE | 2022-09-27 10:55 | P.PN ---
Subjective Progress Note Date: 09/26/22 Patient was initially seen by Dr. Pratik Calderon. Please refer to his note for details. Patient's was also present today. Patient is laying comfortably in the bed. Patient is a 72-year-old right-handed male with acute right hemispheric stroke, asymptomatic left carotid stenosis on CTA but carotid Doppler showed totally different findings. Patient currently on aspirin and Plavix. Patient has history of smoking 1 pack per day for 30 years, quit in 1995. Telemetry monitoring showing sinus rhythm. Some of the other work-up during this visit: Lipid panel is triglyceride 98, cholesterol 104, LDLs 36 and HDL is 47. Hemoglobin A1c 6.8. CK level 2592 and today is 6726 AST 223 ALT TSH: 3.610 2D echo: Reported as normal left ventricular function. Moderate aortic sten osis. Left atrium is moderate left atrial dilation. CT of the head is reported as hypodense region within the right insular extending into the arias radiata suspicious for acute/subacute ischemia. No intraparenchymal hemorrhage. CT angiography of the head and neck was reported as moderate to severe right M1 segment stenosis. No intracranial aneurysm. 80% stenosis at the origin of the left internal carotid artery secondary due to calcified plaque. No significant stenosis of the right internal carotid artery. Poor visualization of the proximal portion of the left vertebral artery just at the origin which may be occluded versus high-grade stenosis. The remaining portion are patent Carotid duplex is reported as no significant hemodynamic significant stenosis. MRI of the brain is reported as multifocal areas of acute ischemia involving the right temporal, parietal and basal ganglia. I first reviewed the MRI and I feel the patient has right temporal, frontal parietal, subcortical frontal/arias radiata Objective - Vital Signs Vital signs: Vital Signs Temp 97.2 F L 09/26/22 08:00 Pulse 53 L 09/26/22 13:39 Resp 18 09/26/22 13:39 BP 114/56 09/26/22 13:39 Pulse Ox 95 09/26/22 13:39 FiO2 21 09/23/22 07:56 Intake & Output 09/25/22 09/26/22 09/26/22 18:59 06:59 18:59 Intake Total 600 200 Output Total 1250 675 825 Balance -314 -514 -435 Intake: IV 200 Oral 600 0 Output: Urine 1250 675 825 Other: Voiding Method Indwelling Catheter Indwelling Catheter Indwelling Catheter # Bowel Movements 1 1 - Exam On examination patient is alert and awake in no distress. Patient's family denies any slurred speech. Patient can name and repeat very well. On cranial nerve examination pupils are equal, round and reacting, visual dick are full on confrontation with no neglect. Face is symmetric. Tongue protrudes the midline. On muscle strength testing, patient has left pronation, no drift. The strength is (right/left) deltoid 5/5, biceps 5/5, triceps 5/5, supervisor painting 5/5-. Sensory to touch is equal, with no neglect. Cerebellar functions no ataxia for wbhjqv-zk-toid testing. - Labs CBC & Chem 7: 09/22/22 07:05 09/24/22 10:43 Labs: Abnormal Lab Results - Last 24 Hours (Table) 09/25/22 09/25/22 09/25/22 Range/Units 13:55 16:47 20:17 POC Glucose (mg/dL) 193 H 182 H (70-110) mg/dL Hemoglobin A1c 6.8 H (<=6.0) % 09/26/22 09/26/22 09/26/22 Range/Units 06:09 11:29 16:36 POC Glucose (mg/dL) 162 H 139 H 201 H (70-110) mg/dL Hemoglobin A1c (<=6.0) % Assessment and Plan Assessment: This is a 72-year-old gentleman who presented to the emergency department on 09/21/2022 because of the generalized weakness and fall. According to the she noticed that the patient had weakness over the left side since yesterday which was a 08/21/2022 and it seems that the patient had left facial droop that was noticed today in the afternoon early so code stroke was activated and initial NIH stroke scale was a 1 and a repeat NIH stroke so was a 3. CT of the head showed hypodensity region in the right insular extending into the right arias radiata suspicious for acute/subacute ischemia. CT angiography is reported as moderate to severe right MCA segment stenosis, and 80% origin left ICA stenosis due to calcified plaque as well as left vertebral height grade stenosis versus occlusion. No IV TPA since the patient is outside the window and symptom more than 4-1/2 hours and the risks outweigh the benefit. Acute to subacute ischemic stroke over the right hemispheric region, somewhat in watershed territory, likely due to symptomatic right M1 stenosis. Asymptomatic left ICA stenosis of about 80% on CT angiography while on carotid duplex was reported as no significant stenosis High-grade left vertebral artery stenosis versus occlusion on CT angiography Rhabdomyolysis due to fall likely due to him having weakness on left side--trending donw Hypertension Diabetes (HbA1c 6.8) History of peptic ulcer disease that is remote X tobacco use Plan: Patient has acute ischemic stroke right hemispheric region, likely due to symptomatic right MCA stenosis. Patient's neurological examination has much improved. I would recommend patient follow up with neuro intervention as an outpatient. We will have patient follow up with Dr. Monge. On the CTA of head and neck, there is 80% stenosis of the origin of left ICA, but carotid Doppler showed no significant stenosis. In any case, this area of stenosis (if present) is clinically asymptomatic at this time. Per vascular surgery team is felt the carotid duplex is more likely 50-69% on the left and no vascular intervention indicated at this time. Recommend an event monitor for 30 days if unknown source of the stroke to rule out any A. fib or flutter. He was resumed on his home dose of aspirin [address] Pratik Calderon also started him on Plavix 75 mg daily. He does have a remote history of peptic ulcer disease but will observe him and I notified the patient's as well as family members and they're in agreement. Continue dual antiplatelet medication because of multiple vascular stenosis. Lipid panel with cholesterol 104, LDL 36, HDL 47 and triglycerides 98. Continue Lipitor 20 mg because of his rhabdomyolysis. Once Rhabdomyolysis improves then the may increase the the statin to high intensity because of the stroke as well as a carotid stenosis. However if any further concern for rhabdomyolysis, then may keep it on 20 mg. Hemoglobin A1c 6.8, suggestive of controlled diabetes. Target A1c <7.0. Continue neuro checks Cardiac monitoring PT OT and RELIEF OPERATOR are consulted We'll defer the rest of the medical management to primary team For DVT prophylaxis patient is on enoxaparin. Transesophageal echocardiogram performed today revealed: 1. No evidence of cardiac source of embolization 2. Intact interatrial septum was normal. Performed 3. Intact left atrial appendage 4. Normal LV dimension and systolic function 5. Aortic sclerosis 6. Ocdh-zk-ikzsuecy MR
--- NOTE | 2022-09-27 10:56 | P.DS ---
Providers Date of admission: 09/22/22 13:11 Expected date of discharge: 09/27/22 Attending physician: Nadeen Damon MD Consults: 09/21/22 18:28 Consult Physician Routine Consulting Provider: Mark Harrington Consult Reason/Comments: retention Do you want consulting provider notified?: Yes 09/22/22 13:16 Consult Physician Routine Consulting Provider: Pratik Calderon Consult Reason/Comments: CVA Do you want consulting provider notified?: Yes 09/22/22 13:38 Consult Physician Routine Consulting Provider: Marily Berg Consult Reason/Comments: Carotid stenosis Do you want consulting provider notified?: Yes 09/23/22 14:55 Consult Physician Routine Consulting Provider: Carlin Olivia Consult Reason/Comments: Eval for IPR Do you want consulting provider notified?: Yes 09/23/22 17:39 Consult Physician Routine Consulting Provider: Pratik Alvarez Consult Reason/Comments: INGRID for possible embolic CVA Do you want consulting provider notified?: Yes Primary care physician: Ivan Vincent Hospital Course: Discharge Diagnosis: Acute subacute ischemic stroke Severe right M1 stenosis Asymptomatic left ICA stenosis Rhabdomyolysis due to fall Diabetes mellitus, A1c 6.8 with hyperglycemia Transaminitis Hypokalemia Leukocytosis Hypertension History of peptic ulcer disease Urinary retention Hospital Course: 72-year-old male with a PMH of diabetes, hypertension, hyperlipidemia, hypothyroidism who was brought into the emergency room via EMS for weakness and fall. Chest x-ray in the emergency room revealed cardiomegaly with COPD. Pelvis x-ray was unremarkable. EKG revealed sinus bradycardia at 57 bpm with a right bundle-branch block, with the bundle-branch block also present on prior EKG from 2017. Laboratory evaluation revealed leukocytosis of 13.5, potassium 3.3, creatinine kinase 2592, and an unremarkable UA. He was noted to have a left sided facial droop along with left-sided weakness which led to CODE STOKE being called. CT head shows acute/subacute CVA in the right insula extending into the arias radiata. CTA head and neck shows moderate to severe right MCA M1 segment stenosis and 80% stenosis of the origin of the left internal carotid artery. Liver ultrasound shows hepatic steatosis and 4 mm hyperechoic focus within the right kidney. Carotid Doppler negative for significant stenosis. MRI brain shows multifocal areas of acute ischemia involving the right temporal, right parietal and right basal ganglia. Echocardiogram was done which showed EF of 65-70% with no regional wall motion abnormalities and moderate aortic stenosis. Vascular surgery recommends no surgical intervention. Cardiology also consulted, INGRID did not show any intracardiac source of embolization, intact intra-atrial septum, intact left atrial appendage. Patient also being discharged with 30 day event monitor. Due to initial rhabdomyolysis, statin only increased to 20 mg, will need to be intensified palpation. Patient being discharged to inpatient rehab. Patient seen and examined at bedside. Vital signs reviewed and stable. General: non toxic, no distress, appears at stated age, obese Head: atraumatic, normocephalic, symmetric Eyes: EOMI, no lid lag, anicteric sclera ENT: Nose and ears atraumatic Cardiovascular: S1S2 reg, systolic grade 4 murmur appreciated, no edema Lungs: CTA bilateral, no rhonchi, no rales, no accessory muscle use Ext: no gross muscle atrophy, no contractures, Neuro: No facial droop noted. LUE 4/5 RUE RLE LLE extremity 4 out of 5 strength. Sensation intact to touch throughout. Psych: Alert, oriented, appropriate affect A total of 32 minutes of time were spent preparing this complex discharge summary. Patient was discharged on 09/27/22 at 10:48. Patient Condition at Discharge: Stable Plan - Discharge Summary Discharge Rx Participant: Yes New Discharge Prescriptions: New Atorvastatin [Lipitor] 20 mg PO HS tab Clopidogrel [Plavix] 75 mg PO DAILY tab Docusate [Colace] 100 mg PO BID cap Tamsulosin [Flomax] 0.4 mg PO PC-BRKFST cap Continue metFORMIN HCL [Glucophage] 1,000 mg PO BID Chlorthalidone 25 mg PO DAILY #30 tab Cholecalciferol [Vitamin D3 (125 Mcg = 5000 Iu)] 125 mcg PO DAILY Ascorbic Acid [Vitamin C] 1,000 mg PO DAILY amLODIPine [Norvasc] 10 mg PO HS allopurinoL [Zyloprim] 100 mg PO DAILY Multivitamins, Thera [Multivitamin (formulary)] 1 tab PO DAILY Aspirin EC [Ecotrin Low Dose] 81 mg PO DAILY Acetaminophen Tab [Tylenol] 1,000 mg PO Q6HR PRN PRN Reason: Pain Or Fever > 100.5 atenoloL [Tenormin] 25 mg PO DAILY Levothyroxine Sodium [Synthroid] 125 mcg PO HS Calcium Acetate 667 mg PO BID-W/MEALS Gabapentin [Neurontin] 400 mg PO BID Gabapentin [Neurontin] 100 mg PO BID Discontinued Atorvastatin [Lipitor] 10 mg PO HS Discharge Medication List metFORMIN HCL [Glucophage] 1,000 mg PO BID 06/26/16 [History] Chlorthalidone 25 mg PO DAILY #30 tab 06/27/16 [Rx] Acetaminophen Tab [Tylenol] 1,000 mg PO Q6HR PRN 09/21/22 [History] Ascorbic Acid [Vitamin C] 1,000 mg PO DAILY 09/21/22 [History] Aspirin EC [Ecotrin Low Dose] 81 mg PO DAILY 09/21/22 [History] Calcium Acetate 667 mg PO BID-W/MEALS 09/21/22 [History] Cholecalciferol [Vitamin D3 (125 Mcg = 5000 Iu)] 125 mcg PO DAILY 09/21/22 [History] Gabapentin [Neurontin] 100 mg PO BID 09/21/22 [History] Gabapentin [Neurontin] 400 mg PO BID 09/21/22 [History] Levothyroxine Sodium [Synthroid] 125 mcg PO HS 09/21/22 [History] Multivitamins, Thera [Multivitamin (formulary)] 1 tab PO DAILY 09/21/22 [History] allopurinoL [Zyloprim] 100 mg PO DAILY 09/21/22 [History] amLODIPine [Norvasc] 10 mg PO HS 09/21/22 [History] atenoloL [Tenormin] 25 mg PO DAILY 09/21/22 [History] Atorvastatin [Lipitor] 20 mg PO HS tab 09/27/22 [Rx] Clopidogrel [Plavix] 75 mg PO DAILY tab 09/27/22 [Rx] Docusate [Colace] 100 mg PO BID cap 09/27/22 [Rx] Tamsulosin [Flomax] 0.4 mg PO PC-BRKFST cap 09/27/22 [Rx] Follow up Appointment(s)/Referral(s): Ivan Vincent DO [Primary Care Provider] - 1-2 days Marily Berg DO [STAFF PHYSICIAN] - 1 Week Jennifer Helms MD [REFERRING] - 1 Week Patient Instructions/Handouts: Ischemic Stroke (DC), Urinary Retention in Men (GEN) Activity/Diet/Wound Care/Special Instructions: Please see your PCP, vascular surgeon and neurology. Discharge Disposition: OTHER INSTITUTION NOT DEFINED
[2022-09-27 12:02] LABS: Glucose,Whole Blood 154 mg/dL (70-110)
[2022-09-27 12:29] VITALS: BP 136/84; PULSE 98; TEMP 97.7
--- NOTE | 2022-09-27 17:25 | P.PN ---
Subjective Progress Note Date: 09/27/22 The patient is a 72-year-old gentleman with a past medical history significant for hypertension and dyslipidemia who was admitted to the hospital initially with bilateral lower extremity weakness and he was diagnosed with rhabdomyolysis. On the floor he developed left-sided weakness associated with left facial drop." Stroke was called for him and the patient subsequently was transferred to [facility]. Further investigation was performed including initially a computed tomography scan of subsequently MRI of the brain and that showed possible embolic stroke. Also he underwent initially a CTA of the neck which showed evidence of severe stenosis of the left carotid artery and intermediate stenosis of the right carotid artery that subsequently he underwent carotid duplex study which showed no evidence of carotid atherosclerosis. The fatty this discrepancy here. We consulted to see the patient to rule out any cardiac etiology for his stroke and mainly patent foramen ovale. No history of paroxysmal atrial fibrillation and no history of coronary artery heart failure or cardiac arrhythmia the patient doesn't see any corporate accountant as an outpatient. The EKG showed sinus mechanism with RBBB. The echo showed preserved LV systolic function with mild aortic stenosis. The examination is remarkable for stable vital signs with regular rhythm and systolic murmur at the right and left upper sternal border September [id number] The patient was seen and evaluated this morning. He remains asymptomatic and remains hemolyticus stable. The plan is to pursue was transesophageal echocardiogram in the morning. Meanwhile continue the current medical regimen including antiplatelet as well as a statin. No arrhythmia has been detected so far. 09/27/2022 Patient is doing well from cardiac standpoint. His hemodynamics are stable. His INGRID did not show any evidence of PFO yesterday. He is continuing his dual antiplatelet Therapy without any bleeding complications. no evidence of atrial fibrillation last 48 hours of telemetry monitoring Assessment Stroke concerning for embolic etiology Hypertension Dyslipidemia Rhabdomyolysis Multiple comorbid conditions Plan Continue the current medical regimen Monitor for cardiac arrhythmia mainly atrial fibrillation. no evidence of atrial fibrillation last 48 hours of telemetry monitoring Continue dual antiplatelet therapy Objective - Vital Signs Vital signs: Vital Signs Temp 97.7 F 09/27/22 12:10 Pulse 98 09/27/22 12:10 Resp 16 09/27/22 12:10 BP 136/84 09/27/22 12:10 Pulse Ox 94 L 09/27/22 12:10 FiO2 21 09/27/22 09:40 Intake & Output 09/26/22 09/27/22 09/27/22 18:59 06:59 18:59 Intake Total 200 100 410 Output Total 825 900 300 Balance -625 -800 110 Intake: IV 200 Oral 0 100 410 Output: Urine 825 900 300 Other: Voiding Method Indwelling Catheter Indwelling Catheter Urinal # Bowel Movements 1 - Labs CBC & Chem 7: 09/22/22 07:05 09/24/22 10:43 Labs: Abnormal Lab Results - Last 24 Hours (Table) 09/26/22 09/27/22 09/27/22 Range/Units 21:05 06:13 11:49 POC Glucose (mg/dL) 158 H 186 H 154 H (70-110) mg/dL
== END 2022-09-27 16:32 | DRG 65 ==
LOC: EC 12:18 → 6NMEDSUR 18:28 → 4SSUR 19:44 → OBSVTOIN 09-22 13:11 → 3SCARD 09-22 14:36
PROVIDERS: ADMIT Internal Medicine; ATTEND Internal Medicine
PROC: B24BZZ4 Ultrasonography of Heart with Aorta, Transesophageal (ICD-10-PCS; principal; 2022-09-26 15:40)
DX: I63.40 Cerebral infarction due to embolism of unspecified cerebral artery (principal); G81.94 Hemiplegia, unspecified affecting left nondominant side; N39.0 Urinary tract infection, site not specified; I65.23 Occlusion and stenosis of bilateral carotid arteries; I35.0 Nonrheumatic aortic (valve) stenosis; I45.10 Unspecified right bundle-branch block; J44.9 Chronic obstructive pulmonary disease, unspecified; K56.41 Fecal impaction; K76.0 Fatty (change of) liver, not elsewhere classified; T79.6XXA Traumatic ischemia of muscle, initial encounter; R29.703 NIHSS score 3; R74.01 Elevation of levels of liver transaminase levels; R00.1 Bradycardia, unspecified; R29.810 Facial weakness; R53.81 Other malaise; W19.XXXA Unspecified fall, initial encounter; I65.02 Occlusion and stenosis of left vertebral artery; E03.9 Hypothyroidism, unspecified; D72.829 Elevated white blood cell count, unspecified; E86.0 Dehydration; I10 Essential (primary) hypertension; E11.40 Type 2 diabetes mellitus with diabetic neuropathy, unspecified; E11.65 Type 2 diabetes mellitus with hyperglycemia; E78.5 Hyperlipidemia, unspecified; N28.89 Other specified disorders of kidney and ureter; E83.42 Hypomagnesemia; E87.6 Hypokalemia; Z79.02 Long term (current) use of antithrombotics/antiplatelets; Z79.82 Long term (current) use of aspirin; Z79.84 Long term (current) use of oral hypoglycemic drugs; Z79.890 Hormone replacement therapy; Z79.899 Other long term (current) drug therapy; Z82.49 Family history of ischemic heart disease and other diseases of the circulatory system; Z82.3 Family history of stroke; Z87.11 Personal history of peptic ulcer disease; Z87.891 Personal history of nicotine dependence; Z60.2 Problems related to living alone; Z28.310 Unvaccinated for COVID-19
CPT/HCPCS: 36415; 51702; 70450; 70496; 70498; 70551; 71045; 72170; 76705; 80048; 80053; 80061; 81003; 82550; 83036; 83605; 83735; 84100; 84443; 84484; 85025; 85610; 85730; 93005; 93270; 93306; 93312; 93320; 93325; 93880; 94760; 96361; 96365; 96366; 99285

== ENCOUNTER 2024-04-14 20:05 | Inpatient (IN) | payer MEDICARE, OTHER ==
[2024-04-14 20:28] LABS: Glucose,Whole Blood 74 mg/dL (70-110)
--- NOTE | 2024-04-14 21:30 | ED ---
Altered Mental Status HPI - General Chief Complaint: Altered Mental Status Stated Complaint: Weakness Source: patient, EMS, RN notes reviewed, old records reviewed Mode of arrival: EMS Limitations: altered mental status, physical limitation - History of Present Illness Initial Comments: This is a 74-year-old male to the ER for evaluation of weakness and altered mental status increasing over the last day. Family does note that the heater in their house stopped working the furnace, this is led to cold temperatures they did go to a failure's house to warm up this afternoon but patient not particularly pitting her activities of daily living not eating and drinking well and slow to respond to questioning MD Complaint: altered mental status, confusion, decreased responsiveness, weakness -: days(s) Severity: severe Consistency of Symptoms: getting worse, constant Context: history of similar presentation Associated Symptoms: loss of appetite, weakness - Related Data Home Medications Medication Instructions Recorded Confirmed metFORMIN HCL [Glucophage] 1,000 mg PO BID 06/26/16 04/15/24 Aspirin EC [Ecotrin Low Dose] 81 mg PO DAILY 09/21/22 04/15/24 Calcium Acetate 1,334 mg PO BID-W/MEALS 09/21/22 04/15/24 Cholecalciferol [Vitamin D3 (125 125 mcg PO DAILY 09/21/22 04/15/24 Mcg = 5000 Iu)] Gabapentin [Neurontin] 100 mg PO BID 09/21/22 04/15/24 Gabapentin [Neurontin] 400 mg PO BID 09/21/22 04/15/24 Levothyroxine Sodium [Synthroid] 125 mcg PO DAILY 09/21/22 04/15/24 Multivitamins, Thera [Multivitamin 1 tab PO DAILY 09/21/22 04/15/24 (formulary)] allopurinoL [Zyloprim] 100 mg PO DAILY 09/21/22 04/15/24 atenoloL [Tenormin] 25 mg PO DAILY 09/21/22 04/15/24 Ascorbic Acid [Vitamin C] 250 mg PO DAILY 04/15/24 04/15/24 Atorvastatin [Lipitor] 20 mg PO DAILY 04/15/24 04/15/24 Ferrous Sulfate [Feosol] 325 mg PO DAILY 04/15/24 04/15/24 SILVER sulfADIAZINE Cream 1 applic TOPICAL DAILY PRN 04/15/24 04/15/24 [Silvadene 1% Cream] Tamsulosin HCl [Flomax] 0.4 mg PO DAILY 04/15/24 04/15/24 amLODIPine [Norvasc] 5 mg PO HS 04/15/24 04/15/24 Previous Rx's Medication Instructions Recorded Chlorthalidone 25 mg PO DAILY #30 tab 06/27/16 Clopidogrel [Plavix] 75 mg PO DAILY tab 09/27/22 Allergies Allergy/AdvReac Type Severity Reaction Status Date / Time lisinopril Allergy Unknown Verified 04/15/24 08:55 Review of Systems ROS Statement: Those systems with pertinent positive or pertinent negative responses have been documented in the HPI. ROS Other: All systems not noted in ROS Statement are negative. Past Medical History Past Medical History: Diabetes Mellitus, Hyperlipidemia, Hypertension, Thyroid Disorder Additional Past Medical History / Comment(s): hypothyroid, neuropathy, borderline diabetic- takes metformin, patient had bleeding ulcer in 1972, had open sore from poor circulation on right ankle- then had an infection (patient thinks staph). Patient says he recently had blood tests with his primary doctor that showed poor kidney function. Has consult to see for his kidneys coming up. History of Any Multi-Drug Resistant Organisms: None Reported Past Surgical History: No Surgical Hx Reported Past Anesthesia/Blood Transfusion Reactions: No Reported Reaction Past Psychological History: No Psychological Hx Reported Smoking Status: Former smoker Past Alcohol Use History: Occasional Past Drug Use History: None Reported - Past Family History Mother Additional Family Medical History / Comment(s): Mother at 94 from fall with complications of subdural hematoma and strokes. Father Family Medical History: CVA/TIA Additional Family Medical History / Comment(s): Father at age 84. Sister(s) Family Medical History: Cancer Additional Family Medical History / Comment(s): sister this past may at age 62 from bladder CA. General Exam Limitations: altered mental status, physical limitation General appearance: alert, in no apparent distress Head exam: Present: atraumatic, normocephalic, normal inspection Eye exam: Present: normal appearance, PERRL, EOMI. Absent: scleral icterus, conjunctival injection, periorbital swelling ENT exam: Present: normal exam, mucous membranes moist Neck exam: Present: normal inspection. Absent: tenderness, meningismus, lymphadenopathy Respiratory exam: Present: normal lung sounds bilaterally. Absent: respiratory distress, wheezes, rales, rhonchi, stridor Cardiovascular Exam: Present: regular rate, normal rhythm, normal heart sounds. Absent: systolic murmur, diastolic murmur, rubs, gallop, clicks GI/Abdominal exam: Present: soft, normal bowel sounds. Absent: distended, tenderness, guarding, rebound, rigid Extremities exam: Present: normal inspection, full ROM, normal capillary refill. Absent: tenderness, pedal edema, joint swelling, calf tenderness Back exam: Present: normal inspection Neurological exam: Present: alert, oriented X3, CN II-XII intact Psychiatric exam: Present: normal affect, normal mood Skin exam: Present: warm, dry, intact, normal color. Absent: rash Course Vital Signs 04/14/24 04/14/24 04/15/24 20:14 22:38 00:00 Temperature 98.2 F Pulse Rate 51 L 57 L 56 L Respiratory 16 14 14 Rate Blood Pressure 130/66 139/72 133/67 O2 Sat by Pulse 100 96 95 Oximetry 04/15/24 04/15/24 04/15/24 02:00 03:00 04:00 Temperature Pulse Rate 54 L 56 L 42 L Respiratory 14 14 16 Rate Blood Pressure 140/72 141/83 148/62 O2 Sat by Pulse 95 95 95 Oximetry 04/15/24 04/15/24 04/15/24 06:00 08:17 10:11 Temperature 98.8 F Pulse Rate 43 L 47 L 56 L Respiratory 16 18 16 Rate Blood Pressure 128/65 147/82 O2 Sat by Pulse 95 98 95 Oximetry 04/15/24 04/15/24 04/15/24 13:38 16:42 17:46 Temperature 98.7 F Pulse Rate 57 L 63 64 Respiratory 16 16 18 Rate Blood Pressure 152/81 158/81 157/81 O2 Sat by Pulse 97 97 97 Oximetry - Reevaluation(s) Reevaluation #1: 04/14/24 21:54 Medical records reviewed MRI of brain reviewed from a few months ago showing areas of CVA EKG showing episodes of sinus bradycardia, Holter monitor showing sinus sinus tachycardia sinus bradycardia Reevaluation #2: Patient is showing improvement here in the emergency department with IV hydration Reevaluation #3: Patient informed of results questions answered Reevaluation #4: Was pt. sent in by a medical professional or institution (Dr., PA, ACCESS DEVELOPER, urgent care, hospital, or fci...) When possible be specific @ -no Did you speak to anyone other than the patient for history (EMS, parent, family, police, friend...)? What history was obtained from this source @ -no Did you review nursing and triage notes (agree or disagree)? Why? @ -agree Are old charts reviewed (outside hosp., previous admission, EMS record, old EKG, old radiological studies, urgent care reports/EKG's, fci records)? Report findings @ -yes Differential Diagnosis (chest pain, altered mental status, abdominal pain women, abdominal pain men, vaginal bleeding, weakness, fever, dyspnea, syncope, heada antoine, dizziness, GI bleed, back pain, seizure, CVA, palpatations, mental health, musculoskeletal)? @ -prior EKG interpreted by me (3pts min.). @ -yes X-rays interpreted by me (1pt min.). @ -yes negative for acute disease CT interpreted by me (1pt min.). @ -Yes negative for acute disease U/S interpreted by me (1pt. min.). @ -Yes negative for acute disease What testing was considered but not performed or refused? (CT, X-rays, U/S, labs)? Why? @ -none What meds were considered but not given or refused? Why? @ -none Did you discuss the management of the patient with other professionals (pro fessionals i.e. LITO Carballo, ACCESS DEVELOPER, lab, RT, psych nurse, outreach and education social worker, fishing vessel mate, teacher, classification officer, porter sample case)? Give summary @ -no Was smoking cessation discussed for >3mins.? @ -no Was critical care preformed (if so, how long)? @ -yes31 Were there social determinants of health that impacted care today? How? (Homelessness, low income, unemployed, alcoholism, drug addiction, transportation, low edu. Level, literacy, decrease access to med. care, [facility], rehab)? @ -none Was there de-escalation of care discussed even if they declined (Discuss DNR or withdrawal of care, Hospice)? DNR status @ -no What co-morbidities impacted this encounter? (DM, HTN, Smoking, COPD, CAD, Cancer, CVA, ARF, Chemo, Hep., AIDS, mental health diagnosis, sleep apnea, morbid obesity)? @ -none Was patient admitted / discharged? Hospital course, mention meds given and route, prescriptions, significant lab abnormalities, going to OR and other pertinent info. @ - 74 male to the ER for evaluation patient presents today for evaluation of altered mental status found to have significant renal failure hypercalcemia severe dehydration patient will be admitted for supportive care and nephrology evaluation regarding renal failure with hypercalcemia Admitted Undiagnosed new problem with uncertain prognosis? @ -no Drug Therapy requiring intensive monitoring for toxicity (Heparin, Nitro, Ins ulin, Cardizem)? @ -no Were any procedures done? @ -no Diagnosis/symptom? @ -Hypercalcemia altered mental status renal failure Acute, or Chronic, or Acute on Chronic? @ -Acute Uncomplicated (without systemic symptoms) or Complicated (systemic symptoms)? @ -Complicated Side effects of treatment? @ -no Exacerbation, Progression, or Severe Exacerbation? @ -exacerbation Poses a threat to life or bodily function? How? (Chest pain, USA, NC, pneumonia, PE, COPD, DKA, ARF, appy, cholecystitis, CVA, Diverticulitis, Homicidal, Suicidal, threat to staff... and all critical care pts) @ -yes extremes of age Reevaluation #5: Differential Weakness: Hypoglycemia, shock, sepsis, hyponatremia, anemia, infection, NC, ETOH, adverse medicine reaction, overdose, stroke, this is not meant to be an all-inclusive list. Differential Altered Mental Status: Hypoglycemia, DKA, hypercapnia, ETOH, overdose, CO poisoning, trauma, myxedema coma, HTN encephalopathy, infection, encephalitis, psychosis, intercranial hemorrhage, hepatic encephalopathy, meningitis, CVA, this is not meant to be an all-inclusive list - Consultations Consultation #1: Spoke with admitting who does accept admission for this patient Medical Decision Making - Medical Decision Making 74 male to the ER for evaluation patient presents today for evaluation of altered mental status found to have significant renal failure hypercalcemia severe dehydration patient will be admitted for supportive care and nephrology evaluation regarding renal failure with hypercalcemia - Lab Data Result diagrams: 04/19/24 07:45 04/20/24 05:35 Lab Results 04/14/24 04/14/24 04/14/24 Range/Units 05:00 05:00 20:26 WBC (3.8-10.6) k/uL RBC (4.30-5.90) m/uL Hgb (13.0-17.5) gm/dL Hct (39.0-53.0) % MCV (80.0-100.0) fL MCH (25.0-35.0) pg MCHC (31.0-37.0) g/dL RDW (11.5-15.5) % Plt Count (150-450) k/uL MPV Neutrophils % % Lymphocytes % % Monocytes % % Eosinophils % % Basophils % % Neutrophils # (1.3-7.7) k/uL Lymphocytes # (1.0-4.8) k/uL Monocytes # (0-1.0) k/uL Eosinophils # (0-0.7) k/uL Basophils # (0-0.2) k/uL PT (10.0-12.5) sec INR (<1.2) APTT (22.0-30.0) sec Sodium (137-145) mmol/L Potassium (3.5-5.1) mmol/L Chloride (98-107) mmol/L Carbon Dioxide (22-30) mmol/L Anion Gap mmol/L BUN (9-20) mg/dL Creatinine (0.66-1.25) mg/dL Est GFR (CKD-EPI)AfAm (>60 ml/min/1.73 sqM) Est GFR (CKD-EPI)NonAf (>60 ml/min/1.73 sqM) Glucose (74-99) mg/dL POC Glucose (mg/dL) 74 (70-110) mg/dL POC Glu Track Dresser ID [place]atz Hina Calcium (8.4-10.2) mg/dL Phosphorus (2.5-4.5) mg/dL Magnesium (1.6-2.3) mg/dL Total Bilirubin (0.2-1.3) mg/dL AST (17-59) U/L ALT (4-49) U/L Alkaline Phosphatase (38-126) U/L Ammonia (<30) umol/L Creatine Kinase (55-170) U/L Troponin I (0.000-0.034) ng/mL Total Protein (6.3-8.2) g/dL Albumin (3.5-5.0) g/dL TSH (0.465-4.680) mIU/L Free T4 (0.78-2.19) ng/dL Urine Color Urine Appearance (Clear) Urine pH (5.0-8.0) Ur Specific [place] (1.001-1.035) Urine Protein (Negative) Urine Glucose (UA) (Negative) Urine Ketones (Negative) Urine Blood (Negative) Urine Nitrite (Negative) Urine Bilirubin (Negative) Urine Urobilinogen (<2.0) mg/dL Ur Leukocyte Esterase (Negative) Urine RBC (0-5) /hpf Urine WBC (0-5) /hpf Ur Squamous Epith Cells (0-4) /hpf Calcium Oxalate Crystal (None) /hpf Urine Bacteria (None) /hpf Hyaline Casts (0-2) /lpf Granular Casts (0) /lpf Urine Mucus (None) /hpf Urine Yeast (Budding) (None) /hpf U Protein Electrophores See Below U Free [place] Ch 10.19 H (0.00-3.29) mg/dL U Free [place]ambda Light Ch 1.45 H (0.00-0.38) mg/dL Urine Opiates Screen (NotDetected) Ur Oxycodone Screen (NotDetected) Urine Methadone Screen (NotDetected) Ur Barbiturates Screen (NotDetected) U Tricyclic Antidepress (NotDetected) Ur Phencyclidine Scrn (NotDetected) Ur Amphetamines Screen (NotDetected) U Methamphetamines Scrn (NotDetected) U Benzodiazepines Scrn (NotDetected) Urine Cocaine Screen (NotDetected) U Marijuana (THC) Screen (NotDetected) Influenza Type A (PCR) (Not Detectd) Influenza Type B (PCR) (Not Detectd) RSV (PCR) (Not Detectd) SARS-CoV-2 (PCR) (Not Detectd) 04/14/24 04/14/24 04/14/24 Range/Units 21:47 21:47 21:47 WBC 8.7 (3.8-10.6) k/uL RBC 3.72 L (4.30-5.90) m/uL Hgb 11.5 L (13.0-17.5) gm/dL Hct 35.1 L (39.0-53.0) % MCV 94.4 (80.0-100.0) fL MCH 31.1 (25.0-35.0) pg MCHC 32.9 (31.0-37.0) g/dL RDW 13.5 (11.5-15.5) % Plt Count 164 (150-450) k/uL MPV 10.0 Neutrophils % 67 % Lymphocytes % 16 % Monocytes % 10 % Eosinophils % 4 % Basophils % 0 % Neutrophils # 5.9 (1.3-7.7) k/uL Lymphocytes # 1.4 (1.0-4.8) k/uL Monocytes # 0.9 (0-1.0) k/uL Eosinophils # 0.3 (0-0.7) k/uL Basophils # 0.0 (0-0.2) k/uL PT (10.0-12.5) sec INR (<1.2) APTT (22.0-30.0) sec Sodium 141 (137-145) mmol/L Potassium 3.2 L (3.5-5.1) mmol/L Chloride 105 (98-107) mmol/L Carbon Dioxide 32 H (22-30) mmol/L Anion Gap 4 mmol/L BUN 51 H (9-20) mg/dL Creatinine 3.47 H (0.66-1.25) mg/dL Est GFR (CKD-EPI)AfAm 19 (>60 ml/min/1.73 sqM) Est GFR (CKD-EPI)NonAf 16 (>60 ml/min/1.73 sqM) Glucose 71 L (74-99) mg/dL POC Glucose (mg/dL) (70-110) mg/dL POC Glu Track Dresser ID Calcium 17.2 H* (8.4-10.2) mg/dL Phosphorus 4.0 (2.5-4.5) mg/dL Magnesium 2.1 (1.6-2.3) mg/dL Total Bilirubin 0.8 (0.2-1.3) mg/dL AST 91 H (17-59) U/L ALT 40 (4-49) U/L Alkaline Phosphatase 66 (38-126) U/L Ammonia (<30) umol/L Creatine Kinase (55-170) U/L Troponin I (0.000-0.034) ng/mL Total Protein 5.7 L (6.3-8.2) g/dL Albumin 3.4 L (3.5-5.0) g/dL TSH 0.274 L (0.465-4.680) mIU/L Free T4 1.25 (0.78-2.19) ng/dL Urine Color Light Yellow Urine Appearance Cloudy (Clear) Urine pH 5.0 (5.0-8.0) Ur Specific [place] 1.013 (1.001-1.035) Urine Protein Trace H (Negative) Urine Glucose (UA) Negative (Negative) Urine Ketones Negative (Negative) Urine Blood Large H (Negative) Urine Nitrite Negative (Negative) Urine Bilirubin Negative (Negative) Urine Urobilinogen <2.0 (<2.0) mg/dL Ur Leukocyte Esterase Trace H (Negative) Urine RBC >182 H (0-5) /hpf Urine WBC 18 H (0-5) /hpf Ur Squamous Epith Cells <1 (0-4) /hpf Calcium Oxalate Crystal Occasional H (None) /hpf Urine Bacteria Occasional H (None) /hpf Hyaline Casts 29 H (0-2) /lpf Granular Casts 1 (0) /lpf Urine Mucus Rare H (None) /hpf Urine Yeast (Budding) Occasional H (None) /hpf U Protein Electrophores U Free [place] Ch (0.00-3.29) mg/dL U Free Lambda Light Ch (0.00-0.38) mg/dL Urine Opiates Screen Not Detected (NotDetected) Ur Oxycodone Screen Not Detected (NotDetected) Urine Methadone Screen Not Detected (NotDetected) Ur Barbiturates Screen Not Detected (NotDetected) U Tricyclic Antidepress Not Detected (NotDetected) Ur Phencyclidine Scrn Not Detected (NotDetected) Ur Amphetamines Screen Not Detected (NotDetected) U Methamphetamines Scrn Not Detected (NotDetected) U Benzodiazepines Scrn Not Detected (NotDetected) Urine Cocaine Screen Not Detected (NotDetected) U Marijuana (THC) Screen Not Detected (NotDetected) Influenza Type A (PCR) (Not Detectd) Influenza Type B (PCR) (Not Detectd) RSV (PCR) (Not Detectd) SARS-CoV-2 (PCR) (Not Detectd) 04/14/24 04/14/24 04/14/24 Range/Units 21:47 21:47 21:47 WBC (3.8-10.6) k/uL RBC (4.30-5.90) m/uL Hgb (13.0-17.5) gm/dL Hct (39.0-53.0) % MCV (80.0-100.0) fL MCH (25.0-35.0) pg MCHC (31.0-37.0) g/dL RDW (11.5-15.5) % Plt Count (150-450) k/uL MPV Neutrophils % % Lymphocytes % % Monocytes % % Eosinophils % % Basophils % % Neutrophils # (1.3-7.7) k/uL Lymphocytes # (1.0-4.8) k/uL Monocytes # (0-1.0) k/uL Eosinophils # (0-0.7) k/uL Basophils # (0-0.2) k/uL PT (10.0-12.5) sec INR (<1.2) APTT (22.0-30.0) sec Sodium (137-145) mmol/L Potassium (3.5-5.1) mmol/L Chloride (98-107) mmol/L Carbon Dioxide (22-30) mmol/L Anion Gap mmol/L BUN (9-20) mg/dL Creatinine (0.66-1.25) mg/dL Est GFR (CKD-EPI)AfAm (>60 ml/min/1.73 sqM) Est GFR (CKD-EPI)NonAf (>60 ml/min/1.73 sqM) Glucose (74-99) mg/dL POC Glucose (mg/dL) (70-110) mg/dL POC Glu Track Dresser ID Calcium (8.4-10.2) mg/dL Phosphorus (2.5-4.5) mg/dL Magnesium (1.6-2.3) mg/dL Total Bilirubin (0.2-1.3) mg/dL AST (17-59) U/L ALT (4-49) U/L Alkaline Phosphatase (38-126) U/L Ammonia 16 (<30) umol/L Creatine Kinase (55-170) U/L Troponin I 0.160 H* (0.000-0.034) ng/mL Total Protein (6.3-8.2) g/dL Albumin (3.5-5.0) g/dL TSH (0.465-4.680) mIU/L Free T4 (0.78-2.19) ng/dL Urine Color Urine Appearance (Clear) Urine pH (5.0-8.0) Ur Specific [place] (1.001-1.035) Urine Protein (Negative) Urine Glucose (UA) (Negative) Urine Ketones (Negative) Urine Blood (Negative) Urine Nitrite (Negative) Urine Bilirubin (Negative) Urine Urobilinogen (<2.0) mg/dL Ur Leukocyte Esterase (Negative) Urine RBC (0-5) /hpf Urine WBC (0-5) /hpf Ur Squamous Epith Cells (0-4) /hpf Calcium Oxalate Crystal (None) /hpf Urine Bacteria (None) /hpf Hyaline Casts (0-2) /lpf Granular Casts (0) /lpf Urine Mucus (None) /hpf Urine Yeast (Budding) (None) /hpf U Protein Electrophores U Free [place] Ch (0.00-3.29) mg/dL U Free Lambda Light Ch (0.00-0.38) mg/dL Urine Opiates Screen (NotDetected) Ur Oxycodone Screen (NotDetected) Urine Methadone Screen (NotDetected) Ur Barbiturates Screen (NotDetected) U Tricyclic Antidepress (NotDetected) Ur Phencyclidine Scrn (NotDetected) Ur Amphetamines Screen (NotDetected) U Methamphetamines Scrn (NotDetected) U Benzodiazepines Scrn (NotDetected) Urine Cocaine Screen (NotDetected) U Marijuana (THC) Screen (NotDetected) Influenza Type A (PCR) Not Detected (Not Detectd) Influenza Type B (PCR) Not Detected (Not Detectd) RSV (PCR) Not Detected (Not Detectd) SARS-CoV-2 (PCR) Not Detected (Not Detectd) 04/14/24 04/15/24 Range/Units 23:55 00:01 WBC (3.8-10.6) k/uL RBC (4.30-5.90) m/uL Hgb (13.0-17.5) gm/dL Hct (39.0-53.0) % MCV (80.0-100.0) fL MCH (25.0-35.0) pg MCHC (31.0-37.0) g/dL RDW (11.5-15.5) % Plt Count (150-450) k/uL MPV Neutrophils % % Lymphocytes % % Monocytes % % Eosinophils % % Basophils % % Neutrophils # (1.3-7.7) k/uL Lymphocytes # (1.0-4.8) k/uL Monocytes # (0-1.0) k/uL Eosinophils # (0-0.7) k/uL Basophils # (0-0.2) k/uL PT 10.4 (10.0-12.5) sec INR 0.9 (<1.2) APTT 18.8 L (22.0-30.0) sec Sodium (137-145) mmol/L Potassium (3.5-5.1) mmol/L Chloride (98-107) mmol/L Carbon Dioxide (22-30) mmol/L Anion Gap mmol/L BUN (9-20) mg/dL Creatinine (0.66-1.25) mg/dL Est GFR (CKD-EPI)AfAm (>60 ml/min/1.73 sqM) Est GFR (CKD-EPI)NonAf (>60 ml/min/1.73 sqM) Glucose (74-99) mg/dL POC Glucose (mg/dL) (70-110) mg/dL POC Glu Track Dresser ID Calcium (8.4-10.2) mg/dL Phosphorus (2.5-4.5) mg/dL Magnesium (1.6-2.3) mg/dL Total Bilirubin (0.2-1.3) mg/dL AST (17-59) U/L ALT (4-49) U/L Alkaline Phosphatase (38-126) U/L Ammonia (<30) umol/L Creatine Kinase 411 H (55-170) U/L Troponin I (0.000-0.034) ng/mL Total Protein (6.3-8.2) g/dL Albumin (3.5-5.0) g/dL TSH (0.465-4.680) mIU/L Free T4 (0.78-2.19) ng/dL Urine Color Urine Appearance (Clear) Urine pH (5.0-8.0) Ur Specific [place] (1.001-1.035) Urine Protein (Negative) Urine Glucose (UA) (Negative) Urine Ketones (Negative) Urine Blood (Negative) Urine Nitrite (Negative) Urine Bilirubin (Negative) Urine Urobilinogen (<2.0) mg/dL Ur Leukocyte Esterase (Negative) Urine RBC (0-5) /hpf Urine WBC (0-5) /hpf Ur Squamous Epith Cells (0-4) /hpf Calcium Oxalate Crystal (None) /hpf Urine Bacteria (None) /hpf Hyaline Casts (0-2) /lpf Granular Casts (0) /lpf Urine Mucus (None) /hpf Urine Yeast (Budding) (None) /hpf U Protein Electrophores U Free [place] Ch (0.00-3.29) mg/dL U Free Lambda Light Ch (0.00-0.38) mg/dL Urine Opiates Screen (NotDetected) Ur Oxycodone Screen (NotDetected) Urine Methadone Screen (NotDetected) Ur Barbiturates Screen (NotDetected) U Tricyclic Antidepress (NotDetected) Ur Phencyclidine Scrn (NotDetected) Ur Amphetamines Screen (NotDetected) U Methamphetamines Scrn (NotDetected) U Benzodiazepines Scrn (NotDetected) Urine Cocaine Screen (NotDetected) U Marijuana (THC) Screen (NotDetected) Influenza Type A (PCR) (Not Detectd) Influenza Type B (PCR) (Not Detectd) RSV (PCR) (Not Detectd) SARS-CoV-2 (PCR) (Not Detectd) - EKG Data -: EKG Interpreted by Me (EKG is bradycardia 57 NC 157 QRS 169 QTc 456) - Radiology Data Radiology results: report reviewed (CT brain negative for acute disease chest x- ray is negative for acute disease ultrasound renal and bladder negative), image reviewed Critical Care Time Critical Care Time: Yes Total Critical Care Time: 31 Disposition Clinical Impression: Dehydration, Weakness, Urinary retention, Altered mental state, Delirium due to general medical condition, Hypercalcemia, SANDRA (acute kidney injury) Disposition: ADMITTED IP TO THIS [facility] Condition: Serious Is patient prescribed a controlled substance at d/c from ED?: No Time of Disposition: 01:00
[2024-04-14] MEDS: SODIUM CHLORIDE 0.9% 1,000 ML IV ONE ×2 (21:39→23:48)
[2024-04-14 22:56] LABS: Basophils % (A) 0 %; Eosinophils # (A) 0.3 k/uL (0-0.7); Eosinophils % (A) 4 %; HCT 35.1 % (39.0-53.0); HGB 11.5 gm/dL (13.0-17.5); Lymphocytes # (A) 1.4 k/uL (1.0-4.8); Lymphocytes % (A) 16 %; MCH 31.1 pg (25.0-35.0); MCHC 32.9 g/dL (31.0-37.0); MCV 94.4 fL (80.0-100.0); Monocytes # (A) 0.9 k/uL (0-1.0); Monocytes % (A) 10 %; Neutrophils # (A) 5.9 k/uL (1.3-7.7); Neutrophils % (A) 67 %; Platelet Count 164 k/uL (150-450); RBC 3.72 m/uL (4.30-5.90); RDW 13.5 % (11.5-15.5); WBC 8.7 k/uL (3.8-10.6)
[2024-04-14 23:00] LABS: Appearance,Urine Cloudy (Clear); Bacteria,Urine Occasional /hpf; Bilirubin,Urine Negative (Negative); Blood,Urine Large (Negative); Budding Yeast,Urine Occasional /hpf; Calcium Oxalate Crystals,Urine Occasional /hpf; Color,Urine Light Yellow; Glucose,Urine (UA) Negative (Negative); Granular Casts,Urine 1 /lpf (0); Hyaline Casts,Urine 29 /lpf (0-2); Ketones,Urine Negative (Negative); Leukocyte Esterase,Urine Trace (Negative); Mucus,Urine Rare /hpf; Nitrite,Urine Negative (Negative); Protein,Urine Trace (Negative); RBC,Urine >182 /hpf (0-5); Specific Gravity,Urine 1.013 (1.001-1.035); Squamous Epithelial Cell,Urine <1 /hpf (0-4); Urobilinogen,Urine <2.0 mg/dL (<2.0); WBC,Urine 18 /hpf (0-5)
[2024-04-14 23:09] LABS: Influenza A Not Detected (Not Detectd); Influenza B Not Detected (Not Detectd); RSV Not Detected (Not Detectd)
[2024-04-14 23:12] LABS: ALT 40 U/L (4-49); AST 91 U/L (17-59); African American GFR (CKD) 19 (>60 ml/min/1.73 sqM); Albumin 3.4 g/dL (3.5-5.0); Alkaline Phosphatase 66 U/L (38-126); Anion Gap 4 mmol/L; Blood Urea Nitrogen 51 mg/dL (9-20); Carbon Dioxide 32 mmol/L (22-30); Chloride 105 mmol/L (98-107); Glucose 71 mg/dL (74-99); Magnesium 2.1 mg/dL (1.6-2.3); Non-African American GFR(CKD) 16 (>60 ml/min/1.73 sqM); Potassium 3.2 mmol/L (3.5-5.1); Sodium 141 mmol/L (137-145); Total Bilirubin 0.8 mg/dL (0.2-1.3); Total Protein 5.7 g/dL (6.3-8.2)
[2024-04-14 23:34] LABS: Amphetamine Screen,Urine Not Detected (NotDetected); Barbiturate Screen,Urine Not Detected (NotDetected); Benzodiazepines Screen,Urine Not Detected (NotDetected); Cocaine Screen,Urine Not Detected (NotDetected); Methadone Screen, Urine Not Detected (NotDetected); Opiate Screen,Urine Not Detected (NotDetected); Oxycodone Screen, Urine Not Detected (NotDetected); Phencyclidine Screen,Urine Not Detected (NotDetected); Tricyclic Antidepressant,Urine Not Detected (NotDetected); Urn Cannabinoid Scrn Not Detected (NotDetected)
[2024-04-14 23:39] LABS: Calcium 17.2 mg/dL (8.4-10.2)
[2024-04-14] MEDS: SODIUM CHLORIDE 0.9% 500 ML 500 ML IV ONE (23:51)
--- NOTE | 2024-04-15 00:01 | CT ---
EXAM: CT Head Without Intravenous Contrast CLINICAL HISTORY: ITS.REASON CT Reason: ams TECHNIQUE: Axial computed tomography images of the head/brain without intravenous contrast. CTDI is 49.2 mGy and DLP is 1141.4 mGy-cm. This CT exam was performed using one or more of the following dose reduction techniques: automated exposure control, adjustment of the mA and/or kV according to patient size, and/or use of iterative reconstruction technique. COMPARISON: No relevant prior studies available. FINDINGS: No acute intracranial hemorrhage. No midline shift or mass effect. Old lacunar infarct in the RIGHT basal ganglia. Age-related cerebral volume loss. Periventricular and subcortical white matter hypoattenuation, consistent with chronic microangiopathy. The visualized orbits appear grossly unremarkable. The calvarium is intact. The visualized paranasal sinuses and mastoid air cells are grossly clear. IMPRESSION: No acute intracranial hemorrhage, midline shift, or mass effect. Old lacunar infarct in the RIGHT basal ganglia.
--- NOTE | 2024-04-15 00:14 | XR ---
EXAM: XR Chest, 1 View CLINICAL HISTORY: ITS.REASON XR Reason: ams TECHNIQUE: Frontal view of the chest. COMPARISON: Chest x-ray of 09/21/2022. FINDINGS: Lungs: Unremarkable. No consolidative changes or pleural effusions. Pleural space: See above. Heart: There is cardiomegaly. Mediastinum: Unremarkable. Normal mediastinal contour. Bones/joints: Osseous structures and soft tissues are unremarkable. No acute fracture. Vasculature: Atherosclerotic disease. Upper abdomen: There is elevation of the right hemidiaphragm. IMPRESSION: 1. Mild cardiomegaly. 2. Atherosclerotic disease. 3. No consolidative changes or pleural effusions. 4. No significant change from the previous study.
[2024-04-15 00:26] LABS: INR 0.9 (<1.2); Prothrombin Time 10.4 sec (10.0-12.5)
[2024-04-15 00:40] LABS: T4, Free (Free Thyroxine) 1.25 ng/dL (0.78-2.19)
[2024-04-15 00:51] LABS: Partial Thromboplastin Time 18.8 sec (22.0-30.0)
--- NOTE | 2024-04-15 01:00 | US ---
EXAM: US Retroperitoneal Limited, Renal CLINICAL HISTORY: ITS.REASON US Reason: renal fail TECHNIQUE: Real-time limited ultrasound of the retroperitoneum with image documentation. COMPARISON: No previous studies. FINDINGS: Right kidney: Increased echogenicity of both kidneys compatible medical renal disease. No stones. The right kidney measures 10 x 5 x 5. 3 cm. No hydronephrosis. Left kidney: So-called dromedary hump of the left kidney is noted. Simple cortical left renal cysts are noted the largest of which measures 1.1 cm. The left kidney measures 10.7 x 6.2 x 6.7 cm. Bladder: Small Hutch bladder diverticula are noted. Ureteral jets are not visualized. IMPRESSION: 1. Increased echogenicity of the kidneys compatible medical renal disease. 2. Simple left renal cyst, based on all 7 criteria. 3. No hydronephrosis. 4. Several small Hutch bladder diverticula are noted.
[2024-04-15] MEDS ORDERED: NALOXONE 0.4 MG/ML 1 ML VIAL IV PRN (01:03)
[2024-04-15] MEDS ORDERED: ONDANSETRON 4 MG/2 ML VIAL IVP PRN (01:03)
[2024-04-15] MEDS: SODIUM CHLORIDE 0.9% 1,000 ML IV SCH ×2 (01:14→01:20)
--- NOTE | 2024-04-15 03:33 | P.HPIM ---
History of Present Illness H&P Date: 04/15/24 Patient is a 74-year-old male with a PMH of CVA, type II DM, hypertension, hyperlipidemia, and hypothyroidism who presents to the emergency room for altered mental status and weakness. The history is provided by the patient's ex- at the bedside. She reports that the patient's home furnace broke down on and that the patient's daughter asked if he could stay with her. He has subsequently been staying with her for the past 24 hours but she noticed that he has not eaten or drank anything and that he is very confused and unable to ambulate. At time of interview, the history was limited as the patient was confused. He had no active complaints however other than feeling weak. He denied experiencing chest discomfort, shortness of breath, fever, chills, cough, nausea, vomiting, abdominal pain, diarrhea. In the emergency room a CT brain was unremarkable with chest x-ray also un remarkable. A renal ultrasound revealed findings of chronic kidney disease with no acute abnormalities noted. EKG revealed sinus bradycardia with PVCs at 57 bpm with left axis deviation and a right bundle branch block with QTc 456 ms as reviewed by me. Laboratory evaluation revealed a troponin of 0.160, calcium 17.2, glucose 71, BUN 51, creatinine 3.51 (previously 0.8 in 2013), potassium 3.2, CO2 32, hemoglobin 11.5, with TSH 0.2 with UA with greater than 182 RBCs with urine toxicology unremarkable and respiratory viral panel negative. ED documentation reviewed and case discussed with ED provider. Review of systems: Pertinent positives and negatives as discussed in HPI, a complete review of systems was performed and all other systems are negative. Physical examination: Vital signs reviewed General: non toxic, no distress, appears at stated age, normal weight Derm: no unusual rashes/lesions, warm Head: atraumatic, normocephalic, symmetric Eyes: EOMI, no lid lag, anicteric sclera, pupils equal round reactive to light ENT: Nose and ears atraumatic Neck: No cervical lymphadenopathy, trachea midline, supple Mouth: no lip lesion, mucus membranes dry Cardiovascular: S1S2 reg, no murmur, positive dorsalis pedis pulse bilateral, no edema Lungs: CTA bilateral, no rhonchi, no rales, no accessory muscle use Abdominal: soft, nontender to palpation, no guarding Ext: muscle strength 2+ out of 5 in all 4 extremities grossly, no gross muscle atrophy, no contractures, Neuro: CN II-XI grossly intact, no gross focal neuro deficits Psych: Somewhat lethargic, oriented only to self, not oriented to time or place Assessment: Severe hypercalcemia in setting of kidney injury, possibly newly diagnosed myeloma versus severe dehydration Elevated troponin Rhabdomyolysis Hypokalemia Hypoglycemia Imaging: In the emergency room a CT brain was unremarkable with chest x-ray also unremarkable. A renal ultrasound revealed findings of chronic kidney disease with no acute abnormalities noted. EKG revealed sinus bradycardia with PVCs at 57 bpm with left axis deviation and a right bundle branch block with QTc 456 ms as reviewed by me. Data Review: Laboratory evaluation revealed a troponin of 0.160, calcium 17.2, glucose 71, BUN 51, creatinine 3.51 (previously 0.8 in 2012), potassium 3.2, CO2 32, hemoglobin 11.5, with TSH 0.2 with UA with greater than 182 RBCs with urine toxicology unremarkable and respiratory viral panel negative. Plan: Order myeloma workup Check PTH levels Nephrology consulted Continue with IV fluids normal saline 130 mL/h Trend troponin Cardiac monitoring Blood glucose monitoring with insulin sliding scale Replace potassium and monitor for resolution Resume home medications once reconciled PT consult DVT prophylaxis: Heparin subcu The patient is admitted with an anticipated greater than 2 midnight stay for evaluation of kidney injury CODE STATUS: Full Code Discussed with: Patient Anticipated discharge place: Home Past Medical History Past Medical History: Diabetes Mellitus, Hyperlipidemia, Hypertension, Thyroid Disorder Additional Past Medical History / Comment(s): hypothyroid, neuropathy, borderline diabetic- takes metformin, patient had bleeding ulcer in 1972, had open sore from poor circulation on right ankle- then had an infection (patient thinks staph). Patient says he recently had blood tests with his primary doctor that showed poor kidney function. Has consult to see for his kidneys coming up. History of Any Multi-Drug Resistant Organisms: None Reported Past Surgical History: No Surgical Hx Reported Past Anesthesia/Blood Transfusion Reactions: No Reported Reaction Past Psychological History: No Psychological Hx Reported Smoking Status: Former smoker Past Alcohol Use History: Occasional Past Drug Use History: None Reported - Past Family History Mother Additional Family Medical History / Comment(s): Mother at 94 from fall with complications of subdural hematoma and strokes. Father Family Medical History: CVA/TIA Additional Family Medical History / Comment(s): Father at age 84. Sister(s) Family Medical History: Cancer Additional Family Medical History / Comment(s): sister this past may at age 62 from bladder CA. Medications and Allergies Home Medications Medication Instructions Recorded Confirmed Type metFORMIN HCL [Glucophage] 1,000 mg PO BID 06/26/16 09/21/22 History Chlorthalidone 25 mg PO DAILY #30 tab 06/27/16 09/21/22 Rx Acetaminophen Tab [Tylenol] 1,000 mg PO Q6HR PRN 09/21/22 09/21/22 History Ascorbic Acid [Vitamin C] 1,000 mg PO DAILY 09/21/22 09/21/22 History Aspirin EC [Ecotrin Low Dose] 81 mg PO DAILY 09/21/22 09/21/22 History Calcium Acetate 667 mg PO BID-W/MEALS 09/21/22 09/21/22 History Cholecalciferol [Vitamin D3 (125 125 mcg PO DAILY 09/21/22 09/21/22 History Mcg = 5000 Iu)] Gabapentin [Neurontin] 100 mg PO BID 09/21/22 09/21/22 History Gabapentin [Neurontin] 400 mg PO BID 09/21/22 09/21/22 History Levothyroxine Sodium [Synthroid] 125 mcg PO HS 09/21/22 09/21/22 History Multivitamins, Thera [Multivitamin 1 tab PO DAILY 09/21/22 09/21/22 History (formulary)] allopurinoL [Zyloprim] 100 mg PO DAILY 09/21/22 09/21/22 History amLODIPine [Norvasc] 10 mg PO HS 09/21/22 09/21/22 History atenoloL [Tenormin] 25 mg PO DAILY 09/21/22 09/21/22 History Atorvastatin [Lipitor] 20 mg PO HS tab 09/27/22 Rx Clopidogrel [Plavix] 75 mg PO DAILY tab 09/27/22 Rx Docusate [Colace] 100 mg PO BID cap 09/27/22 Rx Tamsulosin [Flomax] 0.4 mg PO [id number] cap 09/27/22 Rx Allergies Allergy/AdvReac Type Severity Reaction Status Date / Time No Known Allergies Allergy Verified 04/14/24 20:21 Physical Exam Vitals: Vital Signs Temp Pulse Resp BP Pulse Ox 04/15/24 03:00 56 L 14 141/83 95 04/15/24 02:00 54 L 14 140/72 95 04/15/24 00:00 56 L 14 133/67 95 04/14/24 22:38 57 L 14 139/72 96 04/14/24 20:14 98.2 F 51 L 16 130/66 100 Intake and Output 04/14/24 04/14/24 04/15/24 14:59 22:59 06:59 Other: Weight 68.039 kg Results CBC & Chem 7: 04/14/24 21:47 04/14/24 21:47 Labs: Abnormal Lab Results - Last 24 Hours (Table) 04/14/24 04/14/24 04/14/24 Range/Units 21:47 21:47 21:47 RBC 3.72 L (4.30-5.90) m/uL Hgb 11.5 L (13.0-17.5) gm/dL Hct 35.1 L (39.0-53.0) % APTT (22.0-30.0) sec Potassium 3.2 L (3.5-5.1) mmol/L Carbon Dioxide 32 H (22-30) mmol/L BUN 51 H (9-20) mg/dL Creatinine 3.47 H (0.66-1.25) mg/dL Glucose 71 L (74-99) mg/dL Calcium 17.2 H* (8.4-10.2) mg/dL AST 91 H (17-59) U/L Creatine Kinase (55-170) U/L Troponin I (0.000-0.034) ng/mL Total Protein 5.7 L (6.3-8.2) g/dL Albumin 3.4 L (3.5-5.0) g/dL TSH 0.274 L (0.465-4.680) mIU/L Urine Protein Trace H (Negative) Urine Blood Large H (Negative) Ur Leukocyte Esterase Trace H (Negative) Urine RBC >182 H (0-5) /hpf Urine WBC 18 H (0-5) /hpf Calcium Oxalate Crystal Occasional H (None) /hpf Urine Bacteria Occasional H (None) /hpf Hyaline Casts 29 H (0-2) /lpf Urine Mucus Rare H (None) /hpf Urine Yeast (Budding) Occasional H (None) /hpf 04/14/24 04/14/24 04/15/24 Range/Units 21:47 23:55 00:01 RBC (4.30-5.90) m/uL Hgb (13.0-17.5) gm/dL Hct (39.0-53.0) % APTT 18.8 L (22.0-30.0) sec Potassium (3.5-5.1) mmol/L Carbon Dioxide (22-30) mmol/L BUN (9-20) mg/dL Creatinine (0.66-1.25) mg/dL Glucose (74-99) mg/dL Calcium (8.4-10.2) mg/dL AST (17-59) U/L Creatine Kinase 411 H (55-170) U/L Troponin I 0.160 H* (0.000-0.034) ng/mL Total Protein (6.3-8.2) g/dL Albumin (3.5-5.0) g/dL TSH (0.465-4.680) mIU/L Urine Protein (Negative) Urine Blood (Negative) Ur Leukocyte Esterase (Negative) Urine RBC (0-5) /hpf Urine WBC (0-5) /hpf Calcium Oxalate Crystal (None) /hpf Urine Bacteria (None) /hpf Hyaline Casts (0-2) /lpf Urine Mucus (None) /hpf Urine Yeast (Budding) (None) /hpf
[2024-04-15 04:30] LABS: Glucose,Whole Blood 75 mg/dL (70-110)
[2024-04-15] MEDS: POTASSIUM CHLORIDE ER 20 MEQ TAB.ER PO STA (04:46)
[2024-04-15 05:28] LABS: Basophils % (A) 0 %; Eosinophils # (A) 0.2 k/uL (0-0.7); Eosinophils % (A) 3 %; HCT 33.5 % (39.0-53.0); HGB 10.8 gm/dL (13.0-17.5); Lymphocytes # (A) 1.5 k/uL (1.0-4.8); Lymphocytes % (A) 21 %; MCH 30.9 pg (25.0-35.0); MCHC 32.2 g/dL (31.0-37.0); MCV 95.8 fL (80.0-100.0); Monocytes # (A) 0.8 k/uL (0-1.0); Monocytes % (A) 12 %; Neutrophils # (A) 4.3 k/uL (1.3-7.7); Neutrophils % (A) 60 %; Platelet Count 153 k/uL (150-450); RBC 3.49 m/uL (4.30-5.90); RDW 13.6 % (11.5-15.5)
[2024-04-15 05:49] LABS: African American GFR (CKD) 17 (>60 ml/min/1.73 sqM); Anion Gap 9 mmol/L; Blood Urea Nitrogen 50 mg/dL (9-20); Carbon Dioxide 30 mmol/L (22-30); Chloride 105 mmol/L (98-107); Glucose 63 mg/dL (74-99); Non-African American GFR(CKD) 15 (>60 ml/min/1.73 sqM); Potassium 3.1 mmol/L (3.5-5.1); Sodium 144 mmol/L (137-145)
[2024-04-15] MEDS: LEVOTHYROXINE 125 MCG TAB PO SCH (06:50)
[2024-04-15] MEDS: allopurinoL 100 MG TAB PO SCH (08:26)
[2024-04-15] MEDS: ASPIRIN 81 MG PO SCH (08:27)
[2024-04-15] MEDS: TAMSULOSIN 0.4 MG CAP.ER.24H PO SCH (08:27)
[2024-04-15] MEDS: CLOPIDOGREL 75 MG TAB PO SCH (08:27)
[2024-04-15] MEDS: INSULIN LISPRO (HumaLOG) 100 UNIT/ML 10 mL VL SQ SCH (08:51)
[2024-04-15] MEDS: HEPARIN SODIUM,PORCINE 5,000 UNIT/ML 1 ML VIAL SQ SCH (08:53)
[2024-04-15 08:55] LABS: Glucose,Whole Blood 69 mg/dL (70-110)
[2024-04-15 09:16] LABS: Protein, Total 5.3 g/dL (6.2-8.2)
--- NOTE | 2024-04-15 09:32 | P.NPCON ---
History of Present Illness - Reason for Consult acute renal failure - History of Present Illness Reason for consultation: Acute kidney injury and hypercalcemia History of present illness: Patient is a 74-year-old male seen in new consultation for acute kidney injury and hypercalcemia. Patient's creatinine in September 2022 was 0.83. This admission was 3.47 and is 3.73 today. Calcium level 17.2 on admission yesterday and improved to 15.0 this morning. Patient came to the hospital due to weakness and altered mental status. Patient is not a very reliable historian. It is noted the patient was recently staying with his daughter as his home furnace has stopped working. It is also noted the patient was not eating and drinking for the last couple of days. Hemodynamically stable. He did receive normal saline boluses in the ER and is currently receiving normal saline at 130 cc an hour. He does admit to taking calcium and vitamin D supplementation at home. I do see calcium acetate, vitamin D3 5000 units on his home medication list. Additionally chlorthalidone is also noted on his home medication list. He has been voiding. Denies gross hematuria or dysuria. He denies any personal histor y of malignancy. Vital signs are stable. General: No acute distress. HEENT: Head exam is unremarkable. LUNGS: No audible rhonchi or wheezes. HEART: Rate and Rhythm are regular. ABDOMEN: Nontender. EXTREMITITES: No edema. Past Medical History Past Medical History: Diabetes Mellitus, Hyperlipidemia, Hypertension, Thyroid Disorder Additional Past Medical History / Comment(s): hypothyroid, neuropathy, borderline diabetic- takes metformin, patient had bleeding ulcer in 1972, had open sore from poor circulation on right ankle- then had an infection (patient thinks staph). Patient says he recently had blood tests with his primary doctor that showed poor kidney function. Has consult to see for his kidneys coming up. History of Any Multi-Drug Resistant Organisms: None Reported Past Surgical History: No Surgical Hx Reported Past Anesthesia/Blood Transfusion Reactions: No Reported Reaction Past Psychological History: No Psychological Hx Reported Smoking Status: Former smoker Past Alcohol Use History: Occasional Past Drug Use History: None Reported - Past Family History Mother Additional Family Medical History / Comment(s): Mother at 94 from fall with complications of subdural hematoma and strokes. Father Family Medical History: CVA/TIA Additional Family Medical History / Comment(s): Father at age 84. Sister(s) Family Medical History: Cancer Additional Family Medical History / Comment(s): sister this past may at age 62 from bladder CA. Medications and Allergies Home Medications Medication Instructions Recorded Confirmed Type metFORMIN HCL [Glucophage] 1,000 mg PO BID 06/26/16 04/15/24 History Chlorthalidone 25 mg PO DAILY #30 tab 06/27/16 04/15/24 Rx Aspirin EC [Ecotrin Low Dose] 81 mg PO DAILY 09/21/22 04/15/24 History Calcium Acetate 1,334 mg PO BID-W/MEALS 09/21/22 04/15/24 History Cholecalciferol [Vitamin D3 (125 125 mcg PO DAILY 09/21/22 04/15/24 History Mcg = 5000 Iu)] Gabapentin [Neurontin] 100 mg PO BID 09/21/22 04/15/24 History Gabapentin [Neurontin] 400 mg PO BID 09/21/22 04/15/24 History Levothyroxine Sodium [Synthroid] 125 mcg PO DAILY 09/21/22 04/15/24 History Multivitamins, Thera [Multivitamin 1 tab PO DAILY 09/21/22 04/15/24 History (formulary)] allopurinoL [Zyloprim] 100 mg PO DAILY 09/21/22 04/15/24 History atenoloL [Tenormin] 25 mg PO DAILY 09/21/22 04/15/24 History Clopidogrel [Plavix] 75 mg PO DAILY tab 09/27/22 04/15/24 Rx Ascorbic Acid [Vitamin C] 250 mg PO DAILY 04/15/24 04/15/24 History Atorvastatin [Lipitor] 20 mg PO DAILY 04/15/24 04/15/24 History Ferrous Sulfate [Feosol] 325 mg PO DAILY 04/15/24 04/15/24 History SILVER sulfADIAZINE Cream 1 applic TOPICAL DAILY PRN 04/15/24 04/15/24 History [Silvadene 1% Cream] Tamsulosin HCl [Flomax] 0.4 mg PO DAILY 04/15/24 04/15/24 History amLODIPine [Norvasc] 5 mg PO HS 04/15/24 04/15/24 History Allergies Allergy/AdvReac Type Severity Reaction Status Date / Time lisinopril Allergy Unknown Verified 04/15/24 08:55 Physical Exam Vitals: Vital Signs Temp Pulse Resp BP Pulse Ox 04/15/24 08:17 98.8 F 47 L 18 147/82 98 04/15/24 06:00 43 L 16 128/65 95 04/15/24 04:00 42 L 16 148/62 95 04/15/24 03:00 56 L 14 141/83 95 04/15/24 02:00 54 L 14 140/72 95 04/15/24 00:00 56 L 14 133/67 95 04/14/24 22:38 57 L 14 139/72 96 04/14/24 20:14 98.2 F 51 L 16 130/66 100 Intake and Output 04/14/24 04/15/24 04/15/24 22:59 06:59 14:59 Output Total 660 400 Balance -660 -400 Output: Urine 660 400 Uretheral (Berg) 400 Other: # Bowel Movements 0 Weight 68.039 kg Results - Lab Results Most recent lab results Calcium 15.0 mg/dL (8.4-10.2) H* 04/15/24 04:08 Phosphorus 4.0 mg/dL (2.5-4.5) 04/14/24 21:47 Magnesium 2.1 mg/dL (1.6-2.3) 04/14/24 21:47 04/15/24 04:08 04/15/24 04:08 Assessment and Plan Plan: Assessment: 1. Acute kidney injury secondary to hypercalcemia induced ATN. Creatinine 3.4 on admission and is 3.7 today. Creatinine 0.8 noted September 2022. 2. Hypercalcemia secondary to volume contraction and further worsen with the use of thiazide diuretic, calcium and vitamin D supplementation. TSH low at 0.27 with normal free T4. 3. Hypokalemia from hypercalcemia induced diuresis and also taking diuretic at home. Replaced. 4. Benign hypertension. Stable. 5. Altered mental status possibly from hypercalcemia. Plan: Maintain normal saline at 130 cc an hour. Pamidronate given this morning. Calcitonin IM x 1 dose today. Follow-up workup for hypercalcemia including PTH and vitamin D levels. Also check PTH related peptide. Avoid nephrotoxins. Check renal ultrasound. Continue to monitor renal function and urine output. Follow-up echocardiogram. Thank you for the consultation. I will continue to follow the patient with you during his hospital stay.
[2024-04-15 09:54] LABS: Glucose,Whole Blood 78 mg/dL (70-110)
[2024-04-15] MEDS: SODIUM CHLORIDE 0.9% 250 ML with PAMIDRONATE 30 MG IV STA (10:15)
[2024-04-15] MEDS: CALCITONIN INJ 200 UNIT/ML (MDV) VIAL IM ONE (10:17)
[2024-04-15 10:23] LABS: ALT 48 U/L (4-49); AST 112 U/L (17-59); African American GFR (CKD) 18 (>60 ml/min/1.73 sqM); Albumin 3.2 g/dL (3.5-5.0); Alkaline Phosphatase 70 U/L (38-126); Anion Gap 6 mmol/L; Blood Urea Nitrogen 51 mg/dL (9-20); Carbon Dioxide 30 mmol/L (22-30); Chloride 107 mmol/L (98-107); Glucose 71 mg/dL (74-99); Magnesium 1.9 mg/dL (1.6-2.3); Non-African American GFR(CKD) 16 (>60 ml/min/1.73 sqM); Potassium 3.4 mmol/L (3.5-5.1); Sodium 143 mmol/L (137-145); Total Bilirubin 0.7 mg/dL (0.2-1.3); Total Protein 5.4 g/dL (6.3-8.2)
[2024-04-15 10:26] LABS: Calcium 13.9 mg/dL (8.4-10.2)
--- NOTE | 2024-04-15 10:59 | P.CRDCN ---
History of Present Illness Consult date: 04/15/24 Reason for Consult (text): Troponins History of present illness: This is a patient of Dr. Mag Kelly with past medical history of aortic stenosis, hypertension, dyslipidemia, peripheral vascular disease, tobacco use. We have been asked to evaluate the patient for elevated troponins. Patient presented to the hospital due to generalized weakness and altered mental status that been worsening over the past day. Apparently there was no working heat in the home but patient was not eating or drinking and was slow to respond. Blood pressure 147/82, heart rate in the 40s, pulse ox 98% on room air. Patient is afebrile. Patient is seen today in the emergency center waiting for a bed on the cardiac stepdown unit. Patient is status post 2.5 l of IV fluid, potassium replacement and IV antibiotics. -EKG: Sinus rhythm with right bundle branch block and ST-T wave changes -Chest x-ray: Mild cardiomegaly. Atherosclerotic disease. -CT brain: No acute intracranial hemorrhage, midline shift or mass effect. -Renal ultrasound revealed increased echogenicity of the kidneys compatible with medical renal disease. Simple left renal cyst. No hydronephrosis. Several small Hutch bladder diverticula. -Laboratory studies: WBC 7, hemoglobin 10.8, sodium 143, potassium 3.4, BUN 51 and creatinine 3.59. Calcium 13.9. Troponin 0.16 and 0.149. CK4 111. TSH 0.274 with normal free T4. Drug screen not detected. Cepheid viral panel not detected. -Home cardiac medications: Amlodipine 5 mg at bedtime, aspirin 81 mg daily, atenolol 25 mg daily, atorvastatin 20 mg daily, chlorthalidone 25 mg daily, Plavix 75 mg daily, also on levothyroxine. -INGRID performed 09/26/[address] Alvarez revealed no evidence of cardiac source of embolization. Intact interatrial septum. Intact left atrial appendage. Normal LV dimension and systolic function. Aortic sclerosis. Mild to moderate MR. -Transthoracic echocardiogram performed 09/22/2022: Normal LV function. Moderate aortic stenosis. -30-day event monitor performed 09/2022: Sinus rhythm with sinus bradycardia and sinus tachycardia. 1 run of paroxysmal atrial tachycardia and 1 long run of what appears to be wide QRS tachycardia. Possibility of this being aberrancy cannot be excluded. Review Of Systems: At the time of my exam: Unable to be obtained due to patient's mental status. Physical examination: Gen: This is a 74-year-old male in no acute distress VS: reviewed HEENT: Head is atraumatic, normocephalic. Pupils equal, round. Sclerae is anicteric. NECK: Supple. No JVD. LUNGS: Clear to auscultation. No wheezes or rhonchi. No intercostal retractions. HEART: Regular rate and rhythm. 4/6 systolic ejection murmur. ABDOMEN: Soft No tenderness. EXTREMITIES: No pedal edema. No calf tenderness. NEUROLOGICAL: Patient is awake, confused. Assessment: Elevated troponins most likely due to acute kidney injury/hypothermia at home Aortic stenosis, moderate Metabolic encephalopathy of unclear etiology Acute kidney injury hypertension Hypercalcemia Hypokalemia Dyslipidemia Peripheral vascular disease Tobacco use and dependence Plan: Resume patient's home cardiac medications except for chlorthalidone Obtain 2-D echocardiogram and Doppler study to assess cardiac structure and function Most likely outpatient stress testing will be considered once patient's acute medical problems have been resolved. Further recommendations to follow based upon clinical course Thank you kindly for this consultation. Nurse practitioner note has been reviewed, I agree with documented findings and plan of care. Patient was seen and examined. Past Medical History Past Medical History: Diabetes Mellitus, Hyperlipidemia, Hypertension, Thyroid Disorder Additional Past Medical History / Comment(s): hypothyroid, neuropathy, borderline diabetic- takes metformin, patient had bleeding ulcer in 1972, had open sore from poor circulation on right ankle- then had an infection (patient thinks staph). Patient says he recently had blood tests with his primary doctor that showed poor kidney function. Has consult to see for his kidneys coming up. History of Any Multi-Drug Resistant Organisms: None Reported Past Surgical History: No Surgical Hx Reported Past Anesthesia/Blood Transfusion Reactions: No Reported Reaction Past Psychological History: No Psychological Hx Reported Smoking Status: Former smoker Past Alcohol Use History: Occasional Past Drug Use History: None Reported - Past Family History Mother Additional Family Medical History / Comment(s): Mother at 94 from fall with complications of subdural hematoma and strokes. Father Family Medical History: CVA/TIA Additional Family Medical History / Comment(s): Father at age 84. Sister(s) Family Medical History: Cancer Additional Family Medical History / Comment(s): sister this past may at age 62 from bladder CA. Medications and Allergies Home Medications Medication Instructions Recorded Confirmed Type metFORMIN HCL [Glucophage] 1,000 mg PO BID 06/26/16 04/15/24 History Chlorthalidone 25 mg PO DAILY #30 tab 06/27/16 04/15/24 Rx Aspirin EC [Ecotrin Low Dose] 81 mg PO DAILY 09/21/22 04/15/24 History Calcium Acetate 1,334 mg PO BID-W/MEALS 09/21/22 04/15/24 History Cholecalciferol [Vitamin D3 (125 125 mcg PO DAILY 09/21/22 04/15/24 History Mcg = 5000 Iu)] Gabapentin [Neurontin] 100 mg PO BID 09/21/22 04/15/24 History Gabapentin [Neurontin] 400 mg PO BID 09/21/22 04/15/24 History Levothyroxine Sodium [Synthroid] 125 mcg PO DAILY 09/21/22 04/15/24 History Multivitamins, Thera [Multivitamin 1 tab PO DAILY 09/21/22 04/15/24 History (formulary)] allopurinoL [Zyloprim] 100 mg PO DAILY 09/21/22 04/15/24 History atenoloL [Tenormin] 25 mg PO DAILY 09/21/22 04/15/24 History Clopidogrel [Plavix] 75 mg PO DAILY tab 09/27/22 04/15/24 Rx Ascorbic Acid [Vitamin C] 250 mg PO DAILY 04/15/24 04/15/24 History Atorvastatin [Lipitor] 20 mg PO DAILY 04/15/24 04/15/24 History Ferrous Sulfate [Feosol] 325 mg PO DAILY 04/15/24 04/15/24 History SILVER sulfADIAZINE Cream 1 applic TOPICAL DAILY PRN 04/15/24 04/15/24 History [Silvadene 1% Cream] Tamsulosin HCl [Flomax] 0.4 mg PO DAILY 04/15/24 04/15/24 History amLODIPine [Norvasc] 5 mg PO HS 04/15/24 04/15/24 History Allergies Allergy/AdvReac Type Severity Reaction Status Date / Time lisinopril Allergy Unknown Verified 04/15/24 08:55 Physical Exam Vitals: Vital Signs Temp Pulse Resp BP Pulse Ox 04/15/24 06:00 43 L 16 128/65 95 04/15/24 04:00 42 L 16 148/62 95 04/15/24 03:00 56 L 14 141/83 95 04/15/24 02:00 54 L 14 140/72 95 04/15/24 00:00 56 L 14 133/67 95 04/14/24 22:38 57 L 14 139/72 96 04/14/24 20:14 98.2 F 51 L 16 130/66 100 Intake and Output 04/14/24 04/15/24 04/15/24 22:59 06:59 14:59 Output Total 660 Balance -660 Output: Urine 660 Other: # Bowel Movements 0 Weight 68.039 kg Results 04/15/24 04:08 04/15/24 09:23 Cardiac Enzymes 04/14/24 04/14/24 04/15/24 Range/Units 21:47 21:47 04:08 AST 91 H (17-59) U/L Troponin I 0.160 H* 0.149 H* (0.000-0.034) ng/mL Coagulation 04/14/24 Range/Units 23:55 PT 10.4 (10.0-12.5) sec APTT 18.8 L (22.0-30.0) sec CBC 04/14/24 04/15/24 Range/Units 21:47 04:08 WBC 8.7 7.0 (3.8-10.6) k/uL RBC 3.72 L 3.49 L (4.30-5.90) m/uL Hgb 11.5 L 10.8 L (13.0-17.5) gm/dL Hct 35.1 L 33.5 L (39.0-53.0) % Plt Count 164 153 (150-450) k/uL Comprehensive Metabolic Panel 04/14/24 04/15/24 Range/Units 21:47 04:08 Sodium 141 144 (137-145) mmol/L Potassium 3.2 L 3.1 L (3.5-5.1) mmol/L Chloride 105 105 (98-107) mmol/L Carbon Dioxide 32 H 30 (22-30) mmol/L BUN 51 H 50 H (9-20) mg/dL Creatinine 3.47 H 3.73 H (0.66-1.25) mg/dL Glucose 71 L 63 L (74-99) mg/dL Calcium 17.2 H* 15.0 H* (8.4-10.2) mg/dL AST 91 H (17-59) U/L ALT 40 (4-49) U/L Alkaline Phosphatase 66 (38-126) U/L Total Protein 5.7 L (6.3-8.2) g/dL Albumin 3.4 L (3.5-5.0) g/dL Current Medications Generic Name Dose Route Start Last Admin Trade Name Freq PRN Reason Stop Dose Admin Allopurinol 50 mg 04/15/24 09:00 Allopurinol 100 Mg Tab PO Q2D COUNTS INCLUDE 234 BEDS AT [facility] Amlodipine Besylate 10 mg 04/15/24 21:00 Amlodipine 10 Mg Tab PO HS COUNTS INCLUDE 234 BEDS AT THE [facility] Aspirin 81 mg 04/15/24 09:00 Aspirin 81 Mg PO DAILY COUNTS INCLUDE 234 BEDS AT THE [facility] Atorvastatin Calcium 20 mg 04/15/24 21:00 Atorvastatin 20 Mg Tab PO HS COUNTS INCLUDE 234 BEDS AT THE [facility] Clopidogrel Bisulfate 75 mg 04/15/24 09:00 Clopidogrel 75 Mg Tab PO DAILY COUNTS INCLUDE 234 BEDS AT THE [facility] Heparin Sodium (Porcine) 5,000 unit 04/15/24 08:00 Heparin Sodium,Porcine 5,000 Unit/Ml 1 Ml Vial SQ Q8HR COUNTS INCLUDE 234 BEDS AT THE [facility] Sodium Chloride 1,000 mls @ 130 mls/hr 04/14/24 23:45 04/15/24 01:14 Saline 0.9% IV Not Given .Q7H42M COUNTS INCLUDE 234 BEDS AT THE [facility] Sodium Chloride 1,000 mls @ 130 mls/hr 04/15/24 01:15 04/15/24 01:20 Saline 0.9% IV 130 mls/hr .Q7H42M COUNTS INCLUDE 234 BEDS AT THE [facility] Administration Insulin Human Lispro 0 unit 04/15/24 07:30 Insulin Lispro (Humalog) 100 Unit/Ml 10 Ml Vl SQ ACHS COUNTS INCLUDE 234 BEDS AT THE [facility] Protocol Levothyroxine Sodium 125 mcg 04/15/24 06:00 04/15/24 06:50 Levothyroxine 125 Mcg Tab PO 125 mcg DAILY@0600 COUNTS INCLUDE 234 BEDS AT THE [facility] Administration Naloxone HCl 0.2 mg 04/15/24 01:03 Naloxone 0.4 Mg/Ml 1 Ml Vial IV Q2M PRN Opioid Reversal Ondansetron HCl 4 mg 04/15/24 01:03 Ondansetron 4 Mg/2 Ml Vial IVP Q8HR PRN Nausea And Vomiting Tamsulosin HCl 0.4 mg 04/15/24 08:30 Tamsulosin 0.4 Mg Cap.Er.24h PO PC-BRKFST GINA Intake and Output 04/14/24 04/15/24 04/15/24 22:59 06:59 14:59 Output Total 660 Balance -660 Output: Urine 660 Other: # Bowel Movements 0 Weight 68.039 kg 04/15/24 04:08 04/15/24 04:08
[2024-04-15 12:09] LABS: Glucose,Whole Blood 78 mg/dL (70-110)
--- NOTE | 2024-04-15 14:08 | P.CONS ---
History of Present Illness - Reason for Consult Consult date: 04/15/24 Hypercalcemia Requesting physician: Grecia Foster - Chief Complaint Altered mental status - History of Present Illness Mr. Brumfield is a 74-year-old male we have been asked to see because of hypercalcemia on admit, with significant confusion. On questioning he is drowsy, mildly agitated, he drifts off to sleep during conversation, he is not able to answer any of my questions appropriately but, he does know that he is confused. Lab work up revealed calcium 17.2 on admission, BUN/creatinine 50/3.73-this is of new onset. His CBC is normal other than hemoglobin of 10.8, hematocrit 33.5, RBC indices are within normal limits. CT of the head without contrast was neg ative, renal ultrasound reports evidence of "medical renal disease". Review of Systems ROS unobtainable: due to mental status Past Medical History Past Medical History: Diabetes Mellitus, Hyperlipidemia, Hypertension, Thyroid Disorder Additional Past Medical History / Comment(s): hypothyroid, neuropathy, borderline diabetic- takes metformin, patient had bleeding ulcer in 1972, had open sore from poor circulation on right ankle- then had an infection (patient thinks staph). Patient says he recently had blood tests with his primary doctor that showed poor kidney function. Has consult to see for his kidneys coming up. History of Any Multi-Drug Resistant Organisms: None Reported Past Surgical History: No Surgical Hx Reported Past Anesthesia/Blood Transfusion Reactions: No Reported Reaction Past Psychological History: No Psychological Hx Reported Smoking Status: Former smoker Past Alcohol Use History: Occasional Past Drug Use History: None Reported - Past Family History Mother Additional Family Medical History / Comment(s): Mother at 94 from fall with complications of subdural hematoma and strokes. Father Family Medical History: CVA/TIA Additional Family Medical History / Comment(s): Father at age 84. Sister(s) Family Medical History: Cancer Additional Family Medical History / Comment(s): sister this past may at age 62 from bladder CA. Medications and Allergies Home Medications Medication Instructions Recorded Confirmed Type metFORMIN HCL [Glucophage] 1,000 mg PO BID 06/26/16 04/15/24 History Chlorthalidone 25 mg PO DAILY #30 tab 06/27/16 04/15/24 Rx Aspirin EC [Ecotrin Low Dose] 81 mg PO DAILY 09/21/22 04/15/24 History Calcium Acetate 1,334 mg PO BID-W/MEALS 09/21/22 04/15/24 History Cholecalciferol [Vitamin D3 (125 125 mcg PO DAILY 09/21/22 04/15/24 History Mcg = 5000 Iu)] Gabapentin [Neurontin] 100 mg PO BID 09/21/22 04/15/24 History Gabapentin [Neurontin] 400 mg PO BID 09/21/22 04/15/24 History Levothyroxine Sodium [Synthroid] 125 mcg PO DAILY 09/21/22 04/15/24 History Multivitamins, Thera [Multivitamin 1 tab PO DAILY 09/21/22 04/15/24 History (formulary)] allopurinoL [Zyloprim] 100 mg PO DAILY 09/21/22 04/15/24 History atenoloL [Tenormin] 25 mg PO DAILY 09/21/22 04/15/24 History Clopidogrel [Plavix] 75 mg PO DAILY tab 09/27/22 04/15/24 Rx Ascorbic Acid [Vitamin C] 250 mg PO DAILY 04/15/24 04/15/24 History Atorvastatin [Lipitor] 20 mg PO DAILY 04/15/24 04/15/24 History Ferrous Sulfate [Feosol] 325 mg PO DAILY 04/15/24 04/15/24 History SILVER sulfADIAZINE Cream 1 applic TOPICAL DAILY PRN 04/15/24 04/15/24 History [Silvadene 1% Cream] Tamsulosin HCl [Flomax] 0.4 mg PO DAILY 04/15/24 04/15/24 History amLODIPine [Norvasc] 5 mg PO HS 04/15/24 04/15/24 History Allergies Allergy/AdvReac Type Severity Reaction Status Date / Time lisinopril Allergy Unknown Verified 04/15/24 08:55 Physical Exam Vitals: Vital Signs Temp Pulse Resp BP Pulse Ox 04/15/24 13:38 57 L 16 152/81 97 04/15/24 10:11 56 L 16 95 04/15/24 08:17 98.8 F 47 L 18 147/82 98 04/15/24 06:00 43 L 16 128/65 95 04/15/24 04:00 42 L 16 148/62 95 04/15/24 03:00 56 L 14 141/83 95 04/15/24 02:00 54 L 14 140/72 95 04/15/24 00:00 56 L 14 133/67 95 04/14/24 22:38 57 L 14 139/72 96 04/14/24 20:14 98.2 F 51 L 16 130/66 100 Intake and Output 04/14/24 04/15/24 04/15/24 22:59 06:59 14:59 Output Total 660 400 Balance -660 -400 Output: Urine 660 400 Uretheral (Berg) 400 Other: # Bowel Movements 0 Weight 68.039 kg - Constitutional General appearance: average body habitus, disheveled, no acute distress - EENT Eyes: anicteric sclerae ENT: hearing grossly normal - Neck Neck: no lymphadenopathy - Respiratory Respiratory: bilateral: diminished - Cardiovascular bradycardia, holosystolic, harsh murmur 3/6 Abnormal Heart Sounds: systolic murmur leg Peripheral Edema: bilateral: None - Gastrointestinal General gastrointestinal: decreased bowel sounds, soft - Integumentary Integumentary: normal turgor, pale - Musculoskeletal Musculoskeletal: generalized weakness - Psychiatric Responds to voice and touch most of the time, oriented x 0. Results CBC & Chem 7: 04/15/24 04:08 04/15/24 09:23 Labs: Abnormal Lab Results - Last 24 Hours (Table) 04/14/24 04/14/24 04/14/24 Range/Units 21:47 21:47 21:47 RBC 3.72 L (4.30-5.90) m/uL Hgb 11.5 L (13.0-17.5) gm/dL Hct 35.1 L (39.0-53.0) % APTT (22.0-30.0) sec Potassium 3.2 L (3.5-5.1) mmol/L Carbon Dioxide 32 H (22-30) mmol/L BUN 51 H (9-20) mg/dL Creatinine 3.47 H (0.66-1.25) mg/dL Glucose 71 L (74-99) mg/dL POC Glucose (mg/dL) (70-110) mg/dL Calcium 17.2 H* (8.4-10.2) mg/dL AST 91 H (17-59) U/L Creatine Kinase (55-170) U/L Troponin I (0.000-0.034) ng/mL Total Protein 5.7 L (6.3-8.2) g/dL Total Protein (PEP) (6.2-8.2) g/dL Albumin 3.4 L (3.5-5.0) g/dL TSH 0.274 L (0.465-4.680) mIU/L PTH Intact (14.0-72.0) pg/mL Urine Protein Trace H (Negative) Urine Blood Large H (Negative) Ur Leukocyte Esterase Trace H (Negative) Urine RBC >182 H (0-5) /hpf Urine WBC 18 H (0-5) /hpf Calcium Oxalate Crystal Occasional H (None) /hpf Urine Bacteria Occasional H (None) /hpf Hyaline Casts 29 H (0-2) /lpf Urine Mucus Rare H (None) /hpf Urine Yeast (Budding) Occasional H (None) /hpf 04/14/24 04/14/24 04/15/24 Range/Units 21:47 23:55 00:01 RBC (4.30-5.90) m/uL Hgb (13.0-17.5) gm/dL Hct (39.0-53.0) % APTT 18.8 L (22.0-30.0) sec Potassium (3.5-5.1) mmol/L Carbon Dioxide (22-30) mmol/L BUN (9-20) mg/dL Creatinine (0.66-1.25) mg/dL Glucose (74-99) mg/dL POC Glucose (mg/dL) (70-110) mg/dL Calcium (8.4-10.2) mg/dL AST (17-59) U/L Creatine Kinase 411 H (55-170) U/L Troponin I 0.160 H* (0.000-0.034) ng/mL Total Protein (6.3-8.2) g/dL Total Protein (PEP) (6.2-8.2) g/dL Albumin (3.5-5.0) g/dL TSH (0.465-4.680) mIU/L PTH Intact (14.0-72.0) pg/mL Urine Protein (Negative) Urine Blood (Negative) Ur Leukocyte Esterase (Negative) Urine RBC (0-5) /hpf Urine WBC (0-5) /hpf Calcium Oxalate Crystal (None) /hpf Urine Bacteria (None) /hpf Hyaline Casts (0-2) /lpf Urine Mucus (None) /hpf Urine Yeast (Budding) (None) /hpf 04/15/24 04/15/24 04/15/24 Range/Units 01:04 04:08 04:08 RBC 3.49 L (4.30-5.90) m/uL Hgb 10.8 L (13.0-17.5) gm/dL Hct 33.5 L (39.0-53.0) % APTT (22.0-30.0) sec Potassium 3.1 L (3.5-5.1) mmol/L Carbon Dioxide (22-30) mmol/L BUN 50 H (9-20) mg/dL Creatinine 3.73 H (0.66-1.25) mg/dL Glucose 63 L (74-99) mg/dL POC Glucose (mg/dL) (70-110) mg/dL Calcium 15.0 H* (8.4-10.2) mg/dL AST (17-59) U/L Creatine Kinase (55-170) U/L Troponin I (0.000-0.034) ng/mL Total Protein (6.3-8.2) g/dL Total Protein (PEP) (6.2-8.2) g/dL Albumin (3.5-5.0) g/dL TSH (0.465-4.680) mIU/L PTH Intact 8.7 L (14.0-72.0) pg/mL Urine Protein (Negative) Urine Blood (Negative) Ur Leukocyte Esterase (Negative) Urine RBC (0-5) /hpf Urine WBC (0-5) /hpf Calcium Oxalate Crystal (None) /hpf Urine Bacteria (None) /hpf Hyaline Casts (0-2) /lpf Urine Mucus (None) /hpf Urine Yeast (Budding) (None) /hpf 04/15/24 04/15/24 04/15/24 Range/Units 04:08 04:09 08:50 RBC (4.30-5.90) m/uL Hgb (13.0-17.5) gm/dL Hct (39.0-53.0) % APTT (22.0-30.0) sec Potassium (3.5-5.1) mmol/L Carbon Dioxide (22-30) mmol/L BUN (9-20) mg/dL Creatinine (0.66-1.25) mg/dL Glucose (74-99) mg/dL POC Glucose (mg/dL) 69 L (70-110) mg/dL Calcium (8.4-10.2) mg/dL AST (17-59) U/L Creatine Kinase (55-170) U/L Troponin I 0.149 H* (0.000-0.034) ng/mL Total Protein (6.3-8.2) g/dL Total Protein (PEP) 5.3 L (6.2-8.2) g/dL Albumin (3.5-5.0) g/dL TSH (0.465-4.680) mIU/L PTH Intact (14.0-72.0) pg/mL Urine Protein (Negative) Urine Blood (Negative) Ur Leukocyte Esterase (Negative) Urine RBC (0-5) /hpf Urine WBC (0-5) /hpf Calcium Oxalate Crystal (None) /hpf Urine Bacteria (None) /hpf Hyaline Casts (0-2) /lpf Urine Mucus (None) /hpf Urine Yeast (Budding) (None) /hpf 04/15/24 Range/Units 09:23 RBC (4.30-5.90) m/uL Hgb (13.0-17.5) gm/dL Hct (39.0-53.0) % APTT (22.0-30.0) sec Potassium 3.4 L (3.5-5.1) mmol/L Carbon Dioxide (22-30) mmol/L BUN 51 H (9-20) mg/dL Creatinine 3.59 H (0.66-1.25) mg/dL Glucose 71 L (74-99) mg/dL POC Glucose (mg/dL) (70-110) mg/dL Calcium 13.9 H* (8.4-10.2) mg/dL AST 112 H (17-59) U/L Creatine Kinase (55-170) U/L Troponin I (0.000-0.034) ng/mL Total Protein 5.4 L (6.3-8.2) g/dL Total Protein (PEP) (6.2-8.2) g/dL Albumin 3.2 L (3.5-5.0) g/dL TSH (0.465-4.680) mIU/L PTH Intact (14.0-72.0) pg/mL Urine Protein (Negative) Urine Blood (Negative) Ur Leukocyte Esterase (Negative) Urine RBC (0-5) /hpf Urine WBC (0-5) /hpf Calcium Oxalate Crystal (None) /hpf Urine Bacteria (None) /hpf Hyaline Casts (0-2) /lpf Urine Mucus (None) /hpf Urine Yeast (Budding) (None) /hpf CT scan - chest: report reviewed CT Scan - head: report reviewed Assessment and Plan (1) Delirium due to general medical condition Current Visit: Yes Status: Acute Priority: High Code(s): F05 - DELIRIUM DUE TO KNOWN PHYSIOLOGICAL CONDITION SNOMED Code(s): 9145095 (2) Hypercalcemia Current Visit: Yes Status: Acute Priority: High Code(s): E83.52 - HYPERCA LCEMIA SNOMED Code(s): 32151662 Plan: Delirium -Suspect secondary to electrolyte abnormalities-nop family was available at bedside to verify baseline mental status. -Patient is receiving hydration and medications to correct electrolyte abnorma lities -Medications have been adjusted for acute renal failure-Nephrology consulted -CT of the head without contrast was negative for any acute pathology Hypercalcemia, acute renal failure -Both calcium levels and renal function have been reviewed in this electronic medical record, they have been normal prior to admission. -Calcium 17.2 on admission, down to 15 today. Aredia x 1 ordered stat. -Calcium level in the a.m. Additional doses of aredia versus calcitonin, if Ca++ cont to be elevated -Hold all calcium supplements -Monoclonal gammopathy workup ordered, both urine and serum specimens, K/L light chains -Iron studies ordered. -Vit D labs ordered. -Bone survey will be ordered if paraproteiniemia work up is positive, if neg, may consider NM bone scan. -Thyroid studies ordered. Cardiology consulted for elevated troponin F/U on testing and labs ordered. Further recommendations to follow
[2024-04-15 15:41] LABS: Free Lambda Lt Chain Qnt, Seru 2.91 mg/dL (0.57-2.63)
[2024-04-15 15:41] LABS: Free Kappa Lt Chain Qnt, Urine 10.19 mg/dL (0.00-3.29); Free Lambda Lt Chain Qt, Urine 1.45 mg/dL (0.00-0.38)
[2024-04-15 16:41] LABS: Glucose,Whole Blood 117 mg/dL (70-110)
[2024-04-15 20:35] LABS: Glucose,Whole Blood 110 mg/dL (70-110)
[2024-04-15] MEDS: amLODIPine 10 MG TAB PO SCH (20:39)
[2024-04-15] MEDS: ATORVASTATIN 20 MG TAB PO SCH (20:39)
[2024-04-15 21:49] LABS: % Iron Saturation 7.62 (15.00-50.00)
[2024-04-16 06:12] LABS: Glucose,Whole Blood 95 mg/dL (70-110)
[2024-04-16 07:13] LABS: Basophils % (A) 0 %; Eosinophils # (A) 0.2 k/uL (0-0.7); Eosinophils % (A) 2 %; HCT 40.5 % (39.0-53.0); HGB 13.3 gm/dL (13.0-17.5); Lymphocytes # (A) 0.9 k/uL (1.0-4.8); Lymphocytes % (A) 9 %; MCH 30.7 pg (25.0-35.0); MCV 93.3 fL (80.0-100.0); Mean Platelet Volume 9.4; Monocytes # (A) 0.8 k/uL (0-1.0); Monocytes % (A) 8 %; Neutrophils # (A) 7.8 k/uL (1.3-7.7); Neutrophils % (A) 79 %; Platelet Count 200 k/uL (150-450); RBC 4.34 m/uL (4.30-5.90); RDW 13.1 % (11.5-15.5); WBC 9.8 k/uL (3.8-10.6)
[2024-04-16 07:34] LABS: ALT 58 U/L (4-49); AST 114 U/L (17-59); African American GFR (CKD) 25 (>60 ml/min/1.73 sqM); Albumin 3.7 g/dL (3.5-5.0); Alkaline Phosphatase 82 U/L (38-126); Anion Gap 11 mmol/L; Blood Urea Nitrogen 41 mg/dL (9-20); Carbon Dioxide 27 mmol/L (22-30); Chloride 105 mmol/L (98-107); Glucose 97 mg/dL (74-99); Magnesium 1.4 mg/dL (1.6-2.3); Non-African American GFR(CKD) 22 (>60 ml/min/1.73 sqM); Phosphorus 1.9 mg/dL (2.5-4.5); Sodium 143 mmol/L (137-145); Total Bilirubin 0.9 mg/dL (0.2-1.3); Total Protein 6.3 g/dL (6.3-8.2)
[2024-04-16] MEDS ORDERED: Potassium Replacement Protocol 1 EACH MISC MISCELLANE PRN (08:23)
[2024-04-16] MEDS ORDERED: Phosphorus Replacement Protoco 1 EACH MISC MISCELLANE PRN (08:24)
[2024-04-16] MEDS ORDERED: Magnesium Replacement Protocol 1 EACH MISC MISCELLANE PRN (08:25)
[2024-04-16] MEDS: MAGNESIUM SULFATE-D5W PMX 1 GM in DEXTROSE/WATER 1 100ML.BAG IVPB SCH (09:57)
[2024-04-16] MEDS: POTASSIUM CHLORIDE 10 MEQ in WATER FOR INJECTION 1 100ML.BAG IVPB SCH (09:58)
[2024-04-16] MEDS: POTAS-SOD-PHOS 280-160-250 MG 1 EACH PACKET PO ONE (09:59)
[2024-04-16 11:32] LABS: Glucose,Whole Blood 159 mg/dL (70-110)
--- NOTE | 2024-04-16 11:32 | P.PN ---
Subjective Patient is seen in follow-up for acute kidney injury and hypercalcemia. Renal function improving. Calcium level trending down. Oral intake poor. Confused. Family present at bedside. Vital signs are stable. General: No acute distress. HEENT: Head exam is unremarkable. LUNGS: No audible rhonchi or wheezes. HEART: Rate and Rhythm are regular. ABDOMEN: Nontender. EXTREMITITES: No edema. Objective - Vital Signs Vital signs: Vital Signs Temp 97.9 F 04/16/24 03:40 Pulse 75 04/16/24 07:26 Resp 16 04/16/24 07:26 BP 131/80 04/16/24 07:26 Pulse Ox 98 04/16/24 07:26 FiO2 Intake & Output 04/15/24 04/16/24 04/16/24 18:59 06:59 18:59 Output Total 2500 3400 Balance -2500 -3400 Weight 68.039 kg Output: Urine 2500 3400 Uretheral (Berg) 1100 Other: Voiding Method Indwelling Catheter Indwelling Catheter Indwelling Catheter - Labs CBC & Chem 7: 04/16/24 06:49 04/16/24 06:49 Labs: Abnormal Lab Results - Last 24 Hours (Table) 04/14/24 04/15/24 04/15/24 Range/Units 05:00 04:09 09:23 Neutrophils # (1.3-7.7) k/uL Lymphocytes # (1.0-4.8) k/uL Potassium (3.5-5.1) mmol/L BUN (9-20) mg/dL Creatinine (0.66-1.25) mg/dL POC Glucose (mg/dL) (70-110) mg/dL Calcium (8.4-10.2) mg/dL Phosphorus (2.5-4.5) mg/dL Magnesium (1.6-2.3) mg/dL Iron 25 L (65-175) UG/DL % Saturation 7.62 L (15.00-50.00) AST (17-59) U/L ALT (4-49) U/L U Free [place] Ch 10.19 H (0.00-3.29) mg/dL U Free [place]ambda Light Ch 1.45 H (0.00-0.38) mg/dL Free Lambda LC, Quant 2.91 H (0.57-2.63) mg/dL 04/15/24 04/16/24 04/16/24 Range/Units 16:40 06:49 06:49 Neutrophils # 7.8 H (1.3-7.7) k/uL Lymphocytes # 0.9 L (1.0-4.8) k/uL Potassium 3.0 L (3.5-5.1) mmol/L BUN 41 H (9-20) mg/dL Creatinine 2.75 H (0.66-1.25) mg/dL POC Glucose (mg/dL) 117 H (70-110) mg/dL Calcium 12.0 H (8.4-10.2) mg/dL Phosphorus 1.9 L (2.5-4.5) mg/dL Magnesium 1.4 L (1.6-2.3) mg/dL Iron (65-175) UG/DL % Saturation (15.00-50.00) AST 114 H (17-59) U/L ALT 58 H (4-49) U/L U Free [place] Ch (0.00-3.29) mg/dL U Free Lambda Light Ch (0.00-0.38) mg/dL Free Lambda LC, Quant (0.57-2.63) mg/dL Assessment and Plan Plan: Assessment: 1. Acute kidney injury secondary to hypercalcemia induced ATN. Creatinine peaked at 3.7 this admission and is 2.75 today. Creatinine 0.8 noted September 2022. No hydronephrosis noted on kidney ultrasound. 2. Hypercalcemia secondary to volume contraction and further worsen with the use of thiazide diuretic, calcium and vitamin D supplementation. TSH low at 0.27 with normal free T4. PTH appropriately suppressed at 8.7. Vitamin D level 71.8. 125 D3 level 22. 3. Hypokalemia from hypercalcemia induced diuresis and also taking diuretic at home. Replaced. 4. Benign hypertension. Stable. 5. Altered mental status possibly from hypercalcemia. 6. Hypomagnesemia from poor intake and diuresis. 7. Hypophosphatemia from poor intake. Plan: Maintain IV fluids. Status post pamidronate and calcitonin given April 15, 2024. Follow-up workup for hypercalcemia. Follow-up PTH related peptide. Avoid nephrotoxins. Continue to monitor renal function and urine output. Follow-up echocardiogram. Replace electrolytes.
--- NOTE | 2024-04-16 13:41 | P.PN ---
Subjective Progress Note Date: 04/16/24 Reason for Consult (text): Troponins History of present illness: This is a patient of Dr. Mag Kelly with past medical history of aortic stenosis, hypertension, dyslipidemia, peripheral vascular disease, tobacco use. We have been asked to evaluate the patient for elevated troponins. Patient presented to the hospital due to generalized weakness and altered mental status that been worsening over the past day. Apparently there was no working heat in the home but patient was not eating or drinking and was slow to respond. Blood pressure 147/82, heart rate in the 40s, pulse ox 98% on room air. Patient is afebrile. Patient is seen today in the emergency center waiting for a bed on the cardiac stepdown unit. Patient is status post 2.5 l of IV fluid, potassium replacement and IV antibiotics. -EKG: Sinus rhythm with right bundle branch block and ST-T wave changes -Chest x-ray: Mild cardiomegaly. Atherosclerotic disease. -CT brain: No acute intracranial hemorrhage, midline shift or mass effect. -Renal ultrasound revealed increased echogenicity of the kidneys compatible with medical renal disease. Simple left renal cyst. No hydronephrosis. Several small Hutch bladder diverticula. -Laboratory studies: WBC 7, hemoglobin 10.8, sodium 143, potassium 3.4, BUN 51 and creatinine 3.59. Calcium 13.9. Troponin 0.16 and 0.149. CK4 111. TSH 0.274 with normal free T4. Drug screen not detected. Cepheid viral panel not detected. -Home cardiac medications: Amlodipine 5 mg at bedtime, aspirin 81 mg daily, atenolol 25 mg daily, atorvastatin 20 mg daily, chlorthalidone 25 mg daily, Plavix 75 mg daily, also on levothyroxine. -INGRID performed 09/26/[address] Alvarez revealed no evidence of cardiac source of embolization. Intact interatrial septum. Intact left atrial appendage. Normal LV dimension and systolic function. Aortic sclerosis. Mild to moderate MR. -Transthoracic echocardiogram performed 09/22/2022: Normal LV function. Moderate aortic stenosis. -30-day event monitor performed 09/2022: Sinus rhythm with sinus bradycardia and sinus tachycardia. 1 run of paroxysmal atrial tachycardia and 1 long run of what appears to be wide QRS tachycardia. Possibility of this being aberrancy cannot be excluded. 04/16 Patient is seen and examined today on the cardiac stepdown unit. Patient continues to have significant mental status changes. Echocardiogram is being done at this time. Blood pressure 131/80, heart rate 76, pulse ox 98% on room air. Blood pressure readings were high overnight but improved this morning. Repeat blood work reveals hemoglobin 13.3, potassium 3, BUN 41 creatinine 2.75. Patient is followed by nephrology. Physical examination: Gen: This is a 74-year-old male in no acute distress VS: reviewed HEENT: Head is atraumatic, normocephalic. Pupils equal, round. Sclerae is anicteric. NECK: Supple. No JVD. LUNGS: Clear to auscultation. No wheezes or rhonchi. No intercostal retractions. HEART: Regular rate and rhythm. 4/6 systolic ejection murmur. ABDOMEN: Soft No tenderness. EXTREMITIES: No pedal edema. No calf tenderness. NEUROLOGICAL: Patient is awake, confused. Assessment: Elevated troponins most likely due to acute kidney injury/hypothermia at home Aortic stenosis, moderate Metabolic encephalopathy of unclear etiology Acute kidney injury hypertension Hypercalcemia Hypokalemia Dyslipidemia Peripheral vascular disease Tobacco use and dependence Plan: Continue patient's home cardiac medications except for chlorthalidone Obtain 2-D echocardiogram and Doppler study report Most likely outpatient stress testing will be considered once patient's acute medical problems have been resolved. Further recommendations to follow based upon clinical course Nurse practitioner note has been reviewed, I agree with documented findings and plan of care. Patient was seen and examined. Objective - Vital Signs Vital signs: Vital Signs Temp 97.9 F 04/16/24 03:40 Pulse 75 04/16/24 07:26 Resp 16 04/16/24 07:26 BP 131/80 04/16/24 07:26 Pulse Ox 98 04/16/24 07:26 FiO2 Intake & Output 04/15/24 04/16/24 04/16/24 18:59 06:59 18:59 Output Total 2500 3400 Balance -2500 -3400 Weight 68.039 kg Output: Urine 2500 3400 Uretheral (Berg) 1100 Other: Voiding Method Indwelling Catheter Indwelling Catheter - Labs CBC & Chem 7: 04/16/24 06:49 04/16/24 06:49 Labs: Abnormal Lab Results - Last 24 Hours (Table) 04/14/24 04/15/24 04/15/24 Range/Units 05:00 01:04 04:09 Neutrophils # (1.3-7.7) k/uL Lymphocytes # (1.0-4.8) k/uL Potassium (3.5-5.1) mmol/L BUN (9-20) mg/dL Creatinine (0.66-1.25) mg/dL Glucose (74-99) mg/dL POC Glucose (mg/dL) (70-110) mg/dL Calcium (8.4-10.2) mg/dL Phosphorus (2.5-4.5) mg/dL Magnesium (1.6-2.3) mg/dL Iron (65-175) UG/DL % Saturation (15.00-50.00) AST (17-59) U/L ALT (4-49) U/L Total Protein (6.3-8.2) g/dL Albumin (3.5-5.0) g/dL PTH Intact 8.7 L (14.0-72.0) pg/mL U Free [place] Ch 10.19 H (0.00-3.29) mg/dL U Free [place] Ch 1.45 H (0.00-0.38) mg/dL Free [place]ambda LC, Quant 2.91 H (0.57-2.63) mg/dL 04/15/24 04/15/24 04/15/24 Range/Units 09:23 09:23 16:40 Neutrophils # (1.3-7.7) k/uL Lymphocytes # (1.0-4.8) k/uL Potassium 3.4 L (3.5-5.1) mmol/L BUN 51 H (9-20) mg/dL Creatinine 3.59 H (0.66-1.25) mg/dL Glucose 71 L (74-99) mg/dL POC Glucose (mg/dL) 117 H (70-110) mg/dL Calcium 13.9 H* (8.4-10.2) mg/dL Phosphorus (2.5-4.5) mg/dL Magnesium (1.6-2.3) mg/dL Iron 25 L (65-175) UG/DL % Saturation 7.62 L (15.00-50.00) AST 112 H (17-59) U/L ALT (4-49) U/L Total Protein 5.4 L (6.3-8.2) g/dL Albumin 3.2 L (3.5-5.0) g/dL PTH Intact (14.0-72.0) pg/mL U Free [place] Ch (0.00-3.29) mg/dL U Free [place] Ch (0.00-0.38) mg/dL Free Lambda LC, Quant (0.57-2.63) mg/dL 04/16/24 04/16/24 Range/Units 06:49 06:49 Neutrophils # 7.8 H (1.3-7.7) k/uL Lymphocytes # 0.9 L (1.0-4.8) k/uL Potassium 3.0 L (3.5-5.1) mmol/L BUN 41 H (9-20) mg/dL Creatinine 2.75 H (0.66-1.25) mg/dL Glucose (74-99) mg/dL POC Glucose (mg/dL) (70-110) mg/dL Calcium 12.0 H (8.4-10.2) mg/dL Phosphorus 1.9 L (2.5-4.5) mg/dL Magnesium 1.4 L (1.6-2.3) mg/dL Iron (65-175) UG/DL % Saturation (15.00-50.00) AST 114 H (17-59) U/L ALT 58 H (4-49) U/L Total Protein (6.3-8.2) g/dL Albumin (3.5-5.0) g/dL PTH Intact (14.0-72.0) pg/mL U Free [place] Ch (0.00-3.29) mg/dL U Free [place] Ch (0.00-0.38) mg/dL Free Lambda LC, Quant (0.57-2.63) mg/dL
--- NOTE | 2024-04-16 14:09 | P.PN ---
Subjective Progress Note Date: 04/16/24 Hospital Course: 74-year-old male with past medical history of type II DM, HTN, HLD, hypothyroi dism, history of CVA, who presented to the ER on 04/15 with EMS. The history is provided by the patient's ex- at the bedside. She reports that the patient's home furnace broke down on and that the patient's daughter asked if he could stay with her. He has subsequently been staying with her for the past 24 hours but she noticed that he has not eaten or drank anything and that he is very confused and unable to ambulate. At time of interview, the history was limited as the patient was confused. He had no active complaints however other than feeling weak. He denied experiencing chest discomfort, shortness of breath, fever, chills, cough, nausea, vomiting, abdominal pain, diarrhea. In the emergency room a CT brain was unremarkable with chest x-ray also unremarkable. A renal ultrasound revealed findings of chronic kidney disease with no acute abnormalities noted. EKG revealed sinus bradycardia with PVCs at 57 bpm with left axis deviation and a right bundle branch block with QTc 456 ms as reviewed by me. Laboratory evaluation revealed a troponin of 0.160, calcium 17.2, glucose 71, BUN 51, creatinine 3.51 (previously 0.8 in 2012), potassium 3.2, CO2 32, hemoglobin 11.5, with TSH 0.2 with UA with greater than 182 RBCs with urine toxicology unremarkable and respiratory viral panel negative. He was admitted for further management of acute severe hypercalcemia, GI SANDRA, elevated troponins Cardiology consulted, TTE ordered, patient most likely will need outpatient stre ss testing overall: Cardiac medications resumed except for chlorthalidone. Nephrology consulted. Kidney ultrasound showed no hydronephrosis. Patient underwent hypercalcemia workup that revealed overall TSH 0.27 with a normal free T4, PTH 8.7, vitamin D 71.8, patient received IV hydration, pamidronate and calcitonin on 04/15/2024. Hematology oncology consulted: Monoclonal gammopathy workup ordered to help, PTH RP ordered Subjective: At bedside, patient's sister present during exam. Patient denies any complaints at this time, he is still very confused per family Pertinent positives and negatives as discussed above, a complete review of systems was performed and all other systems are negative. Vitals Signs Reviewed. General: [nontoxic], [no distress], [appears at stated age] Derm: [warm], [dry] Head: [atraumatic], [normocephalic], [symmetric] Eyes: [EOMI], [no lid lag], [anicteric sclera] Mouth: [no lip lesion], [mucus membranes moist] Cardiovascular: [S1S2 reg], [no murmur] Lungs: [CTA bilateral], [no rhonchi, no rales] , [no accessory muscle use] Abdominal: [soft], [ nontender to palpation], [no guarding], [no appreciable organomegaly] Ext: [no gross muscle atrophy], [no edema], [no contractures] Neuro: [ CN II-XI grossly intact], [no focal neuro deficits] Psych: [Alert], [oriented to self only Data Reviewed Today: Pertinent Labs: No leukocytosis, normal stable hemoglobin and platelet count, sodium normal 143, potassium low 3.0, creatinine trending down to 0.75, bicarb normal, magnesium low 1.4, phosphorus low 1.9 Assessment and Plan: Acute metabolic encephalopathy secondary to severe hypercalcemia Severe hypercalcemia secondary to volume depletion continue 6 weeks of diuretic use and vitamin D supplements SANDRA secondary to hypercalcemia induced ATN Hypokalemia Hypomagnesemia Hypophosphatemia -Nephrology, hematology oncology following -Continue IV fluids -Electrolytes replaced, ordered repeat -Monitor strict I's and O's -PTH RP pending -Monoclonal gammopathy workup pending Elevated troponins likely in the settings of SANDRA Aortic stenosis, moderate Dyslipidemia PVD -TTE pending, cardiology following -possible o/p stress test per cardio DVT ppx: heparin Code status: full Anticipated discharge place: tbd Anticipated discharge time:tbd Objective - Vital Signs Vital signs: Vital Signs Temp 97.9 F 04/16/24 03:40 Pulse 76 04/16/24 11:39 Resp 16 04/16/24 11:39 BP 163/81 04/16/24 11:39 Pulse Ox 97 04/16/24 11:39 FiO2 Intake & Output 04/15/24 04/16/24 04/16/24 18:59 06:59 18:59 Output Total 2500 3400 2100 Balance -2500 -3400 -2100 Weight 68.039 kg Output: Urine 2500 3400 2100 Uretheral (Berg) 1100 Other: Voiding Method Indwelling Catheter Indwelling Catheter Indwelling Catheter - Labs CBC & Chem 7: 04/16/24 06:49 04/16/24 06:49 Labs: Abnormal Lab Results - Last 24 Hours (Table) 04/14/24 04/15/24 04/15/24 Range/Units 05:00 04:08 04:09 Neutrophils # (1.3-7.7) k/uL Lymphocytes # (1.0-4.8) k/uL Potassium (3.5-5.1) mmol/L BUN (9-20) mg/dL Creatinine (0.66-1.25) mg/dL POC Glucose (mg/dL) (70-110) mg/dL Calcium (8.4-10.2) mg/dL Phosphorus (2.5-4.5) mg/dL Magnesium (1.6-2.3) mg/dL Iron (65-175) UG/DL % Saturation (15.00-50.00) AST (17-59) U/L ALT (4-49) U/L RBC Folate 808 H (280 - 791) ng/mL U Free [place] Light Ch 10.19 H (0.00-3.29) mg/dL U Free [place] Ch 1.45 H (0.00-0.38) mg/dL Free Lambda LC, Quant 2.91 H (0.57-2.63) mg/dL 04/15/24 04/15/24 04/16/24 Range/Units 09:23 16:40 06:49 Neutrophils # 7.8 H (1.3-7.7) k/uL Lymphocytes # 0.9 L (1.0-4.8) k/uL Potassium (3.5-5.1) mmol/L BUN (9-20) mg/dL Creatinine (0.66-1.25) mg/dL POC Glucose (mg/dL) 117 H (70-110) mg/dL Calcium (8.4-10.2) mg/dL Phosphorus (2.5-4.5) mg/dL Magnesium (1.6-2.3) mg/dL Iron 25 L (65-175) UG/DL % Saturation 7.62 L (15.00-50.00) AST (17-59) U/L ALT (4-49) U/L RBC Folate (280 - 791) ng/mL U Free [place] Ch (0.00-3.29) mg/dL U Free [place] Ch (0.00-0.38) mg/dL Free Lambda LC, Quant (0.57-2.63) mg/dL 04/16/24 04/16/24 Range/Units 06:49 11:30 Neutrophils # (1.3-7.7) k/uL Lymphocytes # (1.0-4.8) k/uL Potassium 3.0 L (3.5-5.1) mmol/L BUN 41 H (9-20) mg/dL Creatinine 2.75 H (0.66-1.25) mg/dL POC Glucose (mg/dL) 159 H (70-110) mg/dL Calcium 12.0 H (8.4-10.2) mg/dL Phosphorus 1.9 L (2.5-4.5) mg/dL Magnesium 1.4 L (1.6-2.3) mg/dL Iron (65-175) UG/DL % Saturation (15.00-50.00) AST 114 H (17-59) U/L ALT 58 H (4-49) U/L RBC Folate (280 - 791) ng/mL U Free [place] Ch (0.00-3.29) mg/dL U Free [place] Light Ch (0.00-0.38) mg/dL Free Lambda LC, Quant (0.57-2.63) mg/dL
[2024-04-16 16:24] LABS: Glucose,Whole Blood 186 mg/dL (70-110)
--- NOTE | 2024-04-16 16:50 | CA ---
Transthoracic Echo Report Name: Cristian Brumfield Age: 74 Gender: M : 1950 Exam Date: 04/16/2024 08:51 Exam Location: [facility] Ht (in): 67 Wt (lb): 150 Ordering Physician: Grecia Foster MD Attending/Referring Phys: Soldering Machine Operator Automatic Ricci Alcantara RDCS Procedure CPT: Indications: trop Cardiac Hx: Technical Quality: Good Contrast 1: Total Dose (mL): Contrast 2: Total Dose (mL): MEASUREMENTS (Male / Female) Normal Values 2D ECHO LV Diastolic Diameter PLAX 5.3 cm 4.2 - 5.9 / 3.9 - 5.3 cm LV Systolic Diameter PLAX 3.4 cm IVS Diastolic Thickness 1.1 cm 0.6 - 1.0 / 0.6 - 0.9 cm LVPW Diastolic Thickness 1.1 cm 0.6 - 1.0 / 0.6 - 0.9 cm LV Relative Wall Thickness 0.4 RV Internal Dim ED PLAX 3.5 cm LVOT Diameter 1.7 cm Aortic Root Diameter 2.8 cm LV Diastolic Volume MOD 4C 113.4 cm??? LV Systolic Volume MOD 4C 39.3 cm??? LV Ejection Fraction MOD 4C 65.4 % LV Cardiac Index MOD 4C 3048.2 cm???/min???m??? LV Diastolic Length 4C 8.7 cm LV Systolic Length 4C 6.6 cm LA Volume 65.2 cm??? 18 - 58 / 22 - 52 cm??? LA Volume Index 36.2 cm???/m??? 16 - 28 cm???/m??? DOPPLER AV Peak Velocity 325.3 cm/s AV Peak Gradient 42.3 mmHg AV Mean Velocity 245.8 cm/s AV Mean Gradient 26.5 mmHg AV Velocity Time Integral 67.4 cm MV Peak Velocity 150.1 cm/s MV Peak Gradient 9.0 mmHg MV Mean Velocity 89.0 cm/s MV Mean Gradient 3.6 mmHg MV Velocity Time Integral 35.3 cm MV Area PHT 2.8 cm??? Mitral E Point Velocity 87.6 cm/s Mitral A Point Velocity 131.0 cm/s Mitral E to A Ratio 0.7 MV Deceleration Time 330.2 ms TR Peak Velocity 247.2 cm/s TR Peak Gradient 24.4 mmHg FINDINGS Left Ventricle Left ventricular ejection fraction is estimated at 60%. Normal left ventricular systolic function with no obvious regional wall motion abnormalities. Right Ventricle Normal right ventricular size and function. Right ventricular systolic pressure within normal limits. Right Atrium Normal right atrial size. Left Atrium Mildly increased left atrial volume. Mildly increased left atrial area. Mitral Valve Mitral valve thickened. Mild mitral regurgitation. No mitral stenosis. Aortic Valve Trileaflet aortic valve. Diffuse thickening of the aortic valve cusps with reduced excursion. Thickened aortic valve without stenosis. Moderate aortic stenosis with a peak velocity of 3.7 m/s, peak gradient 56 mmHg, mean gradient 33 mmHg. Trace aortic regurgitation. Tricuspid Valve Structurally normal tricuspid valve. No tricuspid stenosis. Trace tricuspid regurgitation. Pulmonic Valve Structurally normal pulmonic valve. No pulmonic stenosis. Trace pulmonic regurgitation. Pericardium No pericardial effusion. Aorta Normal size aortic root and proximal ascending aorta. CONCLUSIONS Left ventricular ejection fraction 60% Mildly dilated left atrium Moderate aortic stenosis Trace aortic regurgitation Trace tricuspid regurgitation Previewed by: Dr. Diomedes Gibson DO (Electronically Signed) Final Date: 16 April 2024 16:49
--- NOTE | 2024-04-16 17:10 | P.PN ---
Subjective Progress Note Date: 04/16/24 Principal diagnosis: hypercalcemia Patient seen today in follow-up. His daughter is at the bedside. He is more alert today, he was able to tell me his name as well as the month and day of his birthday but, got the year wrong. He knew that he was in the hospital. Daughter said that his confusion started about 1 to 2 weeks ago, noted he was just slower with his activities, slower to get things done, had to think a little harder. The confusion really progressed between Monday and Monday, just prior to admission. She states that patient had a stroke in September 2022 and at that time he did have a decrease in normal activity but, patient was still fully active, his left-sided deficits were pretty much resolved other than some facial droop on the left. On chart review in the office, patient initially referred to Hematology in February 2020, for leukocytosis, monocytosis. Laboratory workup was ordered that was negative, patient was seen twice in the office then declined any further follow-up after that. He was referred back to Hematology in 2022 for le ukocytosis, patient was contacted x 4, it is documented that patient refused appointment. Objective - Vital Signs Vital signs: Vital Signs Temp 97.9 F 04/16/24 03:40 Pulse 76 04/16/24 11:39 Resp 16 04/16/24 11:39 BP 163/81 04/16/24 11:39 Pulse Ox 97 04/16/24 11:39 FiO2 Intake & Output 04/15/24 04/16/24 04/16/24 18:59 06:59 18:59 Output Total 2500 3400 2100 Balance -2500 -3400 -2100 Weight 68.039 kg Output: Urine 2500 3400 2100 Uretheral (Berg) 1100 Other: Voiding Method Indwelling Catheter Indwelling Catheter Indwelling Catheter - Constitutional General appearance: Present: average body habitus, cooperative, no acute distress - EENT Eyes: Present: anicteric sclerae, EOMI ENT: Present: hearing grossly normal - Respiratory Details: reap unlabored at rest - Integumentary Integumentary: Present: pale - Musculoskeletal Musculoskeletal: Present: generalized weakness - Psychiatric Psychiatric Comment(s): A&Ox2 - Labs CBC & Chem 7: 04/16/24 06:49 04/16/24 06:49 Labs: Abnormal Lab Results - Last 24 Hours (Table) 04/15/24 04/15/24 04/15/24 Range/Units 04:08 09:23 09:23 Neutrophils # (1.3-7.7) k/uL Lymphocytes # (1.0-4.8) k/uL Potassium (3.5-5.1) mmol/L BUN (9-20) mg/dL Creatinine (0.66-1.25) mg/dL POC Glucose (mg/dL) (70-110) mg/dL Calcium (8.4-10.2) mg/dL Phosphorus (2.5-4.5) mg/dL Magnesium (1.6-2.3) mg/dL Iron 25 L (65-175) UG/DL % Saturation 7.62 L (15.00-50.00) AST (17-59) U/L ALT (4-49) U/L RBC Folate 808 H (280 - 791) ng/mL Free [place] LC, Quant 4.71 H (0.33-1.94) mg/dL 04/15/24 04/16/24 04/16/24 Range/Units 16:40 06:49 06:49 Neutrophils # 7.8 H (1.3-7.7) k/uL Lymphocytes # 0.9 L (1.0-4.8) k/uL Potassium 3.0 L (3.5-5.1) mmol/L BUN 41 H (9-20) mg/dL Creatinine 2.75 H (0.66-1.25) mg/dL POC Glucose (mg/dL) 117 H (70-110) mg/dL Calcium 12.0 H (8.4-10.2) mg/dL Phosphorus 1.9 L (2.5-4.5) mg/dL Magnesium 1.4 L (1.6-2.3) mg/dL Iron (65-175) UG/DL % Saturation (15.00-50.00) AST 114 H (17-59) U/L ALT 58 H (4-49) U/L RBC Folate (280 - 791) ng/mL Free [place] LC, Quant (0.33-1.94) mg/dL 04/16/24 Range/Units 11:30 Neutrophils # (1.3-7.7) k/uL Lymphocytes # (1.0-4.8) k/uL Potassium (3.5-5.1) mmol/L BUN (9-20) mg/dL Creatinine (0.66-1.25) mg/dL POC Glucose (mg/dL) 159 H (70-110) mg/dL Calcium (8.4-10.2) mg/dL Phosphorus (2.5-4.5) mg/dL Magnesium (1.6-2.3) mg/dL Iron (65-175) UG/DL % Saturation (15.00-50.00) AST (17-59) U/L ALT (4-49) U/L RBC Folate (280 - 791) ng/mL Free [place] LC, Quant (0.33-1.94) mg/dL Assessment and Plan (1) Delirium due to general medical condition Current Visit: Yes Status: Acute Priority: High Code(s): F05 - DELIRIUM DUE TO KNOWN PHYSIOLOGICAL CONDITION SNOMED Code(s): 1056114 (2) Hypercalcemia Current Visit: Yes Status: Acute Priority: High Code(s): E83.52 - HYPERCALCEMIA SNOMED Code(s): 47713956 Plan: Delirium -Suspect secondary to electrolyte abnormalities-family verified his presentation was significantly different from baseline mental status. He is doing a little better today -Patient is receiving hydration and medications to correct electrolyte abnormalities. -Medications have been adjusted for acute renal failure-Nephrology consulted -CT of the head without contrast was negative for any acute pathology Hypercalcemia, acute renal failure -Both calcium levels and renal function have been reviewed in this electronic medical record, they have been normal prior to admission. -Calcium 17.2 on admission, down to 12 today. Aredia x 1 ordered stat. Calcitonin was given yesterday. 1 more dose ordered for today -Calcium level in the a.m. -Hold all calcium supplements -PTH low, in setting of hypercalcemia can reflet malignant process. Work up ongoing at this time -Monoclonal gammopathy workup ordered, both urine and serum specimens. K/L light chains, both urine and serum are not normal but, noting grossly abnormal. Pending PEP and immunofixation -Iron studies c/w mild iron deficiency. Can start oral iron supplement once pt is more alert -Vit D labs WNL. -Bone survey will be ordered if paraproteiniemia work up is positive, if neg, may consider NM bone scan. -Thyroid studies WNL. Cardiology consulted for elevated troponin F/U on testing and labs ordered. Further recommendations to follow Did let daughter know that it would take several days after Ca++ levels normalize for pt mental status to return to baseline.
[2024-04-16] MEDS: CALCITONIN INJ 200 UNIT/ML (MDV) VIAL SQ ONE (17:51)
[2024-04-16 20:11] LABS: Glucose,Whole Blood 125 mg/dL (70-110)
[2024-04-17 06:45] LABS: Glucose,Whole Blood 131 mg/dL (70-110)
[2024-04-17 06:57] LABS: Basophils % (A) 0 %; Eosinophils # (A) 0.4 k/uL (0-0.7); Eosinophils % (A) 5 %; HCT 38.4 % (39.0-53.0); HGB 12.4 gm/dL (13.0-17.5); Lymphocytes % (A) 15 %; MCH 30.1 pg (25.0-35.0); MCHC 32.2 g/dL (31.0-37.0); MCV 93.4 fL (80.0-100.0); Mean Platelet Volume 9.5; Monocytes # (A) 0.8 k/uL (0-1.0); Monocytes % (A) 12 %; Neutrophils # (A) 4.7 k/uL (1.3-7.7); Neutrophils % (A) 66 %; Platelet Count 190 k/uL (150-450); RBC 4.11 m/uL (4.30-5.90); RDW 13.2 % (11.5-15.5); WBC 7.1 k/uL (3.8-10.6)
[2024-04-17 07:24] LABS: ALT 47 U/L (4-49); AST 66 U/L (17-59); African American GFR (CKD) 33 (>60 ml/min/1.73 sqM); Albumin 3.5 g/dL (3.5-5.0); Alkaline Phosphatase 73 U/L (38-126); Anion Gap 8 mmol/L; Blood Urea Nitrogen 34 mg/dL (9-20); Carbon Dioxide 27 mmol/L (22-30); Chloride 106 mmol/L (98-107); Glucose 131 mg/dL (74-99); Magnesium 1.4 mg/dL (1.6-2.3); Non-African American GFR(CKD) 28 (>60 ml/min/1.73 sqM); Phosphorus 2.2 mg/dL (2.5-4.5); Potassium 3.3 mmol/L (3.5-5.1); Sodium 141 mmol/L (137-145); Total Bilirubin 0.8 mg/dL (0.2-1.3)
[2024-04-17] MEDS ORDERED: Magnesium Replacement Protocol 1 EACH MISC MISCELLANE PRN (08:16)
[2024-04-17] MEDS: POTASSIUM CHLORIDE ER 20 MEQ TAB.ER PO STA (09:06)
[2024-04-17] MEDS: POTAS-SOD-PHOS 280-160-250 MG 1 EACH PACKET PO ONE (09:08)
[2024-04-17] MEDS: MAGNESIUM SULFATE-D5W PMX 1 GM in DEXTROSE/WATER 1 100ML.BAG IVPB SCH (09:09)
--- NOTE | 2024-04-17 10:12 | P.PN ---
Subjective Patient is seen in follow-up for acute kidney injury and hypercalcemia. Renal function improving. Calcium level trending down. Oral intake better. Mentation also improved. Vital signs are stable. General: No acute distress. HEENT: Head exam is unremarkable. LUNGS: No audible rhonchi or wheezes. HEART: Rate and Rhythm are regular. ABDOMEN: Nontender. EXTREMITITES: No edema. Objective - Vital Signs Vital signs: Vital Signs Temp 97.9 F 04/17/24 09:01 Pulse 72 04/17/24 09:01 Resp 18 04/17/24 09:01 BP 154/78 04/17/24 09:01 Pulse Ox 99 04/17/24 09:01 FiO2 Intake & Output 04/16/24 04/17/24 04/17/24 18:59 06:59 18:59 Intake Total 1640 180 Output Total 2100 1350 200 Balance -460 -1350 -20 Weight 68.039 kg Intake: IV 1640 Magnesium Sulfate-D5w Pmx 200 1 gm In Dextrose/Water 1 100ml.bag @ 100 mls/hr IVPB Q1H [facility] Rx#: [id number] Potassium Chloride 10 meq 400 In Water For Injection 1 100ml.bag @ 100 mls/hr IVPB Q1HR [facility] Rx#: [id number] Sodium Chloride 0.9% 1, 1040 000 ml @ 130 mls/hr IV . Q7H42M [facility] Rx#:[id number] Oral 180 Output: Urine 2100 1350 200 Other: Voiding Method Indwelling Catheter Indwelling Catheter # Bowel Movements 2 - Labs CBC & Chem 7: 04/17/24 06:27 04/17/24 06:27 Labs: Abnormal Lab Results - Last 24 Hours (Table) 04/15/24 04/15/24 04/16/24 Range/Units 04:08 09:23 11:30 RBC (4.30-5.90) m/uL Hgb (13.0-17.5) gm/dL Hct (39.0-53.0) % Potassium (3.5-5.1) mmol/L BUN (9-20) mg/dL Creatinine (0.66-1.25) mg/dL Glucose (74-99) mg/dL POC Glucose (mg/dL) 159 H (70-110) mg/dL Phosphorus (2.5-4.5) mg/dL Magnesium (1.6-2.3) mg/dL AST (17-59) U/L Total Protein (6.3-8.2) g/dL RBC Folate 808 H (280 - 791) ng/mL Free [place] LC, Quant 4.71 H (0.33-1.94) mg/dL 04/16/24 04/16/24 04/17/24 Range/Units 16:21 20:10 06:27 RBC (4.30-5.90) m/uL Hgb (13.0-17.5) gm/dL Hct (39.0-53.0) % Potassium 3.3 L (3.5-5.1) mmol/L BUN 34 H (9-20) mg/dL Creatinine 2.21 H (0.66-1.25) mg/dL Glucose 131 H (74-99) mg/dL POC Glucose (mg/dL) 186 H 125 H (70-110) mg/dL Phosphorus 2.2 L (2.5-4.5) mg/dL Magnesium 1.4 L (1.6-2.3) mg/dL AST 66 H (17-59) U/L Total Protein 6.0 L (6.3-8.2) g/dL RBC Folate (280 - 791) ng/mL Free [place] LC, Quant (0.33-1.94) mg/dL 04/17/24 04/17/24 Range/Units 06:27 06:44 RBC 4.11 L (4.30-5.90) m/uL Hgb 12.4 L (13.0-17.5) gm/dL Hct 38.4 L (39.0-53.0) % Potassium (3.5-5.1) mmol/L BUN (9-20) mg/dL Creatinine (0.66-1.25) mg/dL Glucose (74-99) mg/dL POC Glucose (mg/dL) 131 H (70-110) mg/dL Phosphorus (2.5-4.5) mg/dL Magnesium (1.6-2.3) mg/dL AST (17-59) U/L Total Protein (6.3-8.2) g/dL RBC Folate (280 - 791) ng/mL Free [place] LC, Quant (0.33-1.94) mg/dL Assessment and Plan Plan: Assessment: 1. Acute kidney injury secondary to hypercalcemia induced ATN. Creatinine peaked at 3.7 this admission and is 2.21 today. Creatinine 0.8 noted September 2022. No hydronephrosis noted on kidney ultrasound. 2. Hypercalcemia secondary to volume contraction and further worsen with the use of thiazide diuretic, calcium and vitamin D supplementation. TSH low at 0.27 with normal free T4. PTH appropriately suppressed at 8.7. Vitamin D level 71.8. 125 D3 level 22. [place] and lambda light chains not significantly elevated. 3. Hypokalemia from hypercalcemia induced diuresis and also taking diuretic at home. Being replaced. 4. Benign hypertension. Stable. 5. Altered mental status possibly from hypercalcemia. 6. Hypomagnesemia from poor intake and diuresis. Being replaced. 7. Hypophosphatemia from poor intake. Being replaced. Better. 8. Moderate aortic stenosis. Plan: Maintain IV fluids. Decrease rate to 75 cc an hour. Status post pamidronate and calcitonin given April 15, 2024. Follow-up workup for hypercalcemia. Follow-up PTH related peptide. Avoid nephrotoxins. Continue to monitor renal function and urine output. Replace electrolytes as needed.
[2024-04-17 11:29] LABS: Glucose,Whole Blood 219 mg/dL (70-110)
--- NOTE | 2024-04-17 13:37 | P.PN ---
Subjective Progress Note Date: 04/17/24 Reason for Consult (text): Troponins History of present illness: This is a patient of Dr. Mag Kelly with past medical history of aortic stenosis, hypertension, dyslipidemia, peripheral vascular disease, tobacco use. We have been asked to evaluate the patient for elevated troponins. Patient presented to the hospital due to generalized weakness and altered mental status that been worsening over the past day. Apparently there was no working heat in the home but patient was not eating or drinking and was slow to respond. Blood pressure 147/82, heart rate in the 40s, pulse ox 98% on room air. Patient is afebrile. Patient is seen today in the emergency center waiting for a bed on the cardiac stepdown unit. Patient is status post 2.5 l of IV fluid, potassium replacement and IV antibiotics. -EKG: Sinus rhythm with right bundle branch block and ST-T wave changes -Chest x-ray: Mild cardiomegaly. Atherosclerotic disease. -CT brain: No acute intracranial hemorrhage, midline shift or mass effect. -Renal ultrasound revealed increased echogenicity of the kidneys compatible with medical renal disease. Simple left renal cyst. No hydronephrosis. Several small Hutch bladder diverticula. -Laboratory studies: WBC 7, hemoglobin 10.8, sodium 143, potassium 3.4, BUN 51 and creatinine 3.59. Calcium 13.9. Troponin 0.16 and 0.149. CK4 111. TSH 0 .274 with normal free T4. Drug screen not detected. Cepheid viral panel not detected. -Home cardiac medications: Amlodipine 5 mg at bedtime, aspirin 81 mg daily, atenolol 25 mg daily, atorvastatin 20 mg daily, chlorthalidone 25 mg daily, Plavix 75 mg daily, also on levothyroxine. -INGRID performed 09/26/[address] Alvarez revealed no evidence of cardiac source of embolization. Intact interatrial septum. Intact left atrial appendage. Normal LV dimension and systolic function. Aortic sclerosis. Mild to moderate MR. -Transthoracic echocardiogram performed 09/22/2022: Normal LV function. Moderate aortic stenosis. -30-day event monitor performed 09/2022: Sinus rhythm with sinus bradycardia and sinus tachycardia. 1 run of paroxysmal atrial tachycardia and 1 long run of what appears to be wide QRS tachycardia. Possibility of this being aberrancy cannot be excluded. 04/16 Patient is seen and examined today on the cardiac stepdown unit. Patient continues to have significant mental status changes. Echocardiogram is being done at this time. Blood pressure 131/80, heart rate 76, pulse ox 98% on room air. Blood pressure readings were high overnight but improved this morning. Repeat blood work reveals hemoglobin 13.3, potassium 3, BUN 41 creatinine 2.75. Patient is followed by nephrology. 04/17 Patient seen and examined. Patient continues to have significant mental status changes. Blood pressure 120/63, heart rate 81, pulse ox 97% on room air. Repeat blood work reveals hemoglobin 12.4, potassium 3.3, BUN 34 creatinine 2.21. Echocardiogram reveals EF of 60%, moderate aortic stenosis, trace aortic regurgitation, trace tricuspid regurgitation. Physical examination: Gen: This is a 74-year-old male in no acute distress VS: reviewed HEENT: Head is atraumatic, normocephalic. Pupils equal, round. Sclerae is anicteric. NECK: Supple. No JVD. LUNGS: Clear to auscultation. No wheezes or rhonchi. No intercostal retractions. HEART: Regular rate and rhythm. 4/6 systolic ejection murmur. ABDOMEN: Soft No tenderness. EXTREMITIES: No pedal edema. No calf tenderness. NEUROLOGICAL: Patient is awake, confused. Assessment: Elevated troponins most likely due to acute kidney injury/hypothermia at home Aortic stenosis, moderate Metabolic encephalopathy of unclear etiology Acute kidney injury hypertension Hypercalcemia Hypokalemia Dyslipidemia Peripheral vascular disease Tobacco use and dependence Plan: Continue patient's home cardiac medications except for chlorthalidone No further cardiac workup at this time Most likely outpatient stress testing will be considered once patient's acute medical problems have been resolved. Cardiology will sign off this case and follow on an as-needed basis. Please reconsult for any new concerns. Patient may follow-up in the office in [address] Kelly. Nurse practitioner note has been reviewed, I agree with documented findings and plan of care. Patient was seen and examined. Objective - Vital Signs Vital signs: Vital Signs Temp 98.1 F 04/17/24 03:53 Pulse 71 04/17/24 03:53 Resp 17 04/17/24 03:53 BP 150/81 04/17/24 03:53 Pulse Ox 98 04/17/24 03:53 FiO2 Intake & Output 04/16/24 04/17/24 04/17/24 18:59 06:59 18:59 Intake Total 1640 Output Total 2100 1350 Balance -460 -1350 Weight 68.039 kg Intake: IV 1640 Magnesium Sulfate-D5w Pmx 200 1 gm In Dextrose/Water 1 100ml.bag @ 100 mls/hr IVPB Q1H [facility] Rx#: [id number] Potassium Chloride 10 meq 400 In Water For Injection 1 100ml.bag @ 100 mls/hr IVPB Q1HR [facility] Rx#: [id number] Sodium Chloride 0.9% 1, 1040 000 ml @ 130 mls/hr IV . Q7H42M [facility] Rx#:[id number] Output: Urine 2100 1350 Other: Voiding Method Indwelling Catheter Indwelling Catheter # Bowel Movements 2 - Labs CBC & Chem 7: 04/17/24 06:27 04/17/24 06:27 Labs: Abnormal Lab Results - Last 24 Hours (Table) 04/15/24 04/15/24 04/16/24 Range/Units 04:08 09:23 11:30 RBC (4.30-5.90) m/uL Hgb (13.0-17.5) gm/dL Hct (39.0-53.0) % Potassium (3.5-5.1) mmol/L BUN (9-20) mg/dL Creatinine (0.66-1.25) mg/dL Glucose (74-99) mg/dL POC Glucose (mg/dL) 159 H (70-110) mg/dL Phosphorus (2.5-4.5) mg/dL Magnesium (1.6-2.3) mg/dL AST (17-59) U/L Total Protein (6.3-8.2) g/dL RBC Folate 808 H (280 - 791) ng/mL Free [place] LC, Quant 4.71 H (0.33-1.94) mg/dL 04/16/24 04/16/24 04/17/24 Range/Units 16:21 20:10 06:27 RBC (4.30-5.90) m/uL Hgb (13.0-17.5) gm/dL Hct (39.0-53.0) % Potassium 3.3 L (3.5-5.1) mmol/L BUN 34 H (9-20) mg/dL Creatinine 2.21 H (0.66-1.25) mg/dL Glucose 131 H (74-99) mg/dL POC Glucose (mg/dL) 186 H 125 H (70-110) mg/dL Phosphorus 2.2 L (2.5-4.5) mg/dL Magnesium 1.4 L (1.6-2.3) mg/dL AST 66 H (17-59) U/L Total Protein 6.0 L (6.3-8.2) g/dL RBC Folate (280 - 791) ng/mL Free [place] LC, Quant (0.33-1.94) mg/dL 04/17/24 04/17/24 Range/Units 06:27 06:44 RBC 4.11 L (4.30-5.90) m/uL Hgb 12.4 L (13.0-17.5) gm/dL Hct 38.4 L (39.0-53.0) % Potassium (3.5-5.1) mmol/L BUN (9-20) mg/dL Creatinine (0.66-1.25) mg/dL Glucose (74-99) mg/dL POC Glucose (mg/dL) 131 H (70-110) mg/dL Phosphorus (2.5-4.5) mg/dL Magnesium (1.6-2.3) mg/dL AST (17-59) U/L Total Protein (6.3-8.2) g/dL RBC Folate (280 - 791) ng/mL Free [place] LC, Quant (0.33-1.94) mg/dL
--- NOTE | 2024-04-17 14:57 | P.PN ---
Subjective Progress Note Date: 04/17/24 Hospital Course: 74-year-old male with past medical history of type II DM, HTN, HLD, hypothyroi dism, history of CVA, who presented to the ER on 04/15 with EMS. The history is provided by the patient's ex- at the bedside. She reports that the patient's home furnace broke down on and that the patient's daughter asked if he could stay with her. He has subsequently been staying with her for the past 24 hours but she noticed that he has not eaten or drank anything and that he is very confused and unable to ambulate. At time of interview, the history was limited as the patient was confused. He had no active complaints however other than feeling weak. He denied experiencing chest discomfort, shortness of breath, fever, chills, cough, nausea, vomiting, abdominal pain, diarrhea. In the emergency room a CT brain was unremarkable with chest x-ray also unremarkable. A renal ultrasound revealed findings of chronic kidney disease with no acute abnormalities noted. EKG revealed sinus bradycardia with PVCs at 57 bpm with left axis deviation and a right bundle branch block with QTc 456 ms as reviewed by me. Laboratory evaluation revealed a troponin of 0.160, calcium 17.2, glucose 71, BUN 51, creatinine 3.51 (previously 0.8 in 2012), potassium 3.2, CO2 32, hemoglobin 11.5, with TSH 0.2 with UA with greater than 182 RBCs with urine toxicology unremarkable and respiratory viral panel negative. He was admitted for further management of acute severe hypercalcemia, GI SANDRA, elevated troponins Cardiology consulted, TTE ordered, patient most likely will need outpatient stre ss testing overall: Cardiac medications resumed except for chlorthalidone. Nephrology consulted. Kidney ultrasound showed no hydronephrosis. Patient underwent hypercalcemia workup that revealed overall TSH 0.27 with a normal free T4, PTH 8.7, vitamin D 71.8, patient received IV hydration, pamidronate and calcitonin on 04/15/2024. Hematology oncology consulted: Monoclonal gammopathy workup ordered to help, PTH RP ordered Subjective: Patient was seen and examined at bedside, feels better, denies any shortness of breath or chest pain, denies dizziness, lightheadedness Pertinent positives and negatives as discussed above, a complete review of systems was performed and all other systems are negative. Vitals Signs Reviewed. General: [nontoxic], [no distress], [appears at stated age] Derm: [warm], [dry] Head: [atraumatic], [normocephalic], [symmetric] Eyes: [EOMI], [no lid lag], [anicteric sclera] Mouth: [no lip lesion], [mucus membranes moist] Cardiovascular: [S1S2 reg], [no murmur] Lungs: [CTA bilateral], [no rhonchi, no rales] , [no accessory muscle use] Abdominal: [soft], [ nontender to palpation], [no guarding], [no appreciable organomegaly] Ext: [no gross muscle atrophy], [no edema], [no contractures] Neuro: [ CN II-XI grossly intact], [no focal neuro deficits] Psych: [Alert], [oriented, some confusion still present Data Reviewed Today: Pertinent Labs: No leukocytosis, globin 12.4, platelet count normal, sodium 141, potassium 3.3, glucose 131, phosphorus 2.2, magnesium 1.4, AST 66, calcium 10.0, creatinine 2.2 Assessment and Plan: Acute metabolic encephalopathy secondary to severe hypercalcemia Severe hypercalcemia secondary to volume depletion continue 6 weeks of diuretic use and vitamin D supplements SANDRA secondary to hypercalcemia induced ATN Hypokalemia Hypomagnesemia Hypophosphatemia -Nephrology, hematology oncology following -Continue IV fluids, rate decreased to 75/h per nephrology -Electrolytes replaced, ordered repeat -Monitor strict I's and O's -PTH RP pending -Monoclonal gammopathy workup pending, Free kappa 4.71, lambda 2.91, urine [place] 10.19, urine lambda 1.25, UPEP with modest amount of albumin with prominent alpha-2 and beta microglobulin bands consistent with tubular proteinuria Elevated troponins likely in the settings of SANDRA Aortic stenosis, moderate Dyslipidemia PVD -TTE showed EF of 60% with mildly dilated left atrium, moderate aortic stenosis, cardiology signed off, follow-up in clinic in 2 weeks -possible o/p stress test per cardio DVT ppx: heparin Code status: full Anticipated discharge place: tbd Anticipated discharge time:tbd Objective - Vital Signs Vital signs: Vital Signs Temp 96.4 F L 04/17/24 12:11 Pulse 81 04/17/24 12:11 Resp 18 04/17/24 12:11 BP 120/63 04/17/24 12:11 Pulse Ox 97 04/17/24 12:11 FiO2 Intake & Output 04/16/24 04/17/24 04/17/24 18:59 06:59 18:59 Intake Total 1640 180 Output Total 2100 1350 200 Balance -460 -1350 -20 Weight 68.039 kg Intake: IV 1640 Magnesium Sulfate-D5w Pmx 200 1 gm In Dextrose/Water 1 100ml.bag @ 100 mls/hr IVPB Q1H [facility] Rx#: [id number] Potassium Chloride 10 meq 400 In Water For Injection 1 100ml.bag @ 100 mls/hr IVPB Q1HR [facility] Rx#: [id number] Sodium Chloride 0.9% 1, 1040 000 ml @ 130 mls/hr IV . Q7H42M [facility] Rx#:[id number] Oral 180 Output: Urine 2100 1350 200 Other: Voiding Method Indwelling Catheter Indwelling Catheter # Bowel Movements 2 - Labs CBC & Chem 7: 04/17/24 06:27 04/17/24 06:27 Labs: Abnormal Lab Results - Last 24 Hours (Table) 04/15/24 04/16/24 04/16/24 Range/Units 09:23 16:21 20:10 RBC (4.30-5.90) m/uL Hgb (13.0-17.5) gm/dL Hct (39.0-53.0) % Potassium (3.5-5.1) mmol/L BUN (9-20) mg/dL Creatinine (0.66-1.25) mg/dL Glucose (74-99) mg/dL POC Glucose (mg/dL) 186 H 125 H (70-110) mg/dL Phosphorus (2.5-4.5) mg/dL Magnesium (1.6-2.3) mg/dL AST (17-59) U/L Total Protein (6.3-8.2) g/dL Free [place] LC, Quant 4.71 H (0.33-1.94) mg/dL 04/17/24 04/17/24 04/17/24 Range/Units 06:27 06:27 06:44 RBC 4.11 L (4.30-5.90) m/uL Hgb 12.4 L (13.0-17.5) gm/dL Hct 38.4 L (39.0-53.0) % Potassium 3.3 L (3.5-5.1) mmol/L BUN 34 H (9-20) mg/dL Creatinine 2.21 H (0.66-1.25) mg/dL Glucose 131 H (74-99) mg/dL POC Glucose (mg/dL) 131 H (70-110) mg/dL Phosphorus 2.2 L (2.5-4.5) mg/dL Magnesium 1.4 L (1.6-2.3) mg/dL AST 66 H (17-59) U/L Total Protein 6.0 L (6.3-8.2) g/dL Free [place] LC, Quant (0.33-1.94) mg/dL 04/17/24 Range/Units 11:25 RBC (4.30-5.90) m/uL Hgb (13.0-17.5) gm/dL Hct (39.0-53.0) % Potassium (3.5-5.1) mmol/L BUN (9-20) mg/dL Creatinine (0.66-1.25) mg/dL Glucose (74-99) mg/dL POC Glucose (mg/dL) 219 H (70-110) mg/dL Phosphorus (2.5-4.5) mg/dL Magnesium (1.6-2.3) mg/dL AST (17-59) U/L Total Protein (6.3-8.2) g/dL Free [place] LC, Quant (0.33-1.94) mg/dL
[2024-04-17 16:24] LABS: Glucose,Whole Blood 251 mg/dL (70-110)
[2024-04-17 20:20] LABS: Glucose,Whole Blood 145 mg/dL (70-110)
--- NOTE | 2024-04-17 21:03 | P.PN ---
Subjective Progress Note Date: 04/17/24 Principal diagnosis: hypercalcemia Patient seen today in follow-up, sister at bedside. He is able to tell me his birthday without hesitation, he was not able to tell me he was in the hospital. His sister states she feels mental status has improved since admit, not back to baseline. Objective - Vital Signs Vital signs: Vital Signs Temp 97.5 F L 04/17/24 19:37 Pulse 68 04/17/24 19:37 Resp 18 04/17/24 19:37 BP 114/54 04/17/24 19:37 Pulse Ox 98 04/17/24 19:37 FiO2 Intake & Output 04/17/24 04/17/24 04/18/24 06:59 18:59 06:59 Intake Total 1280 10 Output Total 1350 1100 Balance -1350 180 10 Intake: IV 200 10 Invasive Line 2 10 Magnesium Sulfate-D5w Pmx 200 1 gm In Dextrose/Water 1 100ml.bag @ 100 mls/hr IVPB Q1H [facility] Rx#: [id number] Intake, IV Titration 900 Amount Sodium Chloride 0.9% 1, 900 000 ml @ 75 mls/hr IV . [id number] [facility] Rx#:[id number] Oral 180 Output: Urine 1350 1100 Other: Voiding Method Indwelling Catheter Indwelling Catheter # Bowel Movements 1 - Constitutional General appearance: Present: average body habitus, cooperative, no acute distress - EENT Eyes: Present: anicteric sclerae, EOMI ENT: Present: hearing grossly normal - Respiratory Details: Respirations unlabored at rest - Cardiovascular Details: Skin warm to the touch - Gastrointestinal General gastrointestinal: Present: soft - Integumentary Integumentary: Present: pale - Musculoskeletal Musculoskeletal: Present: generalized weakness - Psychiatric Psychiatric Comment(s): A&O x 2 - Labs CBC & Chem 7: 04/17/24 06:27 04/17/24 06:27 Labs: Abnormal Lab Results - Last 24 Hours (Table) 04/17/24 04/17/24 04/17/24 Range/Units 06:27 06:27 06:44 RBC 4.11 L (4.30-5.90) m/uL Hgb 12.4 L (13.0-17.5) gm/dL Hct 38.4 L (39.0-53.0) % Potassium 3.3 L (3.5-5.1) mmol/L BUN 34 H (9-20) mg/dL Creatinine 2.21 H (0.66-1.25) mg/dL Glucose 131 H (74-99) mg/dL POC Glucose (mg/dL) 131 H (70-110) mg/dL Phosphorus 2.2 L (2.5-4.5) mg/dL Magnesium 1.4 L (1.6-2.3) mg/dL AST 66 H (17-59) U/L Total Protein 6.0 L (6.3-8.2) g/dL 04/17/24 04/17/24 04/17/24 Range/Units 11:25 16:20 20:19 RBC (4.30-5.90) m/uL Hgb (13.0-17.5) gm/dL Hct (39.0-53.0) % Potassium (3.5-5.1) mmol/L BUN (9-20) mg/dL Creatinine (0.66-1.25) mg/dL Glucose (74-99) mg/dL POC Glucose (mg/dL) 219 H 251 H 145 H (70-110) mg/dL Phosphorus (2.5-4.5) mg/dL Magnesium (1.6-2.3) mg/dL AST (17-59) U/L Total Protein (6.3-8.2) g/dL Assessment and Plan (1) Delirium due to general medical condition Current Visit: Yes Status: Acute Priority: High Code(s): F05 - DELIRIUM DUE TO KNOWN PHYSIOLOGICAL CONDITION SNOMED Code(s): 3569595 (2) Hypercalcemia Current Visit: Yes Status: Acute Priority: High Code(s): E83.52 - HYPERCALCEMIA SNOMED Code(s): 54490654 Plan: Delirium -Suspect secondary to electrolyte abnormalities. He cont to improve slowly -Patient is receiving hydration and has had medications to correct electrolyte abnormalities. -Medications have been adjusted for acute renal failure-Nephrology consulted -CT of the head without contrast was negative for any acute pathology Hypercalcemia, acute renal failure -Both calcium levels and renal function have been reviewed in this electronic medical record, they have been normal prior to admission. -Calcium 10 today. Aredia x 1, Calcitonin was given x 2 -Calcium level in the a.m. -Hold all calcium supplements -PTH low, in setting of hypercalcemia can reflet malignant process. Work up ongoing at this time -Monoclonal gammopathy workup ordered, both urine and serum specimens. K/L light chains, both urine and serum are not normal but, nothing grossly abnormal. Urine electrophoresis reporting tubular proteinemia. Pending PEP and immunofixation on serum. -Iron studies c/w mild iron deficiency. Oral iron supplement started -Vit D labs WNL. -Bone survey will be ordered if paraproteiniemia work up is positive, if neg, may consider NM bone scan. -Thyroid studies WNL. Cardiology consulted for elevated troponin F/U on testing and labs ordered. Further recommendations to follow Did let sister know that it would take several days after Ca++ levels normalize for pt mental status to return to baseline.
[2024-04-18 06:28] LABS: Glucose,Whole Blood 140 mg/dL (70-110)
[2024-04-18 08:58] LABS: Basophils % (A) 1 %; Eosinophils # (A) 0.6 k/uL (0-0.7); Eosinophils % (A) 9 %; HCT 37.9 % (39.0-53.0); HGB 12.4 gm/dL (13.0-17.5); Lymphocytes # (A) 1.4 k/uL (1.0-4.8); Lymphocytes % (A) 21 %; MCH 30.7 pg (25.0-35.0); MCHC 32.7 g/dL (31.0-37.0); MCV 93.8 fL (80.0-100.0); Mean Platelet Volume 9.6; Monocytes # (A) 0.7 k/uL (0-1.0); Monocytes % (A) 10 %; Neutrophils # (A) 3.7 k/uL (1.3-7.7); Neutrophils % (A) 56 %; Platelet Count 192 k/uL (150-450); RBC 4.04 m/uL (4.30-5.90); RDW 13.3 % (11.5-15.5); WBC 6.7 k/uL (3.8-10.6)
[2024-04-18 09:19] LABS: African American GFR (CKD) 42 (>60 ml/min/1.73 sqM); Anion Gap 7 mmol/L; Blood Urea Nitrogen 35 mg/dL (9-20); Calcium 9.3 mg/dL (8.4-10.2); Carbon Dioxide 23 mmol/L (22-30); Chloride 109 mmol/L (98-107); Glucose 128 mg/dL (74-99); Magnesium 1.7 mg/dL (1.6-2.3); Non-African American GFR(CKD) 36 (>60 ml/min/1.73 sqM); Phosphorus 2.1 mg/dL (2.5-4.5); Potassium 3.8 mmol/L (3.5-5.1); Sodium 139 mmol/L (137-145)
[2024-04-18 11:14] LABS: Glucose,Whole Blood 319 mg/dL (70-110)
[2024-04-18] MEDS ORDERED: Phosphorus Replacement Protoco 1 EACH MISC MISCELLANE PRN (11:34)
--- NOTE | 2024-04-18 11:36 | P.PN ---
Subjective Patient is seen in follow-up for acute kidney injury and hypercalcemia. Renal function improving. Calcium level trending down. Oral intake better. Mentation also improved. Vital signs are stable. General: No acute distress. HEENT: Head exam is unremarkable. LUNGS: No audible rhonchi or wheezes. HEART: Rate and Rhythm are regular. ABDOMEN: Nontender. EXTREMITITES: No edema. Objective - Vital Signs Vital signs: Vital Signs Temp 98 F 04/18/24 09:00 Pulse 69 04/18/24 09:00 Resp 16 04/18/24 09:00 BP 117/71 04/18/24 09:00 Pulse Ox 98 04/18/24 09:00 FiO2 Intake & Output 04/17/24 04/18/24 04/18/24 18:59 06:59 18:59 Intake Total 1280 10 180 Output Total 1100 800 Balance 180 -790 180 Weight 68 kg Intake: IV 200 10 Invasive Line 2 10 Magnesium Sulfate-D5w Pmx 200 1 gm In Dextrose/Water 1 100ml.bag @ 100 mls/hr IVPB Q1H [facility] Rx#: [id number] Intake, IV Titration 900 Amount Sodium Chloride 0.9% 1, 900 000 ml @ 75 mls/hr IV . [id number] [facility] Rx#:[id number] Oral 180 180 Output: Urine 1100 800 Other: Voiding Method Indwelling Catheter Indwelling Catheter # Bowel Movements 1 1 - Labs CBC & Chem 7: 04/18/24 08:39 04/18/24 08:39 Labs: Abnormal Lab Results - Last 24 Hours (Table) 04/17/24 04/17/24 04/18/24 Range/Units 16:20 20:19 06:27 RBC (4.30-5.90) m/uL Hgb (13.0-17.5) gm/dL Hct (39.0-53.0) % Chloride (98-107) mmol/L BUN (9-20) mg/dL Creatinine (0.66-1.25) mg/dL Glucose (74-99) mg/dL POC Glucose (mg/dL) 251 H 145 H 140 H (70-110) mg/dL Phosphorus (2.5-4.5) mg/dL 04/18/24 04/18/24 04/18/24 Range/Units 08:39 08:39 11:11 RBC 4.04 L (4.30-5.90) m/uL Hgb 12.4 L (13.0-17.5) gm/dL Hct 37.9 L (39.0-53.0) % Chloride 109 H (98-107) mmol/L BUN 35 H (9-20) mg/dL Creatinine 1.79 H (0.66-1.25) mg/dL Glucose 128 H (74-99) mg/dL POC Glucose (mg/dL) 319 H (70-110) mg/dL Phosphorus 2.1 L (2.5-4.5) mg/dL Assessment and Plan Plan: Assessment: 1. Acute kidney injury secondary to hypercalcemia induced ATN. Creatinine peaked at 3.7 this admission and is 1.79 today. Creatinine 0.8 noted September 2022. No hydronephrosis noted on kidney ultrasound. 2. Hypercalcemia secondary to volume contraction and further worsen with the use of thiazide diuretic, calcium and vitamin D supplementation. TSH low at 0.27 with normal free T4. PTH appropriately suppressed at 8.7. Vitamin D level 71.8. 125 D3 level 22. [place] and lambda light chains not significantly elevated. 3. Hypokalemia from hypercalcemia induced diuresis and also taking diuretic at home. Replaced. Better. 4. Benign hypertension. Stable. 5. Altered mental status possibly from hypercalcemia. 6. Hypomagnesemia from poor intake and diuresis. Replaced. Better. 7. Hypophosphatemia from poor intake. Replaced. Still slightly low. 8. Moderate aortic stenosis. Plan: Maintain IV fluids. Status post pamidronate and calcitonin given April 15, 2024. Follow-up workup for hypercalcemia. Follow-up PTH related peptide. Avoid nephrotoxins. Continue to monitor renal function and urine output. Replace electrolytes as needed.
[2024-04-18] MEDS: FERROUS SULFATE 325 MG TAB PO SCH (12:28)
[2024-04-18] MEDS: MAGNESIUM OXIDE 400 MG TAB PO SCH (12:28)
--- NOTE | 2024-04-18 14:08 | P.PN ---
Subjective Progress Note Date: 04/18/24 Hospital Course: 74-year-old male with past medical history of type II DM, HTN, HLD, hypothyroi dism, history of CVA, who presented to the ER on 04/15 with EMS. The history is provided by the patient's ex- at the bedside. She reports that the patient's home furnace broke down on and that the patient's daughter asked if he could stay with her. He has subsequently been staying with her for the past 24 hours but she noticed that he has not eaten or drank anything and that he is very confused and unable to ambulate. At time of interview, the history was limited as the patient was confused. He had no active complaints however other than feeling weak. He denied experiencing chest discomfort, shortness of breath, fever, chills, cough, nausea, vomiting, abdominal pain, diarrhea. In the emergency room a CT brain was unremarkable with chest x-ray also unremarkable. A renal ultrasound revealed findings of chronic kidney disease with no acute abnormalities noted. EKG revealed sinus bradycardia with PVCs at 57 bpm with left axis deviation and a right bundle branch block with QTc 456 ms as reviewed by me. Laboratory evaluation revealed a troponin of 0.160, calcium 17.2, glucose 71, BUN 51, creatinine 3.51 (previously 0.8 in 2012), potassium 3.2, CO2 32, hemoglobin 11.5, with TSH 0.2 with UA with greater than 182 RBCs with urine toxicology unremarkable and respiratory viral panel negative. He was admitted for further management of acute severe hypercalcemia, GI SANDRA, elevated troponins Cardiology consulted, TTE ordered, patient most likely will need outpatient stre ss testing overall: Cardiac medications resumed except for chlorthalidone. Nephrology consulted. Kidney ultrasound showed no hydronephrosis. Patient underwent hypercalcemia workup that revealed overall TSH 0.27 with a normal free T4, PTH 8.7, vitamin D 71.8, patient received IV hydration, pamidronate and calcitonin on 04/15/2024. Hematology oncology consulted: Monoclonal gammopathy workup ordered to help, PTH RP ordered Subjective: Patient was seen and examined at bedside, feels better, denies any shortness of breath or chest pain, denies dizziness, lightheadedness Pertinent positives and negatives as discussed above, a complete review of systems was performed and all other systems are negative. Vitals Signs Reviewed. General: [nontoxic], [no distress], [appears at stated age] Derm: [warm], [dry] Head: [atraumatic], [normocephalic], [symmetric] Eyes: [EOMI], [no lid lag], [anicteric sclera] Mouth: [no lip lesion], [mucus membranes moist] Cardiovascular: [S1S2 reg], [no murmur] Lungs: [CTA bilateral], [no rhonchi, no rales] , [no accessory muscle use] Abdominal: [soft], [ nontender to palpation], [no guarding], [no appreciable organomegaly] Ext: [no gross muscle atrophy], [no edema], [no contractures] Neuro: [ CN II-XI grossly intact], [no focal neuro deficits] Psych: [Alert], [oriented, some confusion still present Data Reviewed Today: Pertinent Labs: No leukocytosis, globin 12.4, platelet count normal 139, potassium 3.8, phosphorus 2.1, magnesium 1.7, creatinine 1.79 Assessment and Plan: Acute metabolic encephalopathy secondary to severe hypercalcemia Severe hypercalcemia secondary to volume depletion ,diuretic use and vitamin D supplements SANDRA secondary to hypercalcemia induced ATN Hypokalemia resolved Hypomagnesemia, resolved Hypophosphatemia -Nephrology, hematology oncology following -Continue IV fluids, rate decreased to 75/h per nephrology -Electrolytes replaced, ordered repeat -Monitor strict I's and O's -PTH RP pending -Monoclonal gammopathy workup pending, Free kappa 4.71, lambda 2.91, urine [place] 10.19, urine lambda 1.25, UPEP with modest amount of albumin with prominent alpha-2 and beta microglobulin bands consistent with tubular proteinuria -family (Maggi) updated on 04/18 Elevated troponins likely in the settings of SANDRA Aortic stenosis, moderate Dyslipidemia PVD -TTE showed EF of 60% with mildly dilated left atrium, moderate aortic stenosis, cardiology signed off, follow-up in clinic in 2 weeks -possible o/p stress test per cardio DVT ppx: heparin Code status: full Anticipated discharge place: Anticipated discharge time:tbd Objective - Vital Signs Vital signs: Vital Signs Temp 97.5 F L 04/18/24 12:31 Pulse 62 04/18/24 12:31 Resp 16 04/18/24 12:31 BP 129/76 04/18/24 12:31 Pulse Ox 99 04/18/24 12:31 FiO2 Intake & Output 04/17/24 04/18/24 04/18/24 18:59 06:59 18:59 Intake Total 1280 10 360 Output Total 1100 800 700 Balance 180 -790 -340 Weight 68 kg Intake: IV 200 10 Invasive Line 2 10 Magnesium Sulfate-D5w Pmx 200 1 gm In Dextrose/Water 1 100ml.bag @ 100 mls/hr IVPB Q1H [facility] Rx#: [id number] Intake, IV Titration 900 Amount Sodium Chloride 0.9% 1, 900 000 ml @ 75 mls/hr IV . [id number] [facility] Rx#:[id number] Oral 180 360 Output: Urine 1100 800 700 Other: Voiding Method Indwelling Catheter Indwelling Catheter Indwelling Catheter # Bowel Movements 1 1 - Labs CBC & Chem 7: 04/18/24 08:39 04/18/24 08:39 Labs: Abnormal Lab Results - Last 24 Hours (Table) 04/17/24 04/17/24 04/18/24 Range/Units 16:20 20:19 06:27 RBC (4.30-5.90) m/uL Hgb (13.0-17.5) gm/dL Hct (39.0-53.0) % Chloride (98-107) mmol/L BUN (9-20) mg/dL Creatinine (0.66-1.25) mg/dL Glucose (74-99) mg/dL POC Glucose (mg/dL) 251 H 145 H 140 H (70-110) mg/dL Phosphorus (2.5-4.5) mg/dL 04/18/24 04/18/24 04/18/24 Range/Units 08:39 08:39 11:11 RBC 4.04 L (4.30-5.90) m/uL Hgb 12.4 L (13.0-17.5) gm/dL Hct 37.9 L (39.0-53.0) % Chloride 109 H (98-107) mmol/L BUN 35 H (9-20) mg/dL Creatinine 1.79 H (0.66-1.25) mg/dL Glucose 128 H (74-99) mg/dL POC Glucose (mg/dL) 319 H (70-110) mg/dL Phosphorus 2.1 L (2.5-4.5) mg/dL
--- NOTE | 2024-04-18 15:40 | P.PN ---
Subjective Progress Note Date: 04/18/24 Principal diagnosis: hypercalcemia Patient seen today in follow-up, no one at bedside. He is able to tell me his birthday without hesitation, where he is by hospital name, he is the chair feeding himself. When I asked who he wanted me to talk to about his case he said his ex- Objective - Vital Signs Vital signs: Vital Signs Temp 97.5 F L 04/18/24 12:31 Pulse 62 04/18/24 12:31 Resp 16 04/18/24 12:31 BP 129/76 04/18/24 12:31 Pulse Ox 99 04/18/24 12:31 FiO2 Intake & Output 04/17/24 04/18/24 04/18/24 18:59 06:59 18:59 Intake Total 1280 10 360 Output Total 1100 800 700 Balance 180 -790 -340 Weight 68 kg Intake: IV 200 10 Invasive Line 2 10 Magnesium Sulfate-D5w Pmx 200 1 gm In Dextrose/Water 1 100ml.bag @ 100 mls/hr IVPB Q1H [facility] Rx#: [id number] Intake, IV Titration 900 Amount Sodium Chloride 0.9% 1, 900 000 ml @ 75 mls/hr IV . [id number] [facility] Rx#:[id number] Oral 180 360 Output: Urine 1100 800 700 Other: Voiding Method Indwelling Catheter Indwelling Catheter Indwelling Catheter # Bowel Movements 1 1 - Constitutional General appearance: Present: average body habitus (petite), cooperative, no acute distress - EENT Eyes: Present: anicteric sclerae, EOMI ENT: Present: hearing grossly normal - Respiratory Details: resp unlabored - Cardiovascular Details: skin warm, well perfused - Integumentary Integumentary: Present: pale - Neurologic Neurologic: Present: CNII-XII intact (grossly) - Musculoskeletal Musculoskeletal: Present: generalized weakness - Psychiatric Psychiatric: Present: A&O x's 3, appropriate affect - Labs CBC & Chem 7: 04/18/24 08:39 04/18/24 08:39 Labs: Abnormal Lab Results - Last 24 Hours (Table) 04/17/24 04/17/24 04/18/24 Range/Units 16:20 20:19 06:27 RBC (4.30-5.90) m/uL Hgb (13.0-17.5) gm/dL Hct (39.0-53.0) % Chloride (98-107) mmol/L BUN (9-20) mg/dL Creatinine (0.66-1.25) mg/dL Glucose (74-99) mg/dL POC Glucose (mg/dL) 251 H 145 H 140 H (70-110) mg/dL Phosphorus (2.5-4.5) mg/dL 04/18/24 04/18/24 04/18/24 Range/Units 08:39 08:39 11:11 RBC 4.04 L (4.30-5.90) m/uL Hgb 12.4 L (13.0-17.5) gm/dL Hct 37.9 L (39.0-53.0) % Chloride 109 H (98-107) mmol/L BUN 35 H (9-20) mg/dL Creatinine 1.79 H (0.66-1.25) mg/dL Glucose 128 H (74-99) mg/dL POC Glucose (mg/dL) 319 H (70-110) mg/dL Phosphorus 2.1 L (2.5-4.5) mg/dL Assessment and Plan (1) Delirium due to general medical condition Current Visit: Yes Status: Acute Priority: High Code(s): F05 - DELIRIUM DUE TO KNOWN PHYSIOLOGICAL CONDITION SNOMED Code(s): 8226580 (2) Hypercalcemia Current Visit: Yes Status: Resolved Priority: High Code(s): E83.52 - HYPERCALCEMIA SNOMED Code(s): 85402807 Plan: Delirium -Suspect secondary to electrolyte abnormalities. He has had a significant improvement today. He is up in chair feeding himself, answered all questions appropriately -Medications have been adjusted for acute renal failure-Nephrology following -CT of the head without contrast was negative for any acute pathology Hypercalcemia, acute renal failure -Both calcium levels and renal function have been reviewed in this electronic medical record, they have been normal prior to admission. -Calcium normal today. Aredia x 1, Calcitonin was given x 2 -Cont to hold all calcium supplements for now -PTH low. In setting of hypercalcemia can reflet malignant process though, none of the work up so far is suggestive of the same, some labs still pending. -Monoclonal gammopathy workup ordered, both urine and serum specimens. K/L light chains, both urine and serum, are not normal but, nothing grossly abnormal, near normal ratios. Urine electrophoresis reporting tubular proteinemia, no paraproteinemia. Pending PEP and immunofixation on serum. -Iron studies c/w mild iron deficiency. Oral iron supplement started -Vit D labs WNL. -Bone survey will be ordered if paraproteiniemia work up is positive, if neg, may consider NM bone scan. PSA ordered today -Thyroid studies WNL. Cardiology consulted for elevated troponin F/U on testing and labs ordered. Further recommendations to follow Reviewed pt clinical course with on the phone today. She understands the work up is still in progress, if we do not have an answer additional testing may be ordered. All questions answered to her satisfaction Time with Patient: Greater than 30
[2024-04-18 16:24] LABS: Glucose,Whole Blood 96 mg/dL (70-110)
[2024-04-18] MEDS: POTAS-SOD-PHOS 280-160-250 MG 1 EACH PACKET PO ONE (16:57)
[2024-04-18 20:23] LABS: Glucose,Whole Blood 169 mg/dL (70-110)
[2024-04-19 06:15] LABS: Glucose,Whole Blood 131 mg/dL (70-110)
[2024-04-19 08:12] LABS: Basophils % (A) 1 %; Eosinophils # (A) 0.9 k/uL (0-0.7); Eosinophils % (A) 11 %; HCT 36.3 % (39.0-53.0); Lymphocytes # (A) 1.7 k/uL (1.0-4.8); Lymphocytes % (A) 23 %; MCHC 33.2 g/dL (31.0-37.0); MCV 93.5 fL (80.0-100.0); Mean Platelet Volume 9.6; Monocytes # (A) 0.7 k/uL (0-1.0); Monocytes % (A) 9 %; Neutrophils # (A) 4.1 k/uL (1.3-7.7); Neutrophils % (A) 54 %; Platelet Count 192 k/uL (150-450); RBC 3.88 m/uL (4.30-5.90); RDW 13.2 % (11.5-15.5); WBC 7.5 k/uL (3.8-10.6)
[2024-04-19 08:32] LABS: African American GFR (CKD) 46 (>60 ml/min/1.73 sqM); Albumin 3.4 g/dL (3.5-5.0); Anion Gap 11 mmol/L; Blood Urea Nitrogen 30 mg/dL (9-20); Calcium 8.7 mg/dL (8.4-10.2); Carbon Dioxide 22 mmol/L (22-30); Chloride 104 mmol/L (98-107); Glucose 163 mg/dL (74-99); Magnesium 1.4 mg/dL (1.6-2.3); Non-African American GFR(CKD) 40 (>60 ml/min/1.73 sqM); Potassium 3.6 mmol/L (3.5-5.1); Sodium 137 mmol/L (137-145)
[2024-04-19] MEDS ORDERED: Phosphorus Replacement Protoco 1 EACH MISC MISCELLANE PRN (09:15)
[2024-04-19] MEDS ORDERED: Magnesium Replacement Protocol 1 EACH MISC MISCELLANE PRN (09:15)
[2024-04-19] MEDS: MAGNESIUM SULFATE-D5W PMX 1 GM in DEXTROSE/WATER 1 100ML.BAG IVPB SCH (10:00)
[2024-04-19] MEDS: POTAS-SOD-PHOS 280-160-250 MG 1 EACH PACKET PO ONE (10:03)
--- NOTE | 2024-04-19 10:30 | P.PN ---
Subjective Patient is seen in follow-up for acute kidney injury and hypercalcemia. Renal function improving. Calcium level now normal. Oral intake better. Mentation also improved. Vital signs are stable. General: No acute distress. HEENT: Head exam is unremarkable. LUNGS: No audible rhonchi or wheezes. HEART: Rate and Rhythm are regular. ABDOMEN: Nontender. EXTREMITITES: No edema. Objective - Vital Signs Vital signs: Vital Signs Temp 98 F 04/19/24 07:50 Pulse 65 04/19/24 07:50 Resp 16 04/19/24 07:50 BP 114/64 04/19/24 07:50 Pulse Ox 100 04/19/24 07:50 FiO2 Intake & Output 04/18/24 04/19/24 04/19/24 18:59 06:59 18:59 Intake Total 540 10 118 Output Total 700 1800 Balance -160 -1790 118 Weight 68 kg Intake: IV 10 Invasive Line 2 10 Oral 540 118 Output: Urine 700 1800 Other: Voiding Method Indwelling Catheter Indwelling Catheter Indwelling Catheter # Bowel Movements 1 - Labs CBC & Chem 7: 04/19/24 07:45 04/19/24 07:45 Labs: Abnormal Lab Results - Last 24 Hours (Table) 04/18/24 04/18/24 04/18/24 Range/Units 08:39 11:11 20:20 RBC (4.30-5.90) m/uL Hgb (13.0-17.5) gm/dL Hct (39.0-53.0) % Eosinophils # (0-0.7) k/uL BUN (9-20) mg/dL Creatinine (0.66-1.25) mg/dL Glucose (74-99) mg/dL POC Glucose (mg/dL) 319 H 169 H (70-110) mg/dL Phosphorus (2.5-4.5) mg/dL Magnesium (1.6-2.3) mg/dL Albumin (3.5-5.0) g/dL PSA Screen 30.400 H (0.000-4.000) ng/mL 04/19/24 04/19/24 04/19/24 Range/Units 06:14 07:45 07:45 RBC 3.88 L (4.30-5.90) m/uL Hgb 12.0 L (13.0-17.5) gm/dL Hct 36.3 L (39.0-53.0) % Eosinophils # 0.9 H (0-0.7) k/uL BUN 30 H (9-20) mg/dL Creatinine 1.66 H (0.66-1.25) mg/dL Glucose 163 H (74-99) mg/dL POC Glucose (mg/dL) 131 H (70-110) mg/dL Phosphorus 2.0 L (2.5-4.5) mg/dL Magnesium 1.4 L (1.6-2.3) mg/dL Albumin 3.4 L (3.5-5.0) g/dL PSA Screen (0.000-4.000) ng/mL Assessment and Plan Plan: Assessment: 1. Acute kidney injury secondary to hypercalcemia induced ATN. Creatinine peaked at 3.7 this admission and is 1.66 today. Creatinine 0.8 noted September 2022. No hydronephrosis noted on kidney ultrasound. 2. Hypercalcemia secondary to volume contraction and further worsen with the use of thiazide diuretic, calcium and vitamin D supplementation. TSH low at 0.27 with normal free T4. PTH appropriately suppressed at 8.7. Vitamin D level 71.8. 125 D3 level 22. Difficult Run and lambda light chains not significantly elevated. 3. Hypokalemia from hypercalcemia induced diuresis and also taking diuretic at home. Replaced. Better. 4. Benign hypertension. Stable. 5. Altered mental status possibly from hypercalcemia. 6. Hypomagnesemia from poor intake and diuresis. 7. Hypophosphatemia from poor intake. Still low. 8. Moderate aortic stenosis. Plan: Maintain IV fluids. Status post pamidronate and calcitonin given April 15, 2024. Follow-up workup for hypercalcemia. Follow-up PTH related peptide. Avoid nephrotoxins. Continue to monitor renal function and urine output. Replace electrolytes as needed.
[2024-04-19 11:37] LABS: Glucose,Whole Blood 145 mg/dL (70-110)
[2024-04-19 12:33] VITALS: BMI 23.4
[2024-04-19] MEDS: POTASSIUM CHLORIDE ER 20 MEQ TAB.ER PO STA ×2 (12:51→12:55)
[2024-04-19 15:05] LABS: Albumin 2.92 g/dL (3.80-4.90)
--- NOTE | 2024-04-19 15:17 | P.PN ---
Subjective Progress Note Date: 04/19/24 Hospital Course: 74-year-old male with past medical history of type II DM, HTN, HLD, hypothyroi dism, history of CVA, who presented to the ER on 04/15 with EMS. The history is provided by the patient's ex- at the bedside. She reports that the patient's home furnace broke down on and that the patient's daughter asked if he could stay with her. He has subsequently been staying with her for the past 24 hours but she noticed that he has not eaten or drank anything and that he is very confused and unable to ambulate. At time of interview, the history was limited as the patient was confused. He had no active complaints however other than feeling weak. He denied experiencing chest discomfort, shortness of breath, fever, chills, cough, nausea, vomiting, abdominal pain, diarrhea. In the emergency room a CT brain was unremarkable with chest x-ray also unremarkable. A renal ultrasound revealed findings of chronic kidney disease with no acute abnormalities noted. EKG revealed sinus bradycardia with PVCs at 57 bpm with left axis deviation and a right bundle branch block with QTc 456 ms as reviewed by me. Laboratory evaluation revealed a troponin of 0.160, calcium 17.2, glucose 71, BUN 51, creatinine 3.51 (previously 0.8 in 2012), potassium 3.2, CO2 32, hemoglobin 11.5, with TSH 0.2 with UA with greater than 182 RBCs with urine toxicology unremarkable and respiratory viral panel negative. He was admitted for further management of acute severe hypercalcemia, GI SANDRA, elevated troponins Cardiology consulted, TTE ordered, patient most likely will need outpatient stre ss testing overall: Cardiac medications resumed except for chlorthalidone. Nephrology consulted. Kidney ultrasound showed no hydronephrosis. Patient underwent hypercalcemia workup that revealed overall TSH 0.27 with a normal free T4, PTH 8.7, vitamin D 71.8, patient received IV hydration, pamidronate and calcitonin on 04/15/2024. Hematology oncology consulted: Monoclonal gammopathy workup ordered , PTH RP ordered Calcium normalized as of 04/17/2024, PSA came back elevated at 30.4., Was started on iron supplements for iron deficiency Subjective: Patient was seen and examined at bedside, feels better, denies any shortness of breath or chest pain, denies dizziness, lightheadedness Pertinent positives and negatives as discussed above, a complete review of systems was performed and all other systems are negative. Vitals Signs Reviewed. General: [nontoxic], [no distress], [appears at stated age] Derm: [warm], [dry] Head: [atraumatic], [normocephalic], [symmetric] Eyes: [EOMI], [no lid lag], [anicteric sclera] Mouth: [no lip lesion], [mucus membranes moist] Cardiovascular: [S1S2 reg], [no murmur] Lungs: [CTA bilateral], [no rhonchi, no rales] , [no accessory muscle use] Abdominal: [soft], [ nontender to palpation], [no guarding], [no appreciable organomegaly] Ext: [no gross muscle atrophy], [no edema], [no contractures] Neuro: [ CN II-XI grossly intact], [no focal neuro deficits] Psych: [Alert], [oriented, confusion resolved Data Reviewed Today: Pertinent Labs: No leukocytosis, hemoglobin 12.0, sodium and potassium normal, creatinine improving 1.66, glucose controlled, magnesium 1.4, phosphorus 2.0, PSA 30.4 Assessment and Plan: Acute metabolic encephalopathy secondary to severe hypercalcemia Severe hypercalcemia secondary to volume depletion ,diuretic use and vitamin D supplements Elevated PSA SANDRA secondary to hypercalcemia induced ATN Hypokalemia resolved Hypomagnesemia, resolved Hypophosphatemia -Nephrology, hematology oncology following -Continue IV fluids, rate decreased to 75/h per nephrology -Electrolytes replaced, ordered repeat -Monitor strict I's and O's -PTH RP pending -Monoclonal gammopathy workup pending, Free kappa 4.71, lambda 2.91, urine [place] 10.19, urine lambda 1.25, UPEP with modest amount of albumin with prominent alpha-2 and beta microglobulin bands consistent with tubular proteinuria -family (Maggi) updated on 04/18 Normocytic anemia, iron deficiency anemia -Continue ferrous sulfate 325 Elevated troponins likely in the settings of SANDRA Aortic stenosis, moderate Dyslipidemia PVD -TTE showed EF of 60% with mildly dilated left atrium, moderate aortic stenosis, cardiology signed off, follow-up in clinic in 2 weeks -possible o/p stress test per cardio DVT ppx: heparin Code status: full Anticipated discharge place: [facility] Anticipated discharge time:tbd Objective - Vital Signs Vital signs: Vital Signs Temp 97.9 F 04/19/24 12:43 Pulse 74 04/19/24 12:43 Resp 16 04/19/24 12:43 BP 114/62 04/19/24 12:43 Pulse Ox 99 04/19/24 12:43 FiO2 Intake & Output 04/18/24 04/19/24 04/19/24 18:59 06:59 18:59 Intake Total 540 10 118 Output Total 700 1800 Balance -160 -1790 118 Weight 68 kg 68 kg Intake: IV 10 Invasive Line 2 10 Oral 540 118 Output: Urine 700 1800 Other: Voiding Method Indwelling Catheter Indwelling Catheter Indwelling Catheter # Bowel Movements 1 - Labs CBC & Chem 7: 04/19/24 07:45 04/19/24 11:22 Labs: Abnormal Lab Results - Last 24 Hours (Table) 04/15/24 04/18/24 04/18/24 Range/Units 04:09 08:39 20:20 RBC (4.30-5.90) m/uL Hgb (13.0-17.5) gm/dL Hct (39.0-53.0) % Eosinophils # (0-0.7) k/uL BUN (9-20) mg/dL Creatinine (0.66-1.25) mg/dL Glucose (74-99) mg/dL POC Glucose (mg/dL) 169 H (70-110) mg/dL Phosphorus (2.5-4.5) mg/dL Magnesium (1.6-2.3) mg/dL Albumin (3.5-5.0) g/dL Albumin (PEP) 2.92 L (3.80-4.90) g/dL Gamma Globulins 0.60 L (0.70-1.50) g/dL PSA Screen 30.400 H (0.000-4.000) ng/mL 04/19/24 04/19/24 04/19/24 Range/Units 06:14 07:45 07:45 RBC 3.88 L (4.30-5.90) m/uL Hgb 12.0 L (13.0-17.5) gm/dL Hct 36.3 L (39.0-53.0) % Eosinophils # 0.9 H (0-0.7) k/uL BUN 30 H (9-20) mg/dL Creatinine 1.66 H (0.66-1.25) mg/dL Glucose 163 H (74-99) mg/dL POC Glucose (mg/dL) 131 H (70-110) mg/dL Phosphorus 2.0 L (2.5-4.5) mg/dL Magnesium 1.4 L (1.6-2.3) mg/dL Albumin 3.4 L (3.5-5.0) g/dL Albumin (PEP) (3.80-4.90) g/dL Gamma Globulins (0.70-1.50) g/dL PSA Screen (0.000-4.000) ng/mL 04/19/24 Range/Units 11:36 RBC (4.30-5.90) m/uL Hgb (13.0-17.5) gm/dL Hct (39.0-53.0) % Eosinophils # (0-0.7) k/uL BUN (9-20) mg/dL Creatinine (0.66-1.25) mg/dL Glucose (74-99) mg/dL POC Glucose (mg/dL) 145 H (70-110) mg/dL Phosphorus (2.5-4.5) mg/dL Magnesium (1.6-2.3) mg/dL Albumin (3.5-5.0) g/dL Albumin (PEP) (3.80-4.90) g/dL Gamma Globulins (0.70-1.50) g/dL PSA Screen (0.000-4.000) ng/mL
[2024-04-19 16:32] LABS: Glucose,Whole Blood 121 mg/dL (70-110)
--- NOTE | 2024-04-19 17:54 | P.PN ---
Subjective Progress Note Date: 04/19/24 No acute events. Mentation at baseline. Calcium now normal at 8.7 Objective - Vital Signs Vital signs: Vital Signs Temp 97.9 F 04/19/24 12:43 Pulse 74 04/19/24 12:43 Resp 16 04/19/24 12:43 BP 114/62 04/19/24 12:43 Pulse Ox 99 04/19/24 12:43 FiO2 Intake & Output 04/18/24 04/19/24 04/19/24 18:59 06:59 18:59 Intake Total 540 10 118 Output Total 700 1800 Balance -160 -1790 118 Weight 68 kg 68 kg Intake: IV 10 Invasive Line 2 10 Oral 540 118 Output: Urine 700 1800 Other: Voiding Method Indwelling Catheter Indwelling Catheter Indwelling Catheter # Bowel Movements 1 - Constitutional General appearance: Present: average body habitus, no acute distress - EENT Eyes: Present: anicteric sclerae, EOMI ENT: Present: hearing grossly normal - Respiratory Details: breathing is even and unlabored - Cardiovascular Details: skin warm and dry - Integumentary Integumentary: Absent: cyanotic, jaundiced - Psychiatric Psychiatric: Present: A&O x's 3 - Labs CBC & Chem 7: 04/19/24 07:45 04/19/24 11:22 Labs: Abnormal Lab Results - Last 24 Hours (Table) 04/18/24 04/18/24 04/19/24 Range/Units 08:39 20:20 06:14 RBC (4.30-5.90) m/uL Hgb (13.0-17.5) gm/dL Hct (39.0-53.0) % Eosinophils # (0-0.7) k/uL BUN (9-20) mg/dL Creatinine (0.66-1.25) mg/dL Glucose (74-99) mg/dL POC Glucose (mg/dL) 169 H 131 H (70-110) mg/dL Phosphorus (2.5-4.5) mg/dL Magnesium (1.6-2.3) mg/dL Albumin (3.5-5.0) g/dL PSA Screen 30.400 H (0.000-4.000) ng/mL 04/19/24 04/19/24 04/19/24 Range/Units 07:45 07:45 11:36 RBC 3.88 L (4.30-5.90) m/uL Hgb 12.0 L (13.0-17.5) gm/dL Hct 36.3 L (39.0-53.0) % Eosinophils # 0.9 H (0-0.7) k/uL BUN 30 H (9-20) mg/dL Creatinine 1.66 H (0.66-1.25) mg/dL Glucose 163 H (74-99) mg/dL POC Glucose (mg/dL) 145 H (70-110) mg/dL Phosphorus 2.0 L (2.5-4.5) mg/dL Magnesium 1.4 L (1.6-2.3) mg/dL Albumin 3.4 L (3.5-5.0) g/dL PSA Screen (0.000-4.000) ng/mL Assessment and Plan (1) SANDRA (acute kidney injury) Current Visit: Yes Status: Acute Code(s): N17.9 - ACUTE KIDNEY FAILURE, UNSPECIFIED SNOMED Code(s): 28628543 (2) Altered mental state Current Visit: Yes Status: Acute Code(s): R41.82 - ALTERED MENTAL STATUS, UNSPECIFIED SNOMED Code(s): 523485745 (3) Hypercalcemia Current Visit: Yes Status: Resolved Priority: High Code(s): E83.52 - HY PERCALCEMIA SNOMED Code(s): 75820422 Plan: Delirium -Suspect secondary to electrolyte abnormalities. He has had a significant improvement since admission. -Medications have been adjusted for acute renal failure-Nephrology following -CT of the head without contrast was negative for any acute pathology Hypercalcemia, acute renal failure -Both calcium levels and renal function have been reviewed in this electronic medical record, they have been normal prior to admission. -Calcium normal today. Aredia x 1, Calcitonin was given x 2 -Cont to hold all calcium supplements for now -PTH low. In setting of hypercalcemia can reflect malignant process -Monoclonal gammopathy workup ordered, both urine and serum specimens. K/L light chains, both urine and serum, are not normal but, nothing grossly abnormal, near normal ratios. Urine electrophoresis reporting tubular proteinemia, no paraproteinemia. M-spike mildly elevate at 0.11, immunofixation showing small IgG kappa. 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 Oral iron supplement started -Vit D labs WNL. Thyroid studies WNL -PSA elevated at 30.4. Pt reports last PSA was approx 1 year ago, cant recall what it was at that time, but think it may have been elevated? He has never had prostate biopsy -Will obtain NM bone scan to evaluate for osseous lesions -Urology consult due to elevated PSA. Concern for possible metastatic prostate cancer Doctor attests: I performed a history and physical examination of this patient, developed impression and plan of care. Discussed with dictator. I agree with dictators note, documented as a scribe.
[2024-04-19 20:30] LABS: Glucose,Whole Blood 135 mg/dL (70-110)
[2024-04-20 07:13] LABS: Glucose,Whole Blood 123 mg/dL (70-110)
[2024-04-20 10:47] LABS: Blood Urea Nitrogen 25.6 mg/dL (9.0-27.0); Calcium 8.2 mg/dL (8.7-10.3); Carbon Dioxide 21.9 mmol/L (21.6-31.8); Chloride 107 mmol/L (96-109); Glucose 126 mg/dL (70-110); Magnesium 1.6 mg/dL (1.5-2.4); Phosphorus 1.6 mg/dL (2.4-5.1); Potassium 3.9 mmol/L (3.5-5.5); Sodium 139 mmol/L (135-145)
[2024-04-20] MEDS ORDERED: Phosphorus Replacement Protoco 1 EACH MISC MISCELLANE PRN (11:03)
--- NOTE | 2024-04-20 11:09 | P.PN ---
Subjective Patient is seen in follow-up for acute kidney injury and hypercalcemia. Renal function improving. Calcium level remains normal. Oral intake better. Mentation also improved. Currently having breakfast. Vital signs are stable. General: No acute distress. HEENT: Head exam is unremarkable. LUNGS: No audible rhonchi or wheezes. HEART: Rate and Rhythm are regular. ABDOMEN: Nontender. EXTREMITITES: No edema. Objective - Vital Signs Vital signs: Vital Signs Temp 97.5 F L 04/20/24 07:08 Pulse 72 04/20/24 01:20 Resp 16 04/20/24 07:08 BP 133/74 04/20/24 07:08 Pulse Ox 98 04/20/24 07:08 FiO2 Intake & Output 04/19/24 04/20/24 04/20/24 18:59 06:59 18:59 Intake Total 768 590 777 Output Total 1450 2150 900 Balance -682 -1560 -123 Weight 68 kg Intake: Intake, IV Titration 650 Amount Magnesium Sulfate-D5w Pmx 200 1 gm In Dextrose/Water 1 100ml.bag @ 100 mls/hr IVPB Q1H [facility] Rx#: [id number] Sodium Chloride 0.9% 1, 450 000 ml @ 75 mls/hr IV . [id number] [facility] Rx#:[id number] Oral 118 590 777 Output: Urine 1450 2150 900 Uretheral (Berg) 900 Other: Voiding Method Indwelling Catheter Indwelling Catheter Indwelling Catheter - Labs CBC & Chem 7: 04/19/24 07:45 04/20/24 05:35 Labs: Abnormal Lab Results - Last 24 Hours (Table) 04/15/24 04/19/24 04/19/24 Range/Units 04:09 11:36 16:28 Creatinine (0.6-1.5) mg/dL Est GFR (CKD-EPI) (>=60) Glucose (70-110) mg/dL POC Glucose (mg/dL) 145 H 121 H (70-110) mg/dL Calcium (8.7-10.3) mg/dL Phosphorus (2.4-5.1) mg/dL Albumin (PEP) 2.92 L (3.80-4.90) g/dL Gamma Globulins 0.60 L (0.70-1.50) g/dL 04/19/24 04/20/24 04/20/24 Range/Units 20:28 05:35 07:11 Creatinine 1.6 H (0.6-1.5) mg/dL Est GFR (CKD-EPI) 45 L (>=60) Glucose 126 H (70-110) mg/dL POC Glucose (mg/dL) 135 H 123 H (70-110) mg/dL Calcium 8.2 L (8.7-10.3) mg/dL Phosphorus 1.6 L (2.4-5.1) mg/dL Albumin (PEP) (3.80-4.90) g/dL Gamma Globulins (0.70-1.50) g/dL Assessment and Plan Plan: Assessment: 1. Acute kidney injury secondary to hypercalcemia induced ATN. Creatinine peaked at 3.7 this admission and is stable at 1.6 today. Creatinine 0.8 noted September 2022. No hydronephrosis noted on kidney ultrasound. 2. Hypercalcemia secondary to volume contraction and further worsen with the use of thiazide diuretic, calcium and vitamin D supplementation. TSH low at 0.2 7 with normal free T4. PTH appropriately suppressed at 8.7. Vitamin D level 71.8. 125 D3 level 22. [place] and lambda light chains not significantly elevated. Immunofixation detected small IgG kappa. Oncology following. 3. Hypokalemia from hypercalcemia induced diuresis and also taking diuretic at home. Replaced. Better. 4. Benign hypertension. Stable. 5. Altered mental status possibly from hypercalcemia. 6. Hypomagnesemia from poor intake and diuresis. Replaced. Better. 7. Hypophosphatemia from poor intake and acute volume expansion. Also possible component of refeeding. No diarrhea. No evidence of vitamin D deficiency. No evidence of primary or secondary hyperparathyroidism as PTH low. 8. Moderate aortic stenosis. Plan: Maintain IV fluids. Status post pamidronate and calcitonin given April 15, 2024. Increase Mag-Ox frequency to twice daily. Replace phosphorus. Follow-up PTH related peptide. Avoid nephrotoxins. Continue to monitor renal function and urine output. Check uric acid. No glucosuria noted on UA done April 14, 2024.
[2024-04-20] MEDS: SODIUM PHOSPHATE 30 MMOL in DEXTROSE 5% IN WATER 250 ML IVPB ONE (11:58)
[2024-04-20 12:29] LABS: Glucose,Whole Blood 227 mg/dL (70-110)
--- NOTE | 2024-04-20 13:18 | P.PN ---
Subjective Progress Note Date: 04/20/24 Hospital Course: 74-year-old male with past medical history of type II DM, HTN, HLD, hypothyroi dism, history of CVA, who presented to the ER on 04/15 with EMS. The history is provided by the patient's ex- at the bedside. She reports that the patient's home furnace broke down on and that the patient's daughter asked if he could stay with her. He has subsequently been staying with her for the past 24 hours but she noticed that he has not eaten or drank anything and that he is very confused and unable to ambulate. At time of interview, the history was limited as the patient was confused. He had no active complaints however other than feeling weak. He denied experiencing chest discomfort, shortness of breath, fever, chills, cough, nausea, vomiting, abdominal pain, diarrhea. In the emergency room a CT brain was unremarkable with chest x-ray also unremarkable. A renal ultrasound revealed findings of chronic kidney disease with no acute abnormalities noted. EKG revealed sinus bradycardia with PVCs at 57 bpm with left axis deviation and a right bundle branch block with QTc 456 ms as reviewed by me. Laboratory evaluation revealed a troponin of 0.160, calcium 17.2, glucose 71, BUN 51, creatinine 3.51 (previously 0.8 in 2012), potassium 3.2, CO2 32, hemoglobin 11.5, with TSH 0.2 with UA with greater than 182 RBCs with urine toxicology unremarkable and respiratory viral panel negative. He was admitted for further management of acute severe hypercalcemia, GI SANDRA, elevated troponins Cardiology consulted, TTE ordered, patient most likely will need outpatient stre ss testing overall: Cardiac medications resumed except for chlorthalidone. Nephrology consulted. Kidney ultrasound showed no hydronephrosis. Patient underwent hypercalcemia workup that revealed overall TSH 0.27 with a normal free T4, PTH 8.7, vitamin D 71.8, patient received IV hydration, pamidronate and calcitonin on 04/15/2024. Hematology oncology consulted: Monoclonal gammopathy workup ordered, finding likely representing MGUS, PTH RP ordered. NM bone scan ordered pending to be done on 04/22 Calcium normalized as of 04/17/2024, PSA came back elevated at 30.4., Was started on iron supplements for iron deficiency. Urology consulted due to concern for prostate cancer. Subjective: Patient was seen and examined at bedside, no active complaints, feeling better. Now completing his meals by himself, no supervision needed Pertinent positives and negatives as discussed above, a complete review of systems was performed and all other systems are negative. Vitals Signs Reviewed. General: [nontoxic], [no distress], [appears at stated age] Derm: [warm], [dry] Head: [atraumatic], [normocephalic], [symmetric] Eyes: [EOMI], [no lid lag], [anicteric sclera] Mouth: [no lip lesion], [mucus membranes moist] Cardiovascular: [S1S2 reg], [no murmur] Lungs: [CTA bilateral], [no rhonchi, no rales] , [no accessory muscle use] Abdominal: [soft], [ nontender to palpation], [no guarding], [no appreciable organomegaly] Ext: [no gross muscle atrophy], [no edema], [no contractures] Neuro: [ CN II-XI grossly intact], [no focal neuro deficits] Psych: [Alert], [oriented, confusion resolved Data Reviewed Today: Pertinent Labs: , sodium and potassium normal, creatinine improving 1.6, magnesium 1.6, phosphorus 1.6 Assessment and Plan: Acute metabolic encephalopathy secondary to severe hypercalcemia Severe hypercalcemia secondary to volume depletion ,diuretic use and vitamin D supplements Elevated PSA, possible prostate cancer SANDRA secondary to hypercalcemia induced ATN Hypokalemia resolved Hypomagnesemia, resolved Hypophosphatemia -Nephrology, hematology oncology following -Continue IV fluids, rate decreased to 75/h per nephrology -Electrolytes replaced, ordered repeat -Monitor strict I's and O's -PTH RP pending -Monoclonal gammopathy workup pending, Free kappa 4.71, lambda 2.91, urine [place] 10.19, urine lambda 1.25, UPEP with modest amount of albumin with prominent alpha-2 and beta microglobulin bands consistent with tubular proteinuria, findings likely representing MGUS -Urology consulted -NM bone scan scheduled for 04/22 -Continue magnesium oxide 400 twice daily, monitor levels closely Normocytic anemia, iron deficiency anemia -Continue ferrous sulfate 325 Elevated troponins likely in the settings of SANDRA Aortic stenosis, moderate Dyslipidemia PVD -TTE showed EF of 60% with mildly dilated left atrium, moderate aortic stenosis, cardiology signed off, follow-up in clinic in 2 weeks -possible o/p stress test per cardio DVT ppx: heparin Code status: full Anticipated discharge place: [facility] Anticipated discharge time:tbd Objective - Vital Signs Vital signs: Vital Signs Temp 97.4 F L 04/20/24 11:56 Pulse 74 04/20/24 11:56 Resp 16 04/20/24 11:56 BP 125/74 04/20/24 11:56 Pulse Ox 97 04/20/24 11:56 FiO2 Intake & Output 04/19/24 04/20/24 04/20/24 18:59 06:59 18:59 Intake Total 768 590 777 Output Total 1450 2150 900 Balance -623 -1457 -123 Weight 68 kg Intake: Intake, IV Titration 650 Amount Magnesium Sulfate-D5w Pmx 200 1 gm In Dextrose/Water 1 100ml.bag @ 100 mls/hr IVPB Q1H [facility] Rx#: [id number] Sodium Chloride 0.9% 1, 450 000 ml @ 75 mls/hr IV . [id number] [facility] Rx#:[id number] Oral 118 590 777 Output: Urine 1450 2150 900 Uretheral (Berg) 900 Other: Voiding Method Indwelling Catheter Indwelling Catheter Indwelling Catheter # Bowel Movements 1 - Labs CBC & Chem 7: 04/19/24 07:45 04/20/24 05:35 Labs: Abnormal Lab Results - Last 24 Hours (Table) 04/15/24 04/19/24 04/19/24 Range/Units 04:09 16:28 20:28 Creatinine (0.6-1.5) mg/dL Est GFR (CKD-EPI) (>=60) Glucose (70-110) mg/dL POC Glucose (mg/dL) 121 H 135 H (70-110) mg/dL Calcium (8.7-10.3) mg/dL Phosphorus (2.4-5.1) mg/dL Albumin (PEP) 2.92 L (3.80-4.90) g/dL Gamma Globulins 0.60 L (0.70-1.50) g/dL 04/20/24 04/20/24 04/20/24 Range/Units 05:35 07:11 12:02 Creatinine 1.6 H (0.6-1.5) mg/dL Est GFR (CKD-EPI) 45 L (>=60) Glucose 126 H (70-110) mg/dL POC Glucose (mg/dL) 123 H 227 H (70-110) mg/dL Calcium 8.2 L (8.7-10.3) mg/dL Phosphorus 1.6 L (2.4-5.1) mg/dL Albumin (PEP) (3.80-4.90) g/dL Gamma Globulins (0.70-1.50) g/dL
[2024-04-20 17:35] LABS: Glucose,Whole Blood 96 mg/dL (70-110)
[2024-04-20 20:15] LABS: Glucose,Whole Blood 197 mg/dL (70-110)
[2024-04-20] MEDS: MAGNESIUM OXIDE 400 MG TAB PO SCH (21:52)
[2024-04-20] MEDS: ZINC OXIDE PASTE (Z-GUARD) 1 APPLIC TOPICAL PRN (22:10)
[2024-04-21 07:43] LABS: Glucose,Whole Blood 120 mg/dL (70-110)
[2024-04-21 09:33] LABS: BUN/Creat Ratio 13.19 Ratio (12.00-20.00); Blood Urea Nitrogen 21.1 mg/dL (9.0-27.0); Calcium 7.8 mg/dL (8.7-10.3); Carbon Dioxide 21.9 mmol/L (21.6-31.8); Chloride 107 mmol/L (96-109); Glucose 129 mg/dL (70-110); Phosphorus 2.3 mg/dL (2.4-5.1); Potassium 3.9 mmol/L (3.5-5.5); Sodium 140 mmol/L (135-145); Uric Acid 4.1 mg/dL (3.7-8.7)
[2024-04-21] MEDS ORDERED: Phosphorus Replacement Protoco 1 EACH MISC MISCELLANE PRN (10:43)
--- NOTE | 2024-04-21 10:45 | P.PN ---
Subjective Patient is seen in follow-up for acute kidney injury and hypercalcemia. Renal function stable with creatinine 1.6. Hypercalcemia resolved. Oral intake better. Mentation also improved. No active complaints. Vital signs are stable. General: No acute distress. HEENT: Head exam is unremarkable. LUNGS: No audible rhonchi or wheezes. HEART: Rate and Rhythm are regular. ABDOMEN: Nontender. EXTREMITITES: No edema. Objective - Vital Signs Vital signs: Vital Signs Temp 98 F 04/21/24 06:49 Pulse 64 04/21/24 08:00 Resp 17 04/21/24 06:49 BP 132/72 04/21/24 06:49 Pulse Ox 96 04/21/24 06:49 FiO2 Intake & Output 04/20/24 04/21/24 04/21/24 18:59 06:59 18:59 Intake Total 1014 540 Output Total 900 Balance 114 540 Intake: Oral 1014 540 Output: Urine 900 Uretheral (Berg) 900 Other: Voiding Method Indwelling Catheter Diaper Incontinent # Voids 4 # Bowel Movements 1 1 - Labs CBC & Chem 7: 04/19/24 07:45 04/21/24 03:43 Labs: Abnormal Lab Results - Last 24 Hours (Table) 04/20/24 04/20/24 04/20/24 Range/Units 05:35 12:02 20:12 Creatinine 1.6 H (0.6-1.5) mg/dL Est GFR (CKD-EPI) 45 L (>=60) Glucose 126 H (70-110) mg/dL POC Glucose (mg/dL) 227 H 197 H (70-110) mg/dL Calcium 8.2 L (8.7-10.3) mg/dL Phosphorus 1.6 L (2.4-5.1) mg/dL 04/21/24 04/21/24 Range/Units 03:43 07:32 Creatinine 1.6 H (0.6-1.5) mg/dL Est GFR (CKD-EPI) 45 L (>=60) Glucose 129 H (70-110) mg/dL POC Glucose (mg/dL) 120 H (70-110) mg/dL Calcium 7.8 L (8.7-10.3) mg/dL Phosphorus 2.3 L (2.4-5.1) mg/dL Assessment and Plan Plan: Assessment: 1. Acute kidney injury secondary to hypercalcemia induced ATN. Creatinine peaked at 3.7 this admission and is stable at 1.6 today. Creatinine 0.8 noted September 2022. No hydronephrosis noted on kidney ultrasound. 2. Hypercalcemia secondary to volume contraction and further worsen with the use of thiazide diuretic, calcium and vitamin D supplementation. TSH low at 0.27 with normal free T4. PTH appropriately suppressed at 8.7. Vitamin D level 71.8. 125 D3 level 22. [place] and lambda light chains not significantly elevated. Immunofixation detected small IgG kappa. Oncology following. 3. Hypokalemia from hypercalcemia induced diuresis and also taking diuretic at home. Replaced. Better. 4. Benign hypertension. Stable. 5. Altered mental status possibly from hypercalcemia. 6. Hypomagnesemia from poor intake and diuresis. Replaced. Better. Now on oral magnesium oxide. 7. Hypophosphatemia from poor intake and acute volume expansion. Also possible component of refeeding. No diarrhea. No evidence of vitamin D deficiency. No evidence of primary or secondary hyperparathyroidism as PTH low. Uric acid normal. No glucosuria noted on UA done April 14, 2024. Doubt Fanconi syndrome 8. Moderate aortic stenosis. Plan: Hep-Lock IV fluids. Status post pamidronate and calcitonin given April 15, 2024. Replace phosphorus. Follow-up PTH related peptide. Avoid nephrotoxins. Continue to monitor renal function and urine output.
--- NOTE | 2024-04-21 12:10 | P.PN ---
Subjective Progress Note Date: 04/21/24 Hospital Course: 74-year-old male with past medical history of type II DM, HTN, HLD, hypothyroi dism, history of CVA, who presented to the ER on 04/15 with EMS. The history is provided by the patient's ex- at the bedside. She reports that the patient's home furnace broke down on and that the patient's daughter asked if he could stay with her. He has subsequently been staying with her for the past 24 hours but she noticed that he has not eaten or drank anything and that he is very confused and unable to ambulate. At time of interview, the history was limited as the patient was confused. He had no active complaints however other than feeling weak. He denied experiencing chest discomfort, shortness of breath, fever, chills, cough, nausea, vomiting, abdominal pain, diarrhea. In the emergency room a CT brain was unremarkable with chest x-ray also unremarkable. A renal ultrasound revealed findings of chronic kidney disease with no acute abnormalities noted. EKG revealed sinus bradycardia with PVCs at 57 bpm with left axis deviation and a right bundle branch block with QTc 456 ms as reviewed by me. Laboratory evaluation revealed a troponin of 0.160, calcium 17.2, glucose 71, BUN 51, creatinine 3.51 (previously 0.8 in 2012), potassium 3.2, CO2 32, hemoglobin 11.5, with TSH 0.2 with UA with greater than 182 RBCs with urine toxicology unremarkable and respiratory viral panel negative. He was admitted for further management of acute severe hypercalcemia, GI SANDRA, elevated troponins Cardiology consulted, TTE ordered, patient most likely will need outpatient stre ss testing overall: Cardiac medications resumed except for chlorthalidone. Nephrology consulted. Kidney ultrasound showed no hydronephrosis. Patient underwent hypercalcemia workup that revealed overall TSH 0.27 with a normal free T4, PTH 8.7, vitamin D 71.8, patient received IV hydration, pamidronate and calcitonin on 04/15/2024. Hematology oncology consulted: Monoclonal gammopathy workup ordered, finding likely representing MGUS, PTH RP ordered. NM bone scan ordered pending to be done on 04/22 Calcium normalized as of 04/17/2024, PSA came back elevated at 30.4., Was started on iron supplements for iron deficiency. Urology consulted due to concern for prostate cancer. Subjective: Patient was seen and examined at bedside, no active complaints, feeling better. Now completing his meals by himself, no supervision needed Pertinent positives and negatives as discussed above, a complete review of systems was performed and all other systems are negative. Vitals Signs Reviewed. General: [nontoxic], [no distress], [appears at stated age] Derm: [warm], [dry] Head: [atraumatic], [normocephalic], [symmetric] Eyes: [EOMI], [no lid lag], [anicteric sclera] Mouth: [no lip lesion], [mucus membranes moist] Cardiovascular: [S1S2 reg], [no murmur] Lungs: [CTA bilateral], [no rhonchi, no rales] , [no accessory muscle use] Abdominal: [soft], [ nontender to palpation], [no guarding], [no appreciable organomegaly] Ext: [no gross muscle atrophy], [no edema], [no contractures] Neuro: [ CN II-XI grossly intact], [no focal neuro deficits] Psych: [Alert], [oriented, confusion resolved Data Reviewed Today: Pertinent Labs: , sodium and potassium normal, creatinine improving 1.6, phosphorus 2.3 Assessment and Plan: Acute metabolic encephalopathy secondary to severe hypercalcemia Severe hypercalcemia secondary to volume depletion ,diuretic use and vitamin D supplements Elevated PSA, possible prostate cancer SANDRA secondary to hypercalcemia induced ATN Hypokalemia resolved Hypomagnesemia, resolved Hypophosphatemia -Nephrology, hematology oncology following -IV fluids discontinued per nephrology -Electrolytes replaced, ordered repeat -Monitor strict I's and O's -PTH RP pending -Monoclonal gammopathy workup pending, Free kappa 4.71, lambda 2.91, urine [place] 10.19, urine lambda 1.25, UPEP with modest amount of albumin with prominent alpha-2 and beta microglobulin bands consistent with tubular proteinuria, findings likely representing MGUS -Urology consulted -NM bone scan scheduled for 04/22 -Continue magnesium oxide 400 twice daily, monitor levels closely Normocytic anemia, iron deficiency anemia -Continue ferrous sulfate 325 Elevated troponins likely in the settings of SANDRA Aortic stenosis, moderate Dyslipidemia PVD -TTE showed EF of 60% with mildly dilated left atrium, moderate aortic stenosis, cardiology signed off, follow-up in clinic in 2 weeks -possible o/p stress test per cardio DVT ppx: heparin Code status: full Anticipated discharge place: [facility] Anticipated discharge time:tbd Objective - Vital Signs Vital signs: Vital Signs Temp 98 F 04/21/24 06:49 Pulse 64 04/21/24 08:00 Resp 17 04/21/24 06:49 BP 132/72 04/21/24 06:49 Pulse Ox 96 04/21/24 06:49 FiO2 Intake & Output 04/20/24 04/21/24 04/21/24 18:59 06:59 18:59 Intake Total 1014 540 237 Output Total 900 Balance 114 540 237 Intake: Oral 1014 540 237 Output: Urine 900 Uretheral (Berg) 900 Other: Voiding Method Indwelling Catheter Diaper Incontinent # Voids 4 # Bowel Movements 1 1 - Labs CBC & Chem 7: 04/19/24 07:45 04/21/24 03:43 Labs: Abnormal Lab Results - Last 24 Hours (Table) 04/20/24 04/20/24 04/21/24 Range/Units 12:02 20:12 03:43 Creatinine 1.6 H (0.6-1.5) mg/dL Est GFR (CKD-EPI) 45 L (>=60) Glucose 129 H (70-110) mg/dL POC Glucose (mg/dL) 227 H 197 H (70-110) mg/dL Calcium 7.8 L (8.7-10.3) mg/dL Phosphorus 2.3 L (2.4-5.1) mg/dL 04/21/24 Range/Units 07:32 Creatinine (0.6-1.5) mg/dL Est GFR (CKD-EPI) (>=60) Glucose (70-110) mg/dL POC Glucose (mg/dL) 120 H (70-110) mg/dL Calcium (8.7-10.3) mg/dL Phosphorus (2.4-5.1) mg/dL
[2024-04-21 12:34] LABS: Glucose,Whole Blood 147 mg/dL (70-110)
[2024-04-21] MEDS: SODIUM PHOSPHATE 15 MMOL in DEXTROSE 5% IN WATER 250 ML IVPB ONE (13:31)
[2024-04-21 17:12] LABS: Glucose,Whole Blood 155 mg/dL (70-110)
[2024-04-21 17:31] LABS: Magnesium 1.7 mg/dL (1.5-2.4)
[2024-04-21 19:59] LABS: Glucose,Whole Blood 192 mg/dL (70-110)
[2024-04-22 07:13] LABS: Glucose,Whole Blood 133 mg/dL (70-110)
[2024-04-22 09:28] LABS: BUN/Creat Ratio 14.36 Ratio (12.00-20.00); Blood Urea Nitrogen 20.1 mg/dL (9.0-27.0); Calcium 8.2 mg/dL (8.7-10.3); Carbon Dioxide 22.6 mmol/L (21.6-31.8); Chloride 106 mmol/L (96-109); Glucose 129 mg/dL (70-110); Magnesium 1.7 mg/dL (1.5-2.4); Phosphorus 2.1 mg/dL (2.4-5.1); Potassium 4.3 mmol/L (3.5-5.5); Sodium 139 mmol/L (135-145)
[2024-04-22 13:08] LABS: Glucose,Whole Blood 148 mg/dL (70-110)
--- NOTE | 2024-04-22 14:39 | P.DS ---
Providers Date of admission: 04/15/24 01:04 Expected date of discharge: 04/22/24 Attending physician: Diana Greene MD Consults: 04/15/24 01:03 Consult Physician Routine Consulting Provider: Jannet Rosen Consult Reason/Comments: SANDRA,HyperCa Do you want consulting provider notified?: Yes 04/15/24 05:19 Consult Physician Routine Consulting Provider: Amparo Warner Consult Reason/Comments: Hypercalcemia concern for MM? Do you want consulting provider notified?: Yes 04/15/24 05:20 Consult Physician Routine Consulting Provider: Pratik Alvarez Consult Reason/Comments: Trop Do you want consulting provider notified?: Yes 04/19/24 17:54 Consult Physician Routine Consulting Provider: Brayan Bocanegra Consult Reason/Comments: elevated PSA, hypercalcemia. Concern for prostate cancer Do you want consulting provider notified?: Yes Primary care physician: [facility] Course: 74-year-old male with a PMH of CVA, type II DM, hypertension, hyperlipidemia, and hypothyroidism who presents to the emergency room for altered mental status and weakness. The history is provided by the patient's ex- at the bedside. She reports that the patient's home furnace broke down on and that the patient's daughter asked if he could stay with her. He has subsequently been staying with her for the past 24 hours but she noticed that he has not eaten or drank anything and that he is very confused and unable to ambulate. At time of interview, the history was limited as the patient was confused. He had no active complaints however other than feeling weak. In the emergency room a CT brain was unremarkable with chest x-ray also unremarkable. A renal ultrasound revealed findings of chronic kidney disease with no acute abnormalities noted. EKG revealed sinus bradycardia with PVCs at 57 bpm with left axis deviation and a right bundle branch block with QTc 456 ms. Laboratory evaluation revealed a troponin of 0.160, calcium 17.2, glucose 71, BUN 51, creatinine 3.51 (previously 0.8 in 2013), potassium 3.2, CO2 32, hemoglobin 11.5, with TSH 0.2 with UA with greater than 182 RBCs with urine toxicology unremarkable and respiratory viral panel negative. Patient was admitted for hypercalcemia and elevated troponins. Cardiology consulted, Trop 0.16, 0.149, ACS ruled out. Echo showed EF 60% mod , trace AR/TR. Cardiology recommended outpatient stress test. Nephrology consulted, given pamidronate and calcitonin on 04/15 along with IV hydration. Chlorthalidone, Vit D, MVI, Ca acetate discontinued. Calcium levels and SANDRA improved. Oncology consulted for concerns for multiple myeloma. He underwent extensive workup. Significant findings included M spike on protein electrophoresis. Scheduled for a bone scan prior to discharge. Urology consulted for elevated PSA of 30.4. 04/22 Patient was seen and examined. He reported no complaints. BMP significant for GFR 52, glu 129, Ca 8.2. Phos 2.1. Mag 1.7. Discussed with Dr. Warner, cleared for discharge after bone scan is complete with outpatient follow up. Plan for SNF. Discharge Plan: Stop Chlorthalidone, Vit D, MVI, Atenolol, Ca acetate and Vit C. Amlodipine increased from 5 to 10 mg PO QHS. Continue Mag-Ox 400 mg PO BID. Follow up with PCP within 1-2 days of discharge. Follow up with Dr. Trejo within 3 weeks of discharge to discuss results of bone scan and treatment of presumed MGUS. Follow up with Dr. Kelly within 2 weeks for possible stress test. Follow up with Dr. Bocanegra with regard to elevated PSA to rule out prostate CA. General: non toxic, no distress, appears at stated age Derm: warm, dry Head: atraumatic, normocephalic, symmetric Mouth: no lip lesion, mucus membranes moist Cardiovascular: S1S2 reg, no murmur Lungs: Clear to auscultation bilaterally, no rales , no accessory muscle use Ext: no gross muscle atrophy, no edema, no contractures Neuro: no focal neuro deficits Psych: Alert and oriented. Discharge Diagnosis: Acute metabolic encephalopathy secondary to severe hypercalcemia Severe hypercalcemia secondary to volume depletion, diuretic use, vitamin D supplements with concern for MGUS Elevated PSA, rule out prostate cancer SANDRA secondary to hypercalcemia induced ATN Hypokalemia Hypomagnesemia Hypophosphatemia Normocytic anemia, iron deficiency anemia Elevated troponins likely in the settings of SANDRA Aortic stenosis, moderate Dyslipidemia PVD This complex discharge took 35 minutes to complete. Patient Condition at Discharge: Stable Plan - Discharge Summary New Discharge Prescriptions: New amLODIPine [Norvasc] 10 mg PO HS tab Magnesium Oxide [Mag-Ox] 400 mg PO BID tab Continue Tamsulosin HCl [Flomax] 0.4 mg PO DAILY Atorvastatin [Lipitor] 20 mg PO DAILY SILVER sulfADIAZINE Cream [Silvadene 1% Cream] 1 applic TOPICAL DAILY PRN PRN Reason: DRESSING CHANGES Ferrous Sulfate [Iron (65 MG Elemental)] 325 mg PO DAILY Discontinued Chlorthalidone 25 mg PO DAILY #30 tab Cholecalciferol [Vitamin D3 (125 Mcg = 5000 Iu)] 125 mcg PO DAILY Multivitamins, Thera [Multivitamin (formulary)] 1 tab PO DAILY atenoloL [Tenormin] 25 mg PO DAILY Calcium Acetate 1,334 mg PO BID-W/MEALS Ascorbic Acid [Vitamin C] 250 mg PO DAILY amLODIPine [Norvasc] 5 mg PO HS No Action metFORMIN HCL [Glucophage] 1,000 mg PO BID Clopidogrel [Plavix] 75 mg PO DAILY tab allopurinoL [Zyloprim] 100 mg PO DAILY Aspirin EC [Ecotrin Low Dose] 81 mg PO DAILY Levothyroxine Sodium [Synthroid] 125 mcg PO DAILY Gabapentin [Neurontin] 400 mg PO BID Gabapentin [Neurontin] 100 mg PO BID Discharge Medication List metFORMIN HCL [Glucophage] 1,000 mg PO BID 06/26/16 [History] Aspirin EC [Ecotrin Low Dose] 81 mg PO DAILY 09/21/22 [History] Gabapentin [Neurontin] 100 mg PO BID 09/21/22 [History] Gabapentin [Neurontin] 400 mg PO BID 09/21/22 [History] Levothyroxine Sodium [Synthroid] 125 mcg PO DAILY 09/21/22 [History] allopurinoL [Zyloprim] 100 mg PO DAILY 09/21/22 [History] Clopidogrel [Plavix] 75 mg PO DAILY tab 09/27/22 [Rx] Atorvastatin [Lipitor] 20 mg PO DAILY 04/15/24 [History] Ferrous Sulfate [Iron (65 MG Elemental)] 325 mg PO DAILY 04/15/24 [History] SILVER sulfADIAZINE Cream [Silvadene 1% Cream] 1 applic TOPICAL DAILY PRN 04/15/24 [History] Tamsulosin HCl [Flomax] 0.4 mg PO DAILY 04/15/24 [History] Magnesium Oxide [Mag-Ox] 400 mg PO BID tab 04/22/24 [Rx] amLODIPine [Norvasc] 10 mg PO HS tab 04/22/24 [Rx] Follow up Appointment(s)/Referral(s): Amador Trejo [STAFF PHYSICIAN] - 3 Weeks Ivan Vincent DO [Primary Care Provider] - 1-2 days Zen Kelly MD [STAFF PHYSICIAN] - 2 Weeks Discharge/Stand Alone Forms: [place] [facility] Pamphlet, Who Do I Call?, Community Resources
--- NOTE | 2024-04-22 15:59 | P.PN ---
Subjective Patient is seen for follow-up for acute kidney injury. Renal function has improved with serum creatinine down to 1.4 mg/dL. No significant complaints today. Objective - Vital Signs Vital signs: Vital Signs Temp 97.5 F L 04/22/24 14:00 Pulse 78 04/22/24 14:00 Resp 21 04/22/24 14:00 BP 116/69 04/22/24 14:00 Pulse Ox 98 04/22/24 14:00 FiO2 Intake & Output 04/21/24 04/22/24 04/22/24 18:59 06:59 18:59 Intake Total 750 590 Output Total 900 800 Balance -150 -210 Intake: Oral 750 590 Output: Urine 900 800 Other: Voiding Method Diaper Diaper Incontinent Incontinent External Catheter External Catheter # Voids 1 # Bowel Movements 1 1 - Exam Patient is awake, comfortable, no acute distress Examination of the heart S1-S2 Examination of the lungs bilateral breath sounds are heard Abdomen is soft nontender Examination of lower extremities shows no significant edema - Labs CBC & Chem 7: 04/19/24 07:45 04/22/24 05:47 Labs: Abnormal Lab Results - Last 24 Hours (Table) 04/21/24 04/21/24 04/22/24 Range/Units 17:08 19:58 05:47 Est GFR (CKD-EPI) 52 L (>=60) Glucose 129 H (70-110) mg/dL POC Glucose (mg/dL) 155 H 192 H (70-110) mg/dL Calcium 8.2 L (8.7-10.3) mg/dL Phosphorus 2.1 L (2.4-5.1) mg/dL 04/22/24 04/22/24 Range/Units 07:11 12:38 Est GFR (CKD-EPI) (>=60) Glucose (70-110) mg/dL POC Glucose (mg/dL) 133 H 148 H (70-110) mg/dL Calcium (8.7-10.3) mg/dL Phosphorus (2.4-5.1) mg/dL Assessment and Plan Assessment: 1. Acute kidney injury secondary to hypercalcemia induced ATN. Creatinine peaked at 3.7 this admission and is stable at 1.4 today. Creatinine 0.8 noted September 2022. No hydronephrosis noted on kidney ultrasound. 2. Hypercalcemia secondary to volume contraction and further worsen with the use of thiazide diuretic, calcium and vitamin D supplementation. TSH low at 0.27 with normal free T4. PTH appropriately suppressed at 8.7. Vitamin D level 71.8. 125 D3 level 22. [place] and lambda light chains not significantly elevated. Immunofixation detected small IgG kappa. Oncology following. 3. Hypokalemia from hypercalcemia induced diuresis and also taking diuretic at home. Replaced. Better. 4. Benign hypertension. Stable. 5. Altered mental status possibly from hypercalcemia. 6. Hypomagnesemia from poor intake and diuresis. Replaced. Better. Now on oral magnesium oxide. 7. Hypophosphatemia from poor intake and acute volume expansion. Also possible component of refeeding. No diarrhea. No evidence of vitamin D deficiency. No evidence of primary or secondary hyperparathyroidism as PTH low. Uric acid normal. No glucosuria noted on UA done April 14, 2024. Doubt Fanconi syndrome 8. Moderate aortic stenosis. Plan: Continue off of IV fluids Continue to encourage increased oral intake
--- NOTE | 2024-04-22 16:37 | NM ---
EXAMINATION TYPE: NM bone scan whole body DATE OF EXAM: 04/22/2024 COMPARISON: NONE CLINICAL INDICATION: Male, 74 years old with history of hypercalcemia, elevated PSA, r/o bone mets; Delayed whole-body scanning was performed following the injection of 22.8 mCi Tc 99m MDP. Images acq uired 6.5 hours post injection. FINDINGS: Focal areas of increased radiotracer accumulation involving the mid left radius and ulna. Correlate r adiographically for recent fractures. There is also focal increased uptake noted to involve the third right digit. Radiographic correlation recommended as well. Degenerative uptake involving the sternal clavicular joints, shoulders and knees. Mild degenerative uptake about the lower lumbar spine. IMPRESSION: As above [facility], , 04/22/2024 4:35 PM
--- NOTE | 2024-04-22 16:46 | P.PN ---
Subjective Progress Note Date: 04/22/24 Principal diagnosis: hypercalcemia Patient seen today in follow-up, no one at bedside. He is able to state month, president, but has trouble stating where he is. He is in the chair, no acute c/o, denies any pain. Objective - Vital Signs Vital signs: Vital Signs Temp 97.5 F L 04/22/24 14:00 Pulse 78 04/22/24 14:00 Resp 21 04/22/24 14:00 BP 116/69 04/22/24 14:00 Pulse Ox 98 04/22/24 14:00 FiO2 Intake & Output 04/21/24 04/22/24 04/22/24 18:59 06:59 18:59 Intake Total 750 590 Output Total 900 800 Balance -150 -210 Intake: Oral 750 590 Output: Urine 900 800 Other: Voiding Method Diaper Diaper Incontinent Incontinent External Catheter External Catheter # Voids 1 # Bowel Movements 1 1 - Constitutional General appearance: Present: average body habitus, cooperative, no acute distress - EENT Eyes: Present: anicteric sclerae, EOMI ENT: Present: hearing grossly normal - Respiratory Details: resp unlabored at rest - Neurologic Neurologic: Present: CNII-XII intact - Musculoskeletal Musculoskeletal: Present: generalized weakness - Labs CBC & Chem 7: 04/19/24 07:45 04/22/24 05:47 Labs: Abnormal Lab Results - Last 24 Hours (Table) 04/21/24 04/21/24 04/22/24 Range/Units 17:08 19:58 05:47 Est GFR (CKD-EPI) 52 L (>=60) Glucose 129 H (70-110) mg/dL POC Glucose (mg/dL) 155 H 192 H (70-110) mg/dL Calcium 8.2 L (8.7-10.3) mg/dL Phosphorus 2.1 L (2.4-5.1) mg/dL 04/22/24 04/22/24 Range/Units 07:11 12:38 Est GFR (CKD-EPI) (>=60) Glucose (70-110) mg/dL POC Glucose (mg/dL) 133 H 148 H (70-110) mg/dL Calcium (8.7-10.3) mg/dL Phosphorus (2.4-5.1) mg/dL Assessment and Plan (1) Delirium due to general medical condition Current Visit: Yes Status: Acute Priority: High Code(s): F05 - DELIRIUM DUE TO KNOWN PHYSIOLOGICAL CONDITION SNOMED Code(s): 6859799 (2) Hypercalcemia Current Visit: Yes Status: Resolved Priority: High Code(s): E83.52 - HYPERCALCEMIA SNOMED Code(s): 54668237 Plan: Delirium -Suspect secondary to electrolyte abnormalities. He has had improvement since admit, though he seems to have trouble with come questions. -Medications have been adjusted for acute renal failure-Nephrology following -CT of the head without contrast was negative for any acute pathology Hypercalcemia, acute renal failure -Both calcium levels and renal function have been reviewed in this electronic medical record, they have been normal prior to admission. -Calcium just below normal today. Aredia x 1, Calcitonin was given x 2 -Cont to hold all calcium supplements for now -PTH low. In setting of hypercalcemia, can reflet malignant process. -Monoclonal gammopathy workup showing serum M-spike of 0.11g/dl, IgG kappa paraproteinemia. PSA elevated at 30 (Urology consulted) -NM bone scan done, pending results -Iron studies c/w mild iron deficiency. Oral iron supplement started -Vit D labs WNL. -Thyroid studies WNL. Planning for Hem/Onc f/u outpt. Will contact pt ex- about an appt Cardiology consulted for elevated troponin Doctor attests: I performed a history and physical examination of this patient, developed impression and plan of care. Discussed with dictator. I agree with dictators note, documented as a scribe.
[2024-04-22 17:37] LABS: Glucose,Whole Blood 141 mg/dL (70-110)
[2024-04-22 20:14] LABS: Glucose,Whole Blood 221 mg/dL (70-110)
[2024-04-23 07:30] LABS: Glucose,Whole Blood 150 mg/dL (70-110)
--- NOTE | 2024-04-23 12:12 | P.DS ---
Providers Date of admission: 04/15/24 01:04 Expected date of discharge: 04/23/24 Attending physician: Diana Greene MD Consults: 04/15/24 01:03 Consult Physician Routine Consulting Provider: Jannet Rosen Consult Reason/Comments: SANDRA,HyperCa Do you want consulting provider notified?: Yes 04/15/24 05:19 Consult Physician Routine Consulting Provider: Amparo Warner Consult Reason/Comments: Hypercalcemia concern for MM? Do you want consulting provider notified?: Yes 04/15/24 05:20 Consult Physician Routine Consulting Provider: Pratik Alvarez Consult Reason/Comments: Trop Do you want consulting provider notified?: Yes 04/19/24 17:54 Consult Physician Routine Consulting Provider: Brayan Bocanegra Consult Reason/Comments: elevated PSA, hypercalcemia. Concern for prostate cancer Do you want consulting provider notified?: Yes Primary care physician: [facility] Course: 74-year-old male with a PMH of CVA, type II DM, hypertension, hyperlipidemia, and hypothyroidism who presents to the emergency room for altered mental status and weakness. The history is provided by the patient's ex- at the bedside. She reports that the patient's home furnace broke down on and that the patient's daughter asked if he could stay with her. He has subsequently been staying with her for the past 24 hours but she noticed that he has not eaten or drank anything and that he is very confused and unable to ambulate. At time of interview, the history was limited as the patient was confused. He had no active complaints however other than feeling weak. In the emergency room a CT brain was unremarkable with chest x-ray also unremarkable. A renal ultrasound revealed findings of chronic kidney disease with no acute abnormalities noted. EKG revealed sinus bradycardia with PVCs at 57 bpm with left axis deviation and a right bundle branch block with QTc 456 ms. Laboratory evaluation revealed a troponin of 0.160, calcium 17.2, glucose 71, BUN 51, creatinine 3.51 (previously 0.8 in 2013), potassium 3.2, CO2 32, hemoglobin 11.5, with TSH 0.2 with UA with greater than 182 RBCs with urine toxicology unremarkable and respiratory viral panel negative. Patient was admitted for hypercalcemia and elevated troponins. Cardiology consulted, Trop 0.16, 0.149, ACS ruled out. Echo showed EF 60% mod , trace AR/TR. Cardiology recommended outpatient stress test. Nephrology consulted, given pamidronate and calcitonin on 04/15 along with IV hydration. Chlorthalidone, Vit D, MVI, Ca acetate discontinued. Calcium levels and SANDRA improved. Oncology consulted for concerns for multiple myeloma. He underwent extensive workup. Significant findings included M spike on protein electrophoresis. Bone scan done yesterday showed focal areas of uptake mid left radius and ulnar, third right digit. Urology consulted for elevated PSA of 30.4. 04/23 Patient was seen and examined. He reported no complaints. Bone scan done yesterday showed focal areas of uptake mid left radius and ulnar, third right digit. Hopeful plans for SNF today. Discharge Plan: Stop Chlorthalidone, Vit D, MVI, Atenolol, Ca acetate and Vit C. Amlodipine increased from 5 to 10 mg PO QHS. Continue Mag-Ox 400 mg PO BID. Follow up with PCP within 1-2 days of discharge. Follow up with Dr. Trejo within 3 weeks of discharge to discuss results of bone scan and treatment of presumed MGUS. Follow up with Dr. Kelly within 2 weeks for possible stress test. Follow up with Dr. Bocanegra with regard to elevated PSA to rule out prostate CA. General: non toxic, no distress, appears at stated age Derm: warm, dry Head: atraumatic, normocephalic, symmetric Mouth: no lip lesion, mucus membranes moist Cardiovascular: S1S2 reg, no murmur Lungs: Clear to auscultation bilaterally, no rales , no accessory muscle use Ext: no gross muscle atrophy, no edema, no contractures Neuro: no focal neuro deficits Psych: Alert and oriented. Discharge Diagnosis: Acute metabolic encephalopathy secondary to severe hypercalcemia Severe hypercalcemia secondary to volume depletion, diuretic use, vitamin D supplements with concern for MGUS Elevated PSA, rule out prostate cancer SANDRA secondary to hypercalcemia induced ATN Hypokalemia Hypomagnesemia Hypophosphatemia Normocytic anemia, iron deficiency anemia Elevated troponins likely in the settings of SANDRA Aortic stenosis, moderate Dyslipidemia PVD This complex discharge took 35 minutes to complete. Patient Condition at Discharge: Stable Plan - Discharge Summary New Discharge Prescriptions: New amLODIPine [Norvasc] 10 mg PO HS tab Magnesium Oxide [Mag-Ox] 400 mg PO BID tab Continue metFORMIN HCL [Glucophage] 1,000 mg PO BID Clopidogrel [Plavix] 75 mg PO DAILY tab Tamsulosin HCl [Flomax] 0.4 mg PO DAILY Atorvastatin [Lipitor] 20 mg PO DAILY allopurinoL [Zyloprim] 100 mg PO DAILY Aspirin EC [Ecotrin Low Dose] 81 mg PO DAILY Levothyroxine Sodium [Synthroid] 125 mcg PO DAILY Gabapentin [Neurontin] 400 mg PO BID Gabapentin [Neurontin] 100 mg PO BID SILVER sulfADIAZINE Cream [Silvadene 1% Cream] 1 applic TOPICAL DAILY PRN PRN Reason: DRESSING CHANGES Ferrous Sulfate [Iron (65 MG Elemental)] 325 mg PO DAILY Discontinued Chlorthalidone 25 mg PO DAILY #30 tab Cholecalciferol [Vitamin D3 (125 Mcg = 5000 Iu)] 125 mcg PO DAILY Multivitamins, Thera [Multivitamin (formulary)] 1 tab PO DAILY atenoloL [Tenormin] 25 mg PO DAILY Calcium Acetate 1,334 mg PO BID-W/MEALS Ascorbic Acid [Vitamin C] 250 mg PO DAILY amLODIPine [Norvasc] 5 mg PO HS Discharge Medication List metFORMIN HCL [Glucophage] 1,000 mg PO BID 06/26/16 [History] Aspirin EC [Ecotrin Low Dose] 81 mg PO DAILY 09/21/22 [History] Gabapentin [Neurontin] 100 mg PO BID 09/21/22 [History] Gabapentin [Neurontin] 400 mg PO BID 09/21/22 [History] Levothyroxine Sodium [Synthroid] 125 mcg PO DAILY 09/21/22 [History] allopurinoL [Zyloprim] 100 mg PO DAILY 09/21/22 [History] Clopidogrel [Plavix] 75 mg PO DAILY tab 09/27/22 [Rx] Atorvastatin [Lipitor] 20 mg PO DAILY 04/15/24 [History] Ferrous Sulfate [Iron (65 MG Elemental)] 325 mg PO DAILY 04/15/24 [History] SILVER sulfADIAZINE Cream [Silvadene 1% Cream] 1 applic TOPICAL DAILY PRN 04/15/24 [History] Tamsulosin HCl [Flomax] 0.4 mg PO DAILY 04/15/24 [History] Magnesium Oxide [Mag-Ox] 400 mg PO BID tab 04/22/24 [Rx] amLODIPine [Norvasc] 10 mg PO HS tab 04/22/24 [Rx] Follow up Appointment(s)/Referral(s): Amador Trejo [STAFF PHYSICIAN] - 3 Weeks Brayan Bocanegra MD [STAFF PHYSICIAN] - 1 Week Ivan Vincent DO [Primary Care Provider] - 1-2 days Zen Kelly MD [STAFF PHYSICIAN] - 2 Weeks Discharge/Stand Alone Forms: [place] [facility] Pamphlet, Who Do I Call?, Community Resources Discharge Disposition: TRANSFER TO SNF/ECF
[2024-04-23 12:15] LABS: Glucose,Whole Blood 121 mg/dL (70-110)
--- NOTE | 2024-04-23 15:35 | P.GSCN ---
History of Present Illness Consult date: 04/23/24 Reason for Consult: Elevated PSA level Requesting physician: Jesus Garcia History of present illness: The patient is a 74-year-old white male admitted on April 15, 2024 after presenting to the ER with symptoms of weakness and altered mental status. He has been found to have an elevated PSA level of 30.4, as well as significant hypercalcemia. The patient has been treated by Dr. Camargo in the past for a chronic Staph UTI. He was scheduled for an appointment in August 2023 for evaluation of an elevated PSA level which was 10.63 at that time, but he canceled that appointment. His serum calcium level was normal at that time. A bone scan performed yesterday showed no metastases. He denies voiding difficulty. Urinalysis obtained at the time of admission did not show evidence of mild pyuria, but a urine culture was not done and it is thus unclear whether or not he may have a UTI. Review of Systems - Constitutional Reports weakness - Genitourinary Denies dysuria, Denies hematuria Past Medical History Past Medical History: Diabetes Mellitus, Hyperlipidemia, Hypertension, Thyroid Disorder Additional Past Medical History / Comment(s): hypothyroid, neuropathy, borderl ine diabetic- takes metformin, patient had bleeding ulcer in 1972, had open sore from poor circulation on right ankle- then had an infection (patient thinks staph). Patient says he recently had blood tests with his primary doctor that showed poor kidney function. Has consult to see for his kidneys coming up. History of Any Multi-Drug Resistant Organisms: None Reported Past Surgical History: No Surgical Hx Reported Past Anesthesia/Blood Transfusion Reactions: No Reported Reaction Past Psychological History: No Psychological Hx Reported Smoking Status: Former smoker Past Alcohol Use History: Occasional Past Drug Use History: None Reported - Past Family History Mother Additional Family Medical History / Comment(s): Mother at 94 from fall with complications of subdural hematoma and strokes. Father Family Medical History: CVA/TIA Additional Family Medical History / Comment(s): Father at age 84. Sister(s) Family Medical History: Cancer Additional Family Medical History / Comment(s): sister this past may at age 62 from bladder CA. Medications and Allergies Home Medications Medication Instructions Recorded Confirmed Type metFORMIN HCL [Glucophage] 1,000 mg PO BID 06/26/16 04/15/24 History Aspirin EC [Ecotrin Low Dose] 81 mg PO DAILY 09/21/22 04/15/24 History Gabapentin [Neurontin] 100 mg PO BID 09/21/22 04/15/24 History Gabapentin [Neurontin] 400 mg PO BID 09/21/22 04/15/24 History Levothyroxine Sodium [Synthroid] 125 mcg PO DAILY 09/21/22 04/15/24 History allopurinoL [Zyloprim] 100 mg PO DAILY 09/21/22 04/15/24 History Clopidogrel [Plavix] 75 mg PO DAILY tab 09/27/22 04/15/24 Rx Atorvastatin [Lipitor] 20 mg PO DAILY 04/15/24 04/15/24 History Ferrous Sulfate [Iron (65 MG 325 mg PO DAILY 04/15/24 04/15/24 History Elemental)] SILVER sulfADIAZINE Cream 1 applic TOPICAL DAILY PRN 04/15/24 04/15/24 History [Silvadene 1% Cream] Tamsulosin HCl [Flomax] 0.4 mg PO DAILY 04/15/24 04/15/24 History Magnesium Oxide [Mag-Ox] 400 mg PO BID tab 04/22/24 Rx amLODIPine [Norvasc] 10 mg PO HS tab 04/22/24 Rx Allergies Allergy/AdvReac Type Severity Reaction Status Date / Time lisinopril Allergy Unknown Verified 04/15/24 08:55 Surgical - Exam Vital Signs Temp Pulse Resp BP Pulse Ox 98.2 F 51 L 16 130/66 100 04/14/24 20:14 04/14/24 20:14 04/14/24 20:14 04/14/24 20:14 04/14/24 20:14 - General well developed, well nourished, no distress - Respiratory normal respiratory effort - Abdomen Abdomen: soft, non tender, no guarding, no rigid, no rebound - Genitourinary Patient has an external catheter covering the external genitalia. - Rectum Rectum: normal sphincter tone, no masses, other (Prostate moderately enlarged but smooth) - Psychiatric oriented to time, oriented to person, oriented to place, speech is normal, memory intact Results - Labs 04/19/24 07:45 04/22/24 05:47 Abnormal Lab Results - Last 24 Hours (Table) 04/21/24 04/21/24 04/21/24 Range/Units 03:43 12:33 17:08 Creatinine 1.6 H (0.6-1.5) mg/dL Est GFR (CKD-EPI) 45 L (>=60) Glucose 129 H (70-110) mg/dL POC Glucose (mg/dL) 147 H 155 H (70-110) mg/dL Calcium 7.8 L (8.7-10.3) mg/dL Phosphorus 2.3 L (2.4-5.1) mg/dL 04/21/24 04/22/24 Range/Units 19:58 07:11 Creatinine (0.6-1.5) mg/dL Est GFR (CKD-EPI) (>=60) Glucose (70-110) mg/dL POC Glucose (mg/dL) 192 H 133 H (70-110) mg/dL Calcium (8.7-10.3) mg/dL Phosphorus (2.4-5.1) mg/dL Diabetes panel 04/21/24 Range/Units 03:43 Sodium 140 (135-145) mmol/L Potassium 3.9 (3.5-5.5) mmol/L Chloride 107 (96-109) mmol/L Carbon Dioxide 21.9 (21.6-31.8) mmol/L BUN 21.1 (9.0-27.0) mg/dL Creatinine 1.6 H (0.6-1.5) mg/dL Glucose 129 H (70-110) mg/dL Calcium 7.8 L (8.7-10.3) mg/dL Calcium panel 04/21/24 Range/Units 03:43 Calcium 7.8 L (8.7-10.3) mg/dL Phosphorus 2.3 L (2.4-5.1) mg/dL Pituitary panel 04/21/24 Range/Units 03:43 Sodium 140 (135-145) mmol/L Potassium 3.9 (3.5-5.5) mmol/L Chloride 107 (96-109) mmol/L Carbon Dioxide 21.9 (21.6-31.8) mmol/L BUN 21.1 (9.0-27.0) mg/dL Creatinine 1.6 H (0.6-1.5) mg/dL Glucose 129 H (70-110) mg/dL Calcium 7.8 L (8.7-10.3) mg/dL Adrenal panel 04/21/24 Range/Units 03:43 Sodium 140 (135-145) mmol/L Potassium 3.9 (3.5-5.5) mmol/L Chloride 107 (96-109) mmol/L Carbon Dioxide 21.9 (21.6-31.8) mmol/L BUN 21.1 (9.0-27.0) mg/dL Creatinine 1.6 H (0.6-1.5) mg/dL Glucose 129 H (70-110) mg/dL Calcium 7.8 L (8.7-10.3) mg/dL Assessment and Plan (1) Elevated prostate specific antigen [PSA] Current Visit: Yes Status: Acute Code(s): R97.20 - ELEVATED PROSTATE SPECIFIC ANTIGEN [PSA] SNOMED Code(s): 298760449 Plan: I had a lengthy discussion with the patient and his daughter regarding his elevated PSA level. We discussed the differential diagnosis, which of course includes prostate cancer. The patient is to be transferred to an ECF. His performance status was better 1 month ago and I am hopeful that it will return to baseline. I provided the patient's daughter with my card, and suggested she call our office when his condition is improved and at that time our office will schedule him to undergo prostate MRI. The PSA level will be repeated at that time. Please notify me if I can be of any further assistance at this time. Time with Patient: Greater than 30
--- NOTE | 2024-04-23 16:25 | P.PN ---
Subjective Progress Note Date: 04/23/24 Principal diagnosis: hypercalcemia Patient seen today in follow-up, no one at bedside, he is in the chair, no acute c/o, denies any pain. Objective - Vital Signs Vital signs: Vital Signs Temp 97.8 F 04/23/24 08:00 Pulse 71 04/23/24 08:00 Resp 16 04/23/24 08:00 BP 126/67 04/23/24 08:00 Pulse Ox 98 04/23/24 08:00 FiO2 Intake & Output 04/22/24 04/23/24 04/23/24 18:59 06:59 18:59 Output Total 900 1000 Balance -900 -1000 Output: Urine 900 1000 Other: Voiding Method Diaper Diaper Diaper Incontinent Incontinent Incontinent External Catheter External Catheter External Catheter # Bowel Movements 1 - Constitutional General appearance: Present: average body habitus, cooperative, no acute dist ress - EENT Eyes: Present: anicteric sclerae, EOMI ENT: Present: hearing grossly normal - Respiratory Details: resp unlabored at rest - Cardiovascular Details: skin warm and dry to touch - Peripheral edema leg Peripheral Edema: bilateral: None - Integumentary Integumentary: Present: pale - Neurologic Neurologic: Present: CNII-XII intact - Psychiatric Psychiatric Comment(s): Alert & oriented x 2-3, flat affect - Labs CBC & Chem 7: 04/19/24 07:45 04/22/24 05:47 Labs: Abnormal Lab Results - Last 24 Hours (Table) 04/22/24 04/22/24 04/22/24 Range/Units 12:38 17:28 20:14 POC Glucose (mg/dL) 148 H 141 H 221 H (70-110) mg/dL 04/23/24 04/23/24 Range/Units 07:29 12:04 POC Glucose (mg/dL) 150 H 121 H (70-110) mg/dL Assessment and Plan (1) Delirium due to general medical condition Current Visit: Yes Status: Acute Priority: High Code(s): F05 - DELIRIUM DUE TO KNOWN PHYSIOLOGICAL CONDITION SNOMED Code(s): 0504536 (2) Hypercalcemia Current Visit: Yes Status: Resolved Priority: High Code(s): E83.52 - HYPERCALCEMIA SNOMED Code(s): 75667506 Plan: Delirium -Suspect secondary to electrolyte abnormalities. He has had improvement since admit, though he seems to have trouble with come questions. -Medications have been adjusted for acute renal failure-Nephrology following -CT of the head without contrast was negative for any acute pathology Hypercalcemia, acute renal failure -Both calcium levels and renal function have been reviewed in this electronic medical record, they have been normal prior to admission. -Calcium just below normal today. Aredia x 1, Calcitonin was given x 2 -Cont to hold all calcium supplements for now -PTH low. In setting of hypercalcemia, can reflet malignant process. -Monoclonal gammopathy workup showing serum M-spike of 0.11g/dl, IgG kappa paraproteinemia. PSA elevated at 30 (Urology consulted) -NM bone scan is not reporting significant bone pathology -Iron studies c/w mild iron deficiency. Oral iron supplement started -Vit D labs WNL. -Thyroid studies WNL. Summarized hospital sty with pt. Reviewed the work up for the high calcium and the results of the testing. Suspect MGUS, nothing acutely to be done, can continue any work up outpt. Pending Urology assessment and plans for the elevated PSA. Planning for Hem/Onc f/u outpt. Will contact pt ex- about an appt-pt agreed with this plan
[2024-04-23 17:12] LABS: Glucose,Whole Blood 184 mg/dL (70-110)
--- NOTE | 2024-04-23 17:40 | P.PN ---
Subjective Patient is seen for follow-up for acute kidney injury. Renal function has improved with serum creatinine down to 1.4 mg/dL. No significant complaints today. Objective - Vital Signs Vital signs: Vital Signs Temp 97.8 F 04/23/24 13:00 Pulse 71 04/23/24 13:00 Resp 18 04/23/24 13:00 BP 114/69 04/23/24 13:00 Pulse Ox 99 04/23/24 13:00 FiO2 Intake & Output 04/22/24 04/23/24 04/23/24 18:59 06:59 18:59 Intake Total 1757 Output Total 900 1000 900 Balance -900 -1000 857 Intake: Oral 1757 Output: Urine 900 1000 900 Other: Voiding Method Diaper Diaper Diaper Incontinent Incontinent Incontinent External Catheter External Catheter External Catheter # Bowel Movements 1 1 - Exam Patient is awake, comfortable, no acute distress Examination of the heart S1-S2 Examination of the lungs bilateral breath sounds are heard Abdomen is soft nontender Examination of lower extremities shows no significant edema - Labs CBC & Chem 7: 04/19/24 07:45 04/22/24 05:47 Labs: Abnormal Lab Results - Last 24 Hours (Table) 04/22/24 04/22/24 04/23/24 Range/Units 17:28 20:14 07:29 POC Glucose (mg/dL) 141 H 221 H 150 H (70-110) mg/dL 04/23/24 04/23/24 Range/Units 12:04 17:10 POC Glucose (mg/dL) 121 H 184 H (70-110) mg/dL Assessment and Plan Assessment: 1. Acute kidney injury secondary to hypercalcemia induced ATN. Creatinine peaked at 3.7 this admission and is stable at 1.4 today. Creatinine 0.8 noted September 2022. No hydronephrosis noted on kidney ultrasound. 2. Hypercalcemia secondary to volume contraction and further worsen with the use of thiazide diuretic, calcium and vitamin D supplementation. TSH low at 0.27 with normal free T4. PTH appropriately suppressed at 8.7. Vitamin D level 71.8. 125 D3 level 22. [place] and lambda light chains not significantly elevated. Immunofixation detected small IgG kappa. Oncology following. 3. Hypokalemia from hypercalcemia induced diuresis and also taking diuretic at home. Replaced. Better. 4. Benign hypertension. Stable. 5. Altered mental status possibly from hypercalcemia. 6. Hypomagnesemia from poor intake and diuresis. Replaced. Better. Now on oral magnesium oxide. 7. Hypophosphatemia from poor intake and acute volume expansion. Also possible component of refeeding. No diarrhea. No evidence of vitamin D deficiency. No evidence of primary or secondary hyperparathyroidism as PTH low. Uric acid normal. No glucosuria noted on UA done April 14, 2024. Doubt Fanconi syndrome 8. Moderate aortic stenosis. Plan: Continue off of IV fluids Continue to encourage increased oral intake
[2024-04-23 20:05] LABS: Glucose,Whole Blood 156 mg/dL (70-110)
[2024-04-24 07:28] LABS: Glucose,Whole Blood 144 mg/dL (70-110)
[2024-04-24 09:51] LABS: African American GFR (CKD) 56 (>60 ml/min/1.73 sqM); Anion Gap 9 mmol/L; Blood Urea Nitrogen 23 mg/dL (9-20); Calcium 8.6 mg/dL (8.4-10.2); Carbon Dioxide 24 mmol/L (22-30); Chloride 104 mmol/L (98-107); Glucose 199 mg/dL (74-99); Non-African American GFR(CKD) 49 (>60 ml/min/1.73 sqM); Potassium 4.8 mmol/L (3.5-5.1); Sodium 137 mmol/L (137-145)
--- NOTE | 2024-04-24 11:20 | P.PN ---
Subjective Patient is seen for follow-up for acute kidney injury. Renal function has improved with serum creatinine down to 1.4 mg/dL. No significant complaints today. Objective - Vital Signs Vital signs: Vital Signs Temp 97.6 F 04/24/24 07:56 Pulse 72 04/24/24 08:00 Resp 18 04/24/24 08:00 BP 120/72 04/24/24 07:56 Pulse Ox 94 L 04/24/24 07:56 FiO2 Intake & Output 04/23/24 04/24/24 04/24/24 18:59 06:59 18:59 Intake Total 1996 540 Output Total 1300 1100 Balance 697 -560 Intake: Oral 1996 540 Output: Urine 1300 1100 Other: Voiding Method Diaper Diaper Diaper Incontinent Incontinent Incontinent External Catheter External Catheter External Catheter # Voids 0 # Bowel Movements 1 0 - Exam Patient is awake, comfortable, no acute distress Examination of the heart S1-S2 Examination of the lungs bilateral breath sounds are heard Abdomen is soft nontender Examination of lower extremities shows no significant edema - Labs CBC & Chem 7: 04/19/24 07:45 04/24/24 09:21 Labs: Abnormal Lab Results - Last 24 Hours (Table) 04/23/24 04/23/24 04/23/24 Range/Units 12:04 17:10 20:03 BUN (9-20) mg/dL Creatinine (0.66-1.25) mg/dL Glucose (74-99) mg/dL POC Glucose (mg/dL) 121 H 184 H 156 H (70-110) mg/dL 04/24/24 04/24/24 Range/Units 07:03 09:21 BUN 23 H (9-20) mg/dL Creatinine 1.41 H (0.66-1.25) mg/dL Glucose 199 H (74-99) mg/dL POC Glucose (mg/dL) 144 H (70-110) mg/dL Assessment and Plan Assessment: 1. Acute kidney injury secondary to hypercalcemia induced ATN. Creatinine peaked at 3.7 this admission and is stable at 1.4. Creatinine 0.8 noted September 2022. No hydronephrosis noted on kidney ultrasound. 2. Hypercalcemia secondary to volume contraction and further worsen with the use of thiazide diuretic, calcium and vitamin D supplementation. TSH low at 0.27 with normal free T4. PTH appropriately suppressed at 8.7. Vitamin D level 71.8. 125 D3 level 22. [place] and lambda light chains not significantly elevated. Immunofixation detected small IgG kappa. Oncology following. 3. Hypokalemia from hypercalcemia induced diuresis and also taking diuretic at home. Replaced. Better. 4. Benign hypertension. Stable. 5. Altered mental status possibly from hypercalcemia. 6. Hypomagnesemia from poor intake and diuresis. Replaced. Better. Now on oral magnesium oxide. 7. Hypophosphatemia from poor intake and acute volume expansion. Also possible component of refeeding. No diarrhea. No evidence of vitamin D deficiency. No evidence of primary or secondary hyperparathyroidism as PTH low. Uric acid normal. No glucosuria noted on UA done April 14, 2024. Doubt Fanconi syndrome 8. Moderate aortic stenosis. Plan: Continue off of IV fluids Continue to encourage increased oral intake Awaiting discharge planning
[2024-04-24 12:20] LABS: Glucose,Whole Blood 119 mg/dL (70-110)
--- NOTE | 2024-04-24 14:00 | P.PN ---
Subjective Progress Note Date: 04/24/24 Patient was seen and examined. No complaints. BMP BUN 23, Cr 1.41, glu 199. Discussed with SW, awaiting SNF auth. General: non toxic, no distress, appears at stated age Derm: warm, dry Head: atraumatic, normocephalic, symmetric Mouth: no lip lesion, mucus membranes moist Cardiovascular: S1S2 reg, no murmur Lungs: Clear to auscultation bilaterally, no rales , no accessory muscle use Ext: no gross muscle atrophy, no edema, no contractures Neuro: no focal neuro deficits Psych: Alert and oriented. Acute metabolic encephalopathy secondary to severe hypercalcemia Severe hypercalcemia secondary to volume depletion, diuretic use, vitamin D supplements with concern for MGUS Elevated PSA, rule out prostate cancer SANDRA secondary to hypercalcemia induced ATN Normocytic anemia, iron deficiency anemia Elevated troponins likely in the settings of SANDRA Aortic stenosis, moderate Dyslipidemia PVD Resolved: HypoK, HypoMag, HypoPhos Awaiting insurance auth for SNF. Discussed with SW and Dr. Rosen. Medically stable. Objective - Vital Signs Vital signs: Vital Signs Temp 97.6 F 04/24/24 07:56 Pulse 72 04/24/24 08:00 Resp 18 04/24/24 08:00 BP 120/72 04/24/24 07:56 Pulse Ox 94 L 04/24/24 07:56 FiO2 Intake & Output 04/23/24 04/24/24 04/24/24 18:59 06:59 18:59 Intake Total 1996 540 Output Total 1300 1100 Balance 697 -560 Intake: Oral 1996 540 Output: Urine 1300 1100 Other: Voiding Method Diaper Diaper Diaper Incontinent Incontinent Incontinent External Catheter External Catheter External Catheter # Voids 0 # Bowel Movements 1 0 - Labs CBC & Chem 7: 04/19/24 07:45 04/24/24 09:21 Labs: Abnormal Lab Results - Last 24 Hours (Table) 04/23/24 04/23/24 04/24/24 Range/Units 17:10 20:03 07:03 BUN (9-20) mg/dL Creatinine (0.66-1.25) mg/dL Glucose (74-99) mg/dL POC Glucose (mg/dL) 184 H 156 H 144 H (70-110) mg/dL 04/24/24 04/24/24 Range/Units 09:21 12:10 BUN 23 H (9-20) mg/dL Creatinine 1.41 H (0.66-1.25) mg/dL Glucose 199 H (74-99) mg/dL POC Glucose (mg/dL) 119 H (70-110) mg/dL
[2024-04-24 14:01] VITALS: BP 106/70; PULSE 71; RESP 19; TEMP 97.8
--- NOTE | 2024-04-24 16:01 | P.DS ---
Providers Date of admission: 04/15/24 01:04 Expected date of discharge: 04/24/24 Attending physician: Diana Greene MD Consults: 04/15/24 01:03 Consult Physician Routine Consulting Provider: Jannet Rosen Consult Reason/Comments: SANDRA,HyperCa Do you want consulting provider notified?: Yes 04/15/24 05:19 Consult Physician Routine Consulting Provider: Amparo Warner Consult Reason/Comments: Hypercalcemia concern for MM? Do you want consulting provider notified?: Yes 04/15/24 05:20 Consult Physician Routine Consulting Provider: Pratik Alvarez Consult Reason/Comments: Trop Do you want consulting provider notified?: Yes 04/19/24 17:54 Consult Physician Routine Consulting Provider: Brayan Bocanegra Consult Reason/Comments: elevated PSA, hypercalcemia. Concern for prostate cancer Do you want consulting provider notified?: Yes Primary care physician: [facility] Course: 74-year-old male with a PMH of CVA, type II DM, hypertension, hyperlipidemia, and hypothyroidism who presents to the emergency room for altered mental status and weakness. The history is provided by the patient's ex- at the bedside. She reports that the patient's home furnace broke down on and that the patient's daughter asked if he could stay with her. He has subsequently been staying with her for the past 24 hours but she noticed that he has not eaten or drank anything and that he is very confused and unable to ambulate. At time of interview, the history was limited as the patient was confused. He had no active complaints however other than feeling weak. In the emergency room a CT brain was unremarkable with chest x-ray also unremarkable. A renal ultrasound revealed findings of chronic kidney disease with no acute abnormalities noted. EKG revealed sinus bradycardia with PVCs at 57 bpm with left axis deviation and a right bundle branch block with QTc 456 ms. Laboratory evaluation revealed a troponin of 0.160, calcium 17.2, glucose 71, BUN 51, creatinine 3.51 (previously 0.8 in 2013), potassium 3.2, CO2 32, hemoglobin 11.5, with TSH 0.2 with UA with greater than 182 RBCs with urine toxicology unremarkable and respiratory viral panel negative. Patient was admitted for hypercalcemia and elevated troponins. Cardiology consulted, Trop 0.16, 0.149, ACS ruled out. Echo showed EF 60% mod , trace AR/TR. Cardiology recommended outpatient stress test. Nephrology consulted, given pamidronate and calcitonin on 04/15 along with IV hydration. Chlorthalidone, Vit D, MVI, Ca acetate discontinued. Calcium levels and SANDRA improved. Oncology consulted for concerns for multiple myeloma. He underwent extensive workup. Significant findings included M spike on protein electrophoresis. Bone scan done yesterday showed focal areas of uptake mid left radius and ulnar, third right digit. Urology consulted for elevated PSA of 30.4. 04/24 Patient was seen and examined. No complaints. BMP BUN 23, Cr 1.41, glu 199. Discussed with SW, awaiting SNF auth. Discharge Plan: Stop Chlorthalidone, Vit D, MVI, Atenolol, Ca acetate and Vit C. Amlodipine increased from 5 to 10 mg PO QHS. Continue Mag-Ox 400 mg PO BID. Follow up with PCP within 1-2 days of discharge. Follow up with Dr. Trejo within 3 weeks of discharge to discuss results of bone scan and treatment of presumed MGUS. Follow up with Dr. Kelly within 2 weeks for possible stress test. Follow up with Dr. Bocanegra with regard to elevated PSA to rule out prostate CA. General: non toxic, no distress, appears at stated age Derm: warm, dry Head: atraumatic, normocephalic, symmetric Mouth: no lip lesion, mucus membranes moist Cardiovascular: S1S2 reg, no murmur Lungs: Clear to auscultation bilaterally, no rales , no accessory muscle use Ext: no gross muscle atrophy, no edema, no contractures Neuro: no focal neuro deficits Psych: Alert and oriented. Discharge Diagnosis: Acute metabolic encephalopathy secondary to severe hypercalcemia Severe hypercalcemia secondary to volume depletion, diuretic use, vitamin D supplements with concern for MGUS Elevated PSA, rule out prostate cancer SANDRA secondary to hypercalcemia induced ATN Normocytic anemia, iron deficiency anemia Elevated troponins likely in the settings of SANDRA Aortic stenosis, moderate Dyslipidemia PVD Resolved: HypoK, HypoMag, HypoPhos This complex discharge took 35 minutes to complete. Patient Condition at Discharge: Stable Plan - Discharge Summary New Discharge Prescriptions: New amLODIPine [Norvasc] 10 mg PO HS tab Magnesium Oxide [Mag-Ox] 400 mg PO BID tab Continue metFORMIN HCL [Glucophage] 1,000 mg PO BID Clopidogrel [Plavix] 75 mg PO DAILY tab Tamsulosin HCl [Flomax] 0.4 mg PO DAILY Atorvastatin [Lipitor] 20 mg PO DAILY allopurinoL [Zyloprim] 100 mg PO DAILY Aspirin EC [Ecotrin Low Dose] 81 mg PO DAILY Levothyroxine Sodium [Synthroid] 125 mcg PO DAILY Gabapentin [Neurontin] 400 mg PO BID Gabapentin [Neurontin] 100 mg PO BID SILVER sulfADIAZINE Cream [Silvadene 1% Cream] 1 applic TOPICAL DAILY PRN PRN Reason: DRESSING CHANGES Ferrous Sulfate [Iron (65 MG Elemental)] 325 mg PO DAILY Discontinued Chlorthalidone 25 mg PO DAILY #30 tab Cholecalciferol [Vitamin D3 (125 Mcg = 5000 Iu)] 125 mcg PO DAILY Multivitamins, Thera [Multivitamin (formulary)] 1 tab PO DAILY atenoloL [Tenormin] 25 mg PO DAILY Calcium Acetate 1,334 mg PO BID-W/MEALS Ascorbic Acid [Vitamin C] 250 mg PO DAILY amLODIPine [Norvasc] 5 mg PO HS Discharge Medication List metFORMIN HCL [Glucophage] 1,000 mg PO BID 06/26/16 [History] Aspirin EC [Ecotrin Low Dose] 81 mg PO DAILY 09/21/22 [History] Gabapentin [Neurontin] 100 mg PO BID 09/21/22 [History] Gabapentin [Neurontin] 400 mg PO BID 09/21/22 [History] Levothyroxine Sodium [Synthroid] 125 mcg PO DAILY 09/21/22 [History] allopurinoL [Zyloprim] 100 mg PO DAILY 09/21/22 [History] Clopidogrel [Plavix] 75 mg PO DAILY tab 09/27/22 [Rx] Atorvastatin [Lipitor] 20 mg PO DAILY 04/15/24 [History] Ferrous Sulfate [Iron (65 MG Elemental)] 325 mg PO DAILY 04/15/24 [History] SILVER sulfADIAZINE Cream [Silvadene 1% Cream] 1 applic TOPICAL DAILY PRN 04/15/24 [History] Tamsulosin HCl [Flomax] 0.4 mg PO DAILY 04/15/24 [History] Magnesium Oxide [Mag-Ox] 400 mg PO BID tab 04/22/24 [Rx] amLODIPine [Norvasc] 10 mg PO HS tab 04/22/24 [Rx] Follow up Appointment(s)/Referral(s): Amador Trejo [STAFF PHYSICIAN] - 3 Weeks Brayan Bocanegra MD [STAFF PHYSICIAN] - 1 Week Ivan Vincent DO [Primary Care Provider] - 1-2 days Zen Kelly MD [STAFF PHYSICIAN] - 2 Weeks Discharge/Stand Alone Forms: [place] [facility] Pamphlet, Who Do I Call?, Community Resources Discharge Disposition: TRANSFER TO SNF/ECF
== END 2024-04-24 16:56 | DRG 814 ==
LOC: EC 20:05 → 3SCARD 04-15 01:04 → 5NMEDONC 04-19 18:21
PROVIDERS: ADMIT Internal Medicine; ATTEND Internal Medicine
DX: D47.2 Monoclonal gammopathy (principal); G93.41 Metabolic encephalopathy; N17.0 Acute kidney failure with tubular necrosis; F05 Delirium due to known physiological condition; E83.39 Other disorders of phosphorus metabolism; E11.51 Type 2 diabetes mellitus with diabetic peripheral angiopathy without gangrene; D50.9 Iron deficiency anemia, unspecified; E11.649 Type 2 diabetes mellitus with hypoglycemia without coma; I69.392 Facial weakness following cerebral infarction; E03.9 Hypothyroidism, unspecified; I35.0 Nonrheumatic aortic (valve) stenosis; I70.0 Atherosclerosis of aorta; I11.9 Hypertensive heart disease without heart failure; T68.XXXA Hypothermia, initial encounter; E86.0 Dehydration; E83.52 Hypercalcemia; E87.6 Hypokalemia; E83.42 Hypomagnesemia; E78.5 Hyperlipidemia, unspecified; N28.1 Cyst of kidney, acquired; N32.3 Diverticulum of bladder; I45.10 Unspecified right bundle-branch block; I49.3 Ventricular premature depolarization; T50.2X5A Adverse effect of carbonic-anhydrase inhibitors, benzothiadiazides and other diuretics, initial encounter; T45.2X5A Adverse effect of vitamins, initial encounter; R33.9 Retention of urine, unspecified; R80.8 Other proteinuria; R79.89 Other specified abnormal findings of blood chemistry; R97.20 Elevated prostate specific antigen [PSA]; X31.XXXA Exposure to excessive natural cold, initial encounter; Z79.02 Long term (current) use of antithrombotics/antiplatelets; Z79.84 Long term (current) use of oral hypoglycemic drugs; Z79.82 Long term (current) use of aspirin; Z79.890 Hormone replacement therapy; Z79.899 Other long term (current) drug therapy; Z87.891 Personal history of nicotine dependence
CPT/HCPCS: 36415; 51702; 70450; 71045; 76770; 78306; 80048; 80053; 80306; 81001; 82040; 82140; 82306; 82550; 82607; 82652; 82728; 82747; 83540; 83550; 83735; 83883; 83970; 84100; 84132; 84165; 84166; 84439; 84443; 84484; 84550; 85025; 85610; 85730; 86334; 86335; 87636; 93005; 93306; 96361; 96365; 96372; 96375; 99291

== ENCOUNTER → 2024-06-04 | Outpatient (CLI) | payer MEDICARE, OTHER ==
--- NOTE | 2024-06-04 08:44 | MR ---
EXAMINATION TYPE: MR Prostate wo/w con DATE OF EXAM: 06/04/2024 COMPARISON: Prior whole body bone scan or 2024. INDICATION: Elevated PSA PSA: 30.4 ng/ml in April 2024 Recent Biopsy and Date: None Pathology Report (If Applicable): TECHNIQUE: Examination was performed using a 3T MRI without an endorectal coil. Multiparametric imaging was perf ormed with T2 mutliplanar sequences, axial diffusion weighted imaging and dynamic contrast enhanced i maging, utilizing 6.5 mL intravenous Gadobutrol gadolinium contrast. FINDINGS: There is no clinically significant cancer identified. PROSTATE VOLUME: 6.0 cm SI x 4.4 cm AP x 5.0 cm LR Vol= 69.1 cc PSA DENSITY: 0.44 ng/ml/cc Site 1: There is a 2.3 cm noncircumscribed moderately hypointense lesion on T2-weighted images in the anterio r apex with both right and left-sided involvement showing marked hypointensity on ADC imaging and het erogeneous increased signal on diffusion-weighted imaging with focal postcontrast enhancement. Slight ly more suspicious marked diminished signal on ADC imaging and slightly more prominent increased sign al on diffusion weighted imaging along the left lateral aspect Assessment Category:5 There is mild to moderately distended bladder with mild wall thickening and moderate trabeculation. T here is tiny right posterior diverticulum axial image 30. Sigmoid colonic diverticulosis is present. No destructive osseous lesions are seen. IMPRESSION: Enlarged prostate consistent with BPH. Suspicious lesion in the anterior apex with both right and left side involvement noted. Advised imagi ng guided targeted biopsy for further evaluation. Highest Assessment Category: 5 MRI Stage: T0 N0 M0 based on review of pelvic images. False negative rates for MRI range from 5-20% depending on risk profile. Assessment Categories: 1 ? Very low (clinically significant cancer is highly unlikely to be present) 2 ? Low (clinically significant cancer is unlikely to be present) 3 ? Intermediate (the presence of clinically significant cancer is equivocal) 4 ? High (clinically significant cancer is likely to be present) 5 ? Very high (clinically significant cancer is highly likely to be present) [facility], , 06/04/2024 8:42 AM
== END | disposition home or self-care (01) ==
LOC: RADMRIMAIN 07:31
PROVIDERS: ATTEND Urology
DX: N40.0 Benign prostatic hyperplasia without lower urinary tract symptoms (principal); R97.20 Elevated prostate specific antigen [PSA]
CPT/HCPCS: 72197; A9585

== ENCOUNTER → 2024-06-26 | Outpatient (CLI) | payer MEDICARE, OTHER ==
[2024-06-26 18:15] LABS: Basophils # (A) 0.08 X 10*3/uL (0.00-0.10); Basophils % (A) 0.8 %; Eosinophils % (A) 9.3 %; HCT 37.8 % (39.6-50.0); HGB 12.5 g/dL (13.0-17.0); Lymphocytes # (A) 2.05 X 10*3/uL (0.90-5.00); Lymphocytes % (A) 21.3 %; MCH 30.6 pg (27.0-32.0); MCHC 33.1 g/dL (32.0-37.0); MCV 92.6 FL (80.0-97.0); Mean Platelet Volume 11.7 FL (9.5-12.2); Monocytes # (A) 1.12 X 10*3/uL (0.20-1.00); Monocytes % (A) 11.6 %; NRBC Per 100 WBC 0 X 10*3/uL (0.00-0.01); Neutrophils # (A) 5.44 X 10*3/uL (1.80-7.70); Neutrophils % (A) 56.6 %; Platelet Count 185 X 10*3/uL (140-440); RBC 4.08 X 10*6/uL (4.40-5.60); RDW 12.9 % (11.5-14.5); WBC 9.63 X 10*3/uL (4.50-10.00)
[2024-06-26 18:56] LABS: Blood Urea Nitrogen 20.6 mg/dL (9.0-27.0); Calcium 10.2 mg/dL (8.7-10.3); Chloride 106 mmol/L (96-109); Glucose 89 mg/dL (70-110); Sodium 143 mmol/L (135-145)
== END | disposition home or self-care (01) ==
LOC: LABWHC1 13:42
PROVIDERS: ATTEND Urology
DX: Z01.812 Encounter for preprocedural laboratory examination (principal); R97.20 Elevated prostate specific antigen [PSA]
CPT/HCPCS: 36415; 80048; 85025

== ENCOUNTER → 2024-07-25 | Outpatient (CLI) | payer MEDICARE, OTHER ==
--- NOTE | 2024-07-25 17:02 | PE ---
EXAMINATION TYPE: PET CT fusion skull to thigh DATE OF EXAM: 07/25/2024 COMPARISON: NONE HISTORY: Prostate cancer TECHNIQUE: Following the intravenous administration of 5.63 mCi of Ga-68 Illuccix, whole body images are performed from the top of skull to the midthigh. Images are reviewed on the computer in the cor onal, axial, and sagittal planes. Reconstructed rotating images are created on independent workstati on and reviewed on the computer. A localization and attenuation correction CT is performed in conju nction with the PET scan. SCAN: Initial Scan FINDINGS: HEAD AND NECK: No areas of abnormal radiotracer uptake. CHEST, MEDIASTINUM, AND HILAR REGION: No areas of abnormal radiotracer uptake ABDOMEN AND PELVIS: Enlarged prostate consistent with BPH is present bulging on the bladder base. Foc al prominent radiotracer uptake in the prostate apex. A Large area of right and left involvement is s een. There is small focus posterior left apex. The max SUV is 19.01 in the apex just left of midline anteriorly. No adjacent lymph nodes with abnormal radiotracer uptake. No areas of suspicious radiotra cer uptake. OSSEOUS STRUCTURES: No areas of radiotracer uptake. OTHER CT: Enlarged main pulmonary artery raises concern for underlying pulmonary artery hypertension. Calcified mitral and aortic valves are present. No cardiomegaly. Trace pericardial effusion. Bilater al gynecomastia is seen. Tiny dependent gallstones in gallbladder. Diverticula throughout the colon a re seen. Degenerative change lower lumbar spine. IMPRESSION: Local neoplasm in the prostate gland is identified. No convincing evidence for metastatic disease. [facility], , 07/25/2024 5:00 PM
== END | disposition home or self-care (01) ==
LOC: RADPETMAIN 11:51
PROVIDERS: ATTEND Urology
DX: C61 Malignant neoplasm of prostate (principal)
CPT/HCPCS: 78815; A9596